=== PATIENT | male | born 1970 | race Caucasian/White ===

== ENCOUNTER 2018-08-26 11:23 | Emergency (ER) | payer BC ==
[~2018-08-26] VITALS: Ht 167.6 cm; Wt 111.1 kg
[~2018-08-26 11:23] MED LIST: ACHD5005 PO; ALBU0.632 IH; ALBU17AE3 IH; DOXY100C2 PO; PRD50T PO
--- OUTSIDE RECORDS SUMMARY | 2018-08-26 12:19 | XMS REPORT | Clinical Summary ---
Author Author [facility] Organization [facility] Address Unknown Phone Unavailable Care Team Providers Care Sports Physical Therapist Name Role Phone Self, Referral PCP Unavailable Nola Mota APRN Unavailable Keely Molina RN Unavailable Unavailable Denisse Strong RN Unavailable Unavailable Source Comments Some departments are not documenting in the electronic medical record. If you do not see the information that you expected, contact Release of Information in the Health Information Management department at [phone] for further assistance in locating additional records.[facility] Allergies No Known Allergies Current Medications Prescription Sig. Disp. Refills Start End Date Status Date MUCINEX PO Take by mouth. Active ALEVE PO Take by mouth. Active ipratropium/albuterol Inhale 2 Puffs by mouth 1 inhaler 0 08/23/20 Active (COMBIVENT) 103/18 Four Times Daily. 08 mcg/Actuation inhalerIndications: COPD albuterol (PROVENTIL; Inhale 2 Puffs by mouth 17 g 0 08/23/20 Active VENTOLIN) 90 Every 6 Hours as needed 08 mcg/Actuation for Wheezing. inhalerIndications: COPD ipratropium/albuterol Inhale 2 Puffs by mouth 1 inhaler 0 08/23/20 Active (COMBIVENT) 103/18 Four Times Daily. 08 mcg/Actuation inhalerIndications: COPD albuterol (PROVENTIL; Inhale 2 Puffs by mouth 17 g 0 08/23/20 Active VENTOLIN) 90 Every 6 Hours as needed 08 mcg/Actuation for Wheezing. inhalerIndications: COPD oxycodone/acetaminophen Take 1 Tab by mouth Every 15 0 10/17/19 Active (PERCOCET) 5/325 mg 4 Hours as needed for 09 tablet Pain. erythromycin (ERYTHROCIN) Take 1 Tab by mouth Twice 14 0 11/17/19 Active 500 mg tablet Daily. 09 albuterol (VENTOLIN HFA, Inhale 2 Puffs by mouth 8.5 g 0 11/17/19 Active PROAIR HFA) 90 Every 6 Hours as needed 09 mcg/Actuation inhaler for Wheezing. Active Problems Not on file Social History Tobacco Use Types Packs/Day Years Used Date Former Smoker Quit: 11/19/2007 Alcohol Use Drinks/Week oz/Week Comments No Sex Assigned at Date Recorded Not on file Last Filed Vital Signs Vital Sign Reading Time Taken Blood Pressure 130/76 11/17/2008 11:34 AM COMMERCIAL SALES REPRESENTATIVE Pulse 89 11/17/2008 1:02 PM COMMERCIAL SALES REPRESENTATIVE Temperature 37 C (98.6 F) 11/17/2008 11:34 AM COMMERCIAL SALES REPRESENTATIVE Respiratory Rate - - Oxygen Saturation 96% 11/17/2008 1:02 PM COMMERCIAL SALES REPRESENTATIVE Inhaled Oxygen - - Concentration Weight - - Height - - Body Mass Index - - Plan of Treatment Health Maintenance Due Date Last Done Comments PHYSICAL (COMPREHENSIVE) 1975 EXAM PERTUSSIS VACCINE 1979 HIV SCREENING 1983 TETANUS VACCINE 1985 INFLUENZA VACCINE 05/14/2018 COLORECTAL CANCER 2018 SCREENING SHINGLES RECOMBINANT 2018 VACCINE (1 of 2) Results Not on filefrom Last 3 Months
--- OUTSIDE RECORDS SUMMARY | 2018-08-26 12:19 | XMS REPORT ---
Author Author SHLOMO GLASS [facility] Address Unknown Phone Unavailable Care Team Providers Care Tool And Die Engineer Name Role Phone KODYRUPERTOSHLOMO Unavailable Unavailable PROBLEMS Type Condition ICD9-CM Code OHE33-DL Code Onset Dates Condition Status SNOMED Code Problem Chronic obstructive pulmonary disease, unspecified J44.9 Active 55763221 Problem Non-cardiac chest pain R07.89 Active 682827828 Problem Chronic obstructive pulmonary disease with (acute) exacerbation J44.1 Active 329426158 Problem Obesity, morbid E66.01 Active 325917327 Problem Poor diet E63.9 Active 168540681 Problem Enlarged prostate N40.0 Active 063008530 Problem Bloody stools K92.1 Active 514047108412765 Problem Pain in left lower leg M79.662 Active 27620957 Problem Acute deep vein thrombosis (DVT) of tibial vein of left lower extremity I82.442 Active 830630983024018 Problem Cervicalgia M54.2 Active 27001942 Problem Metabolic syndrome E88.81 Active 914590528 Problem Pneumonia of left lung due to infectious organism, unspecified part of lung J18.9 Active 189122492 Problem Irritability R45.4 Active 98709755 Problem High risk medication use Z79.899 Active 991851470 Problem Anhedonia R45.84 Active 28949230 Problem Pure hypercholesterolemia E78.0 Active 290756083 Problem Cervical radicular pain M54.12 Active 36525680 Problem Polyneuropathic pain M79.2 Active 574899769 Problem Cervical stenosis of spinal canal M48.02 Active 54249712 ALLERGIES No Information ENCOUNTERS Encounter Location Date Diagnosis Decision [address] [id number] [id number] Dec[facility] [id number] [id number] Dec, High risk medication use Z79.899 ; Anhedonia R45.84 and Obesity, morbid E66.01 [facility] [address] [id number][place] [address] Sep, High risk medication use Z79.899 ; Irritability R45.4 ; Pain in left lower leg M79.662 and Poor diet E63.9 [facility] [address] [id number][place] [address] Aug, [facility] [address] [id number][place] [address] Jul, [facility] [address] [id number][place] [address] Jul, Polyneuropathic pain M79.2 [facility] [address] [id number][place] [address] Jul, [facility] [address] [place] [address] AVE [id number][place] [address] Jul, Enlarged prostate N40.0 ; Pure hypercholesterolemia E78.0 and Encounter for immunization Z23 [facility] [address] [id number], [place] [address] May, Acute deep vein thrombosis (DVT) of tibial vein of left lower extremity I82.442 and Pure hypercholesterolemia E78.0 [facility] [id number][place] [address] Apr, [facility] [place] [address] [facility] [id number] [address] Mar, Enlarged prostate N40.0 and Bloody stools K92.1 [facility] [address] [id number][place] [address] February, Bloody stools K92.1 and Enlarged prostate N40.0 [facility] [address] [id number][place] [address] Nov, Polyneuropathic pain M79.2 and Non-cardiac chest pain R07.89 [facility] [address] [id number], [place] [address] Jul, Metabolic syndrome E88.81 [facility] [address] [id number], [place] [id number] May, [facility] [address] [id number][place] [address] May, [facility] [address] [id number][place] [address] May, [facility] [address] [id number], [place] [address] May, Chronic obstructive pulmonary disease, unspecified J44.9 and Chronic obstructive pulmonary disease with (acute) exacerbation J44.1 [place] [id number], [place] [address] Apr, [facility] [address] [id number], [place] [address] Mar, [facility] [address] [id number][place] [address] Mar, Cervical stenosis of spinal canal M48.02 [facility] [address] [id number], [place] [address] February, [facility] [address] [id number], [place] [address] February, [facility] [address] [id number][place] [address] February, High risk medication use Z79.899 ; Anhedonia R45.84 and Cervical radicular pain M54.12 [facility] [address] [id number], [place] [address] Jan, [facility] [address] [facility] [id number], [place] [address] Jan, [facility] [address] [id number], [place] [address] Jan, Metabolic syndrome E88.81 ; Pure hypercholesterolemia E78.0 ; Polyneuropathic pain M79.2 and Irritability R45.4 [facility] [address] [id number][place] [address] Dec, Polyneuropathic pain M79.2 [facility] [address]00565100[place], [place] [address] Dec, [address] [id number], [place] [address] Dec, Pneumonia of left lung due to infectious organism, unspecified part of lung J18.9 ; Cervicalgia M54.2 and Irritability R45.4 [facility] [address]00565100[place], [place] [address] Nov, [facility] [address]00565100[place], [place] [address] Nov, [facility] [address]00565100[place], [place] [address] Oct, [facility] [address] [id number], [place] [address] Aug, [facility] [address] [id number], [place] [address] Jul, Diverticulosis of large intestine without hemorrhage K57.30 and Abdominal pain, left lower quadrant R10.[address] [id number], [place] [address] Jul, [facility] [address] [id number], [place] [address] Jul, Blood in stool K92.1 ; Left lower quadrant pain R10.32 and Hematuria R31.[address] [id number], [place] [address] Jul, Left upper quadrant pain R10.12 and Hematuria R31.[address] [id number], [place] [address] Jun, Dysmetabolic Syndrome X 277.7 ; Unspecified essential hypertension 401.9 and Other and unspecified hyperlipidemia 272.[address] [id number][place] [address] Jun, Dysmetabolic Syndrome X 277.7 ; Obesity, unspecified 278.00 ; Other and unspecified hyperlipidemia 272.4 and Anhedonia 780.99 [facility] [address]00565100[place], [place] [address] May, [facility] [address]00565100[place], [place] [address] May, [facility] [address]00565100[place], [place] [address] Apr, Dysthymic disorder 300.4 [facility] [address]00565100[place], [place] [address] Apr, [facility] [address]00565100[place], [place] [address] Apr, Dysthymic disorder 300.4 [facility] [address] [id number], [place] [address] Apr, [address] [id number][place] [address] Mar, COPD with exacerbation 491.21 [facility] [address] [id number], [place] [address] Mar, Dysthymic disorder 300.4 [facility] [address] [id number], [place] [address] February, Dysthymic disorder 300.4 ; No condition on Friant II V71.09 ; COPD (chronic obstructive pulmonary disease) 496 ; Glaucoma 365.9 ; Arthritis 716.90 and Diabetes 250.00 [facility] [address] [id number][place] [address] February, [facility] [address] [id number], [place] [address] February, [facility] [address] [id number], [place] [address] Jan, [facility] [place] [facility] [address] [id number] [place] [address] Jan, [facility] [place] [facility] [address] [id number] [place] [address] Jan, [facility] [place] [facility] [address] [facility] [id number] [place] [address] Dec, [facility] [place] [facility] [address] [id number], [place] [address] Dec, [facility] [place] [facility] [address] [id number] [place] [address] Nov, [facility] [place] [facility] [address] [id number] [place] [address] Nov, [facility] [place] [facility] [address] [id number] [place] [address] Nov, [facility] [place] [facility] [address] [id number] [place] [address] Nov, [facility] [place] [facility] [address] [id number], [place] [address] Nov, [facility] [place] [facility] [address] [id number], [place] [address] Nov, [facility] [address] [id number] [address] Oct, [facility] [place] [facility] [address] [id number], [place] [address] Oct, [facility] [place] [facility] [address] [id number], [place] [address] Oct, [facility] [place] [facility] [address] [facility] [id number], [place] [address]- [address]60 Oct, [facility] [place] [facility] [address] [facility] [id number], [place] [address]- [address] Aug, [facility] [place] [facility] [address] [id number] [place] [address]- [address]28 Aug, [facility] [place] [facility] [address] [id number] [place] [address]- [address]93 Aug, [facility] [place] [facility] [address] [id number] [place] [address]- [address]53 Aug, [facility] [place] [facility] [address] [id number] [place] [address]- [address] Jul, [facility] [place] [facility] [address] [id number] [place] [address]- [address]646 Jul, [facility] [place] [facility] [address] [id number] [place] [address]- [address] Jul, [facility] [place] [facility] [address] [id number] [place] [address] Jul, [facility] [place] [facility] [address] [id number] [place] [address]- [address] Jul, [facility] [place] [facility] [address] [id number] [place] [address]- 6[address] Jul, [facility] [place] [facility] [address] [id number] [place] [address]- [address] Jul, [facility] [place] [facility] [address] [id number] [place] [address]- [address] Jul, [facility] [place] [facility] [address] [id number] [place] [address]- 45[address] Jun, [facility] [place] [facility] [address] [id number] [place] [address]- 7267 Jun, [facility] [place] [facility] [address] [id number] [place] [address]- [address] May, [facility] [place] [facility] [address] [id number] [place] [address]- [address] May, [facility] [place] [facility] [address] [id number] [place] [address] Apr, [facility] [place] [facility] [address] [id number] [place] [address]- 4866 Apr, [facility] [place] [facility] [address] [id number] [place] [address]- 4299 Apr, [facility] [place] [facility] [address] [id number] [place] [address]- 6113 Apr, [facility] [place] [facility] [address] [id number] [place] [address]- 8113 Apr, [facility] [place] [facility] [address] [id number] [place] [address]- [address]21 Apr, [facility] [place] [facility] [address] [id number] [place] [address]- 37[address] Apr, [facility] [place] [facility] [address] [id number] [place] [address]- 75[address] Apr, [facility] [place] [facility] [address] [id number] [place] [address]- 75[address] Mar, [facility] [place] [facility] [address] [id number] [place] [address]- 7860 Mar, [facility] [place] [facility] [address] [id number] [place] [address]- 8280 Mar, [facility] [place] [facility] [address] [id number] [place] [address]- 1691 Mar, [facility] [place] [facility] [address] [id number] [place] [address]- 58[address] February, [facility] [place] [facility] [address] [id number] [place] [address]- [address]39 February, [facility] [place] [facility] [address] [id number] [place] [address]- 2181 February, [facility] [place] [facility] [address] [id number] [place] [address]- 2175 February, [facility] [place] [facility] [address] [id number] [place] [address]- 6723 February, [facility] [address] [id number] [place] [address]- 6567 February, [facility] [address] [id number] [place] [address] February, [facility] [address] [id number] [place] [address]- 6070 February, [facility] [address] [id number] [place] [address]- 2527 Dec, [facility] [address] [id number] [place] [address]- 6[address] Dec, [facility] [address] [id number] [place] [address]- 5770 Dec, [facility] [address] [id number] [place] [address]- 5922 Dec, [facility] [address] [id number] [place] [address]- 7836 Dec, [facility] [address] [id number] [place] [address]- 6649 Dec, [facility] [address] [id number] [place] [address]- 8063 Dec, [facility] [address] [id number], [place] [address]- [address]14 Dec, [facility] [address] [id number] [place] [address]- 5586 Dec, [facility] [address] [id number], [place] [address] Nov, [facility] [address] [id number] [address] Nov, [facility] [address] [facility] [id number] [place] [address]- 2563 Nov, [facility] [place] [facility] [address] [id number] [place] [address]- 2546 Jun, [facility] [place] [facility] [address] [id number] [place] [address]- 2546 May, [facility] [place] [address] [id number] [place] [address] Apr, [facility] [address] [facility] [id number], [place] [address] February, [facility] [address] [id number] [place] [address]- [address]46 February, [facility] [place] [address] [id number] [place] [id number] Dec, [facility] [place] [address] [id number] [place] [address] Apr, [facility] [place] [address] [id number] [place] [address] Apr, [facility] [place] [address] [id number] [place] [address] Apr, [facility] [place] [address] [id number] [place] [address] Apr, [facility] [place] [address] [id number] [place] [address] Apr, [facility] [address] [facility] [id number], [place] [address] 3916 Nov, [facility] [address] [facility] [id number], [place] [address]- [address]387 Sep, [facility] [place] [facility] [address] [facility] [id number], [place] [address]- 2453 Sep, [facility] [place] [facility] [address] [facility] [id number] [place] [address]- 6252 Sep, [facility] [place] [facility] [address] [facility] [id number], [place] [address]- 2546 Sep, [facility] [address] [facility] [id number], [place] [address]- 4660 Sep, [facility] [address] [facility] [id number], [place] [address]- [address] Dec, [facility] [address] [id number], [place] [address] Sep, [facility] [address] [facility] [id number], [place] [address]- 6946 Sep, [facility] [address] [id number], [place] [address] May, [facility] [address] [facility] [id number], [place] [address] February, IMMUNIZATIONS No Known Immunizations SOCIAL HISTORY Never Assessed REASON FOR VISIT [facility] Contact PLAN OF CARE Activity Details Follow Up Likely to use services in near future Reason:affective lability VITAL SIGNS MEDICATIONS Unknown Medications RESULTS No Results PROCEDURES No Known procedures INSTRUCTIONS MEDICATIONS ADMINISTERED No Known Medications MEDICAL (GENERAL) HISTORY Type Description Date Medical History Unspecified vitamin D deficiency Medical History Dysmetabolic Syndrome X Medical History Unspecified hereditary and idiopathic peripheral neuropathy Medical History Unspecified essential hypertension Medical History Obesity, unspecified Medical History Other chronic pain Medical History Edema Medical History Other and unspecified hyperlipidemia Medical History Diabetes Medical History COPD, CHAZ, Asthma Medical History Diverticulitis Medical History 03/2016 EMG reveals mild CTS Medical History Right and Left CTS, 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
--- OUTSIDE RECORDS SUMMARY | 2018-08-26 12:19 | XMS REPORT ---
Author Author MAURICE CUMMINS [facility] Address [address] [place] [address] Care Team Providers Care Air Quality Technician Name Role Phone MAURICE CUMMINS Unavailable PROBLEMS Type Condition ICD9-CM Code KJS61-ON Code Onset Dates Condition Status SNOMED Code Problem Chronic obstructive pulmonary disease, unspecified J44.9 Active 71203771 Problem Non-cardiac chest pain R07.89 Active 364881622 Problem Chronic obstructive pulmonary disease with (acute) exacerbation J44.1 Active 254439714 Problem Obesity, morbid E66.01 Active 265079051 Problem Poor diet E63.9 Active 895591829 Problem Enlarged prostate N40.0 Active 573372082 Problem Bloody stools K92.1 Active 211055159123569 Problem Pain in left lower leg M79.662 Active 65630280 Problem Acute deep vein thrombosis (DVT) of tibial vein of left lower extremity I82.442 Active 794811072350130 Problem Cervicalgia M54.2 Active 09071211 Problem Metabolic syndrome E88.81 Active 243390632 Problem Pneumonia of left lung due to infectious organism, unspecified part of lung J18.9 Active 488260290 Problem Irritability R45.4 Active 69408662 Problem High risk medication use Z79.899 Active 918663816 Problem Anhedonia R45.84 Active 16399399 Problem Pure hypercholesterolemia E78.0 Active 013691426 Problem Cervical radicular pain M54.12 Active 24304454 Problem Polyneuropathic pain M79.2 Active 099547510 Problem Cervical stenosis of spinal canal M48.02 Active 18802817 ALLERGIES No Information ENCOUNTERS Encounter Location Date Diagnosis [facility] [address] [id number] [place] [id number] Apr, [facility] [employer] [facility] [facility] [address] [id number] [id number] Dec, [facility] [address] [id number] [address] Dec, High risk medication use Z79.899 ; Anhedonia R45.84 and Obesity, morbid E66.[address] [facility] [address] [id number] [address] Sep, High risk medication use Z79.899 ; Irritability R45.4 ; Pain in left lower leg M79.662 and Poor diet E63.[address] [facility] [address] [id number][place] [address] Aug, [facility] [address] [id number], [place] [id number] Jul, [facility] [address] [id number][place] [address] Jul, Polyneuropathic pain M79.[address] [facility] [address] [id number], [place] [address] Jul, [facility] [address] [id number], [place] [address] Jul, Enlarged prostate N40.0 ; Pure hypercholesterolemia E78.0 and Encounter for immunization Z23 [facility] [address] [id number], [place] [id number] May, Acute deep vein thrombosis (DVT) of tibial vein of left lower extremity I82.442 and Pure hypercholesterolemia E78.[address] [facility] [address] [id number][place] [address] Apr, [facility] [address] [id number] [address] Mar, Enlarged prostate N40.0 and Bloody stools K92.[address] [facility] [address] [id number][place] [address] February, Bloody stools K92.1 and Enlarged prostate N40.[address] [facility] [address] [id number], [place] [address] Nov, Polyneuropathic pain M79.2 and Non-cardiac chest pain R07.[address] [facility] [address] [id number][place] [address] Jul, Metabolic syndrome E88.[address] [facility] [address] [address] [id number][place] [id number] May, [facility] [id number][place] [address] May, [facility] [id number], [place] [address] May, [facility] [address] [id number][place] [address] May, Chronic obstructive pulmonary disease, unspecified J44.9 and Chronic obstructive pulmonary disease with (acute) exacerbation J44.1 [place] [address]00565100[place] [address] Apr, [facility] [address] [id number], [place] [id number] Mar, [facility] [address] [id number][place] [address] Mar, Cervical stenosis of spinal canal M48.02 [facility] [address] [id number] [address] February, [facility] [address] [id number], [place] [address] February, [facility] [address] [id number], [place] [address] February, High risk medication use Z79.899 ; Anhedonia R45.84 and Cervical radicular pain M54.[address] [facility] [address] [id number], [place] [address] Jan, [facility] [address]00565100[place] [address] Jan, [facility] [address] [id number], [place] [address] Jan, Metabolic syndrome E88.81 ; Pure hypercholesterolemia E78.0 ; Polyneuropathic pain M79.2 and Irritability R45.4 [facility] [address] [id number], [place] [address] Dec, Polyneuropathic pain M79.2 [facility] [address]00565100[place] [address] Dec, [address] [id number][place] [address] Dec, Pneumonia of left lung due to infectious organism, unspecified part of lung J18.9 ; Cervicalgia M54.[address] [facility] [address]00565100[place] [address] Nov, [facility] [id number] [place] [address] Nov, [facility] [id number] [place] [address] Oct, [facility] [address] [id number], [place] [address] Aug, [facility] [address] [id number][place] [id number] Jul, Diverticulosis of large intestine without hemorrhage K57.30 and Abdominal pain, left lower quadrant R10.[address] [facility] K[facility] [address] [place] [address] AVE [id number], [place] [address] Jul, [facility] [address] [place] [address] AVE [id number], [place] [address] Jul, Blood in stool K92.1 ; Left lower quadrant pain R10.32 and Hematuria R31.9 [facility] [address] [place] [address] AVE [id number], [place] [address] Jul, Left upper quadrant pain R10.12 and Hematuria R31.9 [facility] [address] [id number], [place] [address] Jun, Dysmetabolic Syndrome X 277.7 ; Unspecified essential hypertension 401.9 and Other and unspecified hyperlipidemia 272.4 [facility] [address] [id number][place] [address] Jun, Dysmetabolic Syndrome X 277.7 ; Obesity, unspecified 278.00 ; Other and unspecified hyperlipidemia 272.[address] [facility] [address]00565100[place] [address] May, [facility] [id number] [place] [address] May, [facility] [address] [id number] [address] Apr, Dysthymic disorder 300.4 [place] [address]00565100[place], [place] [address] Apr, [facility] [address]00565100[place] [address] Apr, Dysthymic disorder 300.4 [place] [address]00565100[place], [place] [address] Apr, [address] [id number][place] [address] Mar, COPD with exacerbation 491.21 [facility] [address] [id number] [address]- [address] Mar, Dysthymic disorder 300.4 [place] [address] [id number] [address]- [address] February, Dysthymic disorder 300.4 ; No condition on Muse II V71.09 ; COPD (chronic obstructive pulmonary disease) 496 ; Glaucoma 365.9 ; Arthritis 716.90 and Diabetes 250.[address] [id number], [place] [address] February, [facility] [address] [id number], [place] [address] February, [facility] [address] [id number], [place] [address] Jan, [facility] [place] [facility] [address] [facility] [id number] [address] Jan, [facility] [place] [facility] [address] [facility] [id number][place] [address] Jan, [facility] [place] [facility] [address] [facility] [id number] [address] Dec, [facility] [place] [facility] [address] [facility] [id number] [address]- [address] Dec, [facility] [place] [facility] [address] [id number] [address] Nov, [facility] [place] [facility] [address] [id number] [address] Nov, [facility] [place] [facility] [address] [id number] [address]- [address] Nov, [facility] [place] [facility] [address] [id number] [address]- 1704 Nov, [facility] [place] [facility] [address] [id number] [address]- 7[address] Nov, [facility] [place] [facility] [address] [facility] [id number] [address] Nov, [facility] [address] [facility] [id number], [place] 15880[address] Oct, [facility] [place] [facility] [address] [facility] [id number][place] [address]- [address]226 Oct, [facility] [place] [facility] [address] [facility] [id number] [address]- 1713 Oct, [facility] [place] [facility] [address] [id number] [address]- [address] Oct, [facility] [place] [facility] [address] [id number] [place] [address]- [address]693 Aug, [facility] [place] [facility] [address] [id number] [place] [address]- 6834 Aug, [facility] [place] [facility] [address] [id number] [place] [address]- 9971 Aug, [facility] [place] [facility] [address] [id number] [place] [address]- 6028 Aug, [facility] [place] [facility] [address] [id number] [place] [address]- 3854 Jul, [facility] [place] [facility] [address] [id number] [place] [address] 1969 Jul, [facility] [place] [facility] [address] [id number] [place] [address]- 2706 Jul, [facility] [place] [facility] [address] [id number] [place] [address]- 9593 Jul, [facility] [place] [facility] [address] [id number] [place] [address]- 1896 Jul, [facility] [place] [facility] [address] [id number] [place] [address]- 1070 Jul, [facility] [place] [facility] [address] [id number] [place] [address]- 1710 Jul, [facility] [place] [facility] [address] [id number], [place] [address]- 8088 Jul, [facility] [place] [facility] [address] [id number] [place] [address]- 3096 Jun, [facility] [place] [facility] [address] [id number] [place] [address]- 6896 Jun, [facility] [place] [facility] [address] [id number] [place] [address]- 5584 May, [facility] [place] [facility] [address] [id number] [place] [address]- 1405 May, [facility] [place] [facility] [address] [id number] [place] [address]- 4056 Apr, [facility] [place] [facility] [address] [id number] [place] [address]- 2018 Apr, [facility] [place] [facility] [address] [id number] [place] [address]- 4657 Apr, [facility] [place] [facility] [address] [id number] [place] [address]- 2996 Apr, [facility] [place] [facility] [address] [id number] [place] [address]- 9095 Apr, [facility] [place] [facility] [address] [id number] [place] [address]- 7494 Apr, [facility] [place] [facility] [address] [id number] [place] [address]- 4553 Apr, [facility] [place] [facility] [address] [id number] [place] [address]- 6362 Apr, [facility] [place] [facility] [address] [id number] [place] [address]- 9104 Mar, [facility] [place] [facility] [address] [id number] [place] [address]- 9212 Mar, [facility] [place] [facility] [address] [id number] [place] [address]- 7445 Mar, [facility] [place] [facility] [address] [id number] [place] [address]- 4561 Mar, [facility] [place] [facility] [address] [id number] [place] [address]- 9773 February, [facility] [place] [facility] [address] [id number] [place] [address]- 6031 February, [facility] [place] [facility] [address] [id number] [place] [address]- 5042 February, [facility] [address] [id number] [place] [address]- 4315 February, [facility] [address] [id number] [place] [address]- 5536 February, [facility] [address] [facility] [id number] [place] [address]- 9659 February, [facility] [address] [id number] [place] [address]- 3001 February, [facility] [address] [id number] [place] [address]- 8515 February, [facility] [address] [id number] [place] [address]- 6618 Dec, [facility] [address] [id number] [place] [address]- 2038 Dec, [facility] [address] [id number] [place] [address]- 4658 Dec, [facility] [address] [id number] [place] [address]- 1024 Dec, [facility] [address] [id number] [place] [address]- 9211 Dec, [facility] [address] [id number] [address]- 9940 Dec, [facility] [place] [facility] [address] [id number] [place] [address]- 2293 Dec, [facility] [address] [id number] [place] [address]- 4294 Dec, [facility] [place] [facility] [address] [facility] [id number] [place] [address]- 0105 Dec, [facility] [address] [facility] [id number] [place] [address]- 9626 Nov, [facility] [address] [id number] [place] [id number] Nov, [facility] [place] [facility] [address] [facility] [id number] [place] [address]- 2224 Nov, [facility] [place] [facility] [address] [facility] [id number] [address]- 3577 Jun, [facility] [address] [facility] [id number], [place] [address]- 4949 May, [facility] [address] [id number] [place] [id number] Apr, [facility] [address] [facility] [id number] [place] [address]- 9386 February, [facility] [address] [id number] [address]- 7343 February, [facility] [address] [id number] [place] [id number] Dec, [facility] [address] [id number] [place] [address] Apr, [facility] [address] [id number] [place] Apr, [facility] [address] [id number] [place] [address] Apr, [facility] [address] [id number] [place] [address]33[address]67[address] Apr, [facility] [address] [facility] [id number] [place] 110[address] Apr, [facility] [address] [facility] [id number], [place] [address]- 4986 Nov, [facility] [place] [facility] [address] [facility] [id number], [place] [address]- 9497 Sep, [facility] [place] [facility] [address] [id number] [address]- 3532 Sep, [facility] [address] [id number] [address]- 8315 Sep, [facility] [place] [facility] [address] [id number] [address]- [address] Sep, [facility] [address] [id number] [address] Sep, [facility] [address]00565100[place] [address] Dec, [facility] [address] [id number] [address]- [address]4 Sep, [facility] [address] [id number] [address]- 1108 Sep, [facility] [address] [id number] [address]- 9269 May, [facility] [address]00565100[place] [address]- [address]125 February, IMMUNIZATIONS No Known Immunizations SOCIAL HISTORY Never Assessed REASON FOR VISIT triage PLAN OF CARE VITAL SIGNS MEDICATIONS Unknown Medications RESULTS No [...] TSH less than 1 Medical History DVT [id number] pos tibial Surgical History cataract-lens implants Surgical History eye surgery for glaucoma Surgical History heart cath Surgical History left CTS 05/2016 Surgical History carpal tunnel release, bilat april and may Hospitalization History pneumonia 11/2015 Hospitalization History chest pain-ruled out cardiac cause 10/2016
--- OUTSIDE RECORDS SUMMARY | 2018-08-26 12:20 | XMS REPORT ---
Author Author MAURICE CUMMINS [facility] Address [address] [place] [address] Care Team Providers Care Hand Expansion Envelope Maker Name Role Phone MAURICE CUMMINS Unavailable PROBLEMS Type Condition ICD9-CM Code CIC36-HL Code Onset Dates Condition Status SNOMED Code Problem Chronic obstructive pulmonary disease, unspecified J44.9 Active 42327530 Problem Non-cardiac chest pain R07.89 Active 661817294 Problem Chronic obstructive pulmonary disease with (acute) exacerbation J44.1 Active 140918732 Problem Obesity, morbid E66.01 Active 300508486 Problem Poor diet E63.9 Active 881450472 Problem Enlarged prostate N40.0 Active 258401089 Problem Bloody stools K92.1 Active 504635412839360 Problem Pain in left lower leg M79.662 Active 30610072 Problem Acute deep vein thrombosis (DVT) of tibial vein of left lower extremity I82.442 Active 531012278477742 Problem Cervicalgia M54.2 Active 77728720 Problem Metabolic syndrome E88.81 Active 295748643 Problem Pneumonia of left lung due to infectious organism, unspecified part of lung J18.9 Active 408322534 Problem Irritability R45.4 Active 97016082 Problem High risk medication use Z79.899 Active 420977949 Problem Anhedonia R45.84 Active 09869292 Problem Pure hypercholesterolemia E78.0 Active 619873012 Problem Cervical radicular pain M54.12 Active 13142923 Problem Polyneuropathic pain M79.2 Active 780616693 Problem Cervical stenosis of spinal canal M48.02 Active 20187976 ALLERGIES No Known Allergies ENCOUNTERS Encounter Location Date Diagnosis [facility] [address] [id number] [place] [id number] Dec, [address] [id number] [address] Dec, High risk medication use Z79.899 ; Anhedonia R45.84 and Obesity, morbid E66.[address] [facility] [address] [id number] [place] [address] Sep, High risk medication use Z79.899 ; Irritability R45.4 ; Pain in left lower leg M79.662 and Poor diet E63.[address] [facility] [address] [id number] [place] [id number] Aug, [facility] [address] [id number] [place] [address] Jul, [facility] [address] [id number] [place] [address] Jul, Polyneuropathic pain M79.[address] [facility] [address] [id number] [place] [address] Jul, [facility] [id number] [place] [id number] Jul, Enlarged prostate N40.0 ; Pure hypercholesterolemia E78.0 and Encounter for immunization Z23 [facility] [address] [id number] [place] [id number] May, Acute deep vein thrombosis (DVT) of tibial vein of left lower extremity I82.442 and Pure hypercholesterolemia E78.0 [facility] [address] [id number] [place] [address] Apr, [facility] [address] [id number][place] [address] Mar, Enlarged prostate N40.0 and Bloody stools K92.[address] [facility] [address] [id number] [place] [address] February, Bloody stools K92.1 and Enlarged prostate N40.[address] [facility] [address] [id number] [place] [address] Nov, Polyneuropathic pain M79.2 and Non-cardiac chest pain R07.[address] [facility] [address] [id number] [place] [address] Jul, Metabolic syndrome E88.81 [facility] [address] [id number] [place] [id number] May, [facility] [place] [address] [id number][place] [id number] May, [facility] [place] [address] [id number][place] [id number] May, [facility] [address] [id number] [place] [address] May, Chronic obstructive pulmonary disease, unspecified J44.9 and Chronic obstructive pulmonary disease with (acute) exacerbation J44.1 [facility] [address] [id number] [address] Apr, [facility] [address] [id number] [place] [id number] Mar, [facility] [address] [id number] [place] [id number] Mar, Cervical stenosis of spinal canal M48.02 [place] [address] [id number], [place] [address] February, [facility] [address] [id number] [place], [place] [address] February, [facility] [address] [id number] [place] [id number] February, High risk medication use Z79.899 ; Anhedonia R45.84 and Cervical radicular pain M54.12 [facility] [address] [id number] [place] [id number] Jan, [facility] [address] [facility] [id number], [place] [address] Jan, [facility] [address] [id number] [place], [place] [address]16[address] Jan, Metabolic syndrome E88.81 ; Pure hypercholesterolemia E78.0 ; Polyneuropathic pain M79.2 and Irritability R45.[address] [id number] [place] [address] Dec, Polyneuropathic pain M79.2 [facility] [address]00565100[place], [place] [address] Dec, [address] [id number] [place] [id number] Dec, Pneumonia of left lung due to infectious organism, unspecified part of lung J18.9 ; Cervicalgia M54.2 and Irritability R45.4 [facility] [id number] [place] [address] Nov, [facility] [id number] [place] [address] 8270 Nov, [facility] [id number] [place] [address] Oct, [address] [id number] [place] [address] Aug, [facility] [address] [id number] [place] [id number] Jul, Diverticulosis of large intestine without hemorrhage K57.30 and Abdominal pain, left lower quadrant R10.32 [facility] [address] [id number] [place] [id number] Jul, [facility] [address] [id number] [place] [id number] Jul, Blood in stool K92.1 ; Left lower quadrant pain R10.32 and Hematuria R31.9 [facility] [address] [place] [address] AVE [id number] [place] [address] Jul, Left upper quadrant pain R10.12 and Hematuria R31.[address] [id number] [place] [address] Jun, Dysmetabolic Syndrome X 277.7 ; Unspecified essential hypertension 401.9 and Other and unspecified hyperlipidemia 272.[address] [facility] [address] [id number] [place] [id number] Jun, Dysmetabolic Syndrome X 277.7 ; Obesity, unspecified 278.00 ; Other and unspecified hyperlipidemia 272.4 and Anhedonia 780.99 [facility] [address]00565100[place], [place] [address] May, [facility] [id number] [place] [id number]- [address] May, [facility] [id number] [place] [address]- 6226 Apr, Dysthymic disorder 300.4 [facility] [id number] [place] [address]- 7684 Apr, [facility] [id number] [place] [address]- 1440 Apr, Dysthymic disorder 300.4 [facility] [id number] [place] [address]18- 9270 Apr, [address] [id number] [place] [id number] Mar, COPD with exacerbation 491.[address] [place] [id number] [place] [address] 9157 Mar, Dysthymic disorder 300.4 [facility] [address] [place] [address] [id number]- 2250 February, Dysthymic disorder 300.4 ; No condition on [place] II V71.09 ; COPD (chronic obstructive pulmonary disease) 496 ; Glaucoma 365.9 ; Arthritis 716.90 and Diabetes [address] [id number] [place] [id number] February, [facility] [address] [place] [address] AVE [id number] [place] [address] February, [facility] [id number] [place] [id number] Jan, [facility] [place] [facility] [address] [facility] [id number], [place] [address] Jan, [facility] [place] [facility] [address] [facility] [id number], [place] [address]- [address] Jan, [facility] [place] [facility] [address] [facility] [id number], [place] [address] 79[address] Dec, [facility] [place] [facility] [address] [facility] [id number], [place] [address] Dec, [facility] [place] [facility] [address] [facility] [id number], [place] [address]- 8[address] Nov, [facility] [place] [facility] [address] [id number], [place] [address] Nov, [facility] [place] [facility] [address] [facility] [id number], [place] [address]- 1450 Nov, [facility] [place] [facility] [address] [facility] [id number], [place] [address]- 5595 Nov, [facility] [place] [facility] [address] [id number], [place] [address] Nov, [facility] [place] [facility] [address] [facility] [id number], [place] [address]- [address] Nov, [facility] [address] [id number], [place] 144[address] Oct, [facility] [place] [facility] [address] [facility] [id number], [place] [address]- 9534 Oct, [facility] [place] [facility] [address] [facility] [id number], [place] [address]- [address]88 Oct, [facility] [place] [facility] [address] [facility] [id number], [place] [address]- 3489 Oct, [facility] [place] [facility] [address] [facility] [id number] [place] [address]- 6247 Aug, [facility] [place] [facility] [address] [id number] [place] [address]- 8107 Aug, [facility] [place] [facility] [address] [id number] [place] [address]- [address] Aug, [facility] [place] [facility] [address] [id number] [place] [address]- 0333 Aug, [facility] [place] [facility] [address] [id number] [place] [address]- 9262 Jul, [facility] [place] [facility] [address] [id number] [place] [address]- 8129 Jul, [facility] [place] [facility] [address] [id number] [place] [address]- 0369 Jul, [facility] [place] [facility] [address] [id number] [place] [address]- 7124 Jul, [facility] [place] [facility] [address] [id number] [place] [address]- 2488 Jul, [facility] [place] [facility] [address] [id number] [place] [address]- 6524 Jul, [facility] [place] [facility] [address] [id number] [place] [address]- 4899 Jul, [facility] [place] [facility] [address] [id number] [place] [address]- 2685 Jul, [facility] [place] [facility] [address] [id number] [place] [address]- 6864 Jun, [facility] [place] [facility] [address] [id number] [place] [address]- 7532 Jun, [facility] [place] [facility] [address] [id number] [place] [address]- 5844 May, [facility] [place] [facility] [address] [id number] [place] [address]- 6231 May, [facility] [place] [facility] [address] [id number] [place] [address]- 4642 Apr, [facility] [place] [facility] [address] [id number] [place] [address]- 8100 Apr, [facility] [place] [facility] [address] [id number] [place] [address]- 9702 Apr, [facility] [place] [facility] [address] [id number] [place] [address]- 8852 Apr, [facility] [place] [facility] [address] [id number] [place] [address]- 4056 Apr, [facility] [place] [facility] [address] [id number] [place] [address]- 4900 Apr, [facility] [place] [facility] [address] [id number] [place] [address]- 0558 Apr, [facility] [place] [facility] [address] [id number] [place] [address]- 9110 Apr, [facility] [place] [facility] [address] [id number] [place] [address]- 5377 Mar, [facility] [place] [facility] [address] [id number] [place] [address]- 4749 Mar, [facility] [place] [facility] [address] [id number] [place] [address]- 9599 Mar, [facility] [place] [facility] [address] [id number] [place] [address]- 8403 Mar, [facility] [place] [facility] [address] [id number] [place] [address]- 7835 February, [facility] [place] [facility] [address] [id number] [place] [address]- 3945 February, [facility] [place] [facility] [address] [id number] [place] [address]- 2026 February, [facility] [place] [facility] [address] [id number], [place] [address]- 7084 February, [facility] [address] [id number] [place] [address]- 8012 February, [facility] [place] [facility] [address] [id number] [place] [address] February, [facility] [address] [id number] [place]- [address]181 February, [facility] [place] [facility] [address] [id number] [place] [address]- 6743 February, [facility] [place] [facility] [address] [id number] [place] [address]- 1244 Dec, [facility] [place] [facility] [address] [id number] [place] [address]- 6632 Dec, [facility] [place] [facility] [address] [id number] [place] [address]- 0601 Dec, [facility] [place] [facility] [address] [id number], [place] [address]- 2375 Dec, [facility] [address] [id number], [place] [address]- 4831 Dec, [facility] [place] [facility] [address] [id number], [place] [address]- 2585 Dec, [facility] [address] [id number], [place] [address]- 3896 Dec, [facility] [place] [facility] [address] [id number], [place] [address]- 0730 Dec, [facility] [place] [facility] [address] [id number] [place] [address]- 4961 Dec, [facility] [place] [facility] [address] [facility] [id number], [place] [address]- [address]291 Nov, [facility] [address] [id number][place] [id number] Nov, [facility] [address] [facility] [id number], [place] [address]- 6546 Nov, [facility] [address] [facility] [id number], [place] [address]- 1715 Jun, [facility] [address] [facility] [id number], [place] [address]- 2546 May, [facility] [address] [id number] [place] [id number] Apr, [facility] [address] [id number], [place] [address]- 0446 February, [facility] [address] [facility] [id number], [place] [address]- 6436 February, [facility] [address] [id number] [place] [address] Dec, [facility] [address] [id number] [place] [address] Apr, [facility] [address] [id number] [place] [address] Apr, [facility] [address] [id number] [place] [id number] Apr, [facility] [address] [id number] [place] [id number] Apr, [facility] [address] [id number] [place] [id number] Apr, [facility] [address]65[address], [place] [address]- 1406 Nov, [facility] [address] [facility] [id number], [place] [address]- 9899 Sep, [facility] [address]00565100[place], [place] [address]- 3120 Sep, [facility] [place] [facility] [address] [id number], [place] [address]- [address] Sep, [facility] [address] [id number], [place] [address]- 6156 Sep, [facility] [address] [facility] [id number], [place] [address]- 0641 Sep, [facility] [address] [id number] [address]- 5939 Dec, [facility] [address]65100[place], [place] [address]- 8367 Sep, [facility] [address]65100[place], [place] [address]- 6666 Sep, [facility] [address] [facility] [id number], [place] [address]- 8418 May, [place] [address], [place] [address]- [address]35 February, IMMUNIZATIONS No Known Immunizations SOCIAL HISTORY Never Assessed REASON FOR VISIT Depression and weight gain bferrisma PLAN OF CARE Activity Details Follow Up 6 Months Reason:metabolic syndrome VITAL SIGNS Height 66 in 2017-12-26 Weight 234.0 lbs 2017-12-26 Temperature 98.0 degrees Fahrenheit 2017-12-26 Heart Rate 62 bpm 2017-12-26 Respiratory Rate 18 2017-12-26 BMI 37.76 kg/m2 2017-12-26 Blood pressure systolic 136 mmHg 2017-12-26 Blood pressure diastolic 74 mmHg 2017-12-26 MEDICATIONS Medication Instructions Dosage Frequency Start Date End Date Duration Status Albuterol Sulfate 0.083% USE ONE VIAL IN NEBULIZER EVERY 6 HOURS NEEDED FOR COUGH AND OR WHEEZING FOUR TIMES A DAY 25 Active Cymbalta 60 mg Orally Once a day 1 capsule 24h 90 days Active ProAir HFA 108 (90 Base) mcg/act Inhalation every 6 hrs for shortness of breath/cough 2 puffs as needed Aug, Active Ibuprofen 800 MG Orally Three times a day 1 tablet with food or milk as needed 8h Active Hydrochlorothiazide 12.5MG Orally Once a day 1 capsule 24h Active Spiriva Respimat 1.25 MCG/ACT Inhalation Once a day 2 puffs 24h Active Flonase 50 MCG/ACT Nasally Once a day 1 spray in each nostril 24h February, Not-Taking Voltaren 1 % Transdermal 4 times a day as directed for pain 6h Sep, Not-Taking Metformin HCl 500MG Orally 2 times a day 1 tablet with meals 12h Active Aspir-81 81 MG Orally Once a day 1 tablet 24h Active Albuterol Sulfate HFA 108 (90 Base) MCG/ACT Inhalation every 4 hrs 2 puffs as needed 4h Active Zanaflex 4 MG Orally Three times a day 1 capsule as needed FOR PAIN/MUSCLE PAIN 8h 14 Nov, 2016 Not-Taking Xarelto 20 mg Orally Once a day 1 tablet with food-start this after starter pack 24h May, Active Simvastatin 20MG Orally Once a day 1 tablet in the evening 24h Active Nebulizer nebulizer as directed May, Active Gabapentin 600 MG Orally 3 times a day 1 capsule 8h Dec, 0 days Active Symbicort 80-4.5 Inhalation Twice a day 2 puffs 12h 30 Active RESULTS No Results PROCEDURES No Known procedures [...] TSH less than 1 Medical History DVT [id number] pos tibial Medical History 2010 tetanus shot Surgical History cataract-lens implants Surgical History eye surgery for glaucoma Surgical History heart cath Surgical History left CTS 05/2016 Surgical History carpal tunnel release, bilat april and may Hospitalization History pneumonia 11/2015 Hospitalization History chest pain-ruled out cardiac cause 10/2016
--- OUTSIDE RECORDS SUMMARY | 2018-08-26 12:20 | XMS REPORT ---
Author Author MAURICE CUMMINS [facility] eClinicalWorks Address Unknown Phone Unavailable Care Team Providers Care Hospital Monitor Name Role Phone MAURICE CUMMINS CP Unavailable Allergies No Known Allergies Problems Problem Type Condition Code Onset Dates Condition Status Problem Pneumonia of left lung due to infectious organism, unspecified part of lung J18.9 Active Problem Metabolic syndrome E88.81 Active Problem Pure hypercholesterolemia E78.0 Active Problem Irritability R45.4 Active Problem Cervicalgia M54.2 Active Problem Chronic obstructive pulmonary disease with (acute) exacerbation J44.1 Active Problem Cervical stenosis of spinal canal M48.02 Active Problem Chronic obstructive pulmonary disease, unspecified J44.9 Active Problem Cervical radicular pain M54.12 Active Problem Polyneuropathic pain M79.2 Active Problem High risk medication use Z79.899 Active Problem Anhedonia R45.84 Active Medications Medication Code System Code Instructions Start Date End Date Status Dosage Spiriva Respimat [facility] [address]-72 1.25 MCG/ACT Inhalation Once a day 2 puffs Symbicort [facility] [address]-16 80-4.5 MCG/ACT Inhalation Twice a day 2 puffs Results No Known Results Summary Purpose eClinicalWorks Submission
--- OUTSIDE RECORDS SUMMARY | 2018-08-26 12:20 | XMS REPORT ---
Author Author MAURICE CUMMINS Organization eClinical[employer] Address Unknown Phone Unavailable Care Team Providers Care Crossbar Frame Wirer Name Role Phone MAURICE CUMMINS CP Unavailable Allergies, Adverse Reactions, Alerts Substance Reaction Event Type N.K.D.A. Info Not Available Non Drug Allergy Problems Problem Type Condition Code Onset Dates Condition Status Assessment Abdominal pain, left lower quadrant R10.32 Active Assessment Diverticulosis of large intestine without hemorrhage K57.30 Active Medications Medication Code System Code Instructions Start Date End Date Status Dosage Simvastatin NDC [address]-64 20 MG Orally Once a day Jul 22, 2014 1 tablet in the evening Albuterol Sulfate NDC 00861607197 0.083% USE ONE VIAL IN NEBULIZER EVERY 6 HOURS NEEDED FOR COUGH AND OR WHEEZING metformin NDC 0 500 mg Nov 24, 2014 take 1 tablet by Oral route 2 times per day with food Procedures Procedure Coding System Code Date Office Visit, Est Pt., Level 3 CPT-4 18790 Aug 11, 2015 Vital Signs Date/Time: Aug 11, 2015 Temperature 98.0 F Weight 226.0 lbs Height 66 in BMI 36.47 Index Blood Pressure Diastolic 82 mmHg Blood Pressure Systolic 122 mmHg Cardiac Monitoring Heart Rate 74 bpm Results No Known Results Summary Purpose eClinicalWorks Submission
--- OUTSIDE RECORDS SUMMARY | 2018-08-26 12:20 | XMS REPORT ---
Author Author MAURICE CUMMINS Organization e[employer] Address Unknown Phone Unavailable Care Team Providers Care Director Of Marketing Name Role Phone MAURICE CUMMINS Unavailable Allergies No Known Allergies Problems No Known Problems Medications No Known Medications Results No Known Results Summary Purpose eClinicalWorks Submission
--- OUTSIDE RECORDS SUMMARY | 2018-08-26 12:20 | XMS REPORT ---
Author Author MAURICE CUMMINS Organization e[employer] Address Unknown Phone Unavailable Care Team Providers Care [employer] Operations Specialist Name Role Phone MAURICE CUMMINS CP Unavailable Allergies No Known Allergies Problems Problem Type Condition Code Onset Dates Condition Status Problem Irritability R45.4 Active Problem Pneumonia of left lung due to infectious organism, unspecified part of lung J18.9 Active Problem Cervicalgia M54.2 Active Problem High risk medication use Z79.899 Active Problem Anhedonia R45.84 Active Problem Cervical stenosis of spinal canal M48.02 Active Problem Metabolic syndrome E88.81 Active Problem Pure hypercholesterolemia E78.0 Active Problem Cervical radicular pain M54.12 Active Problem Polyneuropathic pain M79.2 Active Medications No Known Medications Results No Known Results Summary Purpose eClinicalWorks Submission
--- OUTSIDE RECORDS SUMMARY | 2018-08-26 12:20 | XMS REPORT ---
Author SARAH Mccarthy [employer] Address Unknown Phone Unavailable Care Team Providers Care Impregnator Operator Name Role Phone SARAH POWERS CP Unavailable Allergies, Adverse Reactions, Alerts Substance Reaction Event Type N.K.D.A. Info Not Available Non Drug Allergy Problems Problem Type Condition Code Onset Dates Condition Status Problem Dental caries extending into pulp 521.03 Active Problem Obesity, unspecified 278.00 Active Problem Unspecified disorder of the teeth and supporting structures 525.9 Active Problem Pure hyperglyceridemia 272.1 Active Problem Unspecified vitamin D deficiency 268.9 Active Problem Diabetes 250.00 Active Problem Unspecified essential hypertension 401.9 Active Problem Sprain and strain of ribs 848.3 Active Problem Dysmetabolic Syndrome X 277.7 Active Problem Unspecified hereditary and idiopathic peripheral neuropathy 356.9 Active Assessment Left upper quadrant pain R10.12 Active Problem Other and unspecified hyperlipidemia 272.4 Active Assessment Hematuria R31.9 Active Problem Edema 782.3 Active Problem Other chronic pain 338.29 Active Problem Other dyspnea and respiratory abnormalities 786.09 Active Problem Other general symptoms 780.99 Active Problem Other follow-up examination V67.59 Active Problem Syncope and collapse 780.2 Active Medications Medication Code System Code Instructions Start Date End Date Status Dosage Simvastatin [facility] [address]-33 20 MG Orally Once a day Jul 22, 2014 1 tablet in the evening metformin [facility] 0 500 mg Nov 24, 2014 take 1 tablet by Oral route 2 times per day with food Spiriva Respimat [facility] [address]-11 2.5 MCG/ACT Inhalation Once a day Jun 21, 2015 Jul 21, 2015 2 puffs Albuterol Sulfate [facility] 38015652132 0.083% USE ONE VIAL IN NEBULIZER EVERY 6 HOURS NEEDED FOR COUGH AND OR WHEEZING Symbicort [facility] [address]-13 160-4.5 mcg/actuation Inhalation Twice a day Aug 04, 2014 Jul 21, 2015 2 puffs Procedures Procedure Coding System Code Date TORADOL (IM) 15 MG/ML (UP TO 15 MG) CPT-4 J1885 Jul 21, 2015 THER/PROPH/DIAG INJ, SC/IM CPT-4 60278 Jul 21, 2015 URINALYSIS, AUTO, W/O SCOPE CPT-4 79807 Jul 21, 2015 Office Visit, Est Pt., Level 3 CPT-4 51861 Jul 21, 2015 Vital Signs Date/Time: Jul 21, 2015 Temperature 98.6 F Weight 228.4 lbs Height 66 in BMI 36.86 Index Blood Pressure Diastolic 78 mmHg Blood Pressure Systolic 130 mmHg Cardiac Monitoring Heart Rate 86 bpm Results No Known Results Summary Purpose eClinicalWorks Submission
--- OUTSIDE RECORDS SUMMARY | 2018-08-26 12:20 | XMS REPORT ---
Author Author MAURICE CUMMINS Organization [employer] Address Unknown Phone Unavailable Care Team Providers Care Delivery Rn Name Role Phone MAURICE CUMMINS Unavailable Allergies No Known Allergies Problems No Known Problems Medications No Known Medications Results No Known Results Summary Purpose eClinicalWorks Submission
--- OUTSIDE RECORDS SUMMARY | 2018-08-26 12:21 | XMS REPORT ---
Author Author MAURICE CUMMINS [facility] Address [address] [place] [address] Care Team Providers Care Immunologist Name Role Phone MAURICE CUMMINS Unavailable PROBLEMS Type Condition ICD9-CM Code AKW77-DF Code Onset Dates Condition Status SNOMED Code Problem Chronic obstructive pulmonary disease, unspecified J44.9 Active 18396797 Problem Non-cardiac chest pain R07.89 Active 607282066 Problem Chronic obstructive pulmonary disease with (acute) exacerbation J44.1 Active 074502176 Problem Obesity, morbid E66.01 Active 388115430 Problem Poor diet E63.9 Active 878312300 Problem Enlarged prostate N40.0 Active 211681934 Problem Bloody stools K92.1 Active 148726483991661 Problem Pain in left lower leg M79.662 Active 65504800 Problem Acute deep vein thrombosis (DVT) of tibial vein of left lower extremity I82.442 Active 001817978775784 Problem Cervicalgia M54.2 Active 24686983 Problem Metabolic syndrome E88.81 Active 733823458 Problem Pneumonia of left lung due to infectious organism, unspecified part of lung J18.9 Active 019416897 Problem Irritability R45.4 Active 52833993 Problem High risk medication use Z79.899 Active 638290260 Problem Anhedonia R45.84 Active 49167131 Problem Pure hypercholesterolemia E78.0 Active 678282475 Problem Cervical radicular pain M54.12 Active 53844366 Problem Polyneuropathic pain M79.2 Active 251515476 Problem Cervical stenosis of spinal canal M48.02 Active 57133151 ALLERGIES No Known Allergies ENCOUNTERS Encounter Location Date Diagnosis [facility] [address] [id number] [place] [id number] Dec, [address] [id number] [place]END[place] [address] Dec, High risk medication use Z79.899 ; Anhedonia R45.84 and Obesity, morbid E66.[address] [facility] [address] [id number] [place]END[place] [address] Sep, High risk medication use Z79.899 ; Irritability R45.4 ; Pain in left lower leg M79.662 and Poor diet E63.[address] [facility] [address] [id number] BEND[place] [id number] Aug, [facility] [address] [id number] [place] [id number] Jul, [facility] [address] [id number] [place] [address] Jul, Polyneuropathic pain M79.[address] [facility] [address] [id number] [place]END[place] [address] Jul, [facility] [id number] [place] [id number] Jul, Enlarged prostate N40.0 ; Pure hypercholesterolemia E78.0 and Encounter for immunization Z23 [facility] [address] [id number] [place] [id number] May, Acute deep vein thrombosis (DVT) of tibial vein of left lower extremity I82.442 and Pure hypercholesterolemia E78.0 [facility] [address] [id number] BEND[place] [id number] Apr, [facility] [address] [id number] [place] [id number] Mar, Enlarged prostate N40.0 and Bloody stools K92.[address] [facility] [address] [id number] BEND[place] [id number] February, Bloody stools K92.1 and Enlarged prostate N40.[address] [facility] [address] [id number] [place]END[place] [id number] Nov, Polyneuropathic pain M79.2 and Non-cardiac chest pain R07.[address] [facility] [address] [id number] BEND[place] [address] Jul, Metabolic syndrome E88.81 [facility] [address] [id number] [place] [address] May, [facility] [place] [address] [id number] [place] [id number] May, [facility] [place] [address] [id number] CITY[place] [address] May, [facility] [address] [id number] [place] [address] May, Chronic obstructive pulmonary disease, unspecified J44.9 and Chronic obstructive pulmonary disease with (acute) exacerbation J44.1 [facility] [address] [id number] [address] Apr, [facility] [address] [id number] [place] [id number] Mar, [facility] [address] [id number] [place] [address] Mar, Cervical stenosis of spinal canal M48.02 [address] [id number] [address] February, [facility] [address] [id number] [place] [id number] February, [facility] [address] [id number] BEND[place] [address] February, High risk medication use Z79.899 ; Anhedonia R45.84 and Cervical radicular pain M54.12 [facility] [address] [id number] [place] [address] Jan, [facility] [address] [facility] [id number] [place] [address] Jan, [facility] [address] [id number] [place] [address] Jan, Metabolic syndrome E88.81 ; Pure hypercholesterolemia E78.0 ; Polyneuropathic pain M79.2 and Irritability R45.[address] [id number] [place] [address] Dec, Polyneuropathic pain M79.2 [facility] [address]00565100[place] [address] Dec, [address] [id number] [place] [id number] Dec, Pneumonia of left lung due to infectious organism, unspecified part of lung J18.9 ; Cervicalgia M54.2 and Irritability R45.4 [facility] [id number] [place] [address] Nov, [facility] [id number] [place] [address] Nov, [facility] [id number] [place] [address]2 Oct, [address] [id number] [place]END[place] [address] Aug, [facility] [id number] [place] [id number] Jul, Diverticulosis of large intestine without hemorrhage K57.30 and Abdominal pain, left lower quadrant R10.32 [facility] [address] [id number] [place] [address] Jul, [facility] [id number] [place] [id number] Jul, Blood in stool K92.1 ; Left lower quadrant pain R10.32 and Hematuria R31.9 [facility] [address] [place] [address] AVE [id number] B[place] [address] Jul, Left upper quadrant pain R10.12 and Hematuria R31.[address] [id number] BEND[place] [address] Jun, Dysmetabolic Syndrome X 277.7 ; Unspecified essential hypertension 401.9 and Other and unspecified hyperlipidemia 272.4 [facility] [address] [id number] [place] [address] Jun, Dysmetabolic Syndrome X 277.7 ; Obesity, unspecified 278.00 ; Other and unspecified hyperlipidemia 272.4 and Anhedonia 780.99 [facility] [address]00565100[place] [address] May, [facility] [id number] [place] [id number]- [address] May, [facility] [id number] [place] [address] Apr, Dysthymic disorder 300.4 [facility] [id number] [place] [address]- [address] Apr, [facility] [id number] [place] [address]- [address]159 Apr, Dysthymic disorder 300.4 [facility] [id number] [place] [address] Apr, [address] [id number] [place]END[place] [id number] Mar, COPD with exacerbation 491.[id number] [place] [address] Mar, Dysthymic disorder 300.4 [facility] [address] [place] [id number]- 1406 February, Dysthymic disorder 300.4 ; No condition on [place] II V71.09 ; COPD (chronic obstructive pulmonary disease) 496 ; Glaucoma 365.9 ; Arthritis 716.90 and Diabetes [address] [id number] [place] [id number] February, [facility] [address] [place] [address] AVE [id number] [place] [address] February, [facility] [id number] [place]END[place] [id number] Jan, [facility] [place] [facility] [address] [facility] [id number] [place] [address] Jan, [facility] [place] [facility] [address] [facility] [id number] [place] [address] Jan, [facility] [place] [facility] [address] [facility] [id number] [place] [address]- [address]337 Dec, [facility] [place] [facility] [address] [facility] [id number] [address]- 1488 Dec, [facility] [place] [facility] [address] [facility] [id number] [place] [address]- [address] Nov, [facility] [place] [facility] [address] [id number] [address]- [address] Nov, [facility] [place] [facility] [address] [facility] [id number] [address]- [address]32 Nov, [facility] [place] [facility] [address] [facility] [id number] [address]- 1212 Nov, [facility] [place] [facility] [address] [id number] [address]- 2619 Nov, [facility] [place] [facility] [address] [facility] [id number] [address]- [address] Nov, [facility] [address] [id number] [place] [id number] Oct, [facility] [place] [facility] [address] [facility] [id number] [place] [address]- [address] Oct, [facility] [place] [facility] [address] [facility] [id number] [address]- 1467 Oct, [facility] [place] [facility] [address] [facility] [id number] [place] [address]- [address] Oct, [facility] [place] [facility] [address] [facility] [id number] [place] [address]- [address] Aug, [facility] [place] [facility] [address] [id number] [place] [address]- 3165 Aug, [facility] [place] [facility] [address] [id number] [place] [address]- 5291 Aug, [facility] [place] [facility] [address] [id number] [place] [address]- 3042 Aug, [facility] [place] [facility] [address] [id number] [place] [address]- 74[address] Jul, [facility] [place] [facility] [address] [id number] [place] [address]- 5566 Jul, [facility] [place] [facility] [address] [id number] [place] [address]- 7489 Jul, [facility] [place] [facility] [address] [id number] [place] [address]- 1826 Jul, [facility] [place] [facility] [address] [id number] [place] [address]- 3962 Jul, [facility] [place] [facility] [address] [id number] [place] [address]- 5380 Jul, [facility] [place] [facility] [address] [id number] [place] [address]- 1526 Jul, [facility] [place] [facility] [address] [id number] [place] [address]- 5188 Jul, [facility] [place] [facility] [address] [id number] [place] [address]- 2665 Jun, [facility] [place] [facility] [address] [id number] [place] [address]- 2633 Jun, [facility] [place] [facility] [address] [id number] [place] [address]- 6265 May, [facility] [place] [facility] [address] [id number] [place] [address]- 8734 May, [facility] [place] [facility] [address] [id number] [place] [address]- [address]19 Apr, [facility] [place] [facility] [address] [id number] [place] [address]- 7252 Apr, [facility] [place] [facility] [address] [id number] [place] [address]- 2532 Apr, [facility] [place] [facility] [address] [id number] [place] [address]- 2421 Apr, [facility] [place] [facility] [address] [id number] [place] [address]- 3602 Apr, [facility] [place] [facility] [address] [id number] [place] [address]- 3418 Apr, [facility] [place] [facility] [address] [id number] [place] [address]- 5344 Apr, [facility] [place] [facility] [address] [id number] [place] [address]- 7646 Apr, [facility] [place] [facility] [address] [id number] [place] [address]- 0525 Mar, [facility] [place] [facility] [address] [id number] [place] [address]- 5574 Mar, [facility] [place] [facility] [address] [id number] [place] [address]- 4421 Mar, [facility] [place] [facility] [address] [id number] [place] [address]- 3247 Mar, [facility] [place] [facility] [address] [id number] [place] [address]- 7537 February, [facility] [place] [facility] [address] [id number] [place] [address]- 8637 February, [facility] [place] [facility] [address] [id number] [place] [address]- 4199 February, [facility] [place] [facility] [address] [id number] [address]- 9014 February, [facility] [address] [id number] [place] [address]- 5698 February, [facility] [place] [facility] [address] [id number] [place]- [address] February, [facility] [address] [id number] [place]- [address]77 February, [facility] [place] [facility] [address] [id number] [place] [address]- 6808 February, [facility] [place] [facility] [address] [id number] [place] [address]- 3689 Dec, [facility] [place] [facility] [address] [id number] [place] [address]- 2026 Dec, [facility] [place] [facility] [address] [id number] [place] [address]- 1525 Dec, [facility] [place] [facility] [address] [id number] [address]- 2207 Dec, [facility] [address] [id number] [place] [address]- 6834 Dec, [facility] [place] [facility] [address] [id number] [place] [address]- 9837 Dec, [facility] [address] [id number] [place] [address]- 5582 Dec, [facility] [place] [facility] [address] [id number] [address]- 1644 Dec, [facility] [place] [facility] [address] [id number] [place] [address]- 7124 Dec, [facility] [place] [facility] [address] [facility] [id number] [place] [address]- 8931 Nov, [facility] [address] [id number] [place] [id number] Nov, [facility] [address] [facility] [id number] [address]- 5426 Nov, [facility] [address] [facility] [id number] [address]- 3061 Jun, [facility] [address] [facility] [id number] [address]- 2546 May, [facility] [address] [id number] [place] [id number] Apr, [facility] [address] [id number] [address]- 7176 February, [facility] [address] [facility] [id number] [place] [address]- 2806 February, [facility] [address] [id number] [place] [id number] Dec, [facility] [address] [id number] [place] [id number] Apr, [facility] [address] [id number] [place] [id number] Apr, [facility] [address] [id number] [place] [id number] Apr, [facility] [address] [id number] [place] [id number] Apr, [facility] [address] [id number] [place] [id number] Apr, [facility] [address]00565100[place] [address]- 3426 Nov, [facility] [address] [facility] [id number] [place] [address]- 0440 Sep, [facility] [address]65100[place] [address]- 2059 Sep, [facility] [place] [facility] [address] [id number] [address]- 0133 Sep, [facility] [address] [id number] [address]- 0866 Sep, [facility] [address] [facility] [id number] [address]- 6746 Sep, [facility] [address] [facility] [id number] [address]- 4574 Dec, [facility] [address] [facility] [id number] [place] [address]- 5628 Sep, [facility] [address]65100[place] [address]- 8431 Sep, [facility] [address] [facility] [id number] [place] [address]- 3099 May, [address] [address] [facility] [id number] [address]- 0673 February, IMMUNIZATIONS No Known Immunizations SOCIAL HISTORY Never Assessed REASON FOR VISIT ER daniel Johnson- blood clot to Left lower leg. Pt has script for Xarelto but voices he cannot afford to fill it. kim walton PLAN OF CARE Activity Details Follow Up 6 Weeks Reason:DVT follow up VITAL SIGNS Height 66 in 2017-06-13 Weight 224.0 lbs 2017-06-13 Temperature 97.7 degrees Fahrenheit 2017-06-13 Heart Rate 98 bpm 2017-06-13 Respiratory Rate 20 2017-06-13 BMI 36.15 kg/m2 2017-06-13 Blood pressure systolic 128 mmHg 2017-06-13 Blood pressure diastolic 66 mmHg 2017-06-13 MEDICATIONS Medication Instructions Dosage Frequency Start Date End Date Duration Status Hydrochlorothiazide 12.5MG Orally Once a day 1 capsule 24h 90 Active Albuterol Sulfate HFA 108 (90 Base) MCG/ACT Inhalation every 4 hrs 2 puffs as needed 4h Active Albuterol Sulfate 0.083% USE ONE VIAL IN NEBULIZER EVERY 6 HOURS NEEDED FOR COUGH AND OR WHEEZING FOUR TIMES A DAY 25 Active Gabapentin 600 MG Orally 3 times a day 1 capsule 8h Dec, 0 days Active Hydrochlorothiazide 12.5 MG Orally Once a day 1 capsule 24h Active Aspir-81 81 MG Orally Once a day 1 tablet 24h Active Spiriva Respimat 1.25 MCG/ACT Inhalation Once a day 2 puffs 24h Active Cymbalta 60MG Orally Once a day 1 capsule 24h 30 Active Metformin HCl 500MG Orally 2 times a day 1 tablet with meals 12h 30 Active Nebulizer nebulizer as directed May, Active Symbicort 80-4.5 Inhalation Twice a day 2 puffs 12h 30 Active Xarelto 20 mg Orally Once a day 1 tablet with food-start this after starter pack 24h 31 May, 2017 Active Simvastatin 20 mg Orally Once a day 1 tablet in the evening 24h Jul, Active RESULTS No Results PROCEDURES No Known [...] History 07/24/16 flu vaccine Medical History PPV 2014 Medical History 10/2016 tsh and lipids normal, a1c 5.9, TSH less than 1 Medical History DVT [id number] pos tibial Medical History 2010 tetanus shot Surgical History cataract-lens implants Surgical History eye surgery for glaucoma Surgical History heart cath Surgical History left CTS 05/2016 Surgical History carpal tunnel release, bilat april and may Hospitalization History pneumonia 11/2015 Hospitalization History chest pain-ruled out cardiac cause 10/2016
--- OUTSIDE RECORDS SUMMARY | 2018-08-26 12:21 | XMS REPORT ---
Author Author MARIA G MAURICE [facility] [place] Address [address] [place] [address] Care Team Providers Care Pipe Crew Foreman Name Role Phone MAURICE CUMMINS Unavailable PROBLEMS Type Condition ICD9-CM Code QIP15-XO Code Onset Dates Condition Status SNOMED Code Problem High risk medication use Z79.899 Active 118063115 Problem Cervical stenosis of spinal canal M48.02 Active 03383499 Problem Anhedonia R45.84 Active 97312779 Problem Acute deep vein thrombosis (DVT) of tibial vein of left lower extremity I82.442 Active 887569668277213 Problem Bloody stools K92.1 Active 534308979033799 Problem Chronic obstructive pulmonary disease with (acute) exacerbation J44.1 Active 431459617 Problem Chronic obstructive pulmonary disease, unspecified J44.9 Active 81579893 Problem Enlarged prostate N40.0 Active 894049706 Problem Non-cardiac chest pain R07.89 Active 113328127 Problem Pneumonia of left lung due to infectious organism, unspecified part of lung J18.9 Active 176209215 Problem Metabolic syndrome E88.81 Active 992131196 Problem Pure hypercholesterolemia E78.0 Active 089856507 Problem Irritability R45.4 Active 59012458 Problem Polyneuropathic pain M79.2 Active 464072661 Problem Cervicalgia M54.2 Active 98590036 Problem Cervical radicular pain M54.12 Active 15733434 ALLERGIES No Known Allergies SOCIAL HISTORY Never Assessed PLAN OF CARE Activity Details Follow Up TBD Reason: VITAL SIGNS Height 66 in 2017-03-13 Weight 232.0 lbs 2017-03-13 Temperature 97.7 degrees Fahrenheit 2017-03-13 Heart Rate 80 bpm 2017-03-13 Respiratory Rate 18 2017-03-13 BMI 37.44 kg/m2 2017-03-13 Blood pressure systolic 128 mmHg 2017-03-13 Blood pressure diastolic 80 mmHg 2017-03-13 MEDICATIONS Medication Instructions Dosage Frequency Start Date End Date Duration Status Donatoalvimal 60 mg Orally Once a day 1 capsule 24h Jan, 30 Active Spiriva Respimat 1.25 MCG/ACT Inhalation Once a day 2 puffs 24h Active Albuterol Sulfate 0.083% USE ONE VIAL IN NEBULIZER EVERY 6 HOURS NEEDED FOR COUGH AND OR WHEEZING FOUR TIMES A DAY 25 Active Simvastatin 20 mg Orally Once a day 1 tablet in the evening 24h Jul, Active Gabapentin 600 MG Orally 3 times a day 1 capsule 8h Dec, 0 days Active Aspir-81 81 MG Orally Once a day 1 tablet 24h Active Symbicort 80-4.5 Inhalation Twice a day 2 puffs 12h 30 Active Nebulizer nebulizer as directed May, Active Hydrochlorothiazide 12.5MG Orally Once a day 1 capsule 24h 90 Active Hydrochlorothiazide 12.5 MG Orally Once a day 1 capsule 24h Active Metformin HCl 500MG Orally 2 times a day 1 tablet with meals 12h 30 Active Albuterol Sulfate HFA 108 (90 Base) MCG/ACT Inhalation every 4 hrs 2 puffs as needed 4h Active RESULTS Name Result Date Reference Range HEMOGLOBIN (IN HOUSE) 2017-03-13 HEMOGLOBIN 12.4 11.5 - 16 gm/dL Lot # [id number] Exp date 09/30/17 HEMOCCULT (IN HOUSE) 2017-03-13 RESULTS NEGATIVE Control POSITIVE Lot # [id number] Exp date 07/01 PROCEDURES Procedure Date Ordered Result Body Site TEST FOR BLOOD, FECES March 13, 2017 HEMOGLOBIN March 13, 2017 IMMUNIZATIONS No Known Immunizations MEDICAL (GENERAL) HISTORY Type Description Date Medical [...] TSH less than 1 Medical History DVT [id number] pos tibial Surgical History cataract-lens implants Surgical History eye surgery for glaucoma Surgical History heart cath Surgical History left CTS 05/2016 Surgical History carpal tunnel release, bilat april and may Hospitalization History pneumonia 11/2015 Hospitalization History chest pain-ruled out cardiac cause 10/2016
--- OUTSIDE RECORDS SUMMARY | 2018-08-26 12:21 | XMS REPORT ---
Author Author DELIA GARCIA [facility] [place] [employer] Address Unknown Phone Unavailable Care Team Providers Care Patent Attorney Name Role Phone DELIA GARCIA CP Unavailable Allergies No Known Allergies Problems [...] Z79.899 Active Problem Anhedonia R45.84 Active Medications No Known Medications Results No Known Results Summary Purpose eClinicalWorks Submission
--- OUTSIDE RECORDS SUMMARY | 2018-08-26 12:21 | XMS REPORT ---
Author Author MARIA G MAURICE Organization [facility] Address [address] [place] [address] Care Team Providers Care Wind Farm Engineer Name Role Phone MAURICE CUMMINS Unavailable PROBLEMS Type Condition ICD9-CM Code WAK76-YB Code Onset Dates Condition Status SNOMED Code Problem High risk medication use Z79.899 Active 143070648 Problem Cervical stenosis of spinal canal M48.02 Active 70919848 Problem Anhedonia R45.84 Active 76662660 Problem Acute deep vein thrombosis (DVT) of tibial vein of left lower extremity I82.442 Active 344395610613285 Problem Bloody stools K92.1 Active 210033821422337 Problem Chronic obstructive pulmonary disease with (acute) exacerbation J44.1 Active 626410562 Problem Chronic obstructive pulmonary disease, unspecified J44.9 Active 73584490 Problem Enlarged prostate N40.0 Active 893203518 Problem Non-cardiac chest pain R07.89 Active 254855485 Problem Pneumonia of left lung due to infectious organism, unspecified part of lung J18.9 Active 206776759 Problem Metabolic syndrome E88.81 Active 474445261 Problem Pure hypercholesterolemia E78.0 Active 944325424 Problem Irritability R45.4 Active 81844484 Problem Polyneuropathic pain M79.2 Active 415012393 Problem Cervicalgia M54.2 Active 16348797 Problem Cervical radicular pain M54.12 Active 83709854 ALLERGIES No Information SOCIAL HISTORY Never Assessed PLAN OF CARE VITAL SIGNS MEDICATIONS Unknown Medications RESULTS No Results PROCEDURES No Known procedures IMMUNIZATIONS No Known Immunizations MEDICAL (GENERAL) HISTORY [...] TSH less than 1 Medical History DVT [id number] pos tibial Surgical History cataract-lens implants Surgical History eye surgery for glaucoma Surgical History heart cath Surgical History left CTS 05/2016 Surgical History carpal tunnel release, bilat april and may Hospitalization History pneumonia 11/2015 Hospitalization History chest pain-ruled out cardiac cause 10/2016
--- OUTSIDE RECORDS SUMMARY | 2018-08-26 12:21 | XMS REPORT ---
Author Author MAURICE CUMMINS [facility] Address [address] [place] [address] Care Team Providers Care Tower Air Traffic Control Specialist Name Role Phone MAURICE CUMMINS Unavailable PROBLEMS Type Condition ICD9-CM Code FRC47-AO Code Onset Dates Condition Status SNOMED Code Problem Chronic obstructive pulmonary disease, unspecified J44.9 Active 79902309 Problem Non-cardiac chest pain R07.89 Active 698446379 Problem Chronic obstructive pulmonary disease with (acute) exacerbation J44.1 Active 979056382 Problem Obesity, morbid E66.01 Active 095940240 Problem Poor diet E63.9 Active 657457993 Problem Enlarged prostate N40.0 Active 296194849 Problem Bloody stools K92.1 Active 005886709057294 Problem Pain in left lower leg M79.662 Active 85817914 Problem Acute deep vein thrombosis (DVT) of tibial vein of left lower extremity I82.442 Active 251094804889661 Problem Cervicalgia M54.2 Active 59998996 Problem Metabolic syndrome E88.81 Active 871525242 Problem Pneumonia of left lung due to infectious organism, unspecified part of lung J18.9 Active 848909553 Problem Irritability R45.4 Active 27715740 Problem High risk medication use Z79.899 Active 425504724 Problem Anhedonia R45.84 Active 43834025 Problem Pure hypercholesterolemia E78.0 Active 145659174 Problem Cervical radicular pain M54.12 Active 04921709 Problem Polyneuropathic pain M79.2 Active 715282795 Problem Cervical stenosis of spinal canal M48.02 Active 13355929 ALLERGIES No Information ENCOUNTERS Encounter Location Date Diagnosis [facility] [address] [id number] [place] [id number] Dec, [address] [id number][place] [id number] 15 Mar, 2018 High risk medication use Z79.899 ; Anhedonia R45.84 and Obesity, morbid E66.[address] [facility] [address] [id number][place] [address] Sep, High risk medication use Z79.899 ; Irritability R45.4 ; Pain in left lower leg M79.662 and Poor diet E63.[address] [facility] [address] [id number][place] [address] Aug, [facility] [address] [id number][place] [id number] Jul, [facility] [id number] [place] [id number] Jul, Polyneuropathic pain M79.[address] [facility] [address] [id number][place] [address] Jul, [facility] [address] [id number] [place] [id number] Jul, Enlarged prostate N40.0 ; Pure hypercholesterolemia E78.0 and Encounter for immunization Z23 [facility] [address] [id number][place] [address] May, Acute deep vein thrombosis (DVT) of tibial vein of left lower extremity I82.442 and Pure hypercholesterolemia E78.0 [facility] [address] [id number][place] [address] Apr, [facility] [address] [id number][place] [address] Mar, Enlarged prostate N40.0 and Bloody stools K92.1 [facility] [address] [id number][place] [address] February, Bloody stools K92.1 and Enlarged prostate N40.[address] [facility] [address] [id number][place] [address] Nov, Polyneuropathic pain M79.2 and Non-cardiac chest pain R07.[address] [facility] [address] [id number], [place] [address] Jul, Metabolic syndrome E88.81 [facility] [address] [address] [id number][place] [id number] May, [facility] [address] [facility] [id number][place] [address] May, [facility] [address] [id number][place] [address] May, [facility] [address] [id number], [place] [address] May, Chronic obstructive pulmonary disease, unspecified J44.9 and Chronic obstructive pulmonary disease with (acute) exacerbation J44.1 [facility] [address] [id number], [place] [address] Apr, [facility] [address] [id number][place] [id number] Mar, [facility] [address] [id number], [place] [address] Mar, Cervical stenosis of spinal canal M48.02 [facility] [address] [id number], [place] [address] February, [facility] [address] [id number], [place] [id number] February, [facility] [address] [id number], [place] [address] February, High risk medication use Z79.899 ; Anhedonia R45.84 and Cervical radicular pain M54.[address] [facility] [address] [id number], [place] [address] Jan, [facility] [address] [facility] [place] [id number], [place] [address] Jan, [facility] [address] [id number], [place] [id number] Jan, Metabolic syndrome E88.81 ; Pure hypercholesterolemia E78.0 ; Polyneuropathic pain M79.2 and Irritability R45.[address] [id number], [place] [address] Dec, Polyneuropathic pain M79.2 [facility] [address]00565100[place], [place] [address] Dec, [id number] [place] [id number] Dec, Pneumonia of left lung due to infectious organism, unspecified part of lung J18.9 ; Cervicalgia M54.2 and Irritability R45.4 [facility] [id number] [place] [address] Nov, [facility] [id number] [place] [address]16 Nov, [facility] [id number] [place] [address]19 Oct, [facility] [address] [id number], [place] [id number] Aug, [facility] [id number] [place] [id number] Jul, Diverticulosis of large intestine without hemorrhage K57.30 and Abdominal pain, left lower quadrant R10.32 [facility] [address] [id number], [place] [address] Jul, [facility] [id number] [place] [id number] Jul, Blood in stool K92.1 ; Left lower quadrant pain R10.32 and Hematuria R31.[address] [facility] [address] [id number], [place] [address] Jul, Left upper quadrant pain R10.12 and Hematuria R31.[address] [facility] [address] [id number], [place] [address] Jun, Dysmetabolic Syndrome X 277.7 ; Unspecified essential hypertension 401.9 and Other and unspecified hyperlipidemia 272.[address] [facility] [address] [id number], [place] [address] Jun, Dysmetabolic Syndrome X 277.7 ; Obesity, unspecified 278.00 ; Other and unspecified hyperlipidemia 272.4 and Anhedonia 780.99 [facility] [address]00565100[place], [place] [address] May, [facility] [id number] [place] [address]- [address]606 May, [facility] [id number] [place] [address]99 Apr, Dysthymic disorder 300.4 [facility] [id number] [place] [address] Apr, [facility] [id number] [place] [address]- [address] Apr, Dysthymic disorder 300.4 [facility] [id number] [place] [address] 3813 Apr, [address] [id number], [place] [address] Mar, COPD with exacerbation 491.[address] [id number], [place] [address] Mar, Dysthymic disorder 300.4 [facility] [address] [id number] [address] February, Dysthymic disorder 300.4 ; No condition on [place] II V71.09 ; COPD (chronic obstructive pulmonary disease) 496 ; Glaucoma 365.9 ; Arthritis 716.90 and Diabetes [address] [id number], [place] [address] February, [facility] [address] [id number], [place] [id number] February, [facility] [address] [id number][place] [address] Jan, [facility] [place] [facility] [address] [id number], [place] [address] Jan, [facility] [place] [facility] [address] [facility] [place] [id number], [place] [address]- [address] Jan, [facility] [place] [facility] [address] [id number], [place] [address]- [address] Dec, [facility] [place] [facility] [address] [id number], [place] [address] Dec, [facility] [place] [facility] [address] [id number], [place] [address]- [address] Nov, [facility] [place] [facility] [address] [facility] [id number], [place] [address]- [address] Nov, [facility] [place] [facility] [address] [facility] [id number], [place] [address]- 58[address] Nov, [facility] [place] [facility] [address] [facility] [id number], [place] [address]- [address] Nov, [facility] [place] [facility] [address] [facility] [id number], [place] [address]- [address]37 Nov, [facility] [place] [facility] [address] [facility] [id number], [place] [address]- [address]8 Nov, [facility] [address] [id number], [place] [address]88[address] Oct, [facility] [place] [facility] [address] [facility] [id number], [place] [address]- [address]805 Oct, [facility] [place] [facility] [address] [facility] [place] [id number], [place] [address]- 4261 Oct, [facility] [place] [facility] [address] [facility] [id number], [place] [address]- 4959 Oct, [facility] [place] [facility] [address] [facility] [id number] [place] [address]- [address] Aug, [facility] [place] [facility] [address] [id number] [place] [address]- 0291 Aug, [facility] [place] [facility] [address] [id number] [place] [address]- 3405 Aug, [facility] [place] [facility] [address] [id number] [place] [address]- 3074 Aug, [facility] [place] [facility] [address] [id number] [place] [address]- 8911 Jul, [facility] [place] [facility] [address] [id number] [place] [address]- 7434 Jul, [facility] [place] [facility] [address] [id number] [place] [address]- 1077 Jul, [facility] [place] [facility] [address] [id number] [place] [address]- 0637 Jul, [facility] [place] [facility] [address] [id number] [place] [address]- 9265 Jul, [facility] [place] [facility] [address] [id number] [place] [address]- 3663 Jul, [facility] [place] [facility] [address] [id number] [place] [address]- 1859 Jul, [facility] [place] [facility] [address] [id number] [place] [address]- 7164 Jul, [facility] [place] [facility] [address] [id number] [place] [address]- 2332 Jun, [facility] [place] [facility] [address] [id number] [place] [address]- 3051 Jun, [facility] [place] [facility] [address] [id number] [place] [address]- 6556 May, [facility] [place] [facility] [address] [id number] [place] [address]- 3355 May, [facility] [place] [facility] [address] [id number] [place] [address]- 1586 Apr, [facility] [place] [facility] [address] [id number] [place] [address]- 5572 Apr, [facility] [place] [facility] [address] [id number] [place] [address]- 5212 Apr, [facility] [place] [facility] [address] [id number] [place] [address]- 0248 Apr, [facility] [place] [facility] [address] [id number] [place] [address]- 0034 Apr, [facility] [place] [facility] [address] [id number] [place] [address]- 8219 Apr, [facility] [place] [facility] [address] [id number] [place] [address]- 4093 Apr, [facility] [place] [facility] [address] [id number] [place] [address]- 1111 Apr, [facility] [place] [facility] [address] [id number] [place] [address]- 1227 Mar, [facility] [place] [facility] [address] [id number] [place] [address]- 1783 Mar, [facility] [place] [facility] [address] [id number] [place] [address]- 3279 Mar, [facility] [place] [facility] [address] [id number] [place] [address]- 5956 Mar, [facility] [place] [facility] [address] [id number] [place] [address]- 0812 February, [facility] [place] [facility] [address] [id number] [place] [address]- 6334 February, [facility] [place] [facility] [address] [id number] [place] [address]- 8221 February, [facility] [place] [facility] [address] [id number] [place] [address]- 0666 February, [facility] [address] [id number] [place] [address]- 0837 February, [facility] [place] [facility] [address] [id number] [place] [address]- 8798 February, [facility] [address] [id number] [place] [address]- 5960 February, [facility] [place] [facility] [address] [id number] [place] [address]- 8089 February, [facility] [address] [id number] [place] [address]- 3618 Dec, [facility] [place] [facility] [address] [id number] [place] [address]- 4793 Dec, [facility] [address] [id number] [place] [address]- 5014 Dec, [facility] [place] [facility] [address] [id number] [place] [address]- 3251 Dec, [facility] [address] [id number] [place] [address]- 0228 Dec, [facility] [place] [facility] [address] [id number] [place] [address]- 1231 Dec, [facility] [address] [id number], [place] [address]- 7868 Dec, [facility] [place] [facility] [address] [id number], [place] [address]- 7537 Dec, [facility] [place] [facility] [address] [id number] [place] [address]- 1184 Dec, [facility] [place] [facility] [address] [facility] [id number], [place] [address]- 0644 Nov, [facility] [address] [id number], [place] [address] Nov, [facility] [place] [facility] [address] [facility] [id number], [place] [address]- 4756 Nov, [facility] [place] [facility] [address] [facility] [id number], [place] [address]- 3966 Jun, [facility] [address] [facility] [id number], [place] [address]- 2546 May, [facility] [address] [id number] [place] [address] Apr, [facility] [address]00565100[place], [place] [address]- 8586 February, [facility] [address] [facility] [id number], [place] [address]- 2546 February, [facility] [address] [id number] [place] [address] Dec, [facility] [address] [id number] [place] [id number] Apr, [facility] [address] [id number] [place] [address] Apr, [facility] [address] [id number] [place] [address] Apr, [facility] [address] [id number] [place] [address] Apr, [facility] [address] [id number] [place] [address] Apr, [facility] [place] [facility] [address]65100[place], [place] [address]- 2546 Nov, [facility] [address] [id number], [place] [address]- 1210 Sep, [facility] [address]65100[place], [place] [address]- 5102 Sep, [facility] [address] [id number], [place] [address]- 1587 Sep, [facility] [address] [id number], [place] [address]- 9186 Sep, [facility] [address] [facility] [id number], [place] [address]- 7776 Sep, [facility] [address] [id number], [place] [address]- 8831 Dec, [facility] [address] [id number], [place] [address]- 2005 Sep, [facility] [address] [id number], [place] [address]- 5061 Sep, [facility] [address] [id number], [place] [address] May, [facility] [id number], [place] [address] February, IMMUNIZATIONS Vaccine Route Administration Date Status FLUARIX QUAD (3 AND UP) 2017 IM Intramuscular Jul 24, 2017 Administered SOCIAL HISTORY Never Assessed REASON FOR VISIT labs- [facility], [place] PLAN OF CARE VITAL SIGNS MEDICATIONS Unknown Medications RESULTS No Results PROCEDURES Procedure Date Ordered Result Body Site ROUTINE VENIPUNCTURE 2017-07-24 N/A ASSAY THYROID STIM HORMONE Jul 24, 2017 SINGLE IMMUNIZATION ADMIN Jul 24, 2017 FLUARIX QUAD (3 & UP)--2014Jul 24, 2017 LIPID PANEL Jul 24, 2017 ASSAY OF FREE THYROXINE Jul 24, 2017 COMPLETE CBC W/AUTO DIFF WBC Jul 24, 2017 COMPREHEN METABOLIC PANEL Jul 24, 2017 INSTRUCTIONS MEDICATIONS ADMINISTERED No Known Medications MEDICAL [...] TSH less than 1 Medical History DVT [id number] pos tibial Medical History 2010 tetanus shot Surgical History cataract-lens implants Surgical History eye surgery for glaucoma Surgical History heart cath Surgical History left CTS 05/2016 Surgical History carpal tunnel release, bilat april and may Hospitalization History pneumonia 11/2015 Hospitalization History chest pain-ruled out cardiac cause 10/2016
--- OUTSIDE RECORDS SUMMARY | 2018-08-26 12:22 | XMS REPORT ---
Author Author MAURICE CUMMINS [facility] Address [address] [place] [address] Care Team Providers Care Furniture Decals Inspector Name Role Phone MAURICE CUMMINS Unavailable PROBLEMS Type Condition ICD9-CM Code AEY31-AF Code Onset Dates Condition Status SNOMED Code Problem Chronic obstructive pulmonary disease, unspecified J44.9 Active 46510047 Problem Non-cardiac chest pain R07.89 Active 939535611 Problem Chronic obstructive pulmonary disease with (acute) exacerbation J44.1 Active 270972417 Problem Obesity, morbid E66.01 Active 657512040 Problem Poor diet E63.9 Active 831064859 Problem Enlarged prostate N40.0 Active 207690848 Problem Bloody stools K92.1 Active 989155479460150 Problem Pain in left lower leg M79.662 Active 89165339 Problem Acute deep vein thrombosis (DVT) of tibial vein of left lower extremity I82.442 Active 870925415632024 Problem Cervicalgia M54.2 Active 55003067 Problem Metabolic syndrome E88.81 Active 195507328 Problem Pneumonia of left lung due to infectious organism, unspecified part of lung J18.9 Active 383286304 Problem Irritability R45.4 Active 14550791 Problem High risk medication use Z79.899 Active 778366919 Problem Anhedonia R45.84 Active 57964837 Problem Pure hypercholesterolemia E78.0 Active 980538085 Problem Cervical radicular pain M54.12 Active 40648530 Problem Polyneuropathic pain M79.2 Active 298978545 Problem Cervical stenosis of spinal canal M48.02 Active 08884106 ALLERGIES No Information ENCOUNTERS Encounter Location Date Diagnosis [facility] [address] [id number] [place] [id number] Dec, [address] [id number] [place] [id number] 15 Mar, 2018 High risk medication use Z79.899 ; Anhedonia R45.84 and Obesity, morbid E66.[address] [facility] [address] [id number] CREEK[place] [id number] Sep, High risk medication use Z79.899 ; Irritability R45.4 ; Pain in left lower leg M79.662 and Poor diet E63.[address] [facility] [address] [id number] CREEK[place] [id number] Aug, [facility] [address] [id number] [place] [id number] Jul, [facility] [id number] [place] [id number] Jul, Polyneuropathic pain M79.[address] [facility] [address] [id number] CREEK[place] [id number] Jul, [facility] [id number] [place] [id number] Jul, Enlarged prostate N40.0 ; Pure hypercholesterolemia E78.0 and Encounter for immunization Z23 [facility] [address] [id number] CREEK[place] [id number] May, Acute deep vein thrombosis (DVT) of tibial vein of left lower extremity I82.442 and Pure hypercholesterolemia E78.0 [facility] [address] [id number] CREEK[place] [id number] Apr, [facility] [address] [id number][place] [id number] Mar, Enlarged prostate N40.0 and Bloody stools K92.1 [facility] [address] [id number] CREEK[place] [id number] February, Bloody stools K92.1 and Enlarged prostate N40.[address] [facility] [address] [id number] C[place] [address] Nov, Polyneuropathic pain M79.2 and Non-cardiac chest pain R07.[address] [facility] [address] [id number] CREEK[place] [id number] Jul, Metabolic syndrome E88.[address] [facility] [address] [address] [id number] CREEK[place] [id number] May, [facility] [address] [facility] [id number][place] [id number] May, [facility] [address] [id number][place] [id number] May, [facility] [address] [id number] CREEK[place] [id number] May, Chronic obstructive pulmonary disease, unspecified J44.9 and Chronic obstructive pulmonary disease with (acute) exacerbation J44.1 [facility] [address] [id number] [address] Apr, [facility] [address] [id number] CREEK, [place] [id number] Mar, [facility] [address] [id number] CREEK[place] [id number] Mar, Cervical stenosis of spinal canal M48.02 [facility] [address] [id number], [place] [address] February, [facility] [address] [id number] CREEK[place] [id number] February, [facility] [address] [id number] CREEK[place] [address] February, High risk medication use Z79.899 ; Anhedonia R45.84 and Cervical radicular pain M54.12 [facility] [address] [id number] [place] [id number] Jan, [facility] [address] [facility] [id number][place] [address] Jan, [facility] [address] [id number] CREEK[place] [id number] Jan, Metabolic syndrome E88.81 ; Pure hypercholesterolemia E78.0 ; Polyneuropathic pain M79.2 and Irritability R45.[address] [id number] CREEK[place] [id number] Dec, Polyneuropathic pain M79.2 [facility] [address]00565100[place], [place] [address] Dec, [address] [place] [id number] Dec, Pneumonia of left lung due to infectious organism, unspecified part of lung J18.9 ; Cervicalgia M54.2 and Irritability R45.4 [facility] [id number] [place] [address] Nov, [facility] [id number] [place] [address] Nov, [facility] [id number] [place] [address] Oct, [facility] [address] [id number] CREEK[place] [id number] Aug, [facility] [address] [id number] [place] [id number] Jul, Diverticulosis of large intestine without hemorrhage K57.30 and Abdominal pain, left lower quadrant R10.32 [facility] [address] [id number] [place] [id number] Jul, [id number] [place] [id number] Jul, Blood in stool K92.1 ; Left lower quadrant pain R10.32 and Hematuria R31.9 [facility] [address] [id number] CREEK[place] [address] Jul, Left upper quadrant pain R10.12 and Hematuria R31.9 [facility] [address] [id number] CREEK[place] [id number] Jun, Dysmetabolic Syndrome X 277.7 ; Unspecified essential hypertension 401.9 and Other and unspecified hyperlipidemia 272.4 [facility] [address] [id number] [place] [id number] Jun, Dysmetabolic Syndrome X 277.7 ; Obesity, unspecified 278.00 ; Other and unspecified hyperlipidemia 272.4 and Anhedonia 780.99 [facility] [address]00565100[place] [address] May, [facility] [id number] [place] [id number]- 2257 May, [facility] [id number] [place] [address]- [address] Apr, Dysthymic disorder 300.4 [facility] [id number] [place] [address]- 1242 Apr, [facility] [id number] [place] [address]- 4341 Apr, Dysthymic disorder 300.4 [facility] [id number] [place] [address] 1811 Apr, [address] [id number] CREEK[place] [id number] Mar, COPD with exacerbation [address] [id number] [address] Mar, Dysthymic disorder 300.4 [facility] [address] [id number] [address] February, Dysthymic disorder 300.4 ; No condition on [place] II V71.09 ; COPD (chronic obstructive pulmonary disease) 496 ; Glaucoma 365.9 ; Arthritis 716.90 and Diabetes [address] [id number] [place] [id number] February, [facility] [address] [id number] CREEK[place] [address] February, [facility] [address] [id number] CREEK[place] [address] Jan, [facility] [place] [facility] [address] [id number], [place] [address] Jan, [facility] [place] [facility] [address] [facility] [id number][place] [address]- [address] Jan, [facility] [place] [facility] [address] [id number][place] [address]- [address] Dec, [facility] [place] [facility] [address] [id number][place] [address]- 6[address] Dec, [facility] [place] [facility] [address] [id number][place] [address]- 98[address] Nov, [facility] [place] [facility] [address] [facility] [id number], [place] [address]- [address] Nov, [facility] [place] [facility] [address] [facility] [id number], [place] [address]- [address] Nov, [facility] [place] [facility] [address] [facility] [id number], [place] [address]- 3987 Nov, [facility] [place] [facility] [address] [facility] [id number][place] [address]- 2882 Nov, [facility] [place] [facility] [address] [facility] [id number][place] [address]- [address] Nov, [facility] [address] [id number], [place] [id number] Oct, [facility] [place] [facility] [address] [facility] [id number], [place] [address]- [address] Oct, [facility] [place] [facility] [address] [facility] [id number][place] [address]- 268[address] Oct, [facility] [place] [facility] [address] [facility] [id number], [place] [address]- 3767 Oct, [facility] [place] [facility] [address] [facility] [id number] [place] [address]- [address] Aug, [facility] [place] [facility] [address] [id number] [place] [address]- [address] Aug, [facility] [place] [facility] [address] [id number] [place] [address]- 4602 Aug, [facility] [place] [facility] [address] [id number] [place] [address]- 8753 Aug, [facility] [place] [facility] [address] [id number] [place] [address]- 0741 Jul, [facility] [place] [facility] [address] [id number] [place] [address]- 5942 Jul, [facility] [place] [facility] [address] [id number] [place] [address]- 6698 Jul, [facility] [place] [facility] [address] [id number] [place] [address]- 4054 Jul, [facility] [place] [facility] [address] [id number] [place] [address]- 6971 Jul, [facility] [place] [facility] [address] [id number] [place] [address]- 8131 Jul, [facility] [place] [facility] [address] [id number] [place] [address]- 4852 Jul, [facility] [place] [facility] [address] [id number] [place] [address]- 9765 Jul, [facility] [place] [facility] [address] [id number] [place] [address]- 9936 Jun, [facility] [place] [facility] [address] [id number] [place] [address]- 6795 Jun, [facility] [place] [facility] [address] [id number] [place] [address]- 4070 May, [facility] [place] [facility] [address] [id number] [place] [address]- 2980 May, [facility] [place] [facility] [address] [id number] [place] [address]- 7596 Apr, [facility] [place] [facility] [address] [id number] [place] [address]- 2626 Apr, [facility] [place] [facility] [address] [id number] [place] [address]- 5851 Apr, [facility] [place] [facility] [address] [id number] [place] [address]- 9857 Apr, [facility] [place] [facility] [address] [id number] [place] [address]- 7300 Apr, [facility] [place] [facility] [address] [id number] [place] [address]- 1747 Apr, [facility] [place] [facility] [address] [id number] [place] [address]- 5494 Apr, [facility] [place] [facility] [address] [id number] [place] [address]- 0667 Apr, [facility] [place] [facility] [address] [id number] [place] [address]- 7950 Mar, [facility] [place] [facility] [address] [id number] [place] [address]- 3076 Mar, [facility] [place] [facility] [address] [id number] [place] [address]- 9080 Mar, [facility] [place] [facility] [address] [id number] [place] [address]- 3654 Mar, [facility] [place] [facility] [address] [id number] [place] [address]- 3668 February, [facility] [place] [facility] [address] [id number] [place] [address]- 9588 February, [facility] [place] [facility] [address] [id number] [place] [address]- 3385 February, [facility] [place] [facility] [address] [id number] [place] [address]- 2961 February, [facility] [address] [id number] [place] [address]- 5624 February, [facility] [place] [facility] [address] [id number] [place] [address]- 1390 February, [facility] [address] [id number] [place] [address]- 7203 February, [facility] [place] [facility] [address] [id number] [place] [address]- 0912 February, [facility] [address] [id number] [place] [address]- 2371 Dec, [facility] [place] [facility] [address] [id number] [place] [address]- 4688 Dec, [facility] [address] [id number] [place] [address]- 9345 Dec, [facility] [place] [facility] [address] [id number] [place] [address]- 2839 Dec, [facility] [address] [id number] [place] [address]- 9361 Dec, [facility] [place] [facility] [address] [id number] [place] [address]- 8652 Dec, [facility] [address] [id number], [place] [address]- 6260 Dec, [facility] [place] [facility] [address] [id number], [place] [address]- 0042 Dec, [facility] [place] [facility] [address] [id number] [place] [address]- 7314 Dec, [facility] [place] [facility] [address] [facility] [id number], [place] [address]- 0810 Nov, [facility] [address] [id number][place] [address] Nov, [facility] [place] [facility] [address] [facility] [id number][place] [address]- 1506 Nov, [facility] [address] [facility] [id number], [place] [address]- 1536 Jun, [facility] [address] [facility] [id number], [place] [address]- 2546 May, [facility] [address] [id number] [place] [address] Apr, [facility] [address]00565100[place], [place] [address]- 7036 February, [facility] [address] [facility] [id number], [place] [address]- 2546 February, [facility] [address] [id number] [place] [address] Dec, [facility] [address] [id number] [place] [address] Apr, [facility] [address] [id number] [place] [id number] Apr, [facility] [address] [id number] [place] [address] Apr, [facility] [address] [id number] [place] [address] Apr, [facility] [address] [id number] [place] [id number] Apr, [facility] [address]65100[place], [place] [address]- 2546 Nov, [facility] [address] [id number], [place] [address]- 2162 Sep, [facility] [address]00565100[place], [place] [address]- 3134 Sep, [facility] [address] [id number], [place] [address]- 1885 Sep, [facility] [address] [id number], [place] [address]- 9756 Sep, [facility] [address] [id number], [place] [address]- 3976 Sep, [facility] [address] [id number], [place] [address]- 5386 Dec, [facility] [address]65100[place], [place] [address]- 5168 Sep, [facility] [address]65100[place], [place] [address]- 0939 Sep, [facility] [address] [id number], [place] [address]- 3600 May, [facility] [address]65100[place], [place] [address]- 9062 February, IMMUNIZATIONS No Known Immunizations SOCIAL HISTORY Never Assessed REASON FOR VISIT refill PLAN OF CARE VITAL SIGNS MEDICATIONS Medication Instructions Dosage Frequency Start Date End Date Duration Status Zanaflex 4 MG Orally Three times a day 1 capsule as needed FOR PAIN/MUSCLE PAIN 8h 14 Nov, 2016 Active RESULTS No Results PROCEDURES No Known [...] TSH less than 1 Medical History DVT [id number]-dtjb pos tibial Medical History 2010 tetanus shot Surgical History cataract-lens implants Surgical History eye surgery for glaucoma Surgical History heart cath Surgical History left CTS 05/2016 Surgical History carpal tunnel release, bilat april and may Hospitalization History pneumonia 11/2015 Hospitalization History chest pain-ruled out cardiac cause 10/2016
--- OUTSIDE RECORDS SUMMARY | 2018-08-26 12:22 | XMS REPORT ---
Author Author MAURICE CUMMINS [facility] Address [address] [place] [address] Care Team Providers Care Head Bookkeeper Name Role Phone MAURICE CUMMINS Unavailable PROBLEMS Type Condition ICD9-CM Code WOW64-ZS Code Onset Dates Condition Status SNOMED Code Problem Chronic obstructive pulmonary disease, unspecified J44.9 Active 69770729 Problem Non-cardiac chest pain R07.89 Active 727719763 Problem Chronic obstructive pulmonary disease with (acute) exacerbation J44.1 Active 043092065 Problem Obesity, morbid E66.01 Active 694912131 Problem Poor diet E63.9 Active 078818842 Problem Enlarged prostate N40.0 Active 711749687 Problem Bloody stools K92.1 Active 703471547408193 Problem Pain in left lower leg M79.662 Active 14069206 Problem Acute deep vein thrombosis (DVT) of tibial vein of left lower extremity I82.442 Active 491152083605318 Problem Cervicalgia M54.2 Active 34102343 Problem Metabolic syndrome E88.81 Active 883928918 Problem Pneumonia of left lung due to infectious organism, unspecified part of lung J18.9 Active 946814163 Problem Irritability R45.4 Active 64753777 Problem High risk medication use Z79.899 Active 151003809 Problem Anhedonia R45.84 Active 57693566 Problem Pure hypercholesterolemia E78.0 Active 268050580 Problem Cervical radicular pain M54.12 Active 26360598 Problem Polyneuropathic pain M79.2 Active 218380789 Problem Cervical stenosis of spinal canal M48.02 Active 71695426 ALLERGIES No Information ENCOUNTERS Encounter Location Date Diagnosis [facility] [address] [id number] [place] [id number] Dec, [address] [id number][place] [id number] 15 Mar, 2018 High risk medication use Z79.899 ; Anhedonia R45.84 and Obesity, morbid E66.[address] [facility] [address] [id number], [place] [address] Sep, High risk medication use Z79.899 ; Irritability R45.4 ; Pain in left lower leg M79.662 and Poor diet E63.[address] [facility] [address] [id number][place] [address] Aug, [facility] [address] [id number][place] [id number] Jul, [facility] [id number] [place] [id number] Jul, Polyneuropathic pain M79.[address] [facility] [address] [id number][place] [address] Jul, [facility] [id number] [place] [id number] Jul, Enlarged prostate N40.0 ; Pure hypercholesterolemia E78.0 and Encounter for immunization Z23 [facility] [address] [id number][place] [id number] May, Acute deep vein thrombosis (DVT) of tibial vein of left lower extremity I82.442 and Pure hypercholesterolemia E78.0 [facility] [address] [id number], [place] [address] Apr, [facility] [address] [id number][place] [id number] Mar, Enlarged prostate N40.0 and Bloody stools K92.1 [facility] [address] [id number], [place] [address] February, Bloody stools K92.1 and Enlarged prostate N40.[address] [facility] [address] [id number], [place] [address] Nov, Polyneuropathic pain M79.2 and Non-cardiac chest pain R07.[address] [facility] [address] [id number], [place] [address] Jul, Metabolic syndrome E88.81 [facility] [address] [id number], [place] [id number] May, [facility] [place] [address] [facility] [id number][place] [id number] May, [facility] [place] [address] [id number], [place] [address] May, [facility] [address] [id number], [place] [address] May, Chronic obstructive pulmonary disease, unspecified J44.9 and Chronic obstructive pulmonary disease with (acute) exacerbation J44.1 [facility] [address] [id number] [address] Apr, [facility] [address] [id number], [place] [address] Mar, [facility] [address] [id number], [place] [address] Mar, Cervical stenosis of spinal canal M48.02 [facility] [address] [id number] [address] February, [facility] [address] [id number], [place] [address] February, [facility] [address] [id number], [place] [address] February, High risk medication use Z79.899 ; Anhedonia R45.84 and Cervical radicular pain M54.12 [facility] [address] [id number], [place] [id number] Jan, [facility] [address] [facility] [id number] [address] Jan, [facility] [address] [id number], [place] [address] Jan, Metabolic syndrome E88.81 ; Pure hypercholesterolemia E78.0 ; Polyneuropathic pain M79.2 and Irritability R45.[address] [id number], [place] [address] Dec, Polyneuropathic pain M79.2 [facility] [address]00565100[place] [address] Dec, [address] [place] [id number] Dec, Pneumonia of left lung due to infectious organism, unspecified part of lung J18.9 ; Cervicalgia M54.2 and Irritability R45.4 [facility] [id number] [place] [address] Nov, [facility] [id number] [place] [address]- 1676 Nov, [facility] [id number] [place] [address] Oct, [facility] [address] [id number][place] [id number] Aug, [facility] [address] [id number] [place] [id number] Jul, Diverticulosis of large intestine without hemorrhage K57.30 and Abdominal pain, left lower quadrant R10.32 [facility] [address] [id number], [place] [address] Jul, [facility] [address] [id number] [place] [id number] Jul, Blood in stool K92.1 ; Left lower quadrant pain R10.32 and Hematuria R31.9 [facility] [address] [id number], [place] [address]151 Jul, Left upper quadrant pain R10.12 and Hematuria R31.9 [facility] [address] [id number], [place] [address] Jun, Dysmetabolic Syndrome X 277.7 ; Unspecified essential hypertension 401.9 and Other and unspecified hyperlipidemia 272.4 [facility] [address] [id number], [place] [id number] Jun, Dysmetabolic Syndrome X 277.7 ; Obesity, unspecified 278.00 ; Other and unspecified hyperlipidemia 272.4 and Anhedonia 780.99 [facility] [address]00565100[place] [address] May, [facility] [id number] [place] [address]- 8436 May, [facility] [id number] [place] [address]- 9340 Apr, Dysthymic disorder 300.4 [facility] [id number] [place] [address]- 1672 Apr, [facility] [id number] [place] [address]- 4353 Apr, Dysthymic disorder 300.4 [facility] [id number] [place] [address] Apr, [address] [id number], [place] [address] Mar, COPD with exacerbation [address] [id number] [address] Mar, Dysthymic disorder 300.4 [facility] [address] [id number] [address]- [address] February, Dysthymic disorder 300.4 ; No condition on Redkey II V71.09 ; COPD (chronic obstructive pulmonary disease) 496 ; Glaucoma 365.9 ; Arthritis 716.90 and Diabetes [address] [id number], [place] [address] February, [facility] [address] [id number], [place] [id number] February, [facility] [address] [id number], [place] [id number] Jan, [facility] [place] [facility] [address] [id number], [place] [address] Jan, [facility] [place] [facility] [address] [facility] [id number] [address]- [address] Jan, [facility] [place] [facility] [address] [id number] [address]- 70[address] Dec, [facility] [place] [facility] [address] [id number] [address] Dec, [facility] [place] [facility] [address] [id number] [address]- [address] Nov, [facility] [place] [facility] [address] [facility] [id number] [address]- [address]28 Nov, [facility] [place] [facility] [address] [facility] [id number] [address]- 2371 Nov, [facility] [place] [facility] [address] [facility] [id number] [address]- 37[address] Nov, [facility] [place] [facility] [address] [facility] [id number] [address]- 3696 Nov, [facility] [place] [facility] [address] [facility] [id number] [address]- [address] Nov, [facility] [address] [id number], [place] [id number] Oct, [facility] [place] [facility] [address] [facility] [id number] [address]- [address] Oct, [facility] [place] [facility] [address] [facility] [id number] [address]- 1165 Oct, [facility] [place] [facility] [address] [facility] [id number] [address]- 4[address] Oct, [facility] [place] [facility] [address] [facility] [id number] [place] [address]- [address] Aug, [facility] [place] [facility] [address] [id number] [place] [address]- [address]99 Aug, [facility] [place] [facility] [address] [id number] [place] [address]- 0547 Aug, [facility] [place] [facility] [address] [id number] [place] [address]- 5633 Aug, [facility] [place] [facility] [address] [id number] [place] [address]- 5740 Jul, [facility] [place] [facility] [address] [id number] [place] [address]- 9586 Jul, [facility] [place] [facility] [address] [id number] [place] [address]- 4352 Jul, [facility] [place] [facility] [address] [id number] [place] [address]- 5900 Jul, [facility] [place] [facility] [address] [id number] [place] [address]- 7518 Jul, [facility] [place] [facility] [address] [id number] [place] [address]- 1269 Jul, [facility] [place] [facility] [address] [id number] [place] [address]- 1071 Jul, [facility] [place] [facility] [address] [id number] [place] [address]- 3322 Jul, [facility] [place] [facility] [address] [id number] [place] [address]- 3446 Jun, [facility] [place] [facility] [address] [id number] [place] [address]- 9679 Jun, [facility] [place] [facility] [address] [id number] [place] [address]- 3359 May, [facility] [place] [facility] [address] [id number] [place] [address]- 5825 May, [facility] [place] [facility] [address] [id number] [place] [address]- 9190 Apr, [facility] [place] [facility] [address] [id number] [place] [address]- 7756 Apr, [facility] [place] [facility] [address] [id number] [place] [address]- 6056 Apr, [facility] [place] [facility] [address] [id number] [place] [address]- 2096 Apr, [facility] [place] [facility] [address] [id number] [place] [address]- 8655 Apr, [facility] [place] [facility] [address] [id number] [place] [address]- 1866 Apr, [facility] [place] [facility] [address] [id number] [place] [address]- 5682 Apr, [facility] [place] [facility] [address] [id number] [place] [address]- 1298 Apr, [facility] [place] [facility] [address] [id number] [place] [address]- 7552 Mar, [facility] [place] [facility] [address] [id number] [place] [address]- 1253 Mar, [facility] [place] [facility] [address] [id number] [place] [address]- 1476 Mar, [facility] [place] [facility] [address] [id number] [place] [address]- 3249 Mar, [facility] [place] [facility] [address] [id number] [place] [address]- 1028 February, [facility] [place] [facility] [address] [id number] [place] [address]- 5189 February, [facility] [place] [facility] [address] [id number] [place] [address]- 1802 February, [facility] [place] [facility] [address] [id number] [place] [address]- 0613 February, [facility] [address] [id number] [place] [address]- 5783 February, [facility] [place] [facility] [address] [id number] [place] [address]- 5277 February, [facility] [address] [id number] [place] [address]- 6074 February, [facility] [place] [facility] [address] [id number] [place] [address]- 2860 February, [facility] [address] [id number] [place] [address]- 5325 Dec, [facility] [place] [facility] [address] [id number] [place] [address]- 9899 Dec, [facility] [address] [id number] [place] [address]- 3091 Dec, [facility] [place] [facility] [address] [id number] [place] [address]- 0499 Dec, [facility] [address] [id number] [place] [address]- 0629 Dec, [facility] [place] [facility] [address] [id number] [place] [address]- 6734 Dec, [facility] [address] [id number] [address]- 3226 Dec, [facility] [place] [facility] [address] [id number] [address]- 6192 Dec, [facility] [place] [facility] [address] [id number] [place] [address]- 1980 Dec, [facility] [place] [facility] [address] [facility] [id number] [address]- 9533 Nov, [facility] [address] [id number][place] [address] Nov, [facility] [place] [facility] [address] [facility] [id number] [address]- 3606 Nov, [facility] [place] [address] [facility] [id number] [address]- 5206 Jun, [facility] [address] [facility] [id number] [address]- 2546 May, [facility] [address] [id number] [place] [id number] Apr, [facility] [address]00565100[place] [address]- 9636 February, [facility] [address] [facility] [id number] [address]- 2546 February, [facility] [address] [id number] [place] [id number] Dec, [facility] [address] [id number] [place] 0005844[address] Apr, [facility] [address] [id number] [place] [id number] Apr, [facility] [address] [id number] [place] [address] Apr, [facility] [address] [id number] [place] [address]238893[address] Apr, [facility] [address] [id number] [place] 13338[address]76 Apr, [facility] [address]65100[place] [address]- 2546 Nov, [facility] [address] [id number] [address]- 8400 Sep, [facility] [address]65100[place] [address]- 6371 Sep, [facility] [address] [id number] [address]- 6398 Sep, [facility] [address] [id number] [address]- 9966 Sep, [facility] [address] [id number] [address]- 3436 Sep, [facility] [address] [id number] [address]- 8132 Dec, [facility] [address]65100[place] [address]- 2357 Sep, [facility] [address] [id number] [address]- 6990 Sep, [facility] [address] [id number] [address]- 1132 May, [facility] [address]100[place]- 7247 February, IMMUNIZATIONS No Known Immunizations SOCIAL HISTORY Never Assessed REASON FOR VISIT Refill request PLAN OF CARE VITAL SIGNS MEDICATIONS Unknown [...] TSH less than 1 Medical History DVT [id number]-piux pos tibial Medical History 2010 tetanus shot Surgical History cataract-lens implants Surgical History eye surgery for glaucoma Surgical History heart cath Surgical History left CTS 05/2016 Surgical History carpal tunnel release, bilat april and may Hospitalization History pneumonia 11/2015 Hospitalization History chest pain-ruled out cardiac cause 10/2016
--- OUTSIDE RECORDS SUMMARY | 2018-08-26 12:23 | XMS REPORT ---
Author Author MAURICE CUMMINS [facility] eClinical[employer] Address Unknown Phone Unavailable Care Team Providers Care Director Of Orthopedics Name Role Phone MAURICE CUMMINS CP Unavailable Allergies, Adverse Reactions, Alerts Substance Reaction Event Type N.K.D.A. Info Not Available Non Drug Allergy Problems Problem Type Condition Code Onset Dates Condition Status Problem Pneumonia of left lung due to infectious organism, unspecified part of lung J18.9 Active Problem Metabolic syndrome E88.81 Active Problem Pure hypercholesterolemia E78.0 Active Problem Chronic obstructive pulmonary disease with (acute) exacerbation J44.1 Active Problem Cervical stenosis of spinal canal M48.02 Active Problem Chronic obstructive pulmonary disease, unspecified J44.9 Active Problem Cervical radicular pain M54.12 Active Problem Polyneuropathic pain M79.2 Active Problem High risk medication use Z79.899 Active Problem Anhedonia R45.84 Active Assessment Metabolic syndrome E88.81 Active Problem Irritability R45.4 Active Problem Cervicalgia M54.2 Active Medications Medication Code System Code Instructions Start Date End Date Status Dosage Hydrochlorothiazide [facility] [address]-53 12.5 MG Orally Once a day 1 capsule Albuterol Sulfate [facility] 05010709122 0.083% USE ONE VIAL IN NEBULIZER EVERY 6 HOURS NEEDED FOR COUGH AND OR WHEEZING FOUR TIMES A DAY Spiriva Respimat [facility] [address]-86 1.25 MCG/ACT Inhalation Once a day 2 puffs Gabapentin [facility] [address]-73 300 MG Orally 3 times a day December 15, 2015 1 capsule Cymbalta [facility] [address]-26 60 mg Orally Once a day January 24, 2016 1 capsule Metformin HCl [facility] 55505859252 500MG Orally 2 times a day 1 tablet with meals Nebulizer ND 0 nebulizer May 30, 2016 as directed Symbicort [facility] [address]-83 80-4.5 MCG/ACT Inhalation Twice a day 2 puffs Simvastatin [facility] [address]-60 20 mg Orally Once a day Jul 22, 2014 1 tablet in the evening Aspir-81 [facility] [address]-71 81 MG Orally Once a day 1 tablet Procedures Procedure Coding System Code Date Office Visit, Est Pt., Level 3 CPT-4 05616 Jul 24, 2016 GLYCATED HEMOGLOBIN TEST CPT-4 89189 Jul 24, 2016 Vital Signs Date/Time: Jul 24, 2016 Cardiac Monitoring Heart Rate 87 bpm Weight 227.1 lbs Height 66 in BMI 36.65 Index Blood Pressure Diastolic 78 mmHg Blood Pressure Systolic 122 mmHg Results Name Result Date Reference Range Unit Abnormality Flag A1C (IN HOUSE) ----A1C IN HOUSE 5.9 [id number] 4.3 - 5.6 % ----Previous A1c 5.9 [id number] ----Lot [id number] ----Exp date [id number] Summary Purpose eClinicalWorks Submission
--- OUTSIDE RECORDS SUMMARY | 2018-08-26 12:23 | XMS REPORT ---
Author SARAH Mccarthy [facility] eClinicalWorks Address Unknown Phone Unavailable Care Team Providers Care Carton Forming Machine Adjuster Name Role Phone SARAH POWERS CP Unavailable [...] and idiopathic peripheral neuropathy 356.9 Active Assessment Blood in stool K92.1 Active Problem Other and unspecified hyperlipidemia 272.4 Active Assessment Hematuria R31.9 Active Assessment Left lower quadrant pain R10.32 Active Problem Edema 782.3 Active Problem Other chronic pain 338.29 Active Problem Other dyspnea and respiratory abnormalities 786.09 Active Problem Other general symptoms 780.99 Active Problem Other follow-up examination V67.59 Active Problem Syncope and collapse 780.2 Active Medications Medication Code System Code Instructions Start Date End Date Status Dosage Albuterol Sulfate [facility] 02588069435 0.083% USE ONE VIAL IN NEBULIZER EVERY 6 HOURS NEEDED FOR COUGH [place] [address]-05 20 MG Orally Once a day Jul 22, 2014 1 tablet in the evening metformin NDC 0 500 mg Nov 24, 2014 take 1 tablet by Oral route 2 times per day with food Procedures Procedure Coding System Code Date COMPLETE CBC W/AUTO DIFF WBC CPT-4 19657 Jul 25, 2015 COMPREHEN METABOLIC PANEL CPT-4 96237 Jul 25, 2015 TEST FOR BLOOD, FECES CPT-4 14179 Jul 25, 2015 URINALYSIS, AUTO, W/O SCOPE CPT-4 63739 Jul 25, 2015 VENIPUNCT, ROUTINE* CPT-4 99368 Jul 25, 2015 Office Visit, Est Pt., Level 3 CPT-4 82770 Jul 25, 2015 Vital Signs Date/Time: Jul 25, 2015 Temperature 97.7 F Weight 225.8 lbs Height 66 in BMI 36.44 Index Blood Pressure Diastolic 82 mmHg Blood Pressure Systolic 138 mmHg Cardiac Monitoring Heart Rate 77 bpm Results Name Result Date Reference Range Unit Abnormality Flag CBC CT Scan : Abdomen & Pelvis w/ Contrast Summary Purpose eClinicalWorks Submission
--- OUTSIDE RECORDS SUMMARY | 2018-08-26 12:23 | XMS REPORT ---
Author Author MAURICE CUMMINS [facility] Address [address] [place] [address] Care Team Providers Care Complaint Specialist Name Role Phone MAURICE CUMMINS Unavailable PROBLEMS Type Condition ICD9-CM Code LXI12-BA Code Onset Dates Condition Status SNOMED Code Problem Chronic obstructive pulmonary disease, unspecified J44.9 Active 83134450 Problem Non-cardiac chest pain R07.89 Active 884730925 Problem Chronic obstructive pulmonary disease with (acute) exacerbation J44.1 Active 387095972 Problem Obesity, morbid E66.01 Active 202970879 Problem Poor diet E63.9 Active 428519049 Problem Enlarged prostate N40.0 Active 182140158 Problem Bloody stools K92.1 Active 742631172127969 Problem Pain in left lower leg M79.662 Active 11196214 Problem Acute deep vein thrombosis (DVT) of tibial vein of left lower extremity I82.442 Active 532277622614788 Problem Cervicalgia M54.2 Active 16930115 Problem Metabolic syndrome E88.81 Active 461589949 Problem Pneumonia of left lung due to infectious organism, unspecified part of lung J18.9 Active 449620167 Problem Irritability R45.4 Active 58001709 Problem High risk medication use Z79.899 Active 653218489 Problem Anhedonia R45.84 Active 05683554 Problem Pure hypercholesterolemia E78.0 Active 266665296 Problem Cervical radicular pain M54.12 Active 84139558 Problem Polyneuropathic pain M79.2 Active 359460057 Problem Cervical stenosis of spinal canal M48.02 Active 68157123 ALLERGIES No Known Allergies ENCOUNTERS Encounter Location Date Diagnosis [facility] [address] [id number] [place] [id number] Dec, [address] [id number][place] [address] Dec, High risk medication use Z79.899 ; Anhedonia R45.84 and Obesity, morbid E66.[address] [facility] [address] [id number][place] [address] Sep, High risk medication use Z79.899 ; Irritability R45.4 ; Pain in left lower leg M79.662 and Poor diet E63.[address] [facility] [address] [id number][place] [id number] Aug, [facility] [address] [id number][place] [id number] Jul, [facility] [address] [id number][place] [id number] Jul, Polyneuropathic pain M79.[address] [facility] [address] [id number][place] [address] Jul, [facility] [id number] [place] [id number] Jul, Enlarged prostate N40.0 ; Pure hypercholesterolemia E78.0 and Encounter for immunization Z23 [facility] [address] [id number][place] [id number] May, Acute deep vein thrombosis (DVT) of tibial vein of left lower extremity I82.442 and Pure hypercholesterolemia E78.0 [facility] [address] [id number][place] [id number] Apr, [facility] [address] [id number][place] [address] Mar, Enlarged prostate N40.0 and Bloody stools K92.[address] [facility] [address] [id number], [place] [id number] February, Bloody stools K92.1 and Enlarged prostate N40.[address] [facility] [address] [id number][place] [address] Nov, Polyneuropathic pain M79.2 and Non-cardiac chest pain R07.[address] [facility] [address] [id number], [place] [address] Jul, Metabolic syndrome E88.81 [facility] [address] [id number][place] [id number] May, [facility] [address] [id number][place] [id number] May, [facility] [address] [id number], [place] [id number] May, [facility] [address] [id number], [place] [address] May, Chronic obstructive pulmonary disease, unspecified J44.9 and Chronic obstructive pulmonary disease with (acute) exacerbation J44.1 [facility] [address] [id number] [address] Apr, [facility] [address] [id number], [place] [id number] Mar, [facility] [address] [id number], [place] [address] Mar, Cervical stenosis of spinal canal M48.02 [address] [id number] [address] February, [facility] [address] [id number], [place] [address] February, [facility] [address] [id number], [place] [address] February, High risk medication use Z79.899 ; Anhedonia R45.84 and Cervical radicular pain M54.12 [facility] [address] [id number], [place] [id number] Jan, [facility] [address] [facility] [id number][place] [address] Jan, [facility] [address] [id number], [place] [address] Jan, Metabolic syndrome E88.81 ; Pure hypercholesterolemia E78.0 ; Polyneuropathic pain M79.2 and Irritability R45.[address] [id number], [place] [address] Dec, Polyneuropathic pain M79.2 [facility] [address]00565100[place], [place] [address] Dec, [address] [id number] [place] [id number] Dec, Pneumonia of left lung due to infectious organism, unspecified part of lung J18.9 ; Cervicalgia M54.[address] [facility] [id number] [place] [address] Nov, [facility] [id number] [place] [address] 8285 Nov, [facility] [id number] [place] [address] 7799 Oct, [address] [id number], [place] [id number] Aug, [facility] [address] [id number] [place] [id number] Jul, Diverticulosis of large intestine without hemorrhage K57.30 and Abdominal pain, left lower quadrant R10.32 [facility] [address] [id number], [place] [id number] Jul, [facility] [address] [id number] [place] [id number] Jul, Blood in stool K92.1 ; Left lower quadrant pain R10.32 and Hematuria R31.9 [facility] [address] [place] [address] AVE [id number], [place] [id number] Jul, Left upper quadrant pain R10.12 and Hematuria R31.[address] [id number], [place] [id number] Jun, Dysmetabolic Syndrome X 277.7 ; Unspecified essential hypertension 401.9 and Other and unspecified hyperlipidemia 272.4 [facility] [address] [id number], [place] [id number] Jun, Dysmetabolic Syndrome X 277.7 ; Obesity, unspecified 278.00 ; Other and unspecified hyperlipidemia 272.[address] [facility] [address]00565100[place] [address] May, [facility] [id number] [place] [address]99 May, [facility] [id number] [place] [address] Apr, Dysthymic disorder 300.4 [facility] [id number] [place] [address]5 Apr, [facility] [id number] [place] [address]17 Apr, Dysthymic disorder 300.4 [facility] [id number] [place] [address] 8177 Apr, [address] [id number], [place] [address] Mar, COPD with exacerbation [id number] [place] [address] Mar, Dysthymic disorder 300.4 [facility] [address] [place] [id number] February, Dysthymic disorder 300.4 ; No condition on [place] II V71.09 ; COPD (chronic obstructive pulmonary disease) 496 ; Glaucoma 365.9 ; Arthritis 716.90 and Diabetes [address] [id number], [place] [address] February, [facility] [address] [place] [address] AVE [id number], [place] [id number] February, [facility] [id number], [place] [address] Jan, [facility] [place] [facility] [address] [facility] [id number][place] [address] Jan, [facility] [place] [facility] [address] [facility] [id number], [place] [address] Jan, [facility] [place] [facility] [address] [facility] [id number], [place] [address] Dec, [facility] [place] [facility] [address] [facility] [id number][place] [address] Dec, [facility] [place] [facility] [address] [facility] [id number][place] [address] Nov, [facility] [place] [facility] [address] [id number], [place] [address] Nov, [facility] [place] [facility] [address] [facility] [id number][place] [address] Nov, [facility] [place] [facility] [address] [facility] [id number][place] [address]- 45[address] Nov, [facility] [place] [facility] [address] [id number], [place] [address] 2668 Nov, [facility] [place] [facility] [address] [facility] [id number][place] [address] Nov, [facility] [address] [id number], [place] [id number] Oct, [facility] [place] [facility] [address] [facility] [id number], [place] [address]99 Oct, [facility] [place] [facility] [address] [facility] [id number][place] [address] 9198 Oct, [facility] [place] [facility] [address] [facility] [id number][place] [address]- 4040 Oct, [facility] [place] [facility] [address] [facility] [id number] [place] [address]- [address] Aug, [facility] [place] [facility] [address] [id number] [place] [address]- [address]60 Aug, [facility] [place] [facility] [address] [id number] [place] [address]- 8546 Aug, [facility] [place] [facility] [address] [id number] [place] [address]- 9871 Aug, [facility] [place] [facility] [address] [id number] [place] [address]- 8711 Jul, [facility] [place] [facility] [address] [id number] [place] [address]- 7974 Jul, [facility] [place] [facility] [address] [id number] [place] [address]- 6491 Jul, [facility] [place] [facility] [address] [id number] [place] [address]- 4536 Jul, [facility] [place] [facility] [address] [id number] [place] [address]- 2551 Jul, [facility] [place] [facility] [address] [id number] [place] [address]- 7892 Jul, [facility] [place] [facility] [address] [id number] [place] [address]- 2581 Jul, [facility] [place] [facility] [address] [id number] [place] [address]- 8053 Jul, [facility] [place] [facility] [address] [id number] [place] [address]- 3789 Jun, [facility] [place] [facility] [address] [id number] [place] [address]- 4765 Jun, [facility] [place] [facility] [address] [id number] [place] [address]- 0749 May, [facility] [place] [facility] [address] [id number] [place] [address]- 5999 May, [facility] [place] [facility] [address] [id number] [place] [address]- 5405 Apr, [facility] [place] [facility] [address] [id number] [place] [address]- 0290 Apr, [facility] [place] [facility] [address] [id number] [place] [address]- 1233 Apr, [facility] [place] [facility] [address] [id number] [place] [address]- 6531 Apr, [facility] [place] [facility] [address] [id number] [place] [address]- 5388 Apr, [facility] [place] [facility] [address] [id number] [place] [address]- 5781 Apr, [facility] [place] [facility] [address] [id number] [place] [address]- 1168 Apr, [facility] [place] [facility] [address] [id number] [place] [address]- 9026 Apr, [facility] [place] [facility] [address] [id number] [place] [address]- 2877 Mar, [facility] [place] [facility] [address] [id number] [place] [address]- 5519 Mar, [facility] [place] [facility] [address] [id number] [place] [address]- 0077 Mar, [facility] [place] [facility] [address] [id number] [place] [address]- 0517 Mar, [facility] [place] [facility] [address] [id number] [place] [address]- 1038 February, [facility] [place] [facility] [address] [id number] [place] [address]- 2363 February, [facility] [place] [facility] [address] [id number] [place] [address]- 3467 February, [facility] [place] [facility] [address] [id number] [address]- 7968 February, [facility] [address] [id number] [place] [address]- 5056 February, [facility] [place] [facility] [address] [id number] [place] [address] February, [facility] [address] [id number] [place] [address] February, [facility] [place] [facility] [address] [id number] [place] [address]- 1829 February, [facility] [place] [facility] [address] [id number] [place] [address]- 8308 Dec, [facility] [place] [facility] [address] [id number] [place] [address]- 2097 Dec, [facility] [place] [facility] [address] [id number] [place] [address]- 6368 Dec, [facility] [place] [facility] [address] [id number], [place] [address]- 1251 Dec, [facility] [address] [id number], [place] [address]- 0182 Dec, [facility] [place] [facility] [address] [id number][place] [address]- 4411 Dec, [facility] [address] [id number] [address]- 5047 Dec, [facility] [place] [facility] [address] [id number], [place] [address]- 5854 Dec, [facility] [place] [facility] [address] [id number] [place] [address]- 6088 Dec, [facility] [place] [facility] [address] [facility] [id number][place] [address]- 6936 Nov, [facility] [address] [id number], [place] [address] Nov, [facility] [address] [facility] [id number][place] [address]- [address] Nov, [facility] [address] [facility] [id number][place] [address]- 9699 Jun, [facility] [address] [facility] [id number][place] [address]- 2546 May, [facility] [address] [id number] [place] [id number] Apr, [facility] [address] [id number], [place] [address]- [address] February, [facility] [address] [facility] [id number][place] [address]- 2076 February, [facility] [address] [id number] [place] [id number] Dec, [facility] [address] [id number] [place] [address] Apr, [facility] [address] [id number] [place] [id number] Apr, [facility] [address] [id number] [place] [address] Apr, [facility] [address] [id number] [place] [id number] Apr, [facility] [address] [id number] [place] [id number] Apr, [facility] [address]00565100[place], [place] [address]- [address] Nov, [facility] [address] [facility] [id number][place] [address]- 8043 Sep, [facility] [address]65100[place], [place] [address]- 3411 Sep, [facility] [place] [facility] [address] [id number], [place] [address]- 2433 Sep, [facility] [address] [id number], [place] [address]- [address] Sep, [facility] [address] [facility] [id number] [address] Sep, [facility] [address] [id number], [place] [address]- [address]204 Dec, [facility] [address]00565100[place] [address] Sep, [facility] [address]00565100[place] [address] Sep, [facility] [address] [id number], [place] [address]- [address] May, [facility] [address]65[address], [place] [address]- [address]39 February, IMMUNIZATIONS No Known Immunizations SOCIAL HISTORY Never Assessed REASON FOR VISIT chronic pain bferrisma PLAN OF CARE Activity Details Follow Up 3 Months Reason:depression VITAL SIGNS Height 66 in 2017-09-25 Weight 231.3 lbs 2017-09-25 Temperature 97.8 degrees Fahrenheit 2017-09-25 Heart Rate 78 bpm 2017-09-25 Respiratory Rate 22 2017-09-25 BMI 37.33 kg/m2 2017-09-25 Blood pressure systolic 120 mmHg 2017-09-25 Blood pressure diastolic 82 mmHg 2017-09-25 MEDICATIONS Medication Instructions Dosage Frequency Start Date End Date Duration Status Voltaren 1 % Transdermal 4 times a day as directed for pain 6h 14 Sep, 2017 Active Ibuprofen 800 MG Orally Three times a day 1 tablet with food or milk as needed 8h Active Albuterol Sulfate 0.083% USE ONE VIAL IN NEBULIZER EVERY 6 HOURS NEEDED FOR COUGH AND OR WHEEZING FOUR TIMES A DAY 25 Active Metformin HCl 500MG Orally 2 times a day 1 tablet with meals 12h 30 Active Aspir-81 81 MG Orally Once a day 1 tablet 24h Not-Taking Spiriva Respimat 1.25 MCG/ACT Inhalation Once a day 2 puffs 24h Active Symbicort 80-4.5 Inhalation Twice a day 2 puffs 12h 30 Active ProAir HFA 108 (90 Base) mcg/act Inhalation every 6 hrs for shortness of breath/cough 2 puffs as needed Aug, Active Flonase 50 MCG/ACT Nasally Once a day 1 spray in each nostril 24h February, Not-Taking Zanaflex 4 MG Orally Three times a day 1 capsule as needed FOR PAIN/MUSCLE PAIN 8h 14 Nov, 2016 Not-Taking Cymbalta 60 mg Orally Once a day 1 capsule 24h 90 days Active Gabapentin 600 MG Orally 3 times a day 1 capsule 8h Dec, 0 days Active Hydrochlorothiazide 12.5MG Orally Once a day 1 capsule 24h Active Simvastatin 20MG Orally Once a day 1 tablet in the evening 24h Active Nebulizer nebulizer as directed May, Active Xarelto 20 mg Orally Once a day 1 tablet with food-start this after starter pack 24h May, Active Albuterol Sulfate HFA 108 (90 Base) MCG/ACT Inhalation every 4 hrs 2 puffs as needed 4h Active RESULTS No Results PROCEDURES No Known [...] TSH less than 1 Medical History DVT [id number] pos tibial Medical History 2010 tetanus shot Surgical History cataract-lens implants Surgical History eye surgery for glaucoma Surgical History heart cath Surgical History left CTS 05/2016 Surgical History carpal tunnel release, bilat april and may Hospitalization History pneumonia 11/2015 Hospitalization History chest pain-ruled out cardiac cause 10/2016
--- OUTSIDE RECORDS SUMMARY | 2018-08-26 12:24 | XMS REPORT ---
Author Author MAURICE CUMMINS Organization [employer] Address Unknown Phone Unavailable Care Team Providers Care Tissue Technician Name Role Phone MAURICE CUMMINS CP Unavailable Allergies No Known Allergies Problems Problem Type Condition ICD-9 Code Onset Dates Condition Status Problem Dental [...] and idiopathic peripheral neuropathy 356.9 Active Assessment Dysmetabolic Syndrome X 277.7 Active Problem Other and unspecified hyperlipidemia 272.4 Active Assessment Other and unspecified hyperlipidemia 272.4 Active Assessment Unspecified essential hypertension 401.9 Active Problem Edema 782.3 Active Problem Other chronic pain 338.29 Active Problem Other dyspnea and respiratory abnormalities 786.09 Active Problem Other general symptoms 780.99 Active Problem Other follow-up examination V67.59 Active Problem Syncope and collapse 780.2 Active Medications No Known Medications Procedures Procedure Coding System Code Date ASSAY THYROID STIM HORMONE CPT-4 36796 Jun 22, 2015 LIPID PANEL CPT-4 56920 Jun 22, 2015 GLYCATED HEMOGLOBIN TEST CPT-4 90958 Jun 22, 2015 VENIPUNCT, ROUTINE* CPT-4 60769 Jun 22, 2015 COMPREHEN METABOLIC PANEL CPT-4 79936 Jun 22, 2015 Results No Known Results Summary Purpose [employer] Submission
--- OUTSIDE RECORDS SUMMARY | 2018-08-26 12:24 | XMS REPORT ---
Author Author YOCASTA CHILDERS [facility] [employer] Address Unknown Phone Unavailable Care Team Providers Care Dynamic Etching Processor Name Role Phone YOCASTA CHILDERS CP Unavailable Allergies, Adverse Reactions, Alerts Substance Reaction Event Type N.K.D.A. Info Not Available Non Drug Allergy Problems Problem Type Condition ICD-9 Code Onset Dates Condition Status Problem Dental caries extending into pulp 521.03 Active Problem Obesity, unspecified 278.00 Active Problem Unspecified disorder of the teeth and supporting structures 525.9 Active Problem Pure hyperglyceridemia 272.1 Active Assessment Anhedonia 780.99 Active Problem Unspecified vitamin D deficiency 268.9 Active Problem Diabetes 250.00 Active Problem Unspecified essential hypertension 401.9 Active Problem Sprain and strain of ribs 848.3 Active Problem Dysmetabolic Syndrome X 277.7 Active Problem Unspecified hereditary and idiopathic peripheral neuropathy 356.9 Active Assessment Dysmetabolic Syndrome X 277.7 Active Problem Other and unspecified hyperlipidemia 272.4 Active Assessment Other and unspecified hyperlipidemia 272.4 Active Assessment Obesity, unspecified 278.00 Active Problem Edema 782.3 Active Problem Other chronic pain 338.29 Active Problem Other dyspnea and respiratory abnormalities 786.09 Active Problem Other general symptoms 780.99 Active Problem Other follow-up examination V67.59 Active Problem Syncope and collapse 780.2 Active Medications Medication Code System Code Instructions Start Date End Date Status Dosage Symbicort [facility] [address]-23 160-4.5 mcg/actuation Inhalation Twice a day Aug 04, 2014 Jul 21, 2015 2 puffs Simvastatin [facility] [address]-40 20 MG Orally Once a day Jul 22, 2014 1 tablet in the evening Albuterol Sulfate [facility] 47342554262 0.083% USE ONE VIAL IN NEBULIZER EVERY 6 HOURS NEEDED FOR COUGH AND OR WHEEZING metformin NDC 0 500 mg Nov 24, 2014 take 1 tablet by Oral route 2 times per day with food Spiriva Respimat [facility] [address]-45 2.5 MCG/ACT Inhalation Once a day Jun 21, 2015 Jul 21, 2015 2 puffs Fluoxetine NDC 0 20 mg orally Once a day December 30, 2014 1 capsule Procedures Procedure Coding System Code Date Office Visit, Daisha Pt., Level 4 CPT-4 99660 Jun 21, 2015 Vital Signs Date/Time: Jun 21, 2015 Temperature 97.8 F Weight 229.0 lbs Height 66 in BMI 36.96 Index Blood Pressure Diastolic 88 mmHg Blood Pressure Systolic 138 mmHg Cardiac Monitoring Heart Rate 73 bpm Results No Known Results Summary Purpose [employer] Submission
--- OUTSIDE RECORDS SUMMARY | 2018-08-26 12:24 | XMS REPORT ---
Author Author MAURICE CUMMINS [facility] [employer] Address Unknown Phone Unavailable Care Team Providers Care Director Of Teaching And Learning Name Role Phone MAURICE CUMMINS CP Unavailable [...] Z79.899 Active Problem Anhedonia R45.84 Active Assessment Chronic obstructive pulmonary disease with (acute) exacerbation J44.1 Active Assessment Chronic obstructive pulmonary disease, unspecified J44.9 Active Problem Irritability R45.4 Active Problem Cervicalgia M54.2 Active Medications Medication Code System Code Instructions Start Date End Date Status Dosage Nebulizer NDC 0 nebulizer May 30, 2016 as directed Results No Known Results Summary Purpose eClinicalWorks Submission
--- OUTSIDE RECORDS SUMMARY | 2018-08-26 12:24 | XMS REPORT ---
Author Author SARAH POWERS [facility] eClinicalWorks Address Unknown Phone Unavailable Care Team Providers Care Incising Machine Operator Name Role Phone SARAH POWERS CP Unavailable Allergies No Known Allergies Problems [...] hereditary and idiopathic peripheral neuropathy 356.9 Active Problem Other and unspecified hyperlipidemia 272.4 Active Problem Edema 782.3 Active Problem Other chronic pain 338.29 Active Problem Other dyspnea and respiratory abnormalities 786.09 Active Problem Other general symptoms 780.99 Active Problem Other follow-up examination V67.59 Active Problem Syncope and collapse 780.2 Active Medications Medication Code System Code Instructions Start Date End Date Status Dosage Flagyl [facility] [address]-97 500 MG Orally 2 times a day Jul 26, 2015 Aug 05, 2015 1 tablet Results No Known Results Summary Purpose eClinicalWorks Submission
--- OUTSIDE RECORDS SUMMARY | 2018-08-26 12:24 | XMS REPORT ---
Author Author MAURICE CUMMINS [facility] Address [address] [place] [address] Care Team Providers Care Biophysics Professor Name Role Phone MARIA G MAURICE Unavailable PROBLEMS Type Condition ICD9-CM Code [id number] Code Onset Dates Condition Status SNOMED Code Problem High risk medication use Z79.899 Active 203349966 Problem Cervical stenosis of spinal canal M48.02 Active 36157484 Problem Anhedonia R45.84 Active 61251874 Problem Acute deep vein thrombosis (DVT) of tibial vein of left lower extremity I82.442 Active 211516343504870 Problem Bloody stools K92.1 Active 575914093725617 Problem Chronic obstructive pulmonary disease with (acute) exacerbation J44.1 Active 280693458 Problem Chronic obstructive pulmonary disease, unspecified J44.9 Active 73153655 Problem Enlarged prostate N40.0 Active 365865171 Problem Non-cardiac chest pain R07.89 Active 918348594 Problem Pneumonia of left lung due to infectious organism, unspecified part of lung J18.9 Active 139217078 Problem Metabolic syndrome E88.81 Active 714528287 Problem Pure hypercholesterolemia E78.0 Active 071335755 Problem Irritability R45.4 Active 31069489 Problem Polyneuropathic pain M79.2 Active 049104604 Problem Cervicalgia M54.2 Active 60627389 Problem Cervical radicular pain M54.12 Active 05907252 ALLERGIES No Known Allergies SOCIAL HISTORY Never Assessed PLAN OF CARE Activity Details Follow Up 3 Months Reason:b/p VITAL SIGNS Height 66 in 2016-11-27 Weight 227 lbs 2016-11-27 Temperature 97.8 degrees Fahrenheit 2016-11-27 Heart Rate 92 bpm 2016-11-27 Respiratory Rate 18 2016-11-27 BMI 36.63 kg/m2 2016-11-27 Blood pressure systolic 126 mmHg 2016-11-27 Blood pressure diastolic 82 mmHg 2016-11-27 MEDICATIONS Medication Instructions Dosage Frequency Start Date End Date Duration Status Hydrochlorothiazide 12.5 MG Orally Once a day 1 capsule 24h Active Nebulizer nebulizer as directed May, Active Spiriva Respimat 1.25 MCG/ACT Inhalation Once a day 2 puffs 24h Active Aspir-81 81 MG Orally Once a day 1 tablet 24h Active Metformin HCl 500MG Orally 2 times a day 1 tablet with meals 12h 30 Active Simvastatin 20 mg Orally Once a day 1 tablet in the evening 24h Jul, Active Gabapentin 600 MG Orally 3 times a day 1 capsule 8h Dec, 0 days Active Cymbalta 60 mg Orally Once a day 1 capsule 24h Jan, 30 Active Symbicort 80-4.5 Inhalation Twice a day 2 puffs 12h 30 Active Zanaflex 4 MG Orally Three times a day 1 capsule as needed FOR PAIN/MUSCLE PAIN 8h Nov, Nov, 0 days Active Albuterol Sulfate HFA 108 (90 Base) MCG/ACT Inhalation every 4 hrs 2 puffs as needed 4h Active Albuterol Sulfate 0.083% USE ONE VIAL IN NEBULIZER EVERY 6 HOURS NEEDED FOR COUGH AND OR WHEEZING FOUR TIMES A DAY 25 Active RESULTS No Results PROCEDURES No Known [...] 5.9, TSH less than 1 Medical History 06/12/17 Blood Clot to Left Lower Leg Surgical History cataract-lens implants Surgical History eye surgery for glaucoma Surgical History heart cath Surgical History left CTS 05/2016 Surgical History carpal tunnel release, bilat april and may Hospitalization History pneumonia 11/2015 Hospitalization History chest pain-ruled out cardiac cause 10/2016
--- OUTSIDE RECORDS SUMMARY | 2018-08-26 12:26 | XMS REPORT | Continuity of Care Document ---
Author Author [facility] Address Unknown Phone Unavailable Allergies Active Description Code Type Severity Reaction Onset Reported/Identified Relationship to Patient Clinical Status Yes No Known Drug Allergies [id number] Drug Allergy Unknown N/A 09/15/2011 Medications There is no data. Problems Date Dx Coded Attending Type Code Diagnosis Diagnosed By 02/04/2009 496 CHRONIC OBSTRUCTIVE PULMONARY DISEASE 02/04/2009 786.05 shortness of breath 02/04/2009 786.50 chest pain or discomfort 02/04/2009 496 CHRONIC OBSTRUCTIVE PULMONARY DISEASE 02/04/2009 786.05 shortness of breath 02/04/2009 786.50 chest pain or discomfort 02/04/2009 496 CHRONIC OBSTRUCTIVE PULMONARY DISEASE 02/04/2009 786.05 shortness of breath 02/04/2009 786.50 chest pain or discomfort 02/04/2009 496 CHRONIC OBSTRUCTIVE PULMONARY DISEASE 02/04/2009 786.05 shortness of breath 02/04/2009 786.50 chest pain or discomfort 02/04/2009 GARCIA DO, DELIA K 496 CHRONIC OBSTRUCTIVE PULMONARY DISEASE 02/04/2009 GARCIA DO, DELIA K 786.05 shortness of breath 02/04/2009 GARCIA DO, DELIA K 786.50 chest pain or discomfort 02/04/2009 [employer] SUPERVISOR, MAURICE L 496 CHRONIC OBSTRUCTIVE PULMONARY DISEASE 02/04/2009 [employer] FIELD SUPERVISOR, MAURICE L 786.05 shortness of breath 02/04/2009 [employer] FIELD SUPERVISOR, MAURICE L 786.50 chest pain or discomfort 02/04/2009 [employer] FIELD SUPERVISOR, MAURICE L 496 CHRONIC OBSTRUCTIVE PULMONARY DISEASE 02/04/2009 [employer] FIELD SUPERVISOR, MAURICE L 786.05 shortness of breath 02/04/2009 [employer] FIELD SUPERVISOR, MAURICE L 786.50 chest pain or discomfort 02/04/2009 GARCIA DO, DELIA K 496 CHRONIC OBSTRUCTIVE PULMONARY DISEASE 02/04/2009 GARCIA DO DELIA K 786.05 shortness of breath 02/04/2009 GARCIA DO, DELIA K 786.50 chest pain or discomfort 02/04/2009 GARCIA DO, DELIA K 496 CHRONIC OBSTRUCTIVE PULMONARY DISEASE 02/04/2009 GARCIA DO, DELIA K 786.05 shortness of breath 02/04/2009 GARCIA DO, DELIA K 786.50 chest pain or discomfort 02/04/2009 GARCIA DO, DELIA K 496 CHRONIC OBSTRUCTIVE PULMONARY DISEASE 02/04/2009 GARCIA DO, DELIA K 786.05 shortness of breath 02/04/2009 GARCIA DO, DELIA K 786.50 chest pain or discomfort 02/04/2009 GARCIA DO, DELIA K 496 CHRONIC OBSTRUCTIVE PULMONARY DISEASE 02/04/2009 GARCIA DO, DELIA K 786.05 shortness of breath 02/04/2009 GARCIA DO, DELIA K 786.50 chest pain or discomfort 02/04/2009 [employer] FI[employer] SUPERVISOR, MAURICE L 496 CHRONIC OBSTRUCTIVE PULMONARY DISEASE 02/04/2009 [employer] FIELD SUPERVISOR, MAURICE L 786.05 shortness of breath 02/04/2009 [employer] FIELD SUPERVISOR, MAURICE L 786.50 chest pain or discomfort 02/04/2009 [employer] FIELD SUPERVISOR, MAURICE L 496 CHRONIC OBSTRUCTIVE PULMONARY DISEASE 02/04/2009 [employer] FIELD SUPERVISOR, MAURICE L 786.05 shortness of breath 02/04/2009 [employer] FI[employer] SUPERVISOR, MAURICE L 786.50 chest pain or discomfort 02/04/2009 [employer] FIELD SUPERVISOR, MAURICE L 496 CHRONIC OBSTRUCTIVE PULMONARY DISEASE 02/04/2009 [employer] FIELD SUPERVISOR, MAURICE L 786.05 shortness of breath 02/04/2009 [employer] FI[employer] SUPERVISOR, MAURICE L 786.50 chest pain or discomfort 02/04/2009 GARCIA DO, DELIA K 496 CHRONIC OBSTRUCTIVE PULMONARY DISEASE 02/04/2009 GARCIA DO, DELIA K 786.05 shortness of breath 02/04/2009 GARCIA DO, DELIA K 786.50 chest pain or discomfort 03/01/2009 357.9 NEUROPATHY UNSP 03/01/2009 786.2 COUGH 03/01/2009 357.9 NEUROPATHY UNSP 03/01/2009 786.2 COUGH 03/01/2009 357.9 NEUROPATHY UNSP 03/01/2009 786.2 COUGH 03/01/2009 357.9 NEUROPATHY UNSP 03/01/2009 786.2 COUGH 03/01/2009 GARCIA DO, DELIA K 357.9 NEUROPATHY UNSP 03/01/2009 GARCIA DO, DELIA K 786.2 COUGH 03/01/2009 [employer] SUPERVISOR, MAURICE L 357.9 NEUROPATHY UNSP 03/01/2009 [employer] FIELD SUPERVISOR, MAURICE L 786.2 COUGH 03/01/2009 [employer] FIELD SUPERVISOR, MAURICE L 357.9 NEUROPATHY UNSP 03/01/2009 [employer] FIELD SUPERVISOR, MAURICE L 786.2 COUGH 03/01/2009 GARCIA DO, DELIA K 357.9 NEUROPATHY UNSP 03/01/2009 GARCIA DO, DELIA K 786.2 COUGH 03/01/2009 GARCIA DO, DELIA K 357.9 NEUROPATHY UNSP 03/01/2009 GARCIA DO, DELIA K 786.2 COUGH 03/01/2009 GARCIA DO, DELIA K 357.9 NEUROPATHY UNSP 03/01/2009 GARCIA DO, DELIA K 786.2 COUGH 03/01/2009 GARCIA DO, DELIA K 357.9 NEUROPATHY UNSP 03/01/2009 GARCIA DO, DELIA K 786.2 COUGH 03/01/2009 [employer] FIELD SUPERVISOR, MAURICE L 357.9 NEUROPATHY UNSP 03/01/2009 [employer] FIELD SUPERVISOR, MAURICE L 786.2 COUGH 03/01/2009 [employer] FIELD SUPERVISOR, MAURICE L 357.9 NEUROPATHY UNSP 03/01/2009 [employer] FIELD SUPERVISOR, MAURICE L 786.2 COUGH 03/01/2009 [employer] FIELD SUPERVISOR, MAURICE L 357.9 NEUROPATHY UNSP 03/01/2009 [employer] FIELD SUPERVISOR, MAURICE L 786.2 COUGH 03/01/2009 GARCIA DO, DELIA K 357.9 NEUROPATHY UNSP 03/01/2009 GARCIA DO, DELIA K 786.2 COUGH 07/12/2009 V72.85 OTHER SPECIFIED EXAMINATION 07/12/2009 V72.85 OTHER SPECIFIED EXAMINATION 07/12/2009 V72.85 OTHER SPECIFIED EXAMINATION 07/12/2009 V72.85 OTHER SPECIFIED EXAMINATION 07/12/2009 GARCIA DO, DELIA K V72.85 OTHER SPECIFIED EXAMINATION 07/12/2009 [employer] FI[employer] SUPERVISOR, MAURICE L V72.85 OTHER SPECIFIED EXAMINATION 07/12/2009 [employer] FI[employer] SUPERVISOR, MAURICE L V72.85 OTHER SPECIFIED EXAMINATION 07/12/2009 GARCIA DO, DELIA K V72.85 OTHER SPECIFIED EXAMINATION 07/12/2009 GARCIA DO, DELIA K V72.85 OTHER SPECIFIED EXAMINATION 07/12/2009 GARCIA DO, DELIA K V72.85 OTHER SPECIFIED EXAMINATION 07/12/2009 GARCIA DO, DELIA K V72.85 OTHER SPECIFIED EXAMINATION 07/12/2009 [employer] FI[employer] SUPERVISOR, MAURICE L V72.85 OTHER SPECIFIED EXAMINATION 07/12/2009 [employer] FIELD SUPERVISOR, MAURICE L V72.85 OTHER SPECIFIED EXAMINATION 07/12/2009 [employer] FI[employer] SUPERVISOR, MAURICE L V72.85 OTHER SPECIFIED EXAMINATION 07/12/2009 GARCIA DO, DELIA K V72.85 OTHER SPECIFIED EXAMINATION 02/09/2010 493.90 ASTHMA UNSPECIFIED 02/09/2010 716.91 ARTHROPATHY, UNSPECIFIED, SHOULDER REGION 02/09/2010 493.90 ASTHMA UNSPECIFIED 02/09/2010 716.91 ARTHROPATHY, UNSPECIFIED, SHOULDER REGION 02/09/2010 493.90 ASTHMA UNSPECIFIED 02/09/2010 716.91 ARTHROPATHY, UNSPECIFIED, SHOULDER REGION 02/09/2010 493.90 ASTHMA UNSPECIFIED 02/09/2010 716.91 ARTHROPATHY, UNSPECIFIED, SHOULDER REGION 02/09/2010 GARCIA DO, DELIA K 493.90 ASTHMA UNSPECIFIED 02/09/2010 GARCIA DO, DELIA K 716.91 ARTHROPATHY, UNSPECIFIED, SHOULDER REGION 02/09/2010 [employer] FI[employer] SUPERVISOR, MAURICE L 493.90 ASTHMA UNSPECIFIED 02/09/2010 [employer] FIELD SUPERVISOR, MAURICE L 716.91 ARTHROPATHY, UNSPECIFIED, SHOULDER REGION 02/09/2010 [employer] FIELD SUPERVISOR, MAURICE L 493.90 ASTHMA UNSPECIFIED 02/09/2010 [employer] FIELD SUPERVISOR, MAURICE L 716.91 ARTHROPATHY, UNSPECIFIED, SHOULDER REGION 02/09/2010 GARCIA DO, DELIA K 493.90 ASTHMA UNSPECIFIED 02/09/2010 GARCIA DO, DELIA K 716.91 ARTHROPATHY, UNSPECIFIED, SHOULDER REGION 02/09/2010 GARCIA DO, DELIA K 493.90 ASTHMA UNSPECIFIED 02/09/2010 GARCIA DO, DELIA K 716.91 ARTHROPATHY, UNSPECIFIED, SHOULDER REGION 02/09/2010 GARCIA DO, DELIA K 493.90 ASTHMA UNSPECIFIED 02/09/2010 GARCIA DO, DELIA K 716.91 ARTHROPATHY, UNSPECIFIED, SHOULDER REGION 02/09/2010 GARCIA DO, DELIA K 493.90 ASTHMA UNSPECIFIED 02/09/2010 GARCIA DO, DELIA K 716.91 ARTHROPATHY, UNSPECIFIED, SHOULDER REGION 02/09/2010 [employer] FIELD SUPERVISOR, MAURICE L 493.90 ASTHMA UNSPECIFIED 02/09/2010 [employer] FIELD SUPERVISOR, MAURICE L 716.91 ARTHROPATHY, UNSPECIFIED, SHOULDER REGION 02/09/2010 [employer] FIELD SUPERVISOR, MAURICE L 493.90 ASTHMA UNSPECIFIED 02/09/2010 [employer] FIELD SUPERVISOR, MAURICE L 716.91 ARTHROPATHY, UNSPECIFIED, SHOULDER REGION 02/09/2010 [employer] FIELD SUPERVISOR, MAURICE L 493.90 ASTHMA UNSPECIFIED 02/09/2010 [employer] FIELD SUPERVISOR, MAURICE L 716.91 ARTHROPATHY, UNSPECIFIED, SHOULDER REGION 02/09/2010 GARCIA DO, DELIA K 493.90 ASTHMA UNSPECIFIED 02/09/2010 GARCIA DO DELIA K 716.91 ARTHROPATHY, UNSPECIFIED, SHOULDER REGION 02/23/2010 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, OTHER SPECIFIED DISORDERS 02/23/2010 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, OTHER SPECIFIED DISORDERS 02/23/2010 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, OTHER SPECIFIED DISORDERS 02/23/2010 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, OTHER SPECIFIED DISORDERS 02/23/2010 LAZARUS GARCIA DOA K 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, OTHER SPECIFIED DISORDERS 02/23/2010 [employer] FIELD SUPERVISORVALENTINEMAURICE L 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, OTHER SPECIFIED DISORDERS 02/23/2010 [employer] FIELD SUPERVISOR, MAURICE L 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, OTHER SPECIFIED DISORDERS 02/23/2010 LAZARUS GARCIA DOA K 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, OTHER SPECIFIED DISORDERS 02/23/2010 RADHA CORTEZ DELIA K 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, OTHER SPECIFIED DISORDERS 02/23/2010 GARCIA DO DELIA K 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, OTHER SPECIFIED DISORDERS 02/23/2010 GARCIA DO DELIA K 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, OTHER SPECIFIED DISORDERS 02/23/2010 [employer] FIELD SUPERVISOR, MAURICE L 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, OTHER SPECIFIED DISORDERS 02/23/2010 [employer] FI[employer] SUPERVISOR, MAURICE L 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, OTHER SPECIFIED DISORDERS 02/23/2010 MAURICE CUMMINS APRN 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, OTHER SPECIFIED DISORDERS 02/23/2010 DELIA GARCIA DO 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, OTHER SPECIFIED DISORDERS 03/30/2010 715.91 OSTEOARTHROSIS, UNSPECIFIED WHETHER GENERALIZED OR LOCALIZED, SHOULDER REGION 03/30/2010 715.91 OSTEOARTHROSIS, UNSPECIFIED WHETHER GENERALIZED OR LOCALIZED, SHOULDER REGION 03/30/2010 715.91 OSTEOARTHROSIS, UNSPECIFIED WHETHER GENERALIZED OR LOCALIZED, SHOULDER REGION 03/30/2010 715.91 OSTEOARTHROSIS, UNSPECIFIED WHETHER GENERALIZED OR LOCALIZED, SHOULDER REGION 03/30/2010 DELIA GARCIA DO 715.91 OSTEOARTHROSIS, UNSPECIFIED WHETHER GENERALIZED OR LOCALIZED, SHOULDER REGION 03/30/2010 MAURICE CUMMINS APRN 715.91 OSTEOARTHROSIS, UNSPECIFIED WHETHER GENERALIZED OR LOCALIZED, SHOULDER REGION 03/30/2010 MAURICE CUMMINS APRN 715.91 OSTEOARTHROSIS, UNSPECIFIED WHETHER GENERALIZED OR LOCALIZED, SHOULDER REGION 03/30/2010 DELIA GARCIA DO K 715.91 OSTEOARTHROSIS, UNSPECIFIED WHETHER GENERALIZED OR LOCALIZED, SHOULDER REGION 03/30/2010 LAZARUS GARCIA DOA K 715.91 OSTEOARTHROSIS, UNSPECIFIED WHETHER GENERALIZED OR LOCALIZED, SHOULDER REGION 03/30/2010 LAZARUS GARCIA DOA K 715.91 OSTEOARTHROSIS, UNSPECIFIED WHETHER GENERALIZED OR LOCALIZED, SHOULDER REGION 03/30/2010 LAZARUS GARCIA DOA K 715.91 OSTEOARTHROSIS, UNSPECIFIED WHETHER GENERALIZED OR LOCALIZED, SHOULDER REGION 03/30/2010 MAURICE CUMMINS APRN 715.91 OSTEOARTHROSIS, UNSPECIFIED WHETHER GENERALIZED OR LOCALIZED, SHOULDER REGION 03/30/2010 MAURICE CUMMINS APRN 715.91 OSTEOARTHROSIS, UNSPECIFIED WHETHER GENERALIZED OR LOCALIZED, SHOULDER REGION 03/30/2010 MAURICE CUMMINS APRN 715.91 OSTEOARTHROSIS, UNSPECIFIED WHETHER GENERALIZED OR LOCALIZED, SHOULDER REGION 03/30/2010 LAZARUS GARCIA DOA K 715.91 OSTEOARTHROSIS, UNSPECIFIED WHETHER GENERALIZED OR LOCALIZED, SHOULDER REGION 07/04/2010 784.0 HEADACHE 07/04/2010 784.0 HEADACHE 07/04/2010 784.0 HEADACHE 07/04/2010 784.0 HEADACHE 07/04/2010 GARCIA DO, DELIA K 784.0 HEADACHE 07/04/2010 [employer] FIELD SUPERVISOR, MAURICE L 784.0 HEADACHE 07/04/2010 [employer] FIELD SUPERVISOR, MAURICE L 784.0 HEADACHE 07/04/2010 GARCIA DO, DELIA K 784.0 HEADACHE 07/04/2010 GARCIA DO, DELIA K 784.0 HEADACHE 07/04/2010 GARCIA DO, DELIA K 784.0 HEADACHE 07/04/2010 GARCIA DO, DELIA K 784.0 HEADACHE 07/04/2010 [employer] FIELD SUPERVISOR, MAURICE L 784.0 HEADACHE 07/04/2010 [employer] FIELD SUPERVISOR, MAURICE L 784.0 HEADACHE 07/04/2010 [employer] FIELD SUPERVISOR, MAURICE L 784.0 HEADACHE 07/04/2010 GARCIA DO, DELIA K 784.0 HEADACHE 09/25/2010 368.2 DIPLOPIA 09/25/2010 460 ACUTE NASOPHARYNGITIS (COMMON COLD) 09/25/2010 368.2 DIPLOPIA 09/25/2010 460 ACUTE NASOPHARYNGITIS (COMMON COLD) 09/25/2010 368.2 DIPLOPIA 09/25/2010 460 ACUTE NASOPHARYNGITIS (COMMON COLD) 09/25/2010 368.2 DIPLOPIA 09/25/2010 460 ACUTE NASOPHARYNGITIS (COMMON COLD) 09/25/2010 GARCIA DO, DELIA K 368.2 DIPLOPIA 09/25/2010 GARCIA DO, DELIA K 460 ACUTE NASOPHARYNGITIS (COMMON COLD) 09/25/2010 [employer] FIELD SUPERVISOR, MAURICE L 368.2 DIPLOPIA 09/25/2010 [employer] FIELD SUPERVISOR, MAURICE L 460 ACUTE NASOPHARYNGITIS (COMMON COLD) 09/25/2010 [employer] FIELD SUPERVISOR, MAURICE L 368.2 DIPLOPIA 09/25/2010 [employer] FIELD SUPERVISOR, MAURICE L 460 ACUTE NASOPHARYNGITIS (COMMON COLD) 09/25/2010 GARCIA DO, DELIA K 368.2 DIPLOPIA 09/25/2010 GARCIA DO, DELIA K 460 ACUTE NASOPHARYNGITIS (COMMON COLD) 09/25/2010 GARCIA DO, DELIA K 368.2 DIPLOPIA 09/25/2010 GARCIA DO, DELIA K 460 ACUTE NASOPHARYNGITIS (COMMON COLD) 09/25/2010 GARCIA DO, DELIA K 368.2 DIPLOPIA 09/25/2010 GARCIA DO, DELIA K 460 ACUTE NASOPHARYNGITIS (COMMON COLD) 09/25/2010 GARCIA DO, DELIA K 368.2 DIPLOPIA 09/25/2010 GARCIA DO, DELIA K 460 ACUTE NASOPHARYNGITIS (COMMON COLD) 09/25/2010 [employer] FI[employer] SUPERVISOR, MAURICE L 368.2 DIPLOPIA 09/25/2010 [employer] FIELD SUPERVISOR, MAURICE L 460 ACUTE NASOPHARYNGITIS (COMMON COLD) 09/25/2010 [employer] FIELD SUPERVISOR, MAURICE L 368.2 DIPLOPIA 09/25/2010 [employer] FIELD SUPERVISOR, MAURICE L 460 ACUTE NASOPHARYNGITIS (COMMON COLD) 09/25/2010 [employer] FIELD SUPERVISOR, MAURICE L 368.2 DIPLOPIA 09/25/2010 [employer] FIELD SUPERVISOR, MAURICE L 460 ACUTE NASOPHARYNGITIS (COMMON COLD) 09/25/2010 GARCIA DO, DELIA K 368.2 DIPLOPIA 09/25/2010 GARCIA DO, DELIA K 460 ACUTE NASOPHARYNGITIS (COMMON COLD) 12/29/2010 354.2 LESION OF ULNAR NERVE 12/29/2010 716.90 ARTHROPATHY 12/29/2010 354.2 LESION OF ULNAR NERVE 12/29/2010 716.90 ARTHROPATHY 12/29/2010 354.2 LESION OF ULNAR NERVE 12/29/2010 716.90 ARTHROPATHY 12/29/2010 354.2 LESION OF ULNAR NERVE 12/29/2010 716.90 ARTHROPATHY 12/29/2010 GARCIA DO, DELIA K 354.2 LESION OF ULNAR NERVE 12/29/2010 GARCIA DO, DELIA K 716.90 ARTHROPATHY 12/29/2010 [employer] FI[employer] SUPERVISOR, MAURICE L 354.2 LESION OF ULNAR NERVE 12/29/2010 [employer] FIELD SUPERVISOR, MAURICE L 716.90 ARTHROPATHY 12/29/2010 [employer] FIELD SUPERVISOR, MAURICE L 354.2 LESION OF ULNAR NERVE 12/29/2010 [employer] FIELD SUPERVISOR, MAURICE L 716.90 ARTHROPATHY 12/29/2010 GARCIA DO, DELIA K 354.2 LESION OF ULNAR NERVE 12/29/2010 GARCIA DO, DELIA K 716.90 ARTHROPATHY 12/29/2010 GARCIA DO, DELIA K 354.2 LESION OF ULNAR NERVE 12/29/2010 GARCIA DO, DELIA K 716.90 ARTHROPATHY 12/29/2010 GARCIA DO, DELIA K 354.2 LESION OF ULNAR NERVE 12/29/2010 GARCIA DO, DELIA K 716.90 ARTHROPATHY 12/29/2010 GARCIA DO, DELIA K 354.2 LESION OF ULNAR NERVE 12/29/2010 GARCIA DO, DELIA K 716.90 ARTHROPATHY 12/29/2010 [employer] FI[employer] SUPERVISOR, MAURICE L 354.2 LESION OF ULNAR NERVE 12/29/2010 [employer] FIELD SUPERVISOR, MAURICE L 716.90 ARTHROPATHY 12/29/2010 [employer] FIELD SUPERVISOR, MAURICE L 354.2 LESION OF ULNAR NERVE 12/29/2010 [employer] FIELD SUPERVISOR, MAURICE L 716.90 ARTHROPATHY 12/29/2010 [employer] FIELD SUPERVISOR, MAURICE L 354.2 LESION OF ULNAR NERVE 12/29/2010 [employer] FIELD SUPERVISOR, MAURICE L 716.90 ARTHROPATHY 12/29/2010 GARCIA DO, DELIA K 354.2 LESION OF ULNAR NERVE 12/29/2010 GARCIA DO, DELIA K 716.90 ARTHROPATHY 06/04/2011 276.8 HYPOPOTASSEMIA 06/04/2011 276.8 HYPOPOTASSEMIA 06/04/2011 276.8 HYPOPOTASSEMIA 06/04/2011 276.8 HYPOPOTASSEMIA 06/04/2011 GARCIA DO, DELIA K 276.8 HYPOPOTASSEMIA 06/04/2011 [employer] FIELD SUPERVISOR, MARUICE L 276.8 HYPOPOTASSEMIA 06/04/2011 [employer] FIELD SUPERVISOR, MAURICE L 276.8 HYPOPOTASSEMIA 06/04/2011 GARCIA DO, DELIA K 276.8 HYPOPOTASSEMIA 06/04/2011 GARCIA DO, DELIA K 276.8 HYPOPOTASSEMIA 06/04/2011 GARCIA DO, DELIA K 276.8 HYPOPOTASSEMIA 06/04/2011 GARCIA DO, DELIA K 276.8 HYPOPOTASSEMIA 06/04/2011 [employer] FIELD SUPERVISOR, MAURICE L 276.8 HYPOPOTASSEMIA 06/04/2011 [employer] FIELD SUPERVISOR, MAURICE L 276.8 HYPOPOTASSEMIA 06/04/2011 [employer] FIELD SUPERVISOR, MAURICE L 276.8 HYPOPOTASSEMIA 06/04/2011 GARCIA DO, DELIA K 276.8 HYPOPOTASSEMIA 06/14/2011 466.0 BRONCHITIS, ACUTE 06/14/2011 466.0 BRONCHITIS, ACUTE 06/14/2011 466.0 BRONCHITIS, ACUTE 06/14/2011 466.0 BRONCHITIS, ACUTE 06/14/2011 GARCIA DO, DELIA K 466.0 BRONCHITIS, ACUTE 06/14/2011 [employer] FIELD SUPERVISOR, MAURICE L 466.0 BRONCHITIS, ACUTE 06/14/2011 [employer] FIELD SUPERVISOR, MAURICE L 466.0 BRONCHITIS, ACUTE 06/14/2011 GARCIA DO, DELIA K 466.0 BRONCHITIS, ACUTE 06/14/2011 GARCIA DO, DELIA K 466.0 BRONCHITIS, ACUTE 06/14/2011 GARCIA DO, DELIA K 466.0 BRONCHITIS, ACUTE 06/14/2011 GARCIA DO, DELIA K 466.0 BRONCHITIS, ACUTE 06/14/2011 [employer] FIELD SUPERVISOR, MAURICE L 466.0 BRONCHITIS, ACUTE 06/14/2011 [employer] FIELD SUPERVISOR, MAURICE L 466.0 BRONCHITIS, ACUTE 06/14/2011 [employer] FIELD SUPERVISOR, MAURICE L 466.0 BRONCHITIS, ACUTE 06/14/2011 GARCIA DO, DELIA K 466.0 BRONCHITIS, ACUTE 06/25/2011 Ot 365.9 GLAUCOMA NOS 06/25/2011 Ot 401.9 HYPERTENSION NOS 06/25/2011 Ot 496 CHR AIRWAY OBSTRUCT NEC 06/25/2011 Ot 786.50 CHEST PAIN NOS 06/25/2011 Ot V17.49 FAMILY HISTORY OF OTHER CARDIOVASCULAR D 06/25/2011 Ot V58.66 LONG-TERM ( CURRENT) USE OF ASPIRIN 06/25/2011 Ot V58.69 OTH MED,LT, CURRENT USE 09/21/2011 719.45 PAIN IN JOINT INVOLVING PELVIC REGION AND THIGH 09/21/2011 719.45 PAIN IN JOINT INVOLVING PELVIC REGION AND THIGH 09/21/2011 719.45 PAIN IN JOINT INVOLVING PELVIC REGION AND THIGH 09/21/2011 719.45 PAIN IN JOINT INVOLVING PELVIC REGION AND THIGH 09/21/2011 LAZARUS GARCIA DOA K 719.45 PAIN IN JOINT INVOLVING PELVIC REGION AND THIGH 09/21/2011 EATVALENTINE HOLBROOK APRNSON L 719.45 PAIN IN JOINT INVOLVING PELVIC REGION AND THIGH 09/21/2011 [employer] FIELD SUPERVISOR, MAURICE L 719.45 PAIN IN JOINT INVOLVING PELVIC REGION AND THIGH 09/21/2011 LAZARUS GARCIA DOA K 719.45 PAIN IN JOINT INVOLVING PELVIC REGION AND THIGH 09/21/2011 LAZARUS GARCIA DOA K 719.45 PAIN IN JOINT INVOLVING PELVIC REGION AND THIGH 09/21/2011 GARCIA DO, DELIA K 719.45 PAIN IN JOINT INVOLVING PELVIC REGION AND THIGH 09/21/2011 GARCIA DO, DELIA K 719.45 PAIN IN JOINT INVOLVING PELVIC REGION AND THIGH 09/21/2011 [employer] FIELD SUPERVISORVALENTINE LalSON L 719.45 PAIN IN JOINT INVOLVING PELVIC REGION AND THIGH 09/21/2011 [employer] FIELD SUPERVISOR MAURICE L 719.45 PAIN IN JOINT INVOLVING PELVIC REGION AND THIGH 09/21/2011 [employer] FIELD SUPERVISOR MAURICE L 719.45 PAIN IN JOINT INVOLVING PELVIC REGION AND THIGH 09/21/2011 GARCIA DO, DELIA K 719.45 PAIN IN JOINT INVOLVING PELVIC REGION AND THIGH 09/24/2011 786.52 CHEST WALL PAIN 09/24/2011 786.52 CHEST WALL PAIN 09/24/2011 786.52 CHEST WALL PAIN 09/24/2011 786.52 CHEST WALL PAIN 09/24/2011 GARCIA DO, DELIA K 786.52 CHEST WALL PAIN 09/24/2011 [employer] FIELD SUPERVISOR, MAURICE L 786.52 CHEST WALL PAIN 09/24/2011 [employer] SUPERVISOR, MAURICE L 786.52 CHEST WALL PAIN 09/24/2011 GARCIA DO, DELIA K 786.52 CHEST WALL PAIN 09/24/2011 GARCIA DO, DELIA K 786.52 CHEST WALL PAIN 09/24/2011 GARCIA DO, DELIA K 786.52 CHEST WALL PAIN 09/24/2011 GARCIA DO, DELIA K 786.52 CHEST WALL PAIN 09/24/2011 [employer] SUPERVISOR, MAURICE L 786.52 CHEST WALL PAIN 09/24/2011 [employer] SUPERVISOR, MAURICE L 786.52 CHEST WALL PAIN 09/24/2011 [employer] SUPERVISOR, MAURICE L 786.52 CHEST WALL PAIN 09/24/2011 GARCIA DO, DELIA K 786.52 CHEST WALL PAIN 11/30/2011 521.03 CARIES PULP 11/30/2011 525.9 tooth pain 11/30/2011 521.03 CARIES PULP 11/30/2011 525.9 tooth pain 11/30/2011 521.03 [employer]IES PULP 11/30/2011 525.9 tooth pain 11/30/2011 521.03 CARIES PULP 11/30/2011 525.9 tooth pain 11/30/2011 GARCIA DO, DELIA K 521.03 CARIES PULP 11/30/2011 GARCIA DO, DELIA K 525.9 tooth pain 11/30/2011 [employer] SUPERVISORMAURICE L 521.03 CARIES PULP 11/30/2011 [employer] SUPERVISOR, MAURICE L 525.9 tooth pain 11/30/2011 [employer] SUPERVISOR, MAURICE L 521.03 CARIES PULP 11/30/2011 [employer] SUPERVISORMAURICE L 525.9 tooth pain 11/30/2011 GARCIA DO, DELIA K 521.03 CARIES PULP 11/30/2011 GARCIA DO, DELIA K 525.9 tooth pain 11/30/2011 GARCIA DO, DELIA K 521.03 CARIES PULP 11/30/2011 GARCIA DO, DELIA K 525.9 tooth pain 11/30/2011 GARCIA DO, DELIA K 521.03 CARIES PULP 11/30/2011 GARCIA DO, DELIA K 525.9 tooth pain 11/30/2011 GARCIA DO, DELIA K 521.03 CARIES PULP 11/30/2011 GARCIA DO, DELIA K 525.9 tooth pain 11/30/2011 EATYUSEF ERAZOMAURICE Lal L 521.03 CARIES PULP 11/30/2011 [employer] SUPERVISORMAURICE L 525.9 tooth pain 11/30/2011 [employer] SUPERVISOR, MAURICE L 521.03 CARIES PULP 11/30/2011 [employer] FI[employer] SUPERVISORMAURICE L 525.9 tooth pain 11/30/2011 [employer] FI[employer] SUPERVISORMAURICE L 521.03 CARIES PULP 11/30/2011 [employer] FI[employer] SUPERVISORMAURICE Lal L 525.9 tooth pain 11/30/2011 GARCIA DO, DELIA K 521.03 CARIES PULP 11/30/2011 GARCIA DO, DELIA K 525.9 tooth pain 04/17/2012 268.9 VITAMIN D DEFICIENCY 04/17/2012 272.1 ESSENTIAL HYPERTRIGLYCERIDEMIA 04/17/2012 268.9 VITAMIN D DEFICIENCY 04/17/2012 272.1 ESSENTIAL HYPERTRIGLYCERIDEMIA 04/17/2012 268.9 VITAMIN D DEFICIENCY 04/17/2012 272.1 ESSENTIAL HYPERTRIGLYCERIDEMIA 04/17/2012 268.9 VITAMIN D DEFICIENCY 04/17/2012 272.1 ESSENTIAL HYPERTRIGLYCERIDEMIA 04/17/2012 GARCIA DO, DELIA K 268.9 VITAMIN D DEFICIENCY 04/17/2012 GARCIA DO, DELIA K 272.1 ESSENTIAL HYPERTRIGLYCERIDEMIA 04/17/2012 [employer] FI[employer] SUPERVISORVALENTINEMAURICE L 268.9 VITAMIN D DEFICIENCY 04/17/2012 [employer]PER[employer], MAURICE L 272.1 ESSENTIAL HYPERTRIGLYCERIDEMIA 04/17/2012 [employer] SUPERVISOR, MAURICE L 268.9 VITAMIN D DEFICIENCY 04/17/2012 [employer] SUPERVISOR, MAURICE L 272.1 ESSENTIAL HYPERTRIGLYCERIDEMIA 04/17/2012 GARCIA DO, DELIA K 268.9 VITAMIN D DEFICIENCY 04/17/2012 GARCIA DO, DELIA K 272.1 ESSENTIAL HYPERTRIGLYCERIDEMIA 04/17/2012 GARCIA DO, DELIA K 268.9 VITAMIN D DEFICIENCY 04/17/2012 GARCIA DO, DELIA K 272.1 ESSENTIAL HYPERTRIGLYCERIDEMIA 04/17/2012 GARCIA DO, DELIA K 268.9 VITAMIN D DEFICIENCY 04/17/2012 GARCIA DO, DELIA K 272.1 ESSENTIAL HYPERTRIGLYCERIDEMIA 04/17/2012 GARCIA DO, DELIA K 268.9 VITAMIN D DEFICIENCY 04/17/2012 GARCIA DO, DELIA K 272.1 ESSENTIAL HYPERTRIGLYCERIDEMIA 04/17/2012 [employer] SUPER[employer], MAURICE L 268.9 VITAMIN D DEFICIENCY 04/17/2012 [employer] SUPERVISOR, MAURICE L 272.1 ESSENTIAL HYPERTRIGLYCERIDEMIA 04/17/2012 [employer]PER[employer], MAURICE L 268.9 VITAMIN D DEFICIENCY 04/17/2012 [employer] FIELD SUPERVISOR, MAURICE L 272.1 ESSENTIAL HYPERTRIGLYCERIDEMIA 04/17/2012 [employer] SUPERVISOR, MAURICE L 268.9 VITAMIN D DEFICIENCY 04/17/2012 [employer] FI[employer] SUPERVISOR, MAURIEC L 272.1 ESSENTIAL HYPERTRIGLYCERIDEMIA 04/17/2012 GARCIA DO, DELIA K 268.9 VITAMIN D DEFICIENCY 04/17/2012 GARCIA DO, DELIA K 272.1 ESSENTIAL HYPERTRIGLYCERIDEMIA 02/27/2013 780.2 SYNCOPE AND COLLAPSE 02/27/2013 780.2 SYNCOPE AND COLLAPSE 02/27/2013 780.2 SYNCOPE AND COLLAPSE 02/27/2013 GARCIA DO, DELIA K 780.2 SYNCOPE AND COLLAPSE 02/27/2013 [employer] FIELD SUPERVISOR, MAURICE L 780.2 SYNCOPE AND COLLAPSE 02/27/2013 [employer] FIELD SUPERVISOR, MAURICE L 780.2 SYNCOPE AND COLLAPSE 02/27/2013 GARCIA DO, DELIA K 780.2 SYNCOPE AND COLLAPSE 02/27/2013 GARCIA DO, DELIA K 780.2 SYNCOPE AND COLLAPSE 02/27/2013 GARCIA DO, DELIA K 780.2 SYNCOPE AND COLLAPSE 02/27/2013 GARCIA DO, DELIA K 780.2 SYNCOPE AND COLLAPSE 02/27/2013 [employer] FI[employer] SUPERVISOR, MAURICE L 780.2 SYNCOPE AND COLLAPSE 02/27/2013 [employer] FIELD SUPERVISOR, MAURICE L 780.2 SYNCOPE AND COLLAPSE 02/27/2013 [employer] FIELD SUPERVISOR, MAURICE L 780.2 SYNCOPE AND COLLAPSE 02/27/2013 GARCIA DO, DELIA K 780.2 SYNCOPE AND COLLAPSE 12/04/2013 GARCIA DO, DELIA K 782.3 EDEMA 12/04/2013 GARCIA DO, DELIA K V67.59 OTHER FOLLOW-UP EXAMINATION 12/04/2013 [employer] FI[employer] SUPERVISOR, MAURICE L 782.3 EDEMA 12/04/2013 [employer] FI[employer] SUPERVISOR, MAURICE L V67.59 OTHER FOLLOW-UP EXAMINATION 12/04/2013 [employer] FIELD SUPERVISOR, MAURICE L 782.3 EDEMA 12/04/2013 [employer] FIELD SUPERVISOR, MAURICE L V67.59 OTHER FOLLOW-UP EXAMINATION 12/04/2013 GARCIA DO, DELIA K 782.3 EDEMA 12/04/2013 GARCIA DO, DELIA K V67.59 OTHER FOLLOW-UP EXAMINATION 12/04/2013 GARCIA DO, DELIA K 782.3 EDEMA 12/04/2013 GARCIA DO, DELIA K V67.59 OTHER FOLLOW-UP EXAMINATION 12/04/2013 GARCIA DO, DELIA K 782.3 EDEMA 12/04/2013 GARCIA DO, DELIA K V67.59 OTHER FOLLOW-UP EXAMINATION 12/04/2013 GARCIA DO, DELIA K 782.3 EDEMA 12/04/2013 GARCIA DO, DELIA K V67.59 OTHER FOLLOW-UP EXAMINATION 12/04/2013 [employer] FI[employer] SUPERVISOR, MAURICE L 782.3 EDEMA 12/04/2013 [employer] FIELD SUPERVISOR, MAURICE L V67.59 OTHER FOLLOW-UP EXAMINATION 12/04/2013 [employer] FIELD SUPERVISOR, MAURICE L 782.3 EDEMA 12/04/2013 [employer] FIELD SUPERVISOR, MAURICE L V67.59 OTHER FOLLOW-UP EXAMINATION 12/04/2013 [employer] FIELD SUPERVISOR, MAURICE L 782.3 EDEMA 12/04/2013 [employer] FIELD SUPERVISOR, MAURICE L V67.59 OTHER FOLLOW-UP EXAMINATION 12/04/2013 GARCIA DO, DELIA K 782.3 EDEMA 12/04/2013 GARCIA DO, DELIA K V67.59 OTHER FOLLOW-UP EXAMINATION 12/23/2013 [employer] FI[employer] SUPERVISOR, MAURICE L 278.00 OBESITY 12/23/2013 [employer] FI[employer] SUPERVISOR, MAURICE L 278.00 OBESITY 12/23/2013 GARCIA DO, DELIA K 278.00 OBESITY 12/23/2013 GARCIA DO, DELIA K 278.00 OBESITY 12/23/2013 GARCIA DO, DELIA K 278.00 OBESITY 12/23/2013 GARCIA DO, DELIA K 278.00 OBESITY 12/23/2013 [employer] FI[employer] SUPERVISOR, MAURICE L 278.00 OBESITY 12/23/2013 [employer] FIELD SUPERVISOR, MAURICE L 278.00 OBESITY 12/23/2013 [employer] FI[employer] SUPERVISOR, MAURICE L 278.00 OBESITY 12/23/2013 GARCIA DO, DELIA K 278.00 OBESITY 01/07/2014 GARCIA DO, DELIA K 272.4 HYPERLIPIDEMIA 01/07/2014 GARCIA DO, DELIA K 272.4 HYPERLIPIDEMIA 01/07/2014 GARCIA DO, DELIA K 272.4 HYPERLIPIDEMIA 01/07/2014 GARCIA DO, DELIA K 272.4 HYPERLIPIDEMIA 01/07/2014 [employer] FI[employer] SUPERVISOR, MAURICE L 272.4 HYPERLIPIDEMIA 01/07/2014 [employer] FIELD SUPERVISOR, MAURICE L 272.4 HYPERLIPIDEMIA 01/07/2014 [employer] FI[employer] SUPERVISOR, MAURICE L 272.4 HYPERLIPIDEMIA 01/07/2014 GARCIA DO, DELIA K 272.4 HYPERLIPIDEMIA 03/20/2014 CRISTOBAL JUARES DO Ot 327.23 OBSTRUCTIVE SLEEP APNEA (ADULT) (PEDIATR 03/20/2014 CRISTOBAL JUARES DO Ot 401.9 HYPERTENSION NOS 03/25/2014 GARCIA DO, DELIA K 848.3 SPRAIN RIBS 03/25/2014 GARCIA DO, DELIA K 848.3 SPRAIN RIBS 03/25/2014 [employer] FI[employer] SUPERVISOR, MAURICE L 848.3 SPRAIN RIBS 03/25/2014 [employer] FI[employer] SUPERVISOR, MAURICE L 848.3 SPRAIN RIBS 03/25/2014 [employer] FI[employer] SUPERVISOR, MAURICE L 848.3 SPRAIN RIBS 03/25/2014 GARCIA DO, DELIA K 848.3 SPRAIN RIBS 04/07/2014 GARCIA DO, DELIA K 786.09 DYSPNEA 04/07/2014 [employer] FI[employer] SUPERVISOR, MAURICE L 786.09 DYSPNEA 04/07/2014 [employer] FI[employer] SUPERVISOR, MAURICE L 786.09 DYSPNEA 04/07/2014 [employer] FI[employer] SUPERVISOR, MAURICE L 786.09 DYSPNEA 04/07/2014 DELIA GARCIA DO K 786.09 DYSPNEA 11/24/2014 DELIA GARCIA DO K 277.7 METABOLIC SYNDROME 11/24/2014 DELIA GARCIA DO K 356.9 UNSPECIFIED IDIOPATHIC PERIPHERAL NEUROPATHY 11/24/2014 DELIA GARCIA DO K 401.9 HYPERTENSION, UNSPECIFIED ESSENTIAL 11/30/2014 BLANQUITA CORTEZ CRISTOBAL M Ot 493.20 11/30/2014 CRISTOBAL JUARES DO M Ot 571.8 11/30/2014 CRISTOBAL JUARES DO M Ot 611.1 11/30/2014 BLANQUITA CORTEZ CRISTOBAL M Ot 793.11 11/30/2014 CHARLES ESCOBAR [employer] Ot 496 11/30/2014 CHARLES ESCOBAR L [employer] WE[employer]ER Ot 786.09 11/30/2014 CHARLES ESCOBAR L [employer] WEAVER Ot 786.50 04/19/2015 MARIA G MAURICE L [employer] Ot 278.00 04/19/2015 MARIA G MAURICE L [employer]CH WEAVER Ot 782.3 04/19/2015 BLANQUITA CORTEZ CRISTOBAL M Ot 277.9 04/19/2015 BLANQUITA CORTEZ CRISTOBAL M Ot 278.00 04/19/2015 BLANQUITA CORTEZ CRISTOBAL M Ot 296.90 04/19/2015 BLANQUITA CORTEZ CRISTOBAL M Ot 493.20 04/19/2015 BLANQUITA CORTEZ CRISTOBAL M Ot 780.54 04/19/2015 BLANQUITA CORTEZ CRISTOBAL M Ot 786.09 04/19/2015 BLANQUITA CORTEZ CRISTOBAL M Ot 493.20 04/19/2015 BLANQUITA CORTEZ CRISTOBAL M Ot 571.8 04/19/2015 BLANQUITA CORTEZ CRISTOBAL M Ot 611.1 04/19/2015 BLANQUITA CORTEZ CRISTOBAL M Ot 793.11 04/19/2015 CHARLES ESCOBAR L [employer] WE[employer]ER Ot 496 04/19/2015 CHARLES ESCOBAR L [employer]CH WEAVER Ot 786.09 04/19/2015 CHARLES ESCOBAR L [employer] WEAVER Ot 786.50 04/29/2015 BLANQUITA CORTEZ CRISTOBAL M Ot 327.23 04/29/2015 BLANQUITA CORTEZ CRISTOBAL M Ot 493.20 04/29/2015 CRISTOBAL JUARES DO M Ot 793.11 05/12/2015 CRISTOBAL JUARES DO M Ot 327.23 05/12/2015 BLANQUITA DOCRISTOBAL M Ot 493.20 05/12/2015 BLANQUITA DOCRISTOBAL M Ot 793.11 07/25/2015 MAURICE CUMMINS L [employer] Ot 278.00 07/25/2015 MAURICE CUMMINS L [employer] WE[employer]ER Ot 782.3 07/25/2015 BLANQUITA DO, CRISTOBAL M Ot 277.9 07/25/2015 BLANQUITA DO, CRISTOBAL M Ot 278.00 07/25/2015 BLANQUITA DO, CRISTOBAL M Ot 296.90 07/25/2015 BLANQUITA DO, CRISTOBAL M Ot 493.20 07/25/2015 BLANQUITA DO, CRISTOBAL M Ot 780.54 07/25/2015 BLANQUITA DO, CRISTOBAL M Ot 786.09 07/25/2015 BLANQUITA DO, CRISTOBAL M Ot 493.20 07/25/2015 BLANQUITA CRISTOBAL M Ot 571.8 07/25/2015 BLANQUITA CRISTOBAL M Ot 611.1 07/25/2015 BLANQUITA CRISTOBAL M Ot 793.11 07/25/2015 JIMPAWAN CHARLES L [employer] WE[employer]ER Ot 496 07/25/2015 JIMPAWAN CHARLES L [employer] WE[employer]ER Ot 786.09 07/25/2015 JIMPAWAN CHARLES L [employer] WEAVER Ot 786.50 07/25/2015 BLANQUITA CORTEZ CRISTOBAL M Ot 327.23 07/25/2015 BLANQUITA CORTEZ, CRISTOBAL M Ot 493.20 07/25/2015 BLANQUITA CORTEZ CRISTOBAL M Ot 793.11 08/10/2015 SARAH POWERS APRN Ot K92.1 08/10/2015 SARAH POWERS [employer] FIELD SUPERVISOR Ot R31.9 12/15/2015 MAURICE CUMMINS L [employer] WE[employer]ER Ot 278.00 12/15/2015 MAURICE CUMMINS L [employer]ENCH WEAVER Ot 782.3 12/15/2015 BLANQUITA DO, CRISTOBAL M Ot 277.9 12/15/2015 BLANQUITA DO, CRISTOBAL M Ot 278.00 12/15/2015 BLANQUITA DO, CRISTOBAL M Ot 296.90 12/15/2015 BLANQUITA DO, CRISTOBAL M Ot 493.20 12/15/2015 BLANQUITA DO CRISTOBAL M Ot 780.54 12/15/2015 BLANQUITA DO CRISTOBAL M Ot 786.09 12/15/2015 CRISTOBAL JUARES DO Ot 493.20 12/15/2015 CRISTOBAL JUARES DO Ot 571.8 12/15/2015 CRISTOBAL JUARES DO Ot 611.1 12/15/2015 CRISTOBAL JUARES DO Ot 793.11 12/15/2015 JIMCHARLES VILLALTA Nick [employer]ER Ot 496 12/15/2015 LUZ CHARLES Nick [employer]CH WEAVER Ot 786.09 12/15/2015 LUZ CHARLES L [employer] WEAVER Ot 786.50 12/15/2015 CRISTOBAL JUARES DO Ot 327.23 12/15/2015 CRISTOBAL JUARES DO Ot 493.20 12/15/2015 CRISTOBAL JUARES DO Ot 793.11 12/15/2015 SARAH POWERS [employer] FIELD SUPERVISOR Ot K92.1 12/15/2015 SARAH POWERS [employer] FIELD SUPERVISOR Ot R31.9 01/08/2016 WALT RAZO DOIN R Ot J18.9 01/08/2016 DANNI CORTEZ LORENZO R Ot R91.1 01/17/2016 DANNI CORTEZ LORENZO R Ot J18.9 01/17/2016 DANNI CORTEZ LORENZO R Ot R91.1 02/02/2016 WALT RAZO DOIN R Ot J18.9 PNEUMONIA, UNSPECIFIED ORGANISM 02/02/2016 WALT RAZO DOIN R Ot R91.1 SOLITARY PULMONARY NODULE 04/02/2016 Ot 424.0 MITRAL VALVE DISORDER 04/02/2016 Ot 428.20 UNSPEC SYSTOLIC HRT FAILURE 04/02/2016 Ot 786.50 CHEST PAIN NOS 04/02/2016 MAURICE CUMMINS [employer] WE[employer] Ot 278.00 OBESITY, NOS 04/02/2016 MAURICE CUMMINS [employer]EN[employer] WEAVER Ot 782.3 EDEMA 04/02/2016 CRISTOBAL JUARES DO Ot 277.9 METABOLISM DISORDER NOS 04/02/2016 CRISTOBAL JUARES DO Ot 278.00 OBESITY, NOS 04/02/2016 CRISTOBAL JUARES DO Ot 296.90 UNSPECIFIED EPISODIC MOOD DISORDER 04/02/2016 CRISTOBAL JUARES DO Ot 493.20 CHRONIC OBSTRUCTIVE ASTHMA, NOS 04/02/2016 CRISTOBAL JUARES DO Ot 780.54 HYPERSOMNIA, UNSPECIFIED 04/02/2016 CRISTOBAL JUARES DO Ot 786.09 RESPIRATORY ABNORM NEC 04/02/2016 CRISTOBAL JUARES DO Ot 277.9 METABOLISM DISORDER NOS 04/02/2016 CRISTOBAL JUARES DO Ot 278.00 OBESITY, NOS 04/02/2016 CRISTOBAL JUARES DO Ot 296.90 UNSPECIFIED EPISODIC MOOD DISORDER 04/02/2016 CRISTOBAL JUARES DO Ot 493.20 CHRONIC OBSTRUCTIVE ASTHMA, NOS 04/02/2016 CRISTOBAL JUARES DO Ot 780.54 HYPERSOMNIA, UNSPECIFIED 04/02/2016 CRISTOBAL JUARES DO Ot 786.09 RESPIRATORY ABNORM NEC 04/02/2016 CRISTOBAL JUARES DO Ot 496 CHR AIRWAY OBSTRUCT NEC 04/02/2016 CRISTOBAL JUARES DO Ot 786.09 RESPIRATORY ABNORM NEC 04/02/2016 CRISTOBAL JUARES DO Ot 793.11 SOLITARY PULMONARY NODULE 04/02/2016 CRISTOBAL JUARES DO Ot 493.20 CHRONIC OBSTRUCTIVE ASTHMA, NOS 04/02/2016 CRISTOBAL JUARES DO Ot 571.8 CHRONIC LIVER DIS NEC 04/02/2016 CRISTOBAL JUARES DO Ot 611.1 HYPERTROPHY OF BREAST 04/02/2016 CRISTOBAL JUARES DO Ot 793.11 SOLITARY PULMONARY NODULE 04/02/2016 CHARLES ESCOBAR [employer] WEAVER Ot 496 CHR AIRWAY OBSTRUCT NEC 04/02/2016 CHARLES ESCOBAR FRENCH WEAVER Ot 786.09 RESPIRATORY ABNORM NEC 04/02/2016 CHARLES ESCOBAR [employer]ENCH WEAVER Ot 786.50 CHEST PAIN NOS 04/02/2016 MAURICE CUMMINS [employer]ENCH WEAVER Ot M54.2 CERVICALGIA 04/02/2016 LORENZO RAZO DO Ot J18.9 PNEUMONIA, UNSPECIFIED ORGANISM 04/02/2016 LORENZO RAZO DO Ot R91.1 SOLITARY PULMONARY NODULE 04/02/2016 Ot 424.0 MITRAL VALVE DISORDER 04/02/2016 Ot 428.20 UNSPEC SYSTOLIC HRT FAILURE 04/02/2016 Ot 786.50 CHEST PAIN NOS 04/02/2016 MAURICE CUMMINS [employer] WEAVER Ot 278.00 OBESITY, NOS 04/02/2016 MAURICE CUMMINS FRENCH WEAVER Ot 782.3 EDEMA 04/02/2016 CRISTOBAL JUARES DO Ot 277.9 METABOLISM DISORDER NOS 04/02/2016 CRISTOBAL JUARES DO Ot 278.00 OBESITY, NOS 04/02/2016 BLANQUITA DO CRISTOBAL M Ot 296.90 UNSPECIFIED EPISODIC MOOD DISORDER 04/02/2016 CRISTOBAL JUARES DO Ot 493.20 CHRONIC OBSTRUCTIVE ASTHMA, NOS 04/02/2016 BLANQUITA CRISTOBAL CORTEZ Ot 780.54 HYPERSOMNIA, UNSPECIFIED 04/02/2016 BLANQUITAROMAN CORTEZ CRISTOBAL M Ot 786.09 RESPIRATORY ABNORM NEC 04/02/2016 BLANQUITA CRISTOBAL CORTEZ Ot 277.9 METABOLISM DISORDER NOS 04/02/2016 CRISTOBAL JUARES DO Ot 278.00 OBESITY, NOS 04/02/2016 BLANQUITA CORTEZ CRISTOBAL Ruba Ot 296.90 UNSPECIFIED EPISODIC MOOD DISORDER 04/02/2016 BLANQUITA CORTEZ CRISTOBAL M Ot 493.20 CHRONIC OBSTRUCTIVE ASTHMA, NOS 04/02/2016 BLANQUITA CORTEZ CRISTOBAL M Ot 780.54 HYPERSOMNIA, UNSPECIFIED 04/02/2016 BLANQUITA CORTEZ CRISTOBAL M Ot 786.09 RESPIRATORY ABNORM NEC 04/02/2016 CRISTOBAL JUARES DO Ot 496 CHR AIRWAY OBSTRUCT NEC 04/02/2016 CRISTOBAL JUARES DO Ot 786.09 RESPIRATORY ABNORM NEC 04/02/2016 BLANQUITA CORTEZ CRISTOBAL M Ot 793.11 SOLITARY PULMONARY NODULE 04/02/2016 CRISTOBAL JUARES DO Ot 493.20 CHRONIC OBSTRUCTIVE ASTHMA, NOS 04/02/2016 CRISTOBAL JUARES DO Ot 571.8 CHRONIC LIVER DIS NEC 04/02/2016 CRISTOBAL JUARES DO Ot 611.1 HYPERTROPHY OF BREAST 04/02/2016 CRISTOBAL JUARES DO Ot 793.11 SOLITARY PULMONARY NODULE 04/02/2016 CHARLES ESCOBAR FR[employer] WEAVER Ot 496 CHR AIRWAY OBSTRUCT NEC 04/02/2016 CHARLES ESCOBAR FRENCH WEAVER Ot 786.09 RESPIRATORY ABNORM NEC 04/02/2016 CHARLES ESCOBAR L FRENCH WEAVER Ot 786.50 CHEST PAIN NOS 04/02/2016 LORENZO RAZO DO R Ot J18.9 PNEUMONIA, UNSPECIFIED ORGANISM 04/02/2016 LORENZO RAZO DO Ot R91.1 SOLITARY PULMONARY NODULE 04/03/2016 MIR NO APRN Ot J44.9 CHRONIC OBSTRUCTIVE PULMONARY DISEASE, U 04/03/2016 MIR NO [employer] FIELD SUPERVISOR Ot R91.1 SOLITARY PULMONARY NODULE 04/03/2016 MIR NO [employer] SERVICES FIELD SUPERVISOR Ot J44.9 CHRONIC OBSTRUCTIVE PULMONARY DISEASE, U 04/03/2016 MIR NO [employer] SERVICES FIELD SUPERVISOR Ot R91.1 SOLITARY PULMONARY NODULE 04/19/2016 MIR NO [employer] SERVICES FIELD SUPERVISOR Ot J44.9 CHRONIC OBSTRUCTIVE PULMONARY DISEASE, U 04/19/2016 MIR NO [employer] SERVICES FIELD SUPERVISOR Ot R91.1 SOLITARY PULMONARY NODULE 04/20/2016 MAURICE CUMMINS FRENCH WEAVER Ot 278.00 OBESITY, NOS 04/20/2016 MAURICE CUMMINS FRENCH WEAVER Ot 782.3 EDEMA 04/20/2016 CRISTOBAL JUARES DO Ot 277.9 METABOLISM DISORDER NOS 04/20/2016 CRISTOBAL JUARES DO Ot 278.00 OBESITY, NOS 04/20/2016 CRISTOBAL JUARES DO Ot 296.90 UNSPECIFIED EPISODIC MOOD DISORDER 04/20/2016 CRISTOBAL JUARES DO Ot 493.20 CHRONIC OBSTRUCTIVE ASTHMA, NOS 04/20/2016 CRISTOBAL JUARES DO Ot 780.54 HYPERSOMNIA, UNSPECIFIED 04/20/2016 CRISTOBAL JUARES DO Ot 786.09 RESPIRATORY ABNORM NEC 04/20/2016 CRISTOBAL JUARES DO Ot 493.20 CHRONIC OBSTRUCTIVE ASTHMA, NOS 04/20/2016 CRISTOBAL JUARES DO Ot 571.8 CHRONIC LIVER DIS NEC 04/20/2016 CRISTOBAL JUARES DO Ot 611.1 HYPERTROPHY OF BREAST 04/20/2016 CRISTOBAL JUARES DO Ot 793.11 SOLITARY PULMONARY NODULE 04/20/2016 CHARLES ESCOBAR FRENCH WEAVER Ot 496 CHR AIRWAY OBSTRUCT NEC 04/20/2016 CHARLES ESCOBAR FRENCH WEAVER Ot 786.09 RESPIRATORY ABNORM NEC 04/20/2016 CHARLES ESCOBAR FRENCH WEAVER Ot 786.50 CHEST PAIN NOS 04/20/2016 CRISTOBAL JUARES DO Ot 327.23 OBSTRUCTIVE SLEEP APNEA (ADULT) (PEDIATR 04/20/2016 CRISTOBAL JUARES DO Ot 493.20 CHRONIC OBSTRUCTIVE ASTHMA, NOS 04/20/2016 CRISTOBAL JUARES DO Ot 793.11 SOLITARY PULMONARY NODULE 04/20/2016 SARAH POWERS [employer] SERVICES FIELD SUPERVISOR Ot K92.1 MELENA 04/20/2016 SARAH POWERS [employer] WE[employer] SERVICES FIELD SUPERVISOR Ot R31.9 HEMATURIA, UNSPECIFIED 04/20/2016 MAURICE CUMMINS FRENCH WEAVER Ot M54.2 CERVICALGIA 04/20/2016 LORENZO RAZO DO Ot J18.9 PNEUMONIA, UNSPECIFIED ORGANISM 04/20/2016 LORENZO RAZO DO Ot R91.1 SOLITARY PULMONARY NODULE 04/20/2016 MIR NO [employer] SERVICES FIELD SUPERVISOR Ot J44.9 CHRONIC OBSTRUCTIVE PULMONARY DISEASE, U 04/20/2016 MIR NO [employer] SERVICES FIELD SUPERVISOR Ot R91.1 SOLITARY PULMONARY NODULE 04/25/2016 MARIA G MAURICE Nick FRENCH WEAVER Ot 278.00 OBESITY, NOS 04/25/2016 MARIA G MAURICE Nick FRENCH WEAVER Ot 782.3 EDEMA 04/25/2016 CRISTOBAL JUARES DO Ot 277.9 METABOLISM DISORDER NOS 04/25/2016 CRISTOBAL JUARES DO Ot 278.00 OBESITY, NOS 04/25/2016 CRISTOBAL JUARES DO Ot 296.90 UNSPECIFIED EPISODIC MOOD DISORDER 04/25/2016 CRISTOBAL JUARES DO Ot 493.20 CHRONIC OBSTRUCTIVE ASTHMA, NOS 04/25/2016 CRISTOBAL JUARES DO Ot 780.54 HYPERSOMNIA, UNSPECIFIED 04/25/2016 CRISTOBAL JUARES DO Ot 786.09 RESPIRATORY ABNORM NEC 04/25/2016 CRISTOBAL JUARES DO Ot 493.20 CHRONIC OBSTRUCTIVE ASTHMA, NOS 04/25/2016 CRISTOBAL JUARES DO Ot 571.8 CHRONIC LIVER DIS NEC 04/25/2016 CRISTOBAL JUARES DO Ot 611.1 HYPERTROPHY OF BREAST 04/25/2016 CRISTOBAL JUARES DO Ot 793.11 SOLITARY PULMONARY NODULE 04/25/2016 CHARLES ESCOBAR FRENCH WEAVER Ot 496 CHR AIRWAY OBSTRUCT NEC 04/25/2016 CHARLES ESCOBAR FRENCH WEAVER Ot 786.09 RESPIRATORY ABNORM NEC 04/25/2016 CHARLES ESCOBAR FRENCH WEAVER Ot 786.50 CHEST PAIN NOS 04/25/2016 CRISTOBAL JUARES DO Ot 327.23 OBSTRUCTIVE SLEEP APNEA (ADULT) (PEDIATR 04/25/2016 CRISTOBAL JUARES DO Ot 493.20 CHRONIC OBSTRUCTIVE ASTHMA, NOS 04/25/2016 CRISTOBAL JUARES DO Ot 793.11 SOLITARY PULMONARY NODULE 04/25/2016 SARAH POWERS [employer] WE[employer] SERVICES FIELD SUPERVISOR Ot K92.1 MELENA 04/25/2016 SARAH POWERS O[employer] WELL SERVICES FIELD SUPERVISOR Ot R31.9 HEMATURIA, UNSPECIFIED 04/25/2016 MAURICE CUMMINS FRENCH WEAVER Ot M54.2 CERVICALGIA 04/25/2016 DANNI DO, LORENZO R Ot J18.9 PNEUMONIA, UNSPECIFIED ORGANISM 04/25/2016 DANNI DO, LORENZO R Ot R91.1 SOLITARY PULMONARY NODULE 04/25/2016 MIR NO APRN Ot J44.9 CHRONIC OBSTRUCTIVE PULMONARY DISEASE, U 04/25/2016 MIR NO APRN Ot R91.1 SOLITARY PULMONARY NODULE 05/14/2016 CRISTOBAL JUARES DO Ot 327.23 OBSTRUCTIVE SLEEP APNEA (ADULT) (PEDIATR 05/14/2016 CRISTOBAL JUARES DO Ot 493.20 CHRONIC OBSTRUCTIVE ASTHMA, NOS 05/14/2016 CRISTOBAL JUARES DO Ot 793.11 SOLITARY PULMONARY NODULE 05/14/2016 SARAH POWERS [employer] SERVICES FIELD SUPERVISOR Ot K92.1 MELENA 05/14/2016 SARAH POWERS OIL WELL SERVICES FIELD SUPERVISOR Ot R31.9 HEMATURIA, UNSPECIFIED 05/14/2016 MAURICE CUMMINS FRENCH WEAVER Ot M54.2 CERVICALGIA 05/14/2016 DANNI CORTEZ, LORENZO R Ot J18.9 PNEUMONIA, UNSPECIFIED ORGANISM 05/14/2016 DANNI CORTEZ, LORENZO R Ot R91.1 SOLITARY PULMONARY NODULE 05/14/2016 MIR NO APRN Ot J44.9 CHRONIC OBSTRUCTIVE PULMONARY DISEASE, U 05/14/2016 MIR NO APRN Ot R91.1 SOLITARY PULMONARY NODULE 07/09/2016 CRISTOBAL JUARES DO Ot F39 UNSPECIFIED MOOD [AFFECTIVE] DISORDER 07/09/2016 CRISTOBAL JUARES DO Ot G47.10 HYPERSOMNIA, UNSPECIFIED 07/09/2016 CRISTOBAL JUARES DO Ot G47.33 OBSTRUCTIVE SLEEP APNEA (ADULT) (PEDIATR 07/09/2016 CRISTOBAL JUARES DO Ot J44.9 CHRONIC OBSTRUCTIVE PULMONARY DISEASE, U 07/09/2016 CRISTOBAL JUARES DO Ot R06.83 SNORING 07/09/2016 CRISTOBAL JUARES DO Ot R53.83 OTHER FATIGUE 07/09/2016 CRISTOBAL JUARES DO Ot R91.1 SOLITARY PULMONARY NODULE 07/17/2016 CRISTOBAL JUARES DO Ot F39 UNSPECIFIED MOOD [AFFECTIVE] DISORDER 07/17/2016 CRISTOBAL JUARES DO Ot G47.10 HYPERSOMNIA, UNSPECIFIED 07/17/2016 CRISTOBAL JUARES DO Ot G47.33 OBSTRUCTIVE SLEEP APNEA (ADULT) (PEDIATR 07/17/2016 CRISTOBAL JUARES DO Ot J44.9 CHRONIC OBSTRUCTIVE PULMONARY DISEASE, U 07/17/2016 CRISTOBAL JUARES DO Ot R06.83 SNORING 07/17/2016 CRISTOBAL JUARES DO Ot R53.83 OTHER FATIGUE 07/17/2016 CRISTOBAL JUARES DO Ot R91.1 SOLITARY PULMONARY NODULE 01/16/2018 MAURICE CUMMINS FRENCH WEAVER Ot 278.00 OBESITY, NOS 01/16/2018 MAURICE CUMMINS FRENCH WEAVER Ot 782.3 EDEMA 01/16/2018 CRISTOBAL JUARES DO Ot 277.9 METABOLISM DISORDER NOS 01/16/2018 CRISTOBAL JUARES DO Ot 278.00 OBESITY, NOS 01/16/2018 CRISTOBAL JUARES DO Ot 296.90 UNSPECIFIED EPISODIC MOOD DISORDER 01/16/2018 CRISTOBAL JUARES DO Ot 493.20 CHRONIC OBSTRUCTIVE ASTHMA, NOS 01/16/2018 CRISTOBAL JUARES DO Ot 780.54 HYPERSOMNIA, UNSPECIFIED 01/16/2018 CRISTOBAL JUARES DO Ot 786.09 RESPIRATORY ABNORM NEC 01/16/2018 CRISTOBAL JUARES DO Ot 493.20 CHRONIC OBSTRUCTIVE ASTHMA, NOS 01/16/2018 CRISTOBAL JUARES DO Ot 571.8 CHRONIC LIVER DIS NEC 01/16/2018 CRISTOBAL JUARES DO Ot 611.1 HYPERTROPHY OF BREAST 01/16/2018 CRISTOBAL JUARES DO Ot 793.11 SOLITARY PULMONARY NODULE 01/16/2018 CHARLES ESCOBAR FRENCH WEAVER Ot 496 CHR AIRWAY OBSTRUCT NEC 01/16/2018 CHARLES ESCOBAR [employer] WEAVER Ot 786.09 RESPIRATORY ABNORM NEC 01/16/2018 CHARLES ESCOBAR [employer] WEAVER Ot 786.50 CHEST PAIN NOS 01/16/2018 CRISTOBAL JUARES DO Ot 327.23 OBSTRUCTIVE SLEEP APNEA (ADULT) (PEDIATR 01/16/2018 CRISTOBAL JUARES DO Ot 493.20 CHRONIC OBSTRUCTIVE ASTHMA, NOS 01/16/2018 CRISTOBAL JUARES DO Ot 793.11 SOLITARY PULMONARY NODULE 01/16/2018 SARAH POWERS [employer] FIELD SUPERVISOR Ot K92.1 MELENA 01/16/2018 SARAH POWERS [employer] FIELD SUPERVISOR Ot R31.9 HEMATURIA, UNSPECIFIED 01/16/2018 MAURICE CUMMINS [employer] WEAVER Ot M54.2 CERVICALGIA 01/16/2018 LORENZO RAZO DO Ot J18.9 PNEUMONIA, UNSPECIFIED ORGANISM 01/16/2018 LORENZO RAZO DO R Ot R91.1 SOLITARY PULMONARY NODULE 01/16/2018 MIR NO APRN Ot J44.9 CHRONIC OBSTRUCTIVE PULMONARY DISEASE, U 01/16/2018 MIR NO APRN Ot R91.1 SOLITARY PULMONARY NODULE 01/16/2018 CRISTOBAL JUARES DO Ot F39 UNSPECIFIED MOOD [AFFECTIVE] DISORDER 01/16/2018 CRISTOBAL JUARES DO Ot G47.10 HYPERSOMNIA, UNSPECIFIED 01/16/2018 CRISTOBAL JUARES DO Ot G47.33 OBSTRUCTIVE SLEEP APNEA (ADULT) (PEDIATR 01/16/2018 CRISTOBAL JUARES DO Ot J44.9 CHRONIC OBSTRUCTIVE PULMONARY DISEASE, U 01/16/2018 CRISTOBAL JUARES DO Ot R06.83 SNORING 01/16/2018 CRISTOBAL JUARES DO Ot R53.83 OTHER FATIGUE 01/16/2018 CRISTOBAL JUARES DO Ot R91.1 SOLITARY PULMONARY NODULE 01/16/2018 MAURICE CUMMINS [employer] WEAVER Ot 278.00 OBESITY, NOS 01/16/2018 MAURICE CUMMINS [employer] WEAVER Ot 782.3 EDEMA 01/16/2018 CRISTOBAL JUARES DO Ot 277.9 METABOLISM DISORDER NOS 01/16/2018 CRISTOBAL JUARES DO Ot 278.00 OBESITY, NOS 01/16/2018 CRISTOBAL JUARES DO Ot 296.90 UNSPECIFIED EPISODIC MOOD DISORDER 01/16/2018 CRISTOBAL JUARES DO Ot 493.20 CHRONIC OBSTRUCTIVE ASTHMA, NOS 01/16/2018 CRISTOBAL JUARES DO Ot 780.54 HYPERSOMNIA, UNSPECIFIED 01/16/2018 CRISTOBAL JUARES DO Ot 786.09 RESPIRATORY ABNORM NEC 01/16/2018 CRISTOBAL JUARES DO Ot 493.20 CHRONIC OBSTRUCTIVE ASTHMA, NOS 01/16/2018 CRISTOBAL JUARES DO Ot 571.8 CHRONIC LIVER DIS NEC 01/16/2018 CRISTOBAL JUARES DO Ot 611.1 HYPERTROPHY OF BREAST 01/16/2018 CRISTOBAL JUARES DO Ot 793.11 SOLITARY PULMONARY NODULE 01/16/2018 CHARLES ESCOBAR [employer] WEAVER Ot 496 CHR AIRWAY OBSTRUCT NEC 01/16/2018 CHARLES ESCOBAR [employer] WEAVER Ot 786.09 RESPIRATORY ABNORM NEC 01/16/2018 CHARLES ESCOBAR [employer] WEAVER Ot 786.50 CHEST PAIN NOS 01/16/2018 CRISTOBAL JUARES DO Ot 327.23 OBSTRUCTIVE SLEEP APNEA (ADULT) (PEDIATR 01/16/2018 CRISTOBAL JUARES DO Ot 493.20 CHRONIC OBSTRUCTIVE ASTHMA, NOS 01/16/2018 CRISTOBAL JUARES DO Ot 793.11 SOLITARY PULMONARY NODULE 01/16/2018 SARAH POWERS [employer] FIELD SUPERVISOR Ot K92.1 MELENA 01/16/2018 SARAH POWERS [employer] FIELD SUPERVISOR Ot R31.9 HEMATURIA, UNSPECIFIED 01/16/2018 MAURICE CUMMINSP Ot M54.2 CERVICALGIA 01/16/2018 LORENZO RAZO DO Ot J18.9 PNEUMONIA, UNSPECIFIED ORGANISM 01/16/2018 LORENZO RAZO DO Ot R91.1 SOLITARY PULMONARY NODULE 01/16/2018 MIR NO APRN Ot J44.9 CHRONIC OBSTRUCTIVE PULMONARY DISEASE, U 01/16/2018 MIR NO APRN Ot R91.1 SOLITARY PULMONARY NODULE 01/16/2018 CRISTOBAL JUARES DO Ot F39 UNSPECIFIED MOOD [AFFECTIVE] DISORDER 01/16/2018 CRISTOBAL JUARES DO Ot G47.10 HYPERSOMNIA, UNSPECIFIED 01/16/2018 CRISTOBAL JUARES DO Ot G47.33 OBSTRUCTIVE SLEEP APNEA (ADULT) (PEDIATR 01/16/2018 CRISTOBAL JUARES DO Ot J44.9 CHRONIC OBSTRUCTIVE PULMONARY DISEASE, U 01/16/2018 CRISTOBAL JUARES DO Ot R06.83 SNORING 01/16/2018 CRISTOBAL JUARES DO Ot R53.83 OTHER FATIGUE 01/16/2018 CRISTOBAL JUARES DO Ot R91.1 SOLITARY PULMONARY NODULE 02/05/2018 MAURICE CUMMINS [employer] WEAVER Ot 278.00 OBESITY, NOS 02/05/2018 MAURICE CUMMINS [employer] WEAVER Ot 782.3 EDEMA 02/05/2018 CRISTOBAL JUARES DO Ot 277.9 METABOLISM DISORDER NOS 02/05/2018 CRISTOBAL JUARES DO Ot 278.00 OBESITY, NOS 02/05/2018 CRISTOBAL JUARES DO Ot 296.90 UNSPECIFIED EPISODIC MOOD DISORDER 02/05/2018 CRISTOBAL JUARES DO Ot 493.20 CHRONIC OBSTRUCTIVE ASTHMA, NOS 02/05/2018 CRISTOBAL JUARES DO Ot 780.54 HYPERSOMNIA, UNSPECIFIED 02/05/2018 CRISTOBAL JUARES DO Ot 786.09 RESPIRATORY ABNORM NEC 02/05/2018 CRISTOBAL JUARES DO Ot 493.20 CHRONIC OBSTRUCTIVE ASTHMA, NOS 02/05/2018 CRISTOBAL JUARES DO Ot 571.8 CHRONIC LIVER DIS NEC 02/05/2018 CRISTOBAL JUARES DO Ot 611.1 HYPERTROPHY OF BREAST 02/05/2018 CRISTOBAL JUARES DO Ot 793.11 SOLITARY PULMONARY NODULE 02/05/2018 CHARLES ESCOBAR [employer] WEAVER Ot 496 CHR AIRWAY OBSTRUCT NEC 02/05/2018 CHARLES ESCOBAR [employer] WEAVER Ot 786.09 RESPIRATORY ABNORM NEC 02/05/2018 CHARLES ESCOBAR [employer] WEAVER Ot 786.50 CHEST PAIN NOS 02/05/2018 CRISTOBAL JUARES DO Ot 327.23 OBSTRUCTIVE SLEEP APNEA (ADULT) (PEDIATR 02/05/2018 CRISTOBAL JUARES DO Ot 493.20 CHRONIC OBSTRUCTIVE ASTHMA, NOS 02/05/2018 CRISTOBAL JUARES DO Ot 793.11 SOLITARY PULMONARY NODULE 02/05/2018 SARAH POWERS [employer] FIELD SUPERVISOR Ot K92.1 MELENA 02/05/2018 SARAH POWERS [employer] FIELD SUPERVISOR Ot R31.9 HEMATURIA, UNSPECIFIED 02/05/2018 EATMAURICE HOLBROOK [employer] WEAVER Ot M54.2 CERVICALGIA 02/05/2018 LORENZO RAZO DO Ot J18.9 PNEUMONIA, UNSPECIFIED ORGANISM 02/05/2018 LORENZO RAZO DO Ot R91.1 SOLITARY PULMONARY NODULE 02/05/2018 MIR NO [employer] FIELD SUPERVISOR Ot J44.9 CHRONIC OBSTRUCTIVE PULMONARY DISEASE, U 02/05/2018 MIR NO [employer] FIELD SUPERVISOR Ot R91.1 SOLITARY PULMONARY NODULE 02/05/2018 CRISTOBAL JUARES DO Ot F39 UNSPECIFIED MOOD [AFFECTIVE] DISORDER 02/05/2018 CRISTOBAL JUARES DO, Ot G47.10 HYPERSOMNIA, UNSPECIFIED 02/05/2018 CRISTOBAL JUARES DO Ot G47.33 OBSTRUCTIVE SLEEP APNEA (ADULT) (PEDIATR 02/05/2018 CRISTOBAL JUARES DO Ot J44.9 CHRONIC OBSTRUCTIVE PULMONARY DISEASE, U 02/05/2018 CRISTOBAL JUARES DO Ot R06.83 SNORING 02/05/2018 CRISTOBAL JUARES DO Ot R53.83 OTHER FATIGUE 02/05/2018 CRISTOBAL JUARES DO Ot R91.1 SOLITARY PULMONARY NODULE 02/19/2018 MARIA G MAURICE L FRENCH WEAVER Ot 278.00 OBESITY, NOS 02/19/2018 MAURICE CUMMINS FRENCH WEAVER Ot 782.3 EDEMA 02/19/2018 CRISTOBAL JUARES DO Ot 277.9 METABOLISM DISORDER NOS 02/19/2018 CRISTOBAL JUARES DO Ot 278.00 OBESITY, NOS 02/19/2018 CRISTOBAL JUARES DO Ot 296.90 UNSPECIFIED EPISODIC MOOD DISORDER 02/19/2018 CRISTOBAL JUARES DO Ot 493.20 CHRONIC OBSTRUCTIVE ASTHMA, NOS 02/19/2018 CRISTOBAL JUARES DO Ot 780.54 HYPERSOMNIA, UNSPECIFIED 02/19/2018 CRISTOBAL JUARES DO Ot 786.09 RESPIRATORY ABNORM NEC 02/19/2018 CRISTOBAL JUARES DO Ot 493.20 CHRONIC OBSTRUCTIVE ASTHMA, NOS 02/19/2018 CRISTOBAL JUARES DO Ot 571.8 CHRONIC LIVER DIS NEC 02/19/2018 CRISTOBAL JUARES DO Ot 611.1 HYPERTROPHY OF BREAST 02/19/2018 CRISTOBAL JUARES DO Ot 793.11 SOLITARY PULMONARY NODULE 02/19/2018 CHARLES ESCOBAR FRENCH WEAVER Ot 496 CHR AIRWAY OBSTRUCT NEC 02/19/2018 CHARLES ESCOBAR FRENCH WEAVER Ot 786.09 RESPIRATORY ABNORM NEC 02/19/2018 CHARLES ESCOBAR FRENCH WEAVER Ot 786.50 CHEST PAIN NOS 02/19/2018 CRISTOBAL JUARES DO Ot 327.23 OBSTRUCTIVE SLEEP APNEA (ADULT) (PEDIATR 02/19/2018 CRISTOBAL JUARES DO Ot 493.20 CHRONIC OBSTRUCTIVE ASTHMA, NOS 02/19/2018 CRISTOBAL JURAES DO Ot 793.11 SOLITARY PULMONARY NODULE 02/19/2018 SARAH POWERS APRN Ot K92.1 MELENA 02/19/2018 SARAH POWERS [employer] FIELD SUPERVISOR Ot R31.9 HEMATURIA, UNSPECIFIED 02/19/2018 MAURICE CUMMINS FRENCH WEAVER Ot M54.2 CERVICALGIA 02/19/2018 LORENZO RAZO DO Ot J18.9 PNEUMONIA, UNSPECIFIED ORGANISM 02/19/2018 WALT RAZO DOIN R Ot R91.1 SOLITARY PULMONARY NODULE 02/19/2018 MIR NO APRN Ot J44.9 CHRONIC OBSTRUCTIVE PULMONARY DISEASE, U 02/19/2018 MIR NO APRN Ot R91.1 SOLITARY PULMONARY NODULE 02/19/2018 CRISTOBAL JUARES DO Ot F39 UNSPECIFIED MOOD [AFFECTIVE] DISORDER 02/19/2018 CRISTOBAL JUARES DO Ot G47.10 HYPERSOMNIA, UNSPECIFIED 02/19/2018 CRISTOBAL JUARES DO Ot G47.33 OBSTRUCTIVE SLEEP APNEA (ADULT) (PEDIATR 02/19/2018 CRISTOBAL JUARES DO Ot J44.9 CHRONIC OBSTRUCTIVE PULMONARY DISEASE, U 02/19/2018 CRISTOBAL JUARES DO Ot R06.83 SNORING 02/19/2018 CRISTOBAL JUARES DO Ot R53.83 OTHER FATIGUE 02/19/2018 CRISTOBAL JUARES DO Ot R91.1 SOLITARY PULMONARY NODULE 02/26/2018 MAURICE CUMMINS FRENCH WEAVER Ot 278.00 OBESITY, NOS 02/26/2018 MAURICE CUMMINS FRENCH WEAVER Ot 782.3 EDEMA 02/26/2018 CRISTOBAL JUARES DO Ot 277.9 METABOLISM DISORDER NOS 02/26/2018 CRISTOBAL JUARES DO Ot 278.00 OBESITY, NOS 02/26/2018 CRISTOBAL JUARES DO Ot 296.90 UNSPECIFIED EPISODIC MOOD DISORDER 02/26/2018 CRISTOBAL JUARES DO Ot 493.20 CHRONIC OBSTRUCTIVE ASTHMA, NOS 02/26/2018 CRISTOBAL JUARES DO Ot 780.54 HYPERSOMNIA, UNSPECIFIED 02/26/2018 CRISTOBAL JUARES DO Ot 786.09 RESPIRATORY ABNORM NEC 02/26/2018 CRISTOBAL JUARES DO Ot 493.20 CHRONIC OBSTRUCTIVE ASTHMA, NOS 02/26/2018 CRISTOBAL JUARES DO Ot 571.8 CHRONIC LIVER DIS NEC 02/26/2018 CRISTOBAL JUARES DO Ot 611.1 HYPERTROPHY OF BREAST 02/26/2018 CRISTOBAL JUARES DO Ot 793.11 SOLITARY PULMONARY NODULE 02/26/2018 CHARLES ESCOBARP Ot 496 CHR AIRWAY OBSTRUCT NEC 02/26/2018 CHARLES ESCOBAR FRENCH WEAVER Ot 786.09 RESPIRATORY ABNORM NEC 02/26/2018 CHARLES ESCOBAR FRENCH WEAVER Ot 786.50 CHEST PAIN NOS 02/26/2018 CRISTOBAL JUARES DO Ot 327.23 OBSTRUCTIVE SLEEP APNEA (ADULT) (PEDIATR 02/26/2018 CRISTOBAL JUARES DO Ot 493.20 CHRONIC OBSTRUCTIVE ASTHMA, NOS 02/26/2018 CRISOTBAL JUARES DO Ot 793.11 SOLITARY PULMONARY NODULE 02/26/2018 SARAH POWERS [employer] SERVICES FIELD SUPERVISOR Ot K92.1 MELENA 02/26/2018 SARAH POWERS [employer] SERVICES FIELD SUPERVISOR Ot R31.9 HEMATURIA, UNSPECIFIED 02/26/2018 MAURICE CUMMINSP Ot M54.2 CERVICALGIA 02/26/2018 LORENZO RAZO DO Ot J18.9 PNEUMONIA, UNSPECIFIED ORGANISM 02/26/2018 LORENZO RAZO DO Ot R91.1 SOLITARY PULMONARY NODULE 02/26/2018 MIR NO APRN Ot J44.9 CHRONIC OBSTRUCTIVE PULMONARY DISEASE, U 02/26/2018 MIR NO APRN Ot R91.1 SOLITARY PULMONARY NODULE 02/26/2018 CRISTOBAL JUARES DO Ot F39 UNSPECIFIED MOOD [AFFECTIVE] DISORDER 02/26/2018 CRISTOBAL JUARES DO Ot G47.10 HYPERSOMNIA, UNSPECIFIED 02/26/2018 CRISTOBAL JUARES DO Ot G47.33 OBSTRUCTIVE SLEEP APNEA (ADULT) (PEDIATR 02/26/2018 CRISTOBAL JUARES DO Ot J44.9 CHRONIC OBSTRUCTIVE PULMONARY DISEASE, U 02/26/2018 CRISTOBAL JUARES DO Ot R06.83 SNORING 02/26/2018 CRISTOBAL JUARES DO Ot R53.83 OTHER FATIGUE 02/26/2018 CRISTOBAL JUARES DO Ot R91.1 SOLITARY PULMONARY NODULE 08/26/2018 MAURICE CUMMINS FRENCH WEAVER Ot 278.00 OBESITY, NOS 08/26/2018 MAURICE CUMMINS FRENCH WEAVER Ot 782.3 EDEMA 08/26/2018 CRISTOBAL JUAERS DO Ot 277.9 METABOLISM DISORDER NOS 08/26/2018 CRISTOBAL JUARES DO Ot 278.00 OBESITY, NOS 08/26/2018 CRISTOBAL JUARES DO Ot 296.90 UNSPECIFIED EPISODIC MOOD DISORDER 08/26/2018 CRISTOBAL JUARES DO Ot 493.20 CHRONIC OBSTRUCTIVE ASTHMA, NOS 08/26/2018 CRISTOBAL JUARES DO Ot 780.54 HYPERSOMNIA, UNSPECIFIED 08/26/2018 CRISTOBAL JUARES DO Ot 786.09 RESPIRATORY ABNORM NEC 08/26/2018 CRISTOBAL JUARES DO Ot 493.20 CHRONIC OBSTRUCTIVE ASTHMA, NOS 08/26/2018 CRISTOBAL JUARES DO Ot 571.8 CHRONIC LIVER DIS NEC 08/26/2018 CRISTOBAL JUARES DO Ot 611.1 HYPERTROPHY OF BREAST 08/26/2018 CRISTOBAL JUARES DO Ot 793.11 SOLITARY PULMONARY NODULE 08/26/2018 CHARLES ESCOBAR FRENCH WEAVER Ot 496 CHR AIRWAY OBSTRUCT NEC 08/26/2018 CHARLES ESCOBAR FRENCH WEAVER Ot 786.09 RESPIRATORY ABNORM NEC 08/26/2018 CHARLSE ESCOBAR FRENCH WEAVER Ot 786.50 CHEST PAIN NOS 08/26/2018 CRISTOBAL JUARES DO Ot 327.23 OBSTRUCTIVE SLEEP APNEA (ADULT) (PEDIATR 08/26/2018 CRISTOBAL JUARES DO Ot 493.20 CHRONIC OBSTRUCTIVE ASTHMA, NOS 08/26/2018 CRISTOBAL JUARES DO Ot 793.11 SOLITARY PULMONARY NODULE 08/26/2018 SARAH POWERS [employer] SERVICES FIELD SUPERVISOR Ot K92.1 MELENA 08/26/2018 SARAH POWERS [employer] WE[employer] SERVICES FIELD SUPERVISOR Ot R31.9 HEMATURIA, UNSPECIFIED 08/26/2018 EATONMAURICE FRENCH WEAVER Ot M54.2 CERVICALGIA 08/26/2018 LORENZO RAZO DO Ot J18.9 PNEUMONIA, UNSPECIFIED ORGANISM 08/26/2018 LORENZO RAZO DO Ot R91.1 SOLITARY PULMONARY NODULE 08/26/2018 MIR NO [employer] FIELD SUPERVISOR Ot J44.9 CHRONIC OBSTRUCTIVE PULMONARY DISEASE, U 08/26/2018 MIR NO [employer] SERVICES FIELD SUPERVISOR Ot R91.1 SOLITARY PULMONARY NODULE 08/26/2018 CRISTOBAL JUARES DO Ot F39 UNSPECIFIED MOOD [AFFECTIVE] DISORDER 08/26/2018 CRISTOBAL JUARES DO Ot G47.10 HYPERSOMNIA, UNSPECIFIED 08/26/2018 CRISTOBAL JUARES DO Ot G47.33 OBSTRUCTIVE SLEEP APNEA (ADULT) (PEDIATR 08/26/2018 CRISTOBAL JUARES DO Ot J44.9 CHRONIC OBSTRUCTIVE PULMONARY DISEASE, U 08/26/2018 CRISTOBAL JUARES DO Ot R06.83 SNORING 08/26/2018 CRISTOBAL JUARES DO Ot R53.83 OTHER FATIGUE 08/26/2018 CRISTOBAL JUARES DO Ot R91.1 SOLITARY PULMONARY NODULE Procedures Code Description [place] [address] A1C (IN-HOUSE) 02/27/2013 99265 PULMONARY FUNCTION TEST (IN- HOUSE) 05/29/2013 92607 BRONCHODILATION PRE/POST 05/29/2013 78366 RESPIRATORY FLOW VOLUME LOOP 05/29/2013 52003 PULMONARY EDUCATION 05/29/2013 G0437 TOBACCO-USE SCULLION CHIEF>10MIN 05/29/2013 43837 ROUTINE VENIPUNCTURE 12/04/2013 33235 T4 FREE 12/04/2013 70468 TSH 12/04/2013 08467 ECHO 2D 12/23/2013 Pulmonary Cristobal Juares 12/23/2013 74130 ROUTINE VENIPUNCTURE 12/24/2013 78309 MICRO ALBUMIN-IN HOUSE 12/24/2013 15383 LIPID PANEL 12/24/2013 20526 MAGNESIUM 12/24/2013 39585 CBC 12/24/2013 2559887 GFR CALC (RESULT ONLY) 12/24/2013 99580 CMP 12/24/2013 46610 BNP 12/25/2013 Cardiolog Valentine Chase 02/13/2014 Cardiolog Valentine Chase 02/18/2014 37104 NUCLEAR STRESS TESTING 04/21/2014 10561 OXIMETRY 04/21/2014 16669 XRAY PELVIS 1 OR 2 VIEWS 04/29/2014 90793 XRAY HIP RIGHT UNILATERAL MIN 2 VIEWS 04/29/2014 42081 GLUCOSE FINGER STICK 04/29/2014 02359 ROUTINE VENIPUNCTURE 08/04/2014 11893 CMP 08/04/2014 82926 LIPID PANEL 08/04/2014 16432 A1C (RML) 08/04/2014 02014 A1C (IN-HOUSE) 11/24/2014 76720 MICRO ALBUMIN-IN HOUSE 11/24/2014 Results Test Result Range CBC - 07/24/17 09:09 WHITE BLOOD CELL COUNT 7.1 Thousand/uL 3.8-10.8 RED BLOOD CELL COUNT 4.59 Million/uL 4.20-5.80 HEMOGLOBIN 14.1 g/dL 13.2-17.1 HEMATOCRIT 41.8 % 38.5-50.0 MCV 91.1 fL 80.0-100.0 MCH 30.7 pg 27.0-33.0 MCHC 33.7 g/dL 32.0-36.0 RDW 14.0 % 11.0-15.0 PLATELET COUNT 265 Thousand/uL 140-400 MPV 9.9 fL 7.5-12.5 ABSOLUTE NEUTROPHILS 4729 cells/uL 8449-3552 ABSOLUTE LYMPHOCYTES 1669 cells/uL 850-3900 ABSOLUTE MONOCYTES 433 cells/uL 200-950 ABSOLUTE EOSINOPHILS 241 cells/uL 15-500 ABSOLUTE BASOPHILS 28 cells/uL 0-200 NEUTROPHILS 66.6 % NRG LYMPHOCYTES 23.5 % NRG MONOCYTES 6.1 % NRG EOSINOPHILS 3.4 % NRG BASOPHILS 0.4 % NRG PSA (FREE AND TOTAL) - 07/24/17 09:09 PSA, TOTAL 0.2 ng/mL < OR=4.0 PSA, FREE 0.1 ng/mL NRG PSA, % FREE 50 % (calc) >25 Encounters ACCT No. Visit Date/Time Discharge Status Pt. Type Provider Facility Loc./Unit Complaint [id number] 11/24/2014 08:17:00 11/24/2014 23:59:59 [facility] Outpatient DELIA GARCIA DO [id number] 08/04/2014 08:39:00 08/04/2014 23:59:59 [facility] Outpatient MAURICE CUMMINS APRN [id number] 04/29/2014 08:00:00 04/29/2014 23:59:59 [facility] Outpatient MAURICE CUMMINS APRN [id number] 04/21/2014 00:00:00 04/21/2014 23:59:59 [facility] Outpatient MAURICE CUMMINS APRN [id number] 04/07/2014 09:12:00 04/07/2014 23:59:59 [facility] Outpatient DELIA GARCIA DO [id number] 03/25/2014 11:38:00 03/25/2014 23:59:59 [facility] Outpatient DELIA GARCIA DO [id number] 02/13/2014 14:09:00 02/13/2014 23:59:59 [facility] Outpatient DELIA GARCIA DO Mohini [id number] 01/07/2014 09:51:00 01/07/2014 23:59:59 [facility] Outpatient DELIA GARCIA DO Mohini [id number] 12/24/2013 08:08:00 12/24/2013 23:59:59 [facility] Outpatient KMYMAURICE HOLBROOK APRN [id number] 12/23/2013 08:32:00 12/23/2013 23:59:59 [facility] Outpatient MAURICE CUMMINS APRN [id number] 12/04/2013 13:12:00 12/04/2013 23:59:59 [facility] Outpatient DELIA GARCIA DO Mohini [id number] 04/18/2012 08:39:00 04/18/2012 23:59:59 [facility] Outpatient [id number] 06/23/2013 08:56:00 Document Registration [id number] 05/29/2013 13:39:00 Document Registration [id number] 02/27/2013 09:59:00 Document Registration [id number] 12/26/2017 13:40:00 12/26/2017 23:59:59 [facility] Outpatient MAURICE CUMMINS APRN [facility] [id number] 07/24/2017 09:00:00 Document Registration [id number] 07/04/2016 08:12:00 07/04/2016 23:59:59 CLS Outpatient CRISTOBAL JUARES DO [facility] RT COPD,CHAZ,SNORING [id number] 04/02/2016 10:21:00 04/02/2016 23:59:59 [facility] Outpatient MIR NO APRN [facility] RAD LUNG NODULE,COPD [id number] 01/02/2016 13:20:00 01/02/2016 23:59:59 CLS Outpatient LORENZO RAZO DO [facility] RAD LLL PNEUMONIA,RT LUNG NODULE [id number] 12/15/2015 14:35:00 12/15/2015 23:59:59 CLS Outpatient MAURICE CUMMINS [facility] RAD CERVICALGIA [id number] 07/25/2015 16:05:00 07/25/2015 23:59:59 CLS Outpatient SARAH POWERS APRN [facility] RAD BLOOD IN STOOL AND LLQ PAIN [id number] 04/19/2015 07:40:00 04/19/2015 23:59:59 CLS Outpatient CRISTOBAL JUARES DO [facility] RAD COPD,ASTHMA,CHAZ [id number] 06/25/2014 09:27:00 06/25/2014 23:59:59 CLS Outpatient CRISTOBAL JUARES DO [facility] RAD LUNG NODULE [id number] 06/07/2014 10:39:00 06/07/2014 23:59:59 CLS Outpatient CHARLES ESCOBAR [facility] CARD CP,DYSPNEA,COPD [id number] 03/19/2014 21:02:00 03/20/2014 07:40:00 DIS Outpatient CRISTOBAL JUARES DO [facility] SLEEP [id number] 03/04/2014 08:40:00 03/04/2014 23:59:59 CLS Outpatient CRISTOBAL JUARES DO [facility] RAD [id number] 02/17/2014 09:16:00 02/17/2014 23:59:59 CLS Outpatient CRISTOBAL JUARES DO [facility] RT [id number] 01/22/2014 11:12:00 01/22/2014 23:59:59 CLS Outpatient CRISTOBAL JUARES DO [facility] RAD COPD,ASTHMA,MET DISORDER, MOOD DISORDER,SNORING [id number] 12/25/2013 12:08:00 12/25/2013 23:59:59 CLS Outpatient MAURICE CUMMINS [facility] CARD EDEMA,OBESITY [id number] 08/26/2018 11:27:00 ACT Emergency JOSY HUITRON MD [facility] ER SOA [id number] 06/25/2011 05:40:00 Document Registration [id number] 06/22/2011 12:12:00 Document Registration
[2018-08-26] MEDS ORDERED: methylPREDNISolone 125 MG (Solu-MEDROL) VIAL IVP ONE (12:45)
[2018-08-26] MEDS ORDERED: RT-ALBUTEROL/IPRATROPIUM 3 ML (DUONEB) VIAL INH ONE (12:45)
[2018-08-26 12:47] LABS: BASOPHILS % (AUTO) 0 % (0-10); EOSINOPHILS % (AUTO) 0 % (0-10); HEMATOCRIT 42 % (40-54); HEMOGLOBIN 13.7 G/DL (13.3-17.7); LYMPHOCYTES # (AUTO) 1.6 X 10^3 (1.0-4.0); LYMPHOCYTES % (AUTO) 12 % (12-44); MEAN CORPUSCULAR HEMOGLOBIN 31 PG (25-34); MEAN CORPUSCULAR HGB CONC 33 G/DL (32-36); MEAN CORPUSCULAR VOLUME 93 FL (80-99); MEAN PLATELET VOLUME 9.3 FL (7.4-10.4); MONOCYTES # (AUTO) 0.5 X 10^3 (0.0-1.0); MONOCYTES % (AUTO) 4 % (0-12); NEUTROPHILS # (AUTO) 10.9 X 10^3 (1.8-7.8); NEUTROPHILS % (AUTO) 84 % (42-75); PLATELET COUNT 268 10^3/uL (130-400); RED BLOOD COUNT 4.49 10^6/uL (4.35-5.85); RED CELL DISTRIBUTION WIDTH 15.4 % (10.0-14.5)
--- NOTE | 2018-08-26 12:51 | ED Respiratory ---
General Chief Complaint: Respiratory Problems Stated Complaint: SOA Nursing Triage Note: PT PRESENTS TO ER WITH COMPLAINT OF SOB AND LEFT RIB PAIN FOR 6 DAYS. STATES HE WAS SEEN AT [facility] AND STARTED ON ANTIBIOTICS FOR PNEUMONIA. WENT TO CLINIC IN [address] TODAY AND WAS SENT HERE FOR FURTHER EVALUATION. Source: patient Exam Limitations: no limitations History of Present Illness Date Seen by Provider: Aug 26, 2018 Time Seen by Provider: 12:47 Initial Comments To ER per private vehicle with reports of COPD/cough or shortness of breath. This began about 6 days ago and at the onset he was seen by [facility] which gave him an antibiotic and steroids. 3 days later he did not feel any improvement so he went to the emergency room at [facility] in [place]. They changed his antibiotic. Today, 3 days later, he follows up with Dr. Lilly at [facility] who referred him to the emergency room. He does not wear oxygen at home, his oxygen saturation on arrival here is 90-93% on room air. He does have a nebulizer at home and takes breathing treatments as needed. Timing/Duration: constant Severity: moderate Prior Episodes/Possible Cause: occasional episodes Associated Symptoms: cough; No fever/chills; shortness of breath, wheezing Allergies and Home Medications Allergies Coded Allergies: No Known Drug Allergies (Unverified , 09/15/11) Home Medications Albuterol 17 Gm Inh, 2 SPRAY IH NEEDED, (Reported) Albuterol Sulfate 0.63 Mg/3 Ml Vial.neb, 0.63 MG IH TID, (Reported) Albuterol Sulfate 2.5 Mg/3 Ml Vial.neb, 2.5 MG IH Q4H Prescribed by: JASON GALLEGOS on 08/26/18 1337 Doxycycline Hyclate 100 Mg Capsule, 1 EACH PO BID Prescribed by: JOSY HUITRON on 09/15/11248 Hydrocodone Bit/Acetaminophen 1 Each Tablet, 1-2 EACH PO Q6H PRN Prescribed by: JOSY HUITRON on 09/15/11248 Prednisone 50 Mg Tab, 50 MG PO DAILY Prescribed by: JOSY HUITRON on 09/15/11248 Patient Home Medication List Home Medication List Reviewed: Yes Review of Systems Review of Systems Constitutional: see HPI; No chills, No fever EENTM: see HPI Respiratory: see HPI, cough, short of breath, wheezing Cardiovascular: no symptoms reported Genitourinary: no symptoms reported Musculoskeletal: no symptoms reported Skin: no symptoms reported Psychiatric/Neurological: No Symptoms Reported Hematologic/Lymphatic: No Symptoms Reported Past Vsyubhc-Hkwlsy-[id number] Hx Patient Social History Alcohol Use: Past History Recreational Drug Use: No Smoking Status: Former Smoker Recent Foreign Travel: No Contact w/Someone Who Travel: No Recent Infectious Disease Expo: No Recent Hopitalizations: No Immunizations Up To Date Tetanus Booster (TDap): Unknown PED Vaccines UTD: Yes Seasonal Allergies Seasonal Allergies: No Past Medical History Surgeries: Yes Respiratory: Yes COPD Cardiac: Yes High Cholesterol, Hypertension Neurological: No Genitourinary: No Gastrointestinal: Yes Diverticulosis Musculoskeletal: No Endocrine: Yes Diabetes, Non-Insulin dep HEENT: Yes Glaucoma Cancer: No Psychosocial: No Physical Exam Vital Signs - First Documented 08/26/18 08/26/18 11:30 12:25 Temp 98.1 Pulse 84 Resp 18 B/P (MAP) 146/73 (97) Pulse Ox 94 O2 Delivery Room Air Capillary Refill : Less Than 3 Seconds Height: 5'6.00" Weight: 245lbs. oz. 111.534925cd; BMI Method:Stated General Appearance: WD/WN, no apparent distress Eyes: Bilateral Eye Normal Inspection, Bilateral Eye PERRL, Bilateral Eye EOMI HEENT: PERRL/EOMI, normal ENT inspection Neck: non-tender, full range of motion Respiratory: no respiratory distress, no accessory muscle use, wheezing Cardiovascular: regular rate, rhythm, no murmur Gastrointestinal: normal bowel sounds, non tender, soft Extremities: normal range of motion, non-tender Neurologic/Psychiatric: alert, normal mood/affect, oriented x 3 Skin: normal color, warm/dry Focused Exam Lactate Level 08/26/18 12:35: Lactic Acid Level 1.98 Lactic Acid Level Laboratory Tests Test 08/26/18 12:35 Lactic Acid Level 1.98 MMOL/L (0.50-2.00) Progress/Results/Core Measures Suspected Sepsis Recent Fever Within 48 Hours: No Infection Criteria Present: None New/Unexplained Altered Menta: No Sepsis Screen: No Definite Risk SIRS Temperature:98.1 Pulse: 73 Respiratory Rate: 19 Laboratory Tests 08/26/18 12:35: White Blood Count 13.0H Blood Pressure 146 /73 Mean: 97 08/26/18 12:35: Lactic Acid Level 1.98 Laboratory Tests 08/26/18 12:35: Creatinine 1.00, Platelet Count 268, Total Bilirubin 0.2 Results/Orders Lab Results Laboratory Tests Test 08/26/18 12:35 Range/Units White Blood Count 13.0 H 4.3-11.0 10^3/uL Red Blood Count 4.49 4.35-5.85 10^6/uL Hemoglobin 13.7 13.3-17.7 G/DL Hematocrit 42 40-54 % Mean Corpuscular Volume 93 80-99 FL Mean Corpuscular Hemoglobin 31 25-34 PG Mean Corpuscular Hemoglobin Concent 33 32-36 G/DL Red Cell Distribution Width 15.4 H 10.0-14.5 % Platelet Count 268 130-400 10^3/uL Mean Platelet Volume 9.3 7.4-10.4 FL Neutrophils (%) (Auto) 84 H 42-75 % Lymphocytes (%) (Auto) 12 12-44 % Monocytes (%) (Auto) 4 0-12 % Eosinophils (%) (Auto) 0 0-10 % Basophils (%) (Auto) 0 0-10 % Neutrophils # (Auto) 10.9 H 1.8-7.8 X 10^3 Lymphocytes # (Auto) 1.6 1.0-4.0 X 10^3 Monocytes # (Auto) 0.5 0.0-1.0 X 10^3 Eosinophils # (Auto) 0.0 0.0-0.3 10^3/uL Basophils # (Auto) 0.0 0.0-0.1 10^3/uL Sodium Level 139 135-145 MMOL/L Potassium Level 4.3 3.6-5.0 MMOL/L Chloride Level 104 98-107 MMOL/L Carbon Dioxide Level 28 21-32 MMOL/L Anion Gap 7 5-14 MMOL/L Blood Urea Nitrogen 22 H 7-18 MG/DL Creatinine 1.00 0.60-1.30 MG/DL Estimat Glomerular Filtration Rate > 60 BUN/Creatinine Ratio 22 Glucose Level 108 H 70-105 MG/DL Lactic Acid Level 1.98 0.50-2.00 MMOL/L Calcium Level 9.5 8.5-10.1 MG/DL Corrected Calcium 9.4 8.5-10.1 MG/DL Total Bilirubin 0.2 0.1-1.0 MG/DL Aspartate Amino Transf (AST/SGOT) 18 5-34 U/L Alanine Aminotransferase (ALT/SGPT) 27 0-55 U/L Alkaline Phosphatase 54 40-136 U/L B-Type Natriuretic Peptide 15.2 <100.0 PG/ML Total Protein 7.1 6.4-8.2 GM/DL Albumin 4.1 3.2-4.5 GM/DL My Orders Orders - JASON GALLEGOS APRN Blood Culture (08/26/18 12:40) Lactic Acid Analyzer (08/26/18 12:40) Cbc With Automated Diff (08/26/18 12:40) Comprehensive Metabolic Panel (08/26/18 12:40) BNP (08/26/18 12:40) Chest Pa/Lat (2 View) (08/26/18 12:40) Iv [place]-Insert (Order) (08/26/18 12:40) Methylprednisolone Sod Succ (Solu-Medrol (08/26/18 12:45) Albuterol/Ipra Inhalation Soln (Duoneb I (08/26/18 12:45) Svn Small Volume Nebulizer (08/26/18 12:40) Medications Given in ED Current Medications Medications Dose Ordered Sig/Daniella Route Start Time Stop Time Status Last Admin Dose Admin Albuterol/ Ipratropium 3 ml ONCE ONCE INH 08/26/18 12:45 08/26/18 12:46 DC 08/26/18 13:41 3 ML Methylprednisolone Sodium Succinate 125 mg ONCE ONCE IVP 08/26/18 12:45 08/26/18 12:46 DC 08/26/18 12:54 125 MG Vital Signs/I&O 08/26/18 08/26/18 08/26/18 11:30 12:25 13:42 Temp 98.1 Pulse 84 73 Resp 18 19 B/P (MAP) 146/73 (97) Pulse Ox 94 92 94 O2 Delivery Room Air Room Air Capillary Refill : Less Than 3 Seconds Blood Pressure Mean: 97 Departure Communication (Admissions) 1407-oxygen saturation is 93-95% on room air. His prescription for albuterol at home is 0.63 mg per 3 mL. I will prescribe the 2.5 mg per 3 mL albuterol and have him use this consistently. He still on steroids and antibiotics. Chest x- ray is clear. No indication for hospitalization. He does report some left-sided chest wall pain with deep breathing. I'll give him some pain medication for that as well and have him follow-up with primary care. Impression Primary Impression: COPD exacerbation Disposition: 01 HOME, SELF-CARE Condition: Stable Departure-Patient Inst. Decision time for Depature: 13:35 Referrals: DELIA GARCIA DO (PCP) Primary Care Physician MAURICE LILLY (Family) Primary Care Physician Patient Instructions: Exacerbation of COPD (DC) Add. Discharge Instructions: Use your breathing machine every 4 hours whether or not you feel like you need it. Do this every 4 hours at least for the next 3-4 days. Continue the steroids. Continue the antibiotics. Scripts Hydrocodone/Acetaminophen ([place] 5-325 Tablet) 1 Each Tablet 1 EACH PO Q6H PRN for PAIN-MODERATE MDD 10, #10 TAB Prov: JASON GALLEGOS APRN 08/26/18 Albuterol Sulfate (Albuterol Sulfate) 2.5 Mg/3 Ml Vial.neb 2.5 MG IH Q4H, #25 EA Prov: JASON GALLEGOS APRN 08/26/18 Work/School Note: Work Release Form Date Seen in the Emergency Department: Aug 26, 2018 Return to Work: Aug 29, 2018 JASON GALLEGOS APRN Aug 26, 2018 12:51
[2018-08-26 13:11] LABS: ALANINE AMINOTRANSFERASE 27 U/L (0-55); ALBUMIN 4.1 GM/DL (3.2-4.5); ALKALINE PHOSPHATASE 54 U/L (40-136); BILIRUBIN,TOTAL 0.2 MG/DL (0.1-1.0); BUN/CREATININE RATIO 22; CALCIUM 9.5 MG/DL (8.5-10.1); CARBON DIOXIDE 28 MMOL/L (21-32); CHLORIDE 104 MMOL/L (98-107); GFR ESTIMATED > 60; GLUCOSE 108 MG/DL (70-105); POTASSIUM 4.3 MMOL/L (3.6-5.0); SODIUM 139 MMOL/L (135-145); TOTAL PROTEIN 7.1 GM/DL (6.4-8.2)
[2018-08-26] MEDS ORDERED: ALBU2.5V4 IH (13:37)
--- NOTE | 2018-08-26 13:43 | Diagnostic Imaging Report ---
INDICATION: Left-sided chest pain PA and lateral chest obtained at 127 hours p.m. Heart is borderline in size. Mediastinal silhouette is unremarkable. There is some scarring or atelectasis in the left lateral base which appeared similar on 01/02/2016. There is no new infiltrate or pneumothorax or pleural fluid. IMPRESSION: There is some scarring or atelectasis in the left lateral base which appears unchanged from 01/02/2016. Heart is borderline in size. No other abnormal findings. Dictated by: Dictated on workstation # [id number]
[2018-08-26] MEDS ORDERED: HYDR-4226 PO (14:08)
[2018-08-26 14:35] VITALS: BP 138/70
== END 2018-08-26 14:35 | disposition home or self-care (01) ==
LOC: EDUNIT# 11:23 → ER 11:27
DX: J44.1 Chronic obstructive pulmonary disease with (acute) exacerbation (principal); E78.00 Pure hypercholesterolemia, unspecified; I10 Essential (primary) hypertension; E11.9 Type 2 diabetes mellitus without complications; Z87.19 Personal history of other diseases of the digestive system; Z79.51 Long term (current) use of inhaled steroids; Z79.52 Long term (current) use of systemic steroids; Z87.891 Personal history of nicotine dependence
CPT/HCPCS: 36415; 71046; 80053; 83605; 83880; 85025; 87040; 94640; 96374

== ENCOUNTER → 2018-09-22 | Outpatient (CLI) | payer BC ==
[~2018-09-22] MED LIST changes: +ALBU2.5V4 IH; +HYDR-4226 PO; +RT-ALBUTEROL SULF 2.5 MG/3 ML PRE-MIX VIAL INH ONE
[2018-09-22 14:16] LABS: ABG BASE EXCESS 1.5 MMOL/L (-2.5-2.5); ABG OXYGEN SATURATION 97 % (94-100); ABG PCO2 43 MMHG (35-45); ABG PO2 80 MMHG (79-93); ABG TCO2 27.3 MMOL/L (21.0-31.0)
[2018-09-22 14:19] LABS: ALLENS TEST POSITIVE; INSPIRED O2 2 L; PATIENT TEMP 97.6; VENTILATOR NO
== END ==
LOC: RT 13:27
PROVIDERS: ATTEND Nurse Practitioner Family
DX: J44.9 Chronic obstructive pulmonary disease, unspecified (principal); R09.02 Hypoxemia; G47.33 Obstructive sleep apnea (adult) (pediatric); R53.83 Other fatigue
CPT/HCPCS: 36600; 82805; 94060; 94726; 94729

== ENCOUNTER → 2018-09-29 | Outpatient (CLI) | payer BC ==
[~2018-09-29] MED LIST changes: +IOHEXOL 350 MG/ML 100 ML (OMNIPAQUE 350) VIAL IV ONE; +NS 100 ML (IVPB) BAG IV ONE; +RECEIVED CONTRAST (Hold Metformin) IV SCH; -RT-ALBUTEROL SULF 2.5 MG/3 ML PRE-MIX VIAL INH ONE
[2018-09-29 09:12] LABS: BUN/CREATININE RATIO 16; CREATININE SERUM 0.89 MG/DL (0.60-1.30); GFR ESTIMATED > 60
--- NOTE | 2018-09-29 11:11 | Diagnostic Imaging Report ---
PROCEDURE: CT chest with contrast only. TECHNIQUE: Multiple contiguous axial images were obtained through the chest after administration of intravenous contrast. INDICATION: COPD and fatigue. COMPARISON: Comparison is made with prior CT chest from 04/02/2016. FINDINGS: No axillary lymphadenopathy is identified. There are some mildly prominent lymph nodes in the mediastinum. AP window node measures 1.4 x 1.2 cm compared with 1.3 x 1.0 cm on prior. Additional small nodes in the AP window also are slightly larger on today's study and indeterminate. No hilar mass or lymphadenopathy is seen. No pericardial or pleural fluid is identified. There are some varices along the left chest wall. This could be owing to left subclavian stenosis as the left subclavian does appear to be narrowed. Bullous emphysematous changes in the right apex are noted. Areas of scarring appear to be stable in the right apex. Area of probable scarring in the posterior medial right lower lobe is again noted. There is some slight nodularity at this location measuring 13 mm and indeterminate. Close followup is recommended. Upper abdomen does show hepatic steatosis. IMPRESSION: 1. There has been slight increase in size of multiple mediastinal lymph nodes since the CT from 04/02/2016. Very little box coverer hand two and a half years is reassuring however but continued close followup is recommended to confirm stability. There is a slightly nodular density in the posterior medial right lower lobe and, again, close followup is recommended. Repeat CT chest in 4-6 months could be obtained. 2. Left chest wall collateral vessels, perhaps owing to left subclavian vein stenosis. Dictated by: Dictated on workstation # [id number]
== END ==
LOC: RAD 08:38
PROVIDERS: ATTEND Nurse Practitioner Family
DX: J44.9 Chronic obstructive pulmonary disease, unspecified (principal); G47.33 Obstructive sleep apnea (adult) (pediatric); R59.0 Localized enlarged lymph nodes
CPT/HCPCS: 36415; 71260; 82565; 84520

== ENCOUNTER 2018-10-30 05:36 | Outpatient (CLI) | payer BC ==
[~2018-10-30] VITALS: Ht 167.6 cm; Wt 111.1 kg
[~2018-10-30 05:36] MED LIST changes: -IOHEXOL 350 MG/ML 100 ML (OMNIPAQUE 350) VIAL IV ONE; -NS 100 ML (IVPB) BAG IV ONE; -RECEIVED CONTRAST (Hold Metformin) IV SCH
[2018-10-30] MEDS ORDERED: METF-397 PO (14:25)
[2018-10-30] MEDS ORDERED: ROFL250T PO (14:25)
[2018-10-30] MEDS ORDERED: RT-ALBUINH IH (14:25)
== END 2018-10-30 14:27 | disposition home or self-care (01) ==
LOC: PREOP 05:36
PROVIDERS: ATTEND Internal Medicine Critical Care Medicine
DX: Z01.818 Encounter for other preprocedural examination (principal)

== ENCOUNTER 2018-11-05 07:10 | Day surgery (SDC) | payer BC ==
[~2018-11-05] VITALS: Ht 167.6 cm; Wt 111.1 kg
[~2018-11-05 07:10] MED LIST changes: +METF-397 PO; +ROFL250T PO; +RT-ALBUINH IH
[2018-11-05] MEDS ORDERED: LIDOCAINE PF 1% 2 ML VIAL (OR ONLY) IJ ONE (07:11)
[2018-11-05] MEDS ORDERED: LIDOCAINE PF 2% 5 ML (XYLOCAINE) VIAL INJ ONE (07:11)
[2018-11-05] MEDS ORDERED: LACTATED RINGERS 1,000 ML IV ONE (07:13)
[2018-11-05] MEDS ORDERED: proPOfol 200 MG/20 ML (DIPRIVAN) VIAL IV ONE (07:15)
[2018-11-05] MEDS ORDERED: MIDAZOLAM 2 MG/2 ML (VERSED) VIAL ONE (07:16)
[2018-11-05] MEDS ORDERED: LIDOCAINE PF 2% 5 ML (XYLOCAINE) VIAL ONE (07:16)
[2018-11-05] MEDS ORDERED: fentaNYL INJECTION 100 MCG/2 ML AMP ONE (07:16)
[2018-11-05] MEDS ORDERED: LACTATED RINGERS 1,000 ML IV STA (07:16)
[2018-11-05] MEDS ORDERED: SUCCINYLCHOLINE INJ 100 MG/5 ML SYR ONE (07:19)
[2018-11-05 07:27] VITALS: BP 128/68
[2018-11-05] MEDS ORDERED: ONDANSETRON 4 MG/2 ML (SDV) Z0FRAN ONE (07:32)
[2018-11-05] MEDS ORDERED: ALBU1.25 INH (07:34)
[2018-11-05] MEDS ORDERED: KETAMINE HCL 100 MG/ML 5 ML VIAL ONE (07:42)
--- NOTE | 2018-11-05 08:52 | Pulmonary Procedures ---
Pulmonary Procedures Date of Procedure Date of Service: Nov 05, 2018 Bronch Bronchoscopy with fluoroscopy RML washing, BAL, Erie X2 raquel, transbronchial RML brush X 2. EBUS with bx of station 7 and 4L lymph nodes under US guidance. Preop DX: lung mass with mediastinal lymphadenopathy PostOP DX: same No endobronchial mass Complications: None Pt was sedated per anesthesia. Bronchoscopy was advanced through the ET tube and an anatomical undertaken down to the segmental bronchi bilaterally. No endobronchial lesions noted. with fluoroscopy RML washing, BAL, Erie X2 raquel , transbronchial RML brush X 2. EBUS with bx of station 7 and 4L lymph nodes under US guidance. Pt tolerated procedure well. No complications noted. JOSE RAUL JUARES DO Nov 05, 2018 08:52
--- OUTSIDE RECORDS SUMMARY | 2018-11-05 09:23 | XMS REPORT | Clinical Summary ---
Author Author [facility] Organization [facility] Address Unknown Phone Unavailable Care Team Providers Care Industrial Maintenance Repairer Name Role Phone Self, Referral PCP Unavailable Nola Mota APRN Unavailable Keely Molina RN Unavailable Unavailable Denisse Strong RN Unavailable Unavailable Source Comments Some departments are not documenting in the electronic medical record. If you do not see the information that you expected, contact Release of Information in the Health Information Management department at [phone] for further assistance in locating additional records.[facility] Allergies No Known Allergies Medications End Date Status Medication Sig Dispensed Refills Start Date Active MUCINEX PO Take by 0 mouth. Active ALEVE PO Take by 0 mouth. Active ipratropium/albuterol Inhale 2 1 inhaler 0 (COMBIVENT) 103/18 Puffs by 8 mcg/Actuation mouth Four inhalerIndications: COPD Times Daily. Active albuterol (PROVENTIL; Inhale 2 17 g 0 VENTOLIN) 90 Puffs by 8 mcg/Actuation mouth Every 6 inhalerIndications: COPD Hours as needed for Wheezing. Active ipratropium/albuterol Inhale 2 1 inhaler 0 (COMBIVENT) 103/18 Puffs by 8 mcg/Actuation mouth Four inhalerIndications: COPD Times Daily. Active albuterol (PROVENTIL; Inhale 2 17 g 0 VENTOLIN) 90 Puffs by 8 mcg/Actuation mouth Every 6 inhalerIndications: COPD Hours as needed for Wheezing. Active oxycodone/acetaminophen Take 1 Tab by 15 0 (PERCOCET) 5/325 mg mouth Every 4 9 tablet Hours as needed for Pain. Active erythromycin (ERYTHROCIN) Take 1 Tab by 14 0 500 mg tablet mouth Twice 9 Daily. Active albuterol (VENTOLIN HFA, Inhale 2 8.5 g 0 PROAIR HFA) 90 Puffs by 9 mcg/Actuation inhaler mouth Every 6 Hours as needed for Wheezing. Active Problems Not on file Social History Date Tobacco Use Types Packs/Day Years Used Quit: 11/19/2007 Former Smoker Alcohol Use Drinks/Week oz/Week Comments No Sex Assigned at Date Recorded Not on file Industry Job Start Date Occupation Not on file Not on file Not on file Travel End Travel History Travel Start No recent travel history available. Last Filed Vital Signs Time Taken Vital Sign Reading 11/17/2008 11:34 AM [employer] Blood Pressure 130/76 11/17/2008 1:02 PM [employer] Pulse 89 11/17/2008 11:34 AM [employer]AIL [employer] Temperature 37 C (98.6 F) - Respiratory Rate - 11/17/2008 1:02 PM [employer]AIL [employer] Oxygen Saturation 96% - Inhaled Oxygen - Concentration - Weight - - Height - - Body Mass Index - Plan of Treatment Health Maintenance Due Date Last Done Comments PHYSICAL (COMPREHENSIVE) 1975 EXAM HIV SCREENING 1983 DTAP/TDAP VACCINES (1 - 1986 Tdap) INFLUENZA VACCINE 05/14/2018 COLORECTAL CANCER 2018 SCREENING SHINGLES RECOMBINANT 2018 VACCINE (1 of 2) Results Not on filefrom Last 3 Months
--- OUTSIDE RECORDS SUMMARY | 2018-11-05 09:24 | XMS REPORT ---
Author Author KYMYUSEF MAURICE Organization [facility] Address [address] [place] [address] Care Team Providers Care Cook Fruit Name Role Phone MAURICE CUMMINS Unavailable PROBLEMS Type Condition ICD9-CM Code SSP81-YZ Code Onset Dates Condition Status SNOMED Code Problem Enlarged prostate N40.0 Active 920626014 Problem Poor diet E63.9 Active 775836594 Problem Acute deep vein thrombosis (DVT) of tibial vein of left lower extremity I82.442 Active 729419737788582 Problem Obstructive sleep apnea syndrome G47.33 Active 18831479 Problem Metabolic syndrome E88.81 Active 423967380 Problem COPD (chronic obstructive pulmonary disease) J44.9 Active 05656689 Problem Cervicalgia M54.2 Active 76698652 Problem Irritability R45.4 Active 07907273 Problem Obesity, morbid E66.01 Active 540179270 Problem Pain in left lower leg M79.662 Active 91366222 Problem Rib pain on right side R07.81 Active 086673532 Problem Shortness of breath at rest R06.02 Active 438491705 Problem High risk medication use Z79.899 Active 051483525 Problem Anhedonia R45.84 Active 79422116 Problem Pure hypercholesterolemia E78.0 Active 885199356 Problem Polyneuropathic pain M79.2 Active 088911837 Problem Chronic obstructive pulmonary disease, unspecified J44.9 Active 54754230 Problem Chronic obstructive pulmonary disease with (acute) exacerbation J44.1 Active 873348927 Problem Cervical radicular pain M54.12 Active 00833982 Problem Non-cardiac chest pain R07.89 Active 107151882 Problem Pneumonia of left lung due to infectious organism, unspecified part of lung J18.9 Active 708169880 Problem Cervical stenosis of spinal canal M48.02 Active 21303873 Problem Bloody stools K92.1 Active [id number] ALLERGIES No Information ENCOUNTERS Encounter Location Date Diagnosis [address] [id number][place] [id number] 20 Aug, 2018 Chronic obstructive pulmonary disease, unspecified J44.9 and Obstructive sleep apnea syndrome G47.[facility] [facility] [id number][place] [id number] 17 Aug, 2018 Abnormal TSH R79.89 [facility] [address] [id number][place] [id number] 15 Aug, 2018 Rib pain on right side R07.81 and Obesity, morbid E66.01 [facility] [address] [id number][place] [id number] 14 Aug, 2018 COPD (chronic obstructive pulmonary disease) J44.9 [facility] [address] [place] [address] AVE [id number], [place] [id number] 14 Aug, 2018 [facility] [address] [place] [address] AVE [id number], [place] [id number] 13 Aug, 2018 Shortness of breath at rest R06.02 and Chronic obstructive pulmonary disease, unspecified J44.9 [facility] [address] [place] [address] AV [id number], [place] [id number] 10 Jul, 2018 Encounter for immunization Z23 [facility] [address] [id number][place] [id number] Apr, [facility] [id number], [place] [id number] Dec, [facility] [address] [place] [address] AVE [id number], [place] [id number] Dec, High risk medication use Z79.899 ; Anhedonia R45.84 and Obesity, morbid E66.01 [facility] [address] [address] [id number], [place] [id number] Sep, High risk medication use Z79.899 ; Irritability R45.4 ; Pain in left lower leg M79.662 and Poor diet E63.9 [facility] [address] [address] [id number], [place] [id number] Aug, [facility] [address] [id number], [place] [address] Jul, [facility] [address] [id number], [place] [address] Jul, Polyneuropathic pain M79.[address] [facility] [address] [id number], [place] [id number] Jul, [facility] [address] [id number], [place] [address] Jul, Enlarged prostate N40.0 ; Pure hypercholesterolemia E78.0 and Encounter for immunization Z23 [facility] [address] [id number], [place] [address] May, Acute deep vein thrombosis (DVT) of tibial vein of left lower extremity I82.442 and Pure hypercholesterolemia E78.[address] [facility] [address] [id number], [place] [address] Apr, [facility] [address] [facility] [id number], [place] [id number] Mar, Enlarged prostate N40.0 and Bloody stools K92.1 [facility] [address] [address] [id number], [place] [id number] February, Bloody stools K92.1 and Enlarged prostate N40.[address] [facility] [address] [id number], [place] [address] Nov, Polyneuropathic pain M79.2 and Non-cardiac chest pain R07.[address] [facility] [address] [id number], [place] [id number] Jul, Metabolic syndrome E88.[address] [facility] [address] [id number], [place] [id number] May, [facility] [address] [id number], [place] [id number] May, [facility] [id number] [place] [id number] May, [facility] [address] [id number], [place] [id number] May, Chronic obstructive pulmonary disease, unspecified J44.9 and Chronic obstructive pulmonary disease with (acute) exacerbation J44.1 [facility] [address] [id number] [address] Apr, [facility] [address] [id number], [place] [id number] Mar, [address] [id number], [place] [id number] Mar, Cervical stenosis of spinal canal M48.02 [facility] [address] [address] February, [address] [id number], [place] [id number] February, [address] [id number], [place] [id number] February, High risk medication use Z79.899 ; Anhedonia R45.84 and Cervical radicular pain M54.[address] [id number], [place] [id number] Jan, [facility] [address] [id number] [address] Jan, [facility] [address] [id number], [place] [address] Jan, Metabolic syndrome E88.81 ; Pure hypercholesterolemia E78.0 ; Polyneuropathic pain M79.2 and Irritability R45.[address] [facility] [address] [id number], [place] [address]38 Dec, Polyneuropathic pain M79.2 [facility] [address] [id number] [address] Dec, [address] [id number], [place] [id number] Dec, Pneumonia of left lung due to infectious organism, unspecified part of lung J18.9 ; Cervicalgia M54.2 and Irritability R45.4 [address] [address] Nov, [address] [address] Nov, [address] [place] [address] Oct, [address] [id number], [place] [id number] Aug, [facility] [address] [id number], [place] [id number] Jul, Diverticulosis of large intestine without hemorrhage K57.30 and Abdominal pain, left lower quadrant R10.[address] [id number], [place] [address] Jul, [id number] [place] [id number] Jul, Blood in stool K92.1 ; Left lower quadrant pain R10.32 and Hematuria R31.[address] [id number], [place] [id number] Jul, Left upper quadrant pain R10.12 and Hematuria R31.[address] [id number], [place] 459[address] Jun, Dysmetabolic Syndrome X 277.7 ; Unspecified essential hypertension 401.9 and Other and unspecified hyperlipidemia 272.[id number] [place] [id number] Jun, Dysmetabolic Syndrome X 277.7 ; Obesity, unspecified 278.00 ; Other and unspecified hyperlipidemia 272.4 and Anhedonia [address] [address] May, [facility] [address] [id number] [address] May, [facility] [address] [address] Apr, Dysthymic disorder 300.4 [facility] [address] [address] Apr, [facility] [address] Apr, Dysthymic disorder 300.4 [facility] [address] [address] Apr, [facility] [address] [id number], [place] [address] Mar, COPD with exacerbation 491.21 [facility] [address] [address] Mar, Dysthymic disorder 300.4 [facility] [address] [id number] [address] February, Dysthymic disorder 300.4 ; No condition on [place] II V71.09 ; COPD (chronic obstructive pulmonary disease) 496 ; Glaucoma 365.9 ; Arthritis 716.90 and Diabetes 250.[address] [facility] [address] [id number], [place] [id number] February, [facility] [address] [id number], [place] [id number] February, [facility] [address] [id number], [place] [id number] Jan, [facility] [address] [id number] [address] Jan, [facility] [address] [id number] [address]- [address] Jan, [facility] [address] [place] [address] Dec, [facility] [address] [id number] [place] [address] Dec, [facility] [place] [facility] [address] [id number] [place] [address]- [address] Nov, [facility] [address] [id number] [place] [address]- [address] Nov, 2014 [facility] [place] [facility] [address] [id number] [place] [address]- [address] Nov, [facility] [address] [id number] [place] [address]- [address] Nov, [facility] [address] [id number] [place] [address]- [address]242 Nov, [facility] [address] [id number] [place] [address]- [address]247 Nov, [facility] [address] [id number], [place] [id number] Oct, [facility] [address] [id number] [place] [address]- [address] Oct, [facility] [address] [id number] [place] [address]- [address] Oct, [facility] [place] [facility] [address] [id number] [place] [address]- [address] Oct, [facility] [place] [facility] [address] [id number] [address]- [address] Aug, [facility] [place] [facility] [address] [id number] [place] [address]- [address]32 Aug, [facility] [place] [facility] [address] [id number] [place] [address]- 9286 Aug, [facility] [place] [facility] [address] [id number] [place] [address]- 1524 Aug, [facility] [place] [facility] [address] [id number] [place] [address]- 9312 Jul, [facility] [place] [facility] [address] [id number] [place] [address]- 6289 Jul, [facility] [place] [facility] [address] [id number] [place] [address]- 6[address] Jul, [facility] [place] [facility] [address] [id number] [place] [address]- 6[address] Jul, [facility] [place] [facility] [address] [id number] [place] [address]- [address] Jul, [facility] [place] [facility] [address] [id number] [place] [address]- 8[address] Jul, [facility] [place] [facility] [address] [id number] [place] [address]- [address]30 Jul, [facility] [place] [facility] [address] [id number] [place] [address]- 6971 Jul, [facility] [place] [facility] [address] [id number] [place] [address]- 8181 Jun, [facility] [place] [facility] [address] [id number] [place] [address]- 2029 Jun, [facility] [place] [facility] [address] [id number] [place] [address]- [address]165 May, [facility] [place] [facility] [address] [id number] [address]- [address] May, [facility] [place] [facility] [address] [id number] [place] [address]- 2049 Apr, [facility] [place] [facility] [address] [id number] [place] [address]- [address]997 Apr, [facility] [place] [facility] [address] [id number] [place] [address] Apr, [facility] [place] [facility] [address] [id number] [address]- [address]99 Apr, [facility] [place] [facility] [address] [id number] [place] [address]- 5836 Apr, [facility] [place] [facility] [address] [id number] [place] [address]- 4764 Apr, [facility] [place] [facility] [address] [id number] [place] [address]- 5527 Apr, [facility] [place] [facility] [address] [id number] [place] [address]- 1916 Apr, [facility] [place] [facility] [address] [id number] [place] [address]- 75[address] Mar, [facility] [place] [facility] [address] [id number] [place] [address]- 8438 Mar, [facility] [place] [facility] [address] [id number] [place] [address]- 7385 Mar, [facility] [place] [facility] [address] [id number] [place] [address]- 8547 Mar, [facility] [place] [facility] [address] [id number] [place] [address]- 6907 February, [facility] [place] [facility] [address] [id number] [place] [address]- 1065 February, [facility] [place] [facility] [address] [id number] [place] [address]- 5744 February, [facility] [place] [facility] [address] [id number] [place] [address]- 4194 February, [facility] [place] [facility] [address] [id number] [place] [address]- 6039 February, [facility] [place] [facility] [address] [id number] [place] [address]- 5490 February, [facility] [place] [facility] [address] [id number] [place] [address]- 3013 February, [facility] [place] [facility] [address] [id number] [place] [address]- 4716 February, [facility] [place] [facility] [address] [id number] [place] [address]- 5739 Dec, [facility] [place] [facility] [address] [id number] [place] [address]- 6656 Dec, [facility] [place] [facility] [address] [id number] [place] [address]- 9736 Dec, [facility] [place] [facility] [address] [id number] [place] [address]- 9558 17 Dec, 2013 [facility] [place] [facility] [address] [id number] [place] [address]- 1831 14 Dec, 2013 [facility] [place] [facility] [address] [id number] [place] [address]- 8539 Dec, [facility] [place] [facility] [address] [id number] [place] [address]- 8923 Dec, [facility] [place] [facility] [address] [id number] [place] [address]- 8450 Dec, [facility] [place] [facility] [address] [id number] [place] [address]- 5468 Dec, [facility] [place] [facility] [address] [id number] [place] [address]- 8486 Nov, [facility] [address] [facility] [id number], [place] [id number] Nov, [facility] [place] [facility] [address] [id number] [place] [address]- 2546 Nov, [facility] [place] [facility] [address] [id number] [place] [address]- 2546 Jun, [facility] [place] [facility] [address] [id number] [place] [address]- 2546 May, [facility] [address] [facility] [id number], [place] [address] Apr, [facility] [place] [facility] [address] [facility] [id number] [address]- [address] February, [facility] [place] [facility] [address] [facility] [id number] [address]- [address] February, [facility] [address] [id number] [place] [id number] Dec, [facility] [address] [id number] [place] [id number] Apr, [facility] [address] [id number] [place] [address] Apr, [facility] [address] [id number] [place] [address] Apr, [facility] [address] [id number] [place] [address] Apr, [facility] [address] [id number] [place] [address] Apr, [facility] [address] [facility] [id number] [address]- [address]56 Nov, [facility] [place] [facility] [address] [facility] [id number] [place] [address]- 1686 Sep, [facility] [place] [facility] [address] [id number] [address]- 2986 Sep, [facility] [place] [facility] [address] [address]- 8006 Sep, [facility] [place] [facility] [address] [facility] [id number] [address]- 3756 Sep, [facility] [place] [facility] [address] [facility] [id number] [place] [address]- 2546 Sep, [facility] [place] [facility] [address] [facility] [id number] [place] [address]- 8366 Dec, [facility] [place] [facility] [address] [facility] [id number] [address]- 1796 Sep, [facility] [place] [facility] [address] [facility] [id number] [place] [address]- 7098 Sep, [facility] [address] [facility] [id number] [place] [address]- 1149 May, [facility] [address] [facility] [id number] [place] [address]- 8823 February, IMMUNIZATIONS No Known Immunizations SOCIAL HISTORY Never Assessed REASON FOR VISIT chart review PLAN OF CARE VITAL SIGNS MEDICATIONS No Known Medications RESULTS No Results PROCEDURES No Known [...] TSH less than 1 Medical History DVT [id number] pos tibial Medical History normal lipids Surgical History cataract-lens implants Surgical History eye surgery for glaucoma Surgical History heart cath Surgical History left CTS 05/2016 Surgical History carpal tunnel release, bilat april and may Hospitalization History pneumonia 11/2015 Hospitalization History chest pain-ruled out cardiac cause 10/2016 Hospitalization History [facility] pneumonia 08/2018 Hospitalization History Ambulance to [facility] for side pain 08/2018
--- OUTSIDE RECORDS SUMMARY | 2018-11-05 09:24 | XMS REPORT ---
Author Author MARIA G MAURICE Organization [facility] Address [address] [place] [address] Care Team Providers Care Stereoplotter Operator Name Role Phone MAURICE CUMMINS Unavailable PROBLEMS Type Condition ICD9-CM Code GCC54-SP Code Onset Dates Condition Status SNOMED Code Problem Enlarged prostate N40.0 Active 676168367 Problem Poor diet E63.9 Active 926423238 Problem Acute deep vein thrombosis (DVT) of tibial vein of left lower extremity I82.442 Active 916339838721782 Problem Obstructive sleep apnea syndrome G47.33 Active 71679892 Problem Metabolic syndrome E88.81 Active 551511130 Problem COPD (chronic obstructive pulmonary disease) J44.9 Active 40490038 Problem Cervicalgia M54.2 Active 09028030 Problem Irritability R45.4 Active 14100191 Problem Obesity, morbid E66.01 Active 268549803 Problem Pain in left lower leg M79.662 Active 48900493 Problem Rib pain on right side R07.81 Active 107989193 Problem Shortness of breath at rest R06.02 Active 884369854 Problem High risk medication use Z79.899 Active 994768578 Problem Anhedonia R45.84 Active 84767873 Problem Pure hypercholesterolemia E78.0 Active 612876307 Problem Polyneuropathic pain M79.2 Active 340744850 Problem Chronic obstructive pulmonary disease, unspecified J44.9 Active 69122683 Problem Chronic obstructive pulmonary disease with (acute) exacerbation J44.1 Active 058181126 Problem Cervical radicular pain M54.12 Active 05200172 Problem Non-cardiac chest pain R07.89 Active 869128321 Problem Pneumonia of left lung due to infectious organism, unspecified part of lung J18.9 Active 149524969 Problem Cervical stenosis of spinal canal M48.02 Active 85444517 Problem Bloody stools K92.1 Active [id number] ALLERGIES No Known Allergies ENCOUNTERS Encounter Location Date Diagnosis [address] [id number] [id number] 20 Aug, 2018 Chronic obstructive pulmonary disease, unspecified J44.9 and Obstructive sleep apnea syndrome G47.33 [facility] [address] [id number][place] [id number] 17 Aug, 2018 Abnormal TSH R79.89 [facility] [address] [id number] [id number] 15 Aug, 2018 Rib pain on right side R07.81 and Obesity, morbid E66.01 [facility] [address] [facility] [address] [id number][place] [id number] 14 Aug, 2018 COPD (chronic obstructive pulmonary disease) J44.9 [facility] [address] [place] [address] AVE [id number], [place] [id number] 14 Aug, 2018 [facility] [address] [place] [address] AVE [id number][place] [id number] 13 Aug, 2018 Shortness of breath at rest R06.02 and Chronic obstructive pulmonary disease, unspecified J44.9 [facility] [address] [place] [address] [place] [id number][place] [id number] 10 Jul, 2018 Encounter for immunization Z23 [facility] [address] [id number][place] [id number] Apr, [facility] [address] [place] [address] AV [id number], [place] [id number] Dec, [facility] [address] [place] [address] AVE [id number], [place] [id number] Dec, High risk medication use Z79.899 ; Anhedonia R45.84 and Obesity, morbid E66.01 [facility] [address] [id number][place] [id number] Sep, High risk medication use Z79.899 ; Irritability R45.4 ; Pain in left lower leg M79.662 and Poor diet E63.9 [facility] [address] [id number], [place] [id number] Aug, [facility] [address] [id number][place] [id number] Jul, [facility] [address] [id number][place] [id number] Jul, Polyneuropathic pain M79.[address] [facility] [address] [id number], [place] [id number] Jul, [facility] [address] [id number], [place] [id number] Jul, Enlarged prostate N40.0 ; Pure hypercholesterolemia E78.0 and Encounter for immunization Z23 [facility] [address] [id number], [place] [id number] May, Acute deep vein thrombosis (DVT) of tibial vein of left lower extremity I82.442 and Pure hypercholesterolemia E78.0 [facility] [address] [id number], [place] [id number] Apr, [facility] [address] [id number] [place] [id number] Mar, Enlarged prostate N40.0 and Bloody stools K92.1 [facility] [address] [id number], [place] [id number] February, Bloody stools K92.1 and Enlarged prostate N40.[address] [facility] [address] [id number], [place] [address] Nov, Polyneuropathic pain M79.2 and Non-cardiac chest pain R07.89 [facility] [address] [id number], [place] [id number] Jul, Metabolic syndrome E88.[address] [facility] [address] [id number], [place] [id number] May, [facility] [address] [id number] [place] [id number] May, [facility] [place] [id number] [place] [id number] May, [facility] [address] [id number], [place] [id number] May, Chronic obstructive pulmonary disease, unspecified J44.9 and Chronic obstructive pulmonary disease with (acute) exacerbation J44.1 [facility] [address] [id number], [place] [address] Apr, [facility] [address] [id number], [place] [id number] Mar, [facility] [address] [id number], [place] [address] Mar, Cervical stenosis of spinal canal M48.02 [facility] [address]00565100[place], [place] [address] February, [address] [id number], [place] [address] February, [address] [id number], [place] [address] February, High risk medication use Z79.899 ; Anhedonia R45.84 and Cervical radicular pain M54.12 [facility] [address] [id number], [place] [address] Jan, [facility] [address] [id number], [place] [address] Jan, [facility] [address] [id number][place] [id number] Jan, Metabolic syndrome E88.81 ; Pure hypercholesterolemia E78.0 ; Polyneuropathic pain M79.2 and Irritability R45.4 [facility] [address] [id number], [place] [address]23[address] Dec, Polyneuropathic pain M79.2 [facility] [address] [id number], [place] [address] Dec, [facility] [address] [id number], [place] [address] Dec, Pneumonia of left lung due to infectious organism, unspecified part of lung J18.9 ; Cervicalgia M54.2 and Irritability R45.4 [address] [id number], [place] [address] Nov, [id number] [place] [address] Nov, [id number] [place] [address] Oct, [address] [id number], [place] [id number] Aug, [address] [id number] [place] [id number] Jul, Diverticulosis of large intestine without hemorrhage K57.30 and Abdominal pain, left lower quadrant R10.32 [address]00565100[place] [address] Jul, [address] [place] [id number] Jul, Blood in stool K92.1 ; Left lower quadrant pain R10.32 and Hematuria R31.[address] [id number], [place] [id number] Jul, Left upper quadrant pain R10.12 and Hematuria R31.[address] [id number], [place] [address] Jun, Dysmetabolic Syndrome X 277.7 ; Unspecified essential hypertension 401.9 and Other and unspecified hyperlipidemia 272.[id number] [place] [id number] Jun, Dysmetabolic Syndrome X 277.7 ; Obesity, unspecified 278.00 ; Other and unspecified hyperlipidemia 272.4 and Anhedonia 780.99 [address]00565100[place], [place] [address] May, [facility] [address] [id number], [place] [address] May, [facility] [address]65100[place] [address] Apr, Dysthymic disorder 300.4 [facility] [address]65100[place], [place] [address] Apr, [facility] [address]65100[place], [place] [address]60 Apr, Dysthymic disorder 300.4 [facility] [address]65100[place], [place] [address]10[place] Apr, [facility] [address] [id number], [place] [address] Mar, COPD with exacerbation 491.21 [facility] [address] [id number], [place] [address] Mar, Dysthymic disorder 300.4 [facility] [address]65100[place], [place] [address] February, Dysthymic disorder 300.4 ; No condition on Bolckow II V71.09 ; COPD (chronic obstructive pulmonary disease) 496 ; Glaucoma 365.9 ; Arthritis 716.90 and Diabetes 250.00 [facility] [address] [id number], [place] [id number] February, [facility] [address] [id number], [place] [id number] February, [facility] [address] [id number], [place] [id number] Jan, [facility] [address] [id number], [place] [address] Jan, [facility] [address] [id number], [place] [address] Jan, [facility] [address] [place] [address] Dec, [facility] [address] [id number] [place] [address] Dec, [facility] [place] [facility] [address] [id number] [place] [address]- 67[address] Nov, [facility] [place] [facility] [address] [id number] [place] [address]- [address]266 Nov, [facility] [place] [facility] [address] [id number] [place] [address]- 0883 Nov, [facility] [place] [facility] [address] [id number] [place] [address]- 6666 Nov, [facility] [place] [facility] [address] [id number] [place] [address]- [address] Nov, [facility] [address] [id number] [place] [address]- [address] Nov, [facility] [address] [id number] [place] [address] Oct, [facility] [place] [facility] [address] [id number] [place] [address]- [address] Oct, [facility] [address] [id number] [place] [address]- [address] Oct, [facility] [place] [facility] [address] [id number] [place] [address]- 5347 Oct, [facility] [place] [facility] [address] [id number], [place] [address]- [address]65 Aug, [facility] [place] [facility] [address] [id number] [place] [address]- 3264 Aug, [facility] [place] [facility] [address] [id number] [place] [address]- 2826 Aug, [facility] [place] [facility] [address] [id number] [place] [address]- 2331 Aug, [facility] [place] [facility] [address] [id number] [place] [address]- 8743 Jul, [facility] [place] [facility] [address] [id number] [place] [address]- [address] Jul, [facility] [place] [facility] [address] [id number] [place] [address]- 57[address] Jul, [facility] [place] [facility] [address] [id number] [place] [address]- [address] Jul, [facility] [place] [facility] [address] [id number] [place] [address]- 2054 Jul, [facility] [place] [facility] [address] [id number] [place] [address]- 0558 Jul, [facility] [place] [facility] [address] [id number] [place] [address]- 9188 Jul, [facility] [place] [facility] [address] [id number] [place] [address]- 1031 Jul, [facility] [place] [facility] [address] [id number] [place] [address]- 9839 Jun, [facility] [place] [facility] [address] [id number] [place] [address]- 9774 Jun, [facility] [place] [facility] [address] [id number] [place] [address]- 0397 May, [facility] [place] [facility] [address] [id number] [place] [address]- 5652 May, [facility] [place] [facility] [address] [id number] [place] [address]- [address]88 Apr, [facility] [place] [facility] [address] [id number] [place] [address]- 3052 Apr, [facility] [place] [facility] [address] [id number] [place] [address] Apr, [facility] [place] [facility] [address] [id number] [place] [address]- 7121 Apr, [facility] [place] [facility] [address] [id number] [place] [address]- 9436 Apr, [facility] [place] [facility] [address] [id number] [place] [address]- 8765 Apr, [facility] [place] [facility] [address] [id number] [place] [address]- 3585 Apr, [facility] [place] [facility] [address] [id number] [place] [address]- 7073 Apr, [facility] [place] [facility] [address] [id number] [place] [address]- 9691 Mar, [facility] [place] [facility] [address] [id number] [place] [address]- 8354 Mar, [facility] [place] [facility] [address] [id number] [place] [address]- 3733 Mar, [facility] [place] [facility] [address] [id number] [place] [address]- 3972 Mar, [facility] [place] [facility] [address] [id number] [place] [address]- 9216 February, [facility] [place] [facility] [address] [id number] [place] [address]- 8508 February, [facility] [place] [facility] [address] [id number] [place] [address]- 5422 February, [facility] [place] [facility] [address] [id number] [place] [address]- 1569 February, [facility] [place] [facility] [address] [id number] [place] [address]- 7204 February, [facility] [place] [facility] [address] [id number] [place] [address]- 5061 February, [facility] [place] [facility] [address] [id number] [place]- [address] February, [facility] [place] [facility] [address] [id number] [place] [address]- 0246 February, [facility] [place] [facility] [address] [id number] [place] [address]- 0291 Dec, [facility] [place] [facility] [address] [id number] [place] [address]- 9406 Dec, [facility] [place] [facility] [address] [id number] [place] [address]- 6525 17 Dec, 2013 [facility] [place] [facility] [address] [id number] [place] [address]- 2705 17 Dec, 2013 [facility] [place] [facility] [address] [id number] [place] [address]- 8348 14 Dec, 2013 [facility] [place] [facility] [address] [id number] [place] [address]- 1419 Dec, [facility] [place] [facility] [address] [id number] [place] [address]- 0557 Dec, [facility] [place] [facility] [address] [id number] [place] [address]- 8912 Dec, [facility] [place] [facility] [address] [facility] [id number] [place] [address]- 6319 Dec, [facility] [place] [facility] [address] [id number] [place] [address]- 0856 Nov, [facility] [address] [facility] [id number] [place] [address] Nov, [facility] [place] [facility] [address] [id number] [place] [address]- 2546 Nov, [facility] [place] [facility] [address] [facility] [id number] [place] [address]- 2546 Jun, [facility] [place] [facility] [address] [id number] [place] [address]- 2546 May, [facility] [address] [facility] [id number] [place] [id number] Apr, [facility] [place] [facility] [address] [id number], [place] [address]- 2546 February, [facility] [place] [facility] [address] [facility] [id number], [place] [address]- 2546 February, [facility] [address] [id number] [place] [address] Dec, [facility] [address] [id number] [place] [id number] Apr, [facility] [address] [id number] [place] [id number] Apr, [facility] [address] [id number] [place] 12[address] Apr, [facility] [address] [id number] [place] [id number] Apr, [facility] [address] [id number] [place] [address] Apr, [facility] [place] [facility] [address] [facility] [id number], [place] [address]- 6146 Nov, [facility] [place] [facility] [address] [facility] [id number], [place] [address]- 7613 Sep, [facility] [place] [facility] [address] [id number], [place] [address]- 5676 Sep, [facility] [place] [facility] [address] [facility] [id number], [place] [address]- 4786 Sep, [facility] [place] [facility] [address] [facility] [id number], [place] [address]- 2546 Sep, [facility] [place] [facility] [address] [facility] [id number], [place] [address]- 2542 Sep, [facility] [place] [facility] [address] [facility] [id number], [place] [address]- 2546 Dec, [facility] [place] [facility] [address] [facility] [id number], [place] [address]- 2546 Sep, [facility] [place] [facility] [address] [facility] [id number] [place] [address]- 3325 Sep, [facility] [address] [facility] [id number] [place] [address]- 1617 May, [facility] [address] [facility] [id number], [place] [address]- [address]63 February, IMMUNIZATIONS No Known Immunizations SOCIAL HISTORY Never Assessed REASON FOR VISIT Hospital f/u-not any better insurance will not cover lidocaine patches if over 200.00 Alpesh walton PLAN OF CARE Activity Details Follow Up 3 Months Reason:metabolic syndrome VITAL SIGNS Height 66 in 2018-09-02 Weight 241.3 lbs 2018-09-02 Temperature 97.6 degrees Fahrenheit 2018-09-02 Heart Rate 80 bpm 2018-09-02 Respiratory Rate 22 2018-09-02 Oximetry 98 % 2018-09-02 BMI 38.94 kg/m2 2018-09-02 Blood pressure systolic 120 mmHg 2018-09-02 Blood pressure diastolic 60 mmHg 2018-09-02 MEDICATIONS Medication Instructions Dosage Frequency Start Date End Date Duration Status Ibuprofen 800 MG Orally Three times a day 1 tablet with food or milk as needed 8h Active Symbicort 80-4.5 INHALE TWO PUFFS BY MOUTH TWICE DAILY Active Aspir-81 81 MG Orally Once a day 1 tablet 24h Active Gabapentin 600 MG Orally 3 times a day 1 capsule 8h Dec, Active Cymbalta 60 mg Orally Once a day 1 capsule 24h 90 days Active Hydrocodone-Acetaminophen 10-325 MG Orally every 6 hrs 1 tablet as needed 6h Active Spiriva Respimat 1.25 MCG/ACT Inhalation Once a day 2 puffs 24h Active Metformin HCl 500MG Orally 2 times a day 1 tablet with meals 12h Active Tramadol HCl 50 MG Orally every 6 hrs 1 tablet as needed 6h Active ProAir HFA 108 (90 Base) mcg/act Inhalation every 6 hrs for shortness of breath/cough 2 puffs as needed Aug, Active Oxygen & Tubing by inhalation route continuous 2 liters Aug, daily Active Hydrochlorothiazide 12.5MG Orally Once a day 1 capsule 24h Active Simvastatin 20MG Orally Once a day 1 tablet in the evening 24h Active Nebulizer nebulizer as directed May, Active C-PAP Supplies & Tubing by inhalation route at bedtime as directed Aug lifetime Active Lidoderm 5 % Externally Once a day 1 patch to skin remove after 12 hours 24h 15 Aug, 2018 30 days Not-Taking RESULTS No Results PROCEDURES No Known procedures [...] TSH less than 1 Medical History DVT [id number] pos tibial Medical History normal lipids Surgical History cataract-lens implants Surgical History eye surgery for glaucoma Surgical History heart cath Surgical History left CTS 05/2016 Surgical History carpal tunnel release, bilat april and may Hospitalization History pneumonia 11/2015 Hospitalization History chest pain-ruled out cardiac cause 10/2016 Hospitalization History [facility] pneumonia 08/2018 Hospitalization History Ambulance to [facility] for side pain 08/2018
--- OUTSIDE RECORDS SUMMARY | 2018-11-05 09:25 | XMS REPORT ---
Author Author MAURICE CUMMINS [facility] Address [address] [place] [address] Care Team Providers Care Highway Patrol Officer Name Role Phone MAURICE CUMMINS Unavailable PROBLEMS Type Condition ICD9-CM Code MXJ20-AO Code Onset Dates Condition Status SNOMED Code Problem Non-cardiac chest pain R07.89 Active 758908917 Problem Enlarged prostate N40.0 Active 092007275 Problem Bloody stools K92.1 Active 821700619893926 Problem COPD (chronic obstructive pulmonary disease) J44.9 Active 96183699 Problem Irritability R45.4 Active 42624697 Problem Shortness of breath at rest R06.02 Active 428178319 Problem Pneumonia of left lung due to infectious organism, unspecified part of lung J18.9 Active 849882477 Problem Pain in left lower leg M79.662 Active 41227907 Problem Acute deep vein thrombosis (DVT) of tibial vein of left lower extremity I82.442 Active 474057706870620 Problem Obesity, morbid E66.01 Active 614128523 Problem Poor diet E63.9 Active 432829812 Problem Pure hypercholesterolemia E78.0 Active 415759096 Problem Polyneuropathic pain M79.2 Active 123301745 Problem Cervicalgia M54.2 Active 97127529 Problem Metabolic syndrome E88.81 Active 437875140 Problem Cervical radicular pain M54.12 Active 86726076 Problem Cervical stenosis of spinal canal M48.02 Active 54172512 Problem High risk medication use Z79.899 Active 704437495 Problem Chronic obstructive pulmonary disease, unspecified J44.9 Active 06105244 Problem Anhedonia R45.84 Active 97663650 Problem Chronic obstructive pulmonary disease with (acute) exacerbation J44.1 Active 604542651 ALLERGIES No Information ENCOUNTERS Encounter Location Date Diagnosis [facility] [address] [place] [address] [id number] [place] [id number] Aug, [facility] [address] [id number][place] [id number] Aug, COPD (chronic obstructive pulmonary disease) J44.9 [facility] [address] [id number][place] [id number] 14 Aug, [address] [facility] [address] [id number][place] [id number] 13 Aug, 2018 Shortness of breath at rest R06.02 and Chronic obstructive pulmonary disease, unspecified J44.9 [facility] [address] [id number], [place] [id number] 10 Jul, 2018 Encounter for immunization Z23 [facility] [address] [id number], [place] [id number] Apr, [facility] [address] [id number], [place] [address] Dec, [facility] [address] [id number], [place] [address]6986083 Dec, High risk medication use Z79.899 ; Anhedonia R45.84 and Obesity, morbid E66.[address] [facility] [address] [id number], [place] [id number] Sep, High risk medication use Z79.899 ; Irritability R45.4 ; Pain in left lower leg M79.662 and Poor diet E63.9 [facility] [address] [id number], [place] [id number] Aug, [facility] [address] [id number], [place] [id number] Jul, [facility] [address] [id number], [place] [address] Jul, Polyneuropathic pain M79.2 [facility] [address] [id number], [place] [id number] Jul, [facility] [address] [id number], [place] [address]225[address] Jul, Enlarged prostate N40.0 ; Pure hypercholesterolemia E78.0 and Encounter for immunization Z23 [facility] [address] [id number], [place] [address]75 May, Acute deep vein thrombosis (DVT) of tibial vein of left lower extremity I82.442 and Pure hypercholesterolemia E78.0 [facility] [address] [id number], [place] [id number] Apr, [facility] [place] [id number][place] [id number] Mar, Enlarged prostate N40.0 and Bloody stools K92.1 [facility] [address] [id number], [place] 109389725 February, Bloody stools K92.1 and Enlarged prostate N40.0 [facility] [address] [id number], [place] [id number] Nov, Polyneuropathic pain M79.2 and Non-cardiac chest pain R07.89 [facility] [address] [id number], [place] [address] Jul, Metabolic syndrome E88.81 [facility] [address] [id number], [place] 645[address]36[address] May, [address]00565100[place], [place] [address] May, [place] [id number] [place] [id number] May, [facility] [address] [id number], [place] 514[address]95 May, Chronic obstructive pulmonary disease, unspecified J44.9 and Chronic obstructive pulmonary disease with (acute) exacerbation J44.1 [facility] [address]00565100[place], [place] [address]- [address] Apr, [facility] [address] [id number], [place] [id number] Mar, [place] [place] [id number][place] [address]64[address] Mar, Cervical stenosis of spinal canal M48.02 [facility] [address] [place] [address]764- 3448 February, [address] [id number], [place] [id number] February, [address] [id number], [place] [address]6097964 February, High risk medication use Z79.899 ; Anhedonia R45.84 and Cervical radicular pain M54.[address] [id number], [place] 727752284 Jan, [facility] [address] [place] [address] 99517- 5386 Jan, [address] [id number], [place] [id number] Jan, Metabolic syndrome E88.81 ; Pure hypercholesterolemia E78.0 ; Polyneuropathic pain M79.2 and Irritability R45.[address] [id number], [place] 767116410 Dec, Polyneuropathic pain M79.2 [facility] [address] [place] [address] 97978- 7730 Dec, [address] [id number], [place] [address]39 Dec, Pneumonia of left lung due to infectious organism, unspecified part of lung J18.9 ; Cervicalgia M54.2 and Irritability R45.4 [facility] [id number] [place] [address] 98702- 4119 Nov, [facility] [id number] [place] [address] 94898- 4353 Nov, [facility] [id number] [place] [address] 03460- 6121 Oct, [facility] [address] [id number], [place] 183029339 Aug, [facility] [address] [id number], [place] [id number] Jul, Diverticulosis of large intestine without hemorrhage K57.30 and Abdominal pain, left lower quadrant R10.32 [facility] [id number], [place] [id number] Jul, [facility] [address] [id number], [place] 605878648 Jul, Blood in stool K92.1 ; Left lower quadrant pain R10.32 and Hematuria R31.9 [facility] [address] [id number], [place] 785976225 Jul, Left upper quadrant pain R10.12 and Hematuria R31.9 [facility] [address] [place] [address] AV [id number], [place] 959268580 Jun, Dysmetabolic Syndrome X 277.7 ; Unspecified essential hypertension 401.9 and Other and unspecified hyperlipidemia 272.4 [facility] [place] [address] [place] [address] [id number], [place] 100155903 Jun, Dysmetabolic Syndrome X 277.7 ; Obesity, unspecified 278.00 ; Other and unspecified hyperlipidemia 272.4 and Anhedonia 780.99 [facility] [address] [place] [address] 56992- 7036 May, [facility] [id number] [place] [address] 01155- 8576 May, [facility] [id number] [place] [address] 37135- 0974 Apr, Dysthymic disorder 300.4 [facility] [address] [place] [address] 78948- 2910 Apr, [facility] [id number] [place] [address] 93301- 6965 Apr, Dysthymic disorder 300.4 [facility] [address] [id number], [place] [address]991 Apr, [facility] [address] [id number], [place] 996856097 Mar, COPD with exacerbation 491.21 [facility] [address]00565100[place], [place] 2820[place]- 6519 Mar, Dysthymic disorder 300.4 [facility] [address]00565100[place], [place] [address]- 2323 February, Dysthymic disorder 300.4 ; No condition on Preston II V71.09 ; COPD (chronic obstructive pulmonary disease) 496 ; Glaucoma 365.9 ; Arthritis 716.90 and Diabetes 250.00 [facility] [address] [id number], [place] [id number] February, [facility] [address] [id number], [place] 469273016 February, [facility] [address] [id number], [place] 697993498 Jan, [facility] [address]00565100[place], [place] [address]- 7559 Jan, [facility] [address]00565100[place], [place] [address]- 9148 Jan, [facility] [address]00565100[place], [place] [address]- 5578 Dec, [facility] [address]00565100[place], [place] 11809060- 3330 Dec, [facility] [address]00565100[place], [place] 353089- 4010 Nov, [facility] [address]00565100[place], [place] 333045- 3219 Nov, [facility] [address] [id number] [place] [address]- 7496 Nov, 2014 [facility] [address] [id number] [place] [address]- 7346 Nov, 2014 [facility] [place] [facility] [address] [id number] [place] [address]- 0978 Nov, [facility] [address] [facility] [id number] [place] [address]- 8566 Nov, [facility] [address] [id number], [place] 679693565 Oct, [facility] [address] [facility] [id number] [place] [address]- 1416 Oct, [facility] [place] [facility] [address] [facility] [id number] [place] [address]- 0722 Oct, [facility] [address] [id number] [place] [address]- 4754 Oct, [facility] [place] [facility] [address] [id number] [place] [address]- 1807 Aug, [facility] [place] [facility] [address] [id number] [place] [address]- 5705 Aug, [facility] [place] [facility] [address] [facility] [id number] [place] [address]- 9623 Aug, [facility] [place] [facility] [address] [id number] [place] [address]- 5881 Aug, [facility] [place] [facility] [address] [id number], [place] [address]- 3666 Jul, [facility] [place] [facility] [address] [id number] [place] [address]- 0918 Jul, [facility] [place] [facility] [address] [facility] [id number] [place] [address]- 2039 Jul, [facility] [place] [facility] [address] [facility] [id number], [place] [address]- 9462 Jul, [facility] [place] [facility] [address] [id number] [place] [address]- 8528 Jul, [facility] [place] [facility] [address] [id number] [place] [address]- 2315 Jul, [facility] [place] [facility] [address] [id number] [place] [address]- 3155 Jul, [facility] [place] [facility] [address] [id number] [place] [address]- 6940 Jul, [facility] [place] [facility] [address] [id number] [place] [address]- 1575 Jun, [facility] [place] [facility] [address] [id number] [place] [address]- 2607 Jun, [facility] [place] [facility] [address] [id number] [place] [address]- 1126 May, [facility] [place] [facility] [address] [id number] [place] [address]- 6346 May, [facility] [place] [facility] [address] [id number] [place] [address]- 4121 Apr, [facility] [place] [facility] [address] [id number] [place] [address]- 3861 Apr, [facility] [place] [facility] [address] [id number] [place] [address]- 0166 Apr, [facility] [place] [facility] [address] [id number] [place] [address]- 4883 Apr, [facility] [place] [facility] [address] [id number] [place] [address]- 0057 Apr, [facility] [place] [facility] [address] [id number] [place] [address]- 9507 Apr, [facility] [place] [facility] [address] [id number] [place] [address]- 5854 Apr, [facility] [place] [facility] [address] [id number] [place] [address]- 3153 Apr, [facility] [place] [facility] [address] [id number] [place] [address]- 3211 Mar, [facility] [place] [facility] [address] [id number] [place] [address]- 7773 Mar, [facility] [place] [facility] [address] [id number] [place] [address]- 9149 Mar, [facility] [place] [facility] [address] [id number] [place] [address]- 4643 Mar, [facility] [place] [facility] [address] [id number] [place] [address]- 8395 February, [facility] [place] [facility] [address] [id number] [place] [address]- 7486 February, [facility] [place] [facility] [address] [id number] [place] [address]- 0323 February, [facility] [place] [facility] [address] [id number] [place] [address]- 1443 February, [facility] [place] [facility] [address] [id number] [place] [address]- 9642 February, [facility] [place] [facility] [address] [id number] [place] [address]- 2072 February, [facility] [place] [facility] [address] [id number] [place] [address]- 7452 February, [facility] [place] [facility] [address] [id number] [place] [address]- 5396 February, [facility] [place] [facility] [address] [id number] [place] [address]- 2262 Dec, [facility] [place] [facility] [address] [id number] [place] [address]- 8430 Dec, [facility] [place] [facility] [address] [id number] [place] [address]- 2979 Dec, [facility] [place] [facility] [address] [facility] [id number], [place] [address]- 7986 17 Dec, 2013 [facility] [address] [facility] [id number], [place] [address]- 9706 14 Dec, 2013 [facility] [place] [facility] [address] [facility] [id number], [place] [address]- 9816 Dec, [facility] [address] [facility] [id number], [place] [address]- 3758 Dec, [facility] [place] [facility] [address] [facility] [id number] [place] [address]- 5913 Dec, [facility] [place] [facility] [address] [facility] [id number] [place] [address]- 1493 Dec, [facility] [place] [facility] [address] [facility] [id number], [place] [address]- 7966 Nov, [facility] [place] [id number], [place] [address]2461 Nov, [facility] [address] [facility] [id number], [place] [address]- 6882 Nov, [facility] [address] [id number], [place] [address]- 0387 Jun, [facility] [address] [facility] [id number], [place] [address]- 7306 May, [facility] [address] [id number], [place] 448[address]8119 Apr, [facility] [address] [facility] [id number], [place] [address]- 2546 February, [facility] [place] [facility] [address] [facility] [id number], [place] [address]- 2546 February, [facility] [address] [facility] [id number], [place] 527033959 Dec, [facility] [address] [facility] [id number], [place] 799442543 Apr, [facility] [address] [facility] [id number], [place] 155362309 Apr, [facility] [address] [facility] [id number], [place] 835307367 Apr, [facility] [address] [id number], [place] 183219290 Apr, [facility] [address] [id number], [place] 316892954 Apr, [facility] [address]00565100[place], [place] [address]- 2546 Nov, [facility] [address]00565100[place], [place] [address]- 5696 Sep, [facility] [id number] [place] [address] 84090- 8706 Sep, [facility] [address]00565100[place], [place] [address]- 3819 Sep, [facility] [address] [id number], [place] [address]- 1706 Sep, [facility] [address]00565100[place], [place] [address]- 4840 Sep, [facility] [address]00565100[place], [place] [address]- 6405 Dec, [facility] [address]00565100[place], [place] [address]- 0282 Sep, [facility] [address]65100[place], [place] [address]- 7862 Sep, [facility] [address] [id number], [place] [address]- 3465 May, [facility] [address]00565100[place], [place] [address]- 5216 February, IMMUNIZATIONS Vaccine Route Administration Date Status SOLUMEDROL (UP TO 125 MG) IM Intramuscular Aug 27, 2018 Administered SOCIAL HISTORY Never Assessed REASON FOR VISIT injection PLAN OF CARE VITAL SIGNS MEDICATIONS Unknown Medications RESULTS No Results PROCEDURES Procedure Date Ordered Result Body Site SOLUMEDROL (UP TO 125 MG) Aug 27, 2018 THER/PROPH/DIAG INJ, SC/IM Aug 27, 2018 INSTRUCTIONS MEDICATIONS ADMINISTERED No Known Medications MEDICAL [...] TSH less than 1 Medical History DVT [id number] pos tibial Surgical History cataract-lens implants Surgical History eye surgery for glaucoma Surgical History heart cath Surgical History left CTS 05/2016 Surgical History carpal tunnel release, bilat april and may Hospitalization History pneumonia 11/2015 Hospitalization History chest pain-ruled out cardiac cause 10/2016 Hospitalization History [facility] for pneumonia 08/2018
--- OUTSIDE RECORDS SUMMARY | 2018-11-05 09:25 | XMS REPORT ---
Author Author MAURICE CUMMINS [facility] Address [address] [place] [address] Care Team Providers Care Senior Advocate Name Role Phone MAURICE CUMMINS Unavailable PROBLEMS Type Condition ICD9-CM Code FKG30-XD Code Onset Dates Condition Status SNOMED Code Problem Non-cardiac chest pain R07.89 Active 167941946 Problem Enlarged prostate N40.0 Active 571959032 Problem Bloody stools K92.1 Active [id number] Problem COPD (chronic obstructive pulmonary disease) J44.9 Active 41627734 Problem Irritability R45.4 Active 57922150 Problem Shortness of breath at rest R06.02 Active 857319541 Problem Pneumonia of left lung due to infectious organism, unspecified part of lung J18.9 Active 607732192 Problem Pain in left lower leg M79.662 Active 95116636 Problem Acute deep vein thrombosis (DVT) of tibial vein of left lower extremity I82.442 Active 989984647617287 Problem Obesity, morbid E66.01 Active 103775635 Problem Poor diet E63.9 Active 894128270 Problem Pure hypercholesterolemia E78.0 Active 176441086 Problem Polyneuropathic pain M79.2 Active 838654346 Problem Cervicalgia M54.2 Active 22293006 Problem Metabolic syndrome E88.81 Active 363719537 Problem Cervical radicular pain M54.12 Active 05855068 Problem Cervical stenosis of spinal canal M48.02 Active 96123507 Problem High risk medication use Z79.899 Active 781434142 Problem Chronic obstructive pulmonary disease, unspecified J44.9 Active 59600969 Problem Anhedonia R45.84 Active 28829621 Problem Chronic obstructive pulmonary disease with (acute) exacerbation J44.1 Active 961106956 ALLERGIES No Information ENCOUNTERS Encounter Location Date Diagnosis [facility] [address] [place] [address] [id number] [place] [id number] Aug, [facility] [address] [id number] [place] [id number] Aug, COPD (chronic obstructive pulmonary disease) J44.9 [facility] [address] [id number] [place] [id number] 14 Aug, [address] [facility] [address] [id number] [place] [id number] 13 Aug, 2018 Shortness of breath at rest R06.02 and Chronic obstructive pulmonary disease, unspecified J44.9 [facility] [address] [id number] [place] [id number] 10 Jul, 2018 Encounter for immunization Z23 [facility] [address] [id number] [place] [id number] Apr, [facility] [address] [id number] [place] [id number] Dec, [facility] [address] [id number] [place] [address] Dec, High risk medication use Z79.899 ; Anhedonia R45.84 and Obesity, morbid E66.[address] [facility] [address] [id number] [place] [id number] Sep, High risk medication use Z79.899 ; Irritability R45.4 ; Pain in left lower leg M79.662 and Poor diet E63.9 [facility] [address] [id number] [place] [id number] Aug, [facility] [address] [id number] [place] [id number] Jul, [facility] [address] [id number] [place] [id number] Jul, Polyneuropathic pain M79.2 [facility] [address] [id number] [place] [address] Jul, [facility] [address] [id number] [place] [address] Jul, Enlarged prostate N40.0 ; Pure hypercholesterolemia E78.0 and Encounter for immunization Z23 [facility] [address] [id number] [place] [id number] May, Acute deep vein thrombosis (DVT) of tibial vein of left lower extremity I82.442 and Pure hypercholesterolemia E78.0 [facility] [address] [id number] [place] [id number] Apr, [facility] [id number] [id number] Mar, Enlarged prostate N40.0 and Bloody stools K92.1 [facility] [address] [id number] [place] [address] February, Bloody stools K92.1 and Enlarged prostate N40.0 [facility] [address] [id number] [place] [id number] Nov, Polyneuropathic pain M79.2 and Non-cardiac chest pain R07.89 [facility] [address] [id number] [place] [id number] Jul, Metabolic syndrome E88.81 [facility] [address] [id number] [place] [id number] May, [address] [id number] May, [place] [id number] [place] [id number] May, [facility] [address] [id number] [place] [address] May, Chronic obstructive pulmonary disease, unspecified J44.9 and Chronic obstructive pulmonary disease with (acute) exacerbation J44.1 [facility] [address]00565100[place] [address] Apr, [facility] [address] [id number] [place] [id number] Mar, [address] [place] [address] [id number] [place] [id number] Mar, Cervical stenosis of spinal canal M48.02 [facility] [address] [place] [address]874- 4411 February, [address] [id number] [place] [id number] February, [address] [id number] [place] [id number] February, High risk medication use Z79.899 ; Anhedonia R45.84 and Cervical radicular pain M54.[address] [id number] [place] [address] Jan, [facility] [address] [place] [address] 28694- 9056 Jan, [address] [id number] [place] [address] Jan, Metabolic syndrome E88.81 ; Pure hypercholesterolemia E78.0 ; Polyneuropathic pain M79.2 and Irritability R45.[address] [id number] [place] [address] Dec, Polyneuropathic pain M79.2 [facility] [address] [place] [address] 58184- 3441 Dec, [address] [id number] [place] [address] Dec, Pneumonia of left lung due to infectious organism, unspecified part of lung J18.9 ; Cervicalgia M54.2 and Irritability R45.4 [facility] [id number] [place] [address] 34701- 2350 Nov, [facility] [id number] [place] [address] 92645- 1819 Nov, [facility] [id number] [place] [address] 67271- 9973 Oct, [facility] [id number] [place] [id number] Aug, [facility] [address] [id number] [place] [address] Jul, Diverticulosis of large intestine without hemorrhage K57.30 and Abdominal pain, left lower quadrant R10.32 [facility] [id number] [place] [id number] Jul, [facility] [id number] [place] [id number] Jul, Blood in stool K92.1 ; Left lower quadrant pain R10.32 and Hematuria R31.9 [facility] [id number] [place] [address]4486948 Jul, Left upper quadrant pain R10.12 and Hematuria R31.9 [facility] [address] [place] [address] AV [id number] [place] [address] Jun, Dysmetabolic Syndrome X 277.7 ; Unspecified essential hypertension 401.9 and Other and unspecified hyperlipidemia 272.4 [facility] [place] [address] [place] [address] [id number] [place] [id number] Jun, Dysmetabolic Syndrome X 277.7 ; Obesity, unspecified 278.00 ; Other and unspecified hyperlipidemia 272.4 and Anhedonia 780.99 [facility] [address] [place] [address] 96585- 7926 May, [facility] [id number] [place] [address] 29550- 0026 May, [facility] [id number] [place] [address] 60833- 4147 Apr, Dysthymic disorder 300.4 [facility] [address] [place] [address] 81941- 9321 Apr, [facility] [id number] [place] [address] 91407- 4743 Apr, Dysthymic disorder 300.4 [facility] [address] [id number] [address]- 7946 Apr, [facility] [address] [id number] [place] [id number] Mar, COPD with exacerbation 491.21 [facility] [address]00565100[place] [address]- [address] Mar, Dysthymic disorder 300.4 [facility] [address]00565100[place] [address]- [address] February, Dysthymic disorder 300.4 ; No condition on [place] II V71.09 ; COPD (chronic obstructive pulmonary disease) 496 ; Glaucoma 365.9 ; Arthritis 716.90 and Diabetes 250.00 [facility] [address] [id number] [place] [address]831984[address] February, [facility] [address] [id number] [place] [id number] February, [facility] [address] [id number] [place] [address]14464295 Jan, [facility] [address]00565100[place] [address]- 7192 Jan, [facility] [address]00565100[place] [address]- 2198 Jan, [facility] [address]00565100[place] [address]- 3993 Dec, [facility] [address]65100[place] 5938[address]16- 3374 Dec, [facility] [address]65100[place] 317[place]- 9135 Nov, [facility] [address]00565100[place]162[place]- 5347 Nov, [facility] [address] [id number] [place] [address]- 1917 Nov, 2014 [facility] [address] [id number] [place] [address]- 3046 Nov, 2014 [facility] [place] [facility] [address] [id number] [place] [address]- 7605 Nov, [facility] [address] [facility] [id number] [place] [address]- 1364 Nov, [facility] [address] [id number][place] 529[address]4879 Oct, [facility] [address] [facility] [id number] [place] [address]- 4702 Oct, [facility] [place] [facility] [address] [facility] [id number] [place] [address]- 2847 Oct, [facility] [address] [id number] [place] [address]- 0133 Oct, [facility] [place] [facility] [address] [id number] [place] [address]- 2069 Aug, [facility] [place] [facility] [address] [id number] [place] [address]- 3505 Aug, [facility] [place] [facility] [address] [facility] [id number] [place] [address]- 9301 Aug, [facility] [place] [facility] [address] [id number] [place] [address]- 1020 Aug, [facility] [place] [facility] [address] [id number] [address]- 4251 Jul, [facility] [place] [facility] [address] [id number] [place] [address]- 9840 Jul, [facility] [place] [facility] [address] [facility] [id number] [place] [address]- 1413 Jul, [facility] [place] [facility] [address] [facility] [id number] [address]- 3794 Jul, [facility] [place] [facility] [address] [id number] [place] [address]- 8146 Jul, [facility] [place] [facility] [address] [id number] [place] [address]- 2426 Jul, [facility] [place] [facility] [address] [id number] [place] [address]- 4709 Jul, [facility] [place] [facility] [address] [id number] [place] [address]- 0003 Jul, [facility] [place] [facility] [address] [id number] [place] [address]- 8863 Jun, [facility] [place] [facility] [address] [id number] [place] [address]- 3480 Jun, [facility] [place] [facility] [address] [id number] [place] [address]- 7611 May, [facility] [place] [facility] [address] [id number] [place] [address]- 2315 May, [facility] [place] [facility] [address] [id number] [place] [address]- 1276 Apr, [facility] [place] [facility] [address] [id number] [place] [address]- 9981 Apr, [facility] [place] [facility] [address] [id number] [place] [address]- 3588 Apr, [facility] [place] [facility] [address] [id number] [place] [address]- 9101 Apr, [facility] [place] [facility] [address] [id number] [place] [address]- 4482 Apr, [facility] [place] [facility] [address] [id number] [place] [address]- 0013 Apr, [facility] [place] [facility] [address] [id number] [place] [address]- 3351 Apr, [facility] [place] [facility] [address] [id number] [place] [address]- 4785 Apr, [facility] [place] [facility] [address] [id number] [place] [address]- 1164 Mar, [facility] [place] [facility] [address] [id number] [place] [address]- 6476 Mar, [facility] [place] [facility] [address] [id number] [place] [address]- 2846 Mar, [facility] [place] [facility] [address] [id number] [place] [address]- 9825 Mar, [facility] [place] [facility] [address] [id number] [place] [address]- 5247 February, [facility] [place] [facility] [address] [id number] [place] [address]- 4272 February, [facility] [place] [facility] [address] [id number] [place] [address]- 0400 February, [facility] [place] [facility] [address] [id number] [place] [address]- 0804 February, [facility] [place] [facility] [address] [id number] [place] [address]- 8706 February, [facility] [place] [facility] [address] [id number] [place] [address]- 7705 February, [facility] [place] [facility] [address] [id number] [place] [address]- 6838 February, [facility] [place] [facility] [address] [id number] [place] [address]- 3252 February, [facility] [place] [facility] [address] [id number] [place] [address]- 7164 Dec, [facility] [place] [facility] [address] [id number] [place] [address]- 3648 Dec, [facility] [place] [facility] [address] [id number] [place] [address]- 7602 Dec, [facility] [place] [facility] [address] [facility] [id number] [address]- 5226 17 Dec, 2013 [facility] [address] [facility] [id number] [place] [address]- 1097 14 Dec, 2013 [facility] [place] [facility] [address] [facility] [id number] [place] [address]- 5482 Dec, [facility] [address] [facility] [id number] [place] [address]- 9289 Dec, [facility] [place] [facility] [address] [facility] [id number] [place] [address]- 0429 Dec, [facility] [place] [facility] [address] [facility] [id number] [place] [address]- 4400 Dec, [facility] [place] [facility] [address] [facility] [id number] [address]- 0616 Nov, [facility] [id number] [id number] Nov, [facility] [address] [facility] [id number] [place] [address]- 3525 Nov, [facility] [address] [id number] [address]- 6930 Jun, [facility] [address] [facility] [id number] [place] [address]- 5646 May, [facility] [address] [id number] [id number] Apr, [facility] [address] [facility] [id number] [place] [address]- 2546 February, [facility] [place] [facility] [address] [facility] [id number] [place] [address]- 2546 February, [facility] [address] [facility] [id number] 3[address]243[address] Dec, [facility] [address] [facility] [id number][place] 734585078 Apr, [facility] [address] [facility] [id number], [place] [id number] Apr, [facility] [address] [facility] [id number][place] [id number] Apr, [facility] [address] [id number], [place] 4447728[address] Apr, [facility] [address] [id number], [place] [id number] Apr, [facility] [address]00565100[place] [address]- 2546 Nov, [facility] [address]00565100[place] [address]- 6236 Sep, [facility] [address] [place] [address] 98072- 1169 Sep, [facility] [address]00565100[place] [address]- 2550 Sep, [facility] [address]00565100[place] [address]- 2179 Sep, [facility] [address]00565100[place] [address]- 1199 Sep, [facility] [address]00565100[place]25[place]- 8115 Dec, [facility] [address]00565100[place]- 3968 Sep, [facility] [address]00565100[place]- 0604 Sep, [facility] [address] [id number] [address]- 2120 May, [facility] [address]00565100[place]- 5280 February, IMMUNIZATIONS No Known Immunizations SOCIAL HISTORY Never Assessed REASON FOR VISIT phone call PLAN OF CARE VITAL SIGNS MEDICATIONS Unknown [...] TSH less than 1 Medical History DVT [id number] pos tibial Surgical History cataract-lens implants Surgical History eye surgery for glaucoma Surgical History heart cath Surgical History left CTS 05/2016 Surgical History carpal tunnel release, bilat april and may Hospitalization History pneumonia 11/2015 Hospitalization History chest pain-ruled out cardiac cause 10/2016 Hospitalization History [facility] for pneumonia 08/2018
--- OUTSIDE RECORDS SUMMARY | 2018-11-05 09:25 | XMS REPORT ---
Author Author KYMYUSEF MAURICE Organization [facility] Address [address] [place] [address] Care Team Providers Care Environmental Conflict Manager Name Role Phone MAURICE CUMMINS Unavailable PROBLEMS Type Condition ICD9-CM Code EKE79-VE Code Onset Dates Condition Status SNOMED Code Problem Bloody stools K92.1 Active [id number] Problem Acute deep vein thrombosis (DVT) of tibial vein of left lower extremity I82.442 Active [id number] Problem Enlarged prostate N40.0 Active 541115525 Problem COPD (chronic obstructive pulmonary disease) J44.9 Active 89461605 Problem Cervicalgia M54.2 Active 23556397 Problem Rib pain on right side R07.81 Active 686639614 Problem Irritability R45.4 Active 31195947 Problem Pneumonia of left lung due to infectious organism, unspecified part of lung J18.9 Active 957982382 Problem Poor diet E63.9 Active 038045838 Problem Pain in left lower leg M79.662 Active 18542263 Problem Shortness of breath at rest R06.02 Active 845625370 Problem Obesity, morbid E66.01 Active 538967577 Problem Polyneuropathic pain M79.2 Active 569608054 Problem High risk medication use Z79.899 Active 726482588 Problem Metabolic syndrome E88.81 Active 245412009 Problem Pure hypercholesterolemia E78.0 Active 527918789 Problem Cervical stenosis of spinal canal M48.02 Active 60709757 Problem Chronic obstructive pulmonary disease, unspecified J44.9 Active 02720613 Problem Anhedonia R45.84 Active 23879867 Problem Chronic obstructive pulmonary disease with (acute) exacerbation J44.1 Active 626773747 Problem Cervical radicular pain M54.12 Active 27685255 Problem Non-cardiac chest pain R07.89 Active 368716793 ALLERGIES No Known Allergies ENCOUNTERS Encounter Location Date Diagnosis [facility] [place] [address] [facility] [id number] [id number] 20 Aug, [address] [facility] [address] [id number][place] [id number] 15 Aug, 2018 Rib pain on right side R07.81 and Obesity, morbid E66.[address] [facility] [address] [id number][place] [id number] 14 Aug, 2018 COPD (chronic obstructive pulmonary disease) J44.9 [facility] [address] [id number][place] [id number] 14 Aug, [address] [facility] [address] [id number][place] [id number] 13 Aug, 2018 Shortness of breath at rest R06.02 and Chronic obstructive pulmonary disease, unspecified J44.9 [facility] [address] [id number][place] [id number] 10 Jul, 2018 Encounter for immunization Z23 [facility] [address] [facility] [address] [id number][place] [id number] Apr, [facility] [address] [id number][place] [id number] Dec, [facility] [address] [id number][place] [address] Dec, High risk medication use Z79.899 ; Anhedonia R45.84 and Obesity, morbid E66.01 [facility] [address] [id number], [place] [address] Sep, High risk medication use Z79.899 ; Irritability R45.4 ; Pain in left lower leg M79.662 and Poor diet E63.9 [facility] [address] [id number], [place] [address] Aug, [facility] [address] [id number], [place] [id number] Jul, [facility] [address] [id number], [place] [address] Jul, Polyneuropathic pain M79.2 [facility] [address] [id number], [place] [address] Jul, [facility] [address] [id number], [place] [address] Jul, Enlarged prostate N40.0 ; Pure hypercholesterolemia E78.0 and Encounter for immunization Z23 [facility] [address] [id number], [place] [id number] May, Acute deep vein thrombosis (DVT) of tibial vein of left lower extremity I82.442 and Pure hypercholesterolemia E78.0 [facility] [address] [id number][place] [id number] Apr, [facility] [place] [address] [id number], [place] [address] Mar, Enlarged prostate N40.0 and Bloody stools K92.1 [facility] [address] [id number], [place] 486[address] February, Bloody stools K92.1 and Enlarged prostate N40.0 [facility] [address] [id number], [place] [address] Nov, Polyneuropathic pain M79.2 and Non-cardiac chest pain R07.89 [facility] [address] [facility] [address] [id number], [place] 279335550 Jul, Metabolic syndrome E88.81 [facility] [address] [id number], [place] [address]97349122 May, [facility] [address] [facility] [id number][place] 191616347 May, [facility] [address] [place] [id number] May, [facility] [address] [id number], [place] [address] May, Chronic obstructive pulmonary disease, unspecified J44.9 and Chronic obstructive pulmonary disease with (acute) exacerbation J44.1 [facility] [address] [id number], [place] [address] Apr, [facility] [address] [id number], [place] [id number] Mar, [facility] [address] [id number], [place] 446312853 Mar, Cervical stenosis of spinal canal M48.02 [facility] [address]00565100[place], [place] [address] February, [facility] [address] [id number], [place] [id number] February, [facility] [address] [id number], [place] 175[address]366 February, High risk medication use Z79.899 ; Anhedonia R45.84 and Cervical radicular pain M54.12 [facility] [address] [id number], [place] [id number] Jan, [address] [id number], [place] [address] Jan, [facility] [address] [id number], [place] [address] Jan, Metabolic syndrome E88.81 ; Pure hypercholesterolemia E78.0 ; Polyneuropathic pain M79.2 and Irritability R45.4 [facility] [address] [id number], [place] [id number] Dec, Polyneuropathic pain M79.2 [facility] [address] [id number], [place] [address] Dec, [address] [id number], [place] [address] Dec, Pneumonia of left lung due to infectious organism, unspecified part of lung J18.9 ; Cervicalgia M54.2 and Irritability R45.4 [facility] [address]00565100[place], [place] [address] Nov, [facility] [address] [facility] [id number], [place] [address] Nov, [facility] [address]00565100[place], [place] [address] Oct, [facility] [address] [facility] [address] [id number], [place] [id number] Aug, [facility] [address] [id number], [place] [id number] Jul, Diverticulosis of large intestine without hemorrhage K57.30 and Abdominal pain, left lower quadrant R10.32 [facility] [address] [place] [address] AVE [id number], [place] 143841794 Jul, [facility] [address] [place] [address] AV [id number], [place] 612561059 Jul, Blood in stool K92.1 ; Left lower quadrant pain R10.32 and Hematuria R31.9 [facility] [place] [place] [address] AVE [id number], [place] [address] Jul, Left upper quadrant pain R10.12 and Hematuria R31.9 [facility] [address] [id number], [place] [address] Jun, Dysmetabolic Syndrome X 277.7 ; Unspecified essential hypertension 401.9 and Other and unspecified hyperlipidemia 272.4 [facility] [address] [id number], [place] [address] Jun, Dysmetabolic Syndrome X 277.7 ; Obesity, unspecified 278.00 ; Other and unspecified hyperlipidemia 272.4 and Anhedonia 780.99 [facility] [address] [facility] [id number], [place] [address] May, [facility] [address]00565100[place], [place] [address] May, [facility] [address] [facility] [id number], [place] [address] Apr, Dysthymic disorder 300.4 [facility] [address] [id number], [place] [address] Apr, [facility] [address]00565100[place], [place] [address]- [address] Apr, Dysthymic disorder 300.4 [facility] [address]00565100[place], [place] [address]- [address] Apr, [facility] [address] [id number], [place] 780782402 Mar, COPD with exacerbation 491.21 [facility] [id number] [place] [address] Mar, Dysthymic disorder 300.4 [facility] [address]00565100[place], [place] [address] February, Dysthymic disorder 300.4 ; No condition on Pamplico II V71.09 ; COPD (chronic obstructive pulmonary disease) 496 ; Glaucoma 365.9 ; Arthritis 716.90 and Diabetes 250.[address] [facility] [address] [id number], [place] [id number] February, [facility] [address] [id number], [place] 28[address]277[address] February, [facility] [address] [id number], [place] 134489158 Jan, [facility] [address]00565100[place], [place] [address] Jan, [facility] [address] [id number], [place] [address] Jan, [facility] [address]00565100[place], [place] [address]- [address] Dec, [facility] [address] [id number], [place] [address]- 9[address] Dec, [facility] [id number] [place] [address] [place] [address] Nov, 2014 [facility] [place] [facility] [address] [id number] [place] [address]- [address] Nov, 2014 [facility] [place] [facility] [address] [id number] [place] [address] Nov, 2014 [facility] [place] [facility] [address] [id number], [place] [address]- [address] Nov, 2014 [facility] [place] [facility] [address] [id number] [place] [address]- [address] Nov, [facility] [address] [id number] [place] [address]- 8106 Nov, [facility] [place] [address] [place] [address] [id number], [place] 402248738 Oct, [facility] [address] [id number], [place] [address]- 2[address] Oct, [facility] [place] [facility] [address] [id number], [place] [address]- 1397 Oct, [facility] [address] [id number], [place] [address]- [address] Oct, [facility] [place] [facility] [address] [facility] [id number][place] [address]- 120[address] Aug, [facility] [place] [facility] [address] [id number] [place] [address]- [address]16 Aug, [facility] [place] [facility] [address] [id number], [place] [address]- 6163 Aug, [facility] [place] [facility] [address] [id number], [place] [address]- 7[address] Aug, [facility] [place] [facility] [address] [id number], [place] [address]- [address] Jul, [facility] [place] [facility] [address] [id number], [place] [address]- 6[address] Jul, [facility] [place] [facility] [address] [id number] [place] [address]- 1477 Jul, [facility] [place] [facility] [address] [id number] [place] [address]- 1069 Jul, [facility] [place] [facility] [address] [id number] [place] [address]- 8072 Jul, [facility] [place] [facility] [address] [id number] [place] [address]- 4394 Jul, [facility] [place] [facility] [address] [id number] [place] [address]- 8157 Jul, [facility] [place] [facility] [address] [id number] [place] [address]- 4076 Jul, [facility] [place] [facility] [address] [id number] [place] [address]- 5068 Jun, [facility] [place] [facility] [address] [id number] [place] [address]- 0851 Jun, [facility] [place] [facility] [address] [id number] [place] [address]- [address] May, [facility] [place] [facility] [address] [id number] [place] [address]- 6[address] May, [facility] [place] [facility] [address] [id number] [place] [address]- 5947 Apr, [facility] [place] [facility] [address] [id number] [place] [address]- 0825 Apr, [facility] [place] [facility] [address] [id number] [place] [address]- 5046 Apr, [facility] [place] [facility] [address] [id number] [place] [address]- 7102 Apr, [facility] [place] [facility] [address] [id number] [place] [address]- 9305 Apr, [facility] [place] [facility] [address] [id number] [place] [address]- 5069 Apr, [facility] [place] [facility] [address] [id number] [place] [address]- 6044 Apr, [facility] [place] [facility] [address] [id number] [place] [address]- 8734 Apr, [facility] [place] [facility] [address] [id number] [place] [address]- 3295 Mar, [facility] [place] [facility] [address] [id number] [place] [address]- 3343 Mar, [facility] [place] [facility] [address] [id number] [place] [address]- 3032 Mar, [facility] [place] [facility] [address] [id number] [place] [address]- 9410 Mar, [facility] [place] [facility] [address] [id number] [place] [address]- 0495 February, [facility] [place] [facility] [address] [id number] [place] [address]- 0188 February, [facility] [place] [facility] [address] [id number] [place] [address]- 2274 February, [facility] [place] [facility] [address] [id number] [place] [address]- 9463 February, [facility] [place] [facility] [address] [id number] [place] [address]- 9375 February, [facility] [place] [facility] [address] [id number] [place] [address]- 8264 February, [facility] [place] [facility] [address] [id number] [place] [address]- 7603 February, [facility] [place] [facility] [address] [id number] [place] 3941 February, [facility] [place] [facility] [address] [id number] [place] [address]- 9890 Dec, [facility] [place] [facility] [address] [id number] [place] [address]- 0336 27 Dec, 2013 [facility] [address] [id number] [place] [address]- 2486 17 Dec, 2013 [facility] [address] [id number] [place] [address] 2546 17 Dec, 2013 [facility] [address] [id number] [place] [address]- 1304 14 Dec, 2013 [facility] [place] [facility] [address] [id number] [place] [address] 2542 Dec, [facility] [address] [id number] [place] [address]- 1049 Dec, [facility] [address] [id number] [place] Dec, [facility] [address] [id number] [place] [address]- 3622 Dec, [facility] [address] [id number] [place] [address]- 9020 Nov, [facility] [place] [address] [facility] [id number], [place] [address]04[address]602 Nov, [facility] [address] [id number] [place] [address] 2546 Nov, [facility] [address] [id number] [place] [address]- 2546 Jun, [facility] [address] [id number] [place] [address]- 2546 May, [facility] [place] [address] [facility] [id number], [place] 45[address]297[address] Apr, [facility] [place] [facility] [address] [id number] [place] [address]- 2546 February, [facility] [address] [id number] [place] [address]- 2546 February, [facility] [place] [address] [id number] [place] [address] Dec, [facility] [place] [address] [id number] [place] [id number] Apr, [facility] [place] [address] [id number] [place] 9547[place] Apr, [facility] [place] [address] [id number] [place] [address] Apr, [facility] [place] [address] [id number] [place] 299654196 Apr, [facility] [place] [address] [id number] [place] 24069[address] Apr, [facility] [place] [facility] [address] [facility] [id number] [place] [address]- 1646 Nov, [facility] [place] [facility] [address] [id number], [place] [address]- 3711 Sep, [facility] [place] [facility] [address] [id number], [place] [address]- 6048 Sep, [facility] [place] [facility] [address] [id number]- 8360 Sep, [facility] [place] [facility] [id number] [place] [address]- 5407 Sep, [facility] [place] [facility] [address] [id number], [place] [address]- 5536 Sep, [facility] [place] [facility] [address]65[address], [place] [address]- 7064 Dec, [facility] [place] [facility] [address] [facility] [id number], [place] [address]- 1776 Sep, [facility] [place] [facility] [address] [facility] [id number], [place] [address]- 9920 Sep, [facility] [place] [facility] [address] [facility] [id number], [place] [address]- 9796 May, [facility] [place] [facility] [address], [place] [address]- [address]31 February, IMMUNIZATIONS No Known Immunizations SOCIAL HISTORY Never Assessed REASON FOR VISIT [facility] 08/[facility], Ambulance ride, released today. [facility] PLAN OF CARE Activity Details Follow Up 4 Weeks Reason:weight eval VITAL SIGNS Height 66 in 2018-08-28 Weight 247.12 lbs 2018-08-28 Temperature 98.4 degrees Fahrenheit 2018-08-28 Heart Rate 80 bpm 2018-08-28 Respiratory Rate 22 2018-08-28 Oximetry 92 % 2018-08-28 BMI 39.88 kg/m2 2018-08-28 Blood pressure systolic 142 mmHg 2018-08-28 Blood pressure diastolic 76 mmHg 2018-08-28 MEDICATIONS Medication Instructions Dosage Frequency Start Date End Date Duration Status Simvastatin 20MG Orally Once a day 1 tablet in the evening 24h Active Amoxicillin-Pot Clavulanate 875-125 MG Orally every 12 hrs 1 tablet 12h 10 day(s) Active Symbicort 80-4.5 INHALE TWO PUFFS BY MOUTH TWICE DAILY Active Doxycycline Hyclate 100 MG Orally 2 times a day 1 capsule 12h 10 day( s) Active Gabapentin 600 MG Orally 3 times a day 1 capsule 8h Dec, Active Hydrocodone-Acetaminophen 10-325 MG Orally every 6 hrs 1 tablet as needed 6h Active Lidoderm 5 % Externally Once a day 1 patch to skin remove after 12 hours 24h Aug, 30 days Active Hydrochlorothiazide 12.5MG Orally Once a day 1 capsule 24h Active Nebulizer nebulizer as directed May, Active Tramadol HCl 50 MG Orally every 6 hrs 1 tablet as needed 6h Active Metformin HCl 500MG Orally 2 times a day 1 tablet with meals 12h Active Spiriva Respimat 1.25 MCG/ACT Inhalation Once a day 2 puffs 24h Not-Taking Aspir-81 81 MG Orally Once a day 1 tablet 24h Active Ibuprofen 800 MG Orally Three times a day 1 tablet with food or milk as needed 8h Active ProAir HFA 108 (90 Base) mcg/act Inhalation every 6 hrs for shortness of breath/cough 2 puffs as needed Aug, Active Cymbalta 60 mg Orally Once a day 1 capsule 24h 90 days Active Oxygen & Tubing by inhalation route continuous 2 liters Aug, daily Active RESULTS No Results PROCEDURES No Known [...] TSH less than 1 Medical History DVT [id number] pos tibial Surgical History cataract-lens implants Surgical History eye surgery for glaucoma Surgical History heart cath Surgical History left CTS 05/2016 Surgical History carpal tunnel release, bilat april and may Hospitalization History pneumonia 11/2015 Hospitalization History chest pain-ruled out cardiac cause 10/2016 Hospitalization History [facility] pneumonia 08/2018 Hospitalization History Ambulance to [facility] for side pain 08/2018
--- OUTSIDE RECORDS SUMMARY | 2018-11-05 09:26 | XMS REPORT ---
Author Author KYMMAURICE HOLBROOK [facility] Address [address] [place] [address] Care Team Providers Care Edge Bander Hand Name Role Phone MAURICE CUMMINS Unavailable PROBLEMS Type Condition ICD9-CM Code YQW56-MA Code Onset Dates Condition Status SNOMED Code Problem Non-cardiac chest pain R07.89 Active 339391421 Problem Enlarged prostate N40.0 Active 614641185 Problem Bloody stools K92.1 Active [id number] Problem COPD (chronic obstructive pulmonary disease) J44.9 Active 25984219 Problem Irritability R45.4 Active 97327718 Problem Shortness of breath at rest R06.02 Active 775786480 Problem Pneumonia of left lung due to infectious organism, unspecified part of lung J18.9 Active 837429208 Problem Pain in left lower leg M79.662 Active 60109258 Problem Acute deep vein thrombosis (DVT) of tibial vein of left lower extremity I82.442 Active 816232488847262 Problem Obesity, morbid E66.01 Active 781520520 Problem Poor diet E63.9 Active 070702946 Problem Pure hypercholesterolemia E78.0 Active 671862722 Problem Polyneuropathic pain M79.2 Active 398860706 Problem Cervicalgia M54.2 Active 49668797 Problem Metabolic syndrome E88.81 Active 047409500 Problem Cervical radicular pain M54.12 Active 54276860 Problem Cervical stenosis of spinal canal M48.02 Active 48665695 Problem High risk medication use Z79.899 Active 358789974 Problem Chronic obstructive pulmonary disease, unspecified J44.9 Active 13656766 Problem Anhedonia R45.84 Active 89863202 Problem Chronic obstructive pulmonary disease with (acute) exacerbation J44.1 Active 731105980 ALLERGIES No Known Allergies ENCOUNTERS Encounter Location Date Diagnosis [facility] [address] [place] [address] [id number] [id number] Aug, [facility] [address] [id number] [id number] Aug, COPD (chronic obstructive pulmonary disease) J44.[address] [facility] [address] [id number][place] [id number] Aug, [facility] [address] [id number][place] [id number] Aug, Shortness of breath at rest R06.02 and Chronic obstructive pulmonary disease, unspecified J44.9 [facility] [address] [id number][place] [id number] 10 Jul, 2018 Encounter for immunization Z23 [facility] [address] [id number][place] [id number] Apr, [facility] [address] [id number], [place] [id number] Dec, [facility] [address] [id number], [place] [address] Dec, High risk medication use Z79.899 ; Anhedonia R45.84 and Obesity, morbid E66.[address] [facility] [address] [id number], [place] [address] Sep, High risk medication use Z79.899 ; Irritability R45.4 ; Pain in left lower leg M79.662 and Poor diet E63.9 [facility] [address] [id number], [place] [id number] Aug, [facility] [address] [id number], [place] [id number] Jul, [facility] [address] [id number], [place] [address] Jul, Polyneuropathic pain M79.2 [facility] [address] [id number], [place] [id number] Jul, [facility] [address] [id number][place] [id number] Jul, Enlarged prostate N40.0 ; Pure hypercholesterolemia E78.0 and Encounter for immunization Z23 [facility] [address] [id number][place] [id number] May, Acute deep vein thrombosis (DVT) of tibial vein of left lower extremity I82.442 and Pure hypercholesterolemia E78.0 [facility] [address] [id number], [place] [id number] Apr, [facility] [place] [id number] [place] [id number] Mar, Enlarged prostate N40.0 and Bloody stools K92.1 [facility] [id number] [place] [id number] February, Bloody stools K92.1 and Enlarged prostate N40.0 [facility] [address] [id number] [id number] Nov, Polyneuropathic pain M79.2 and Non-cardiac chest pain R07.89 [facility] [address] [id number], [place] 144[address] Jul, Metabolic syndrome E88.81 [facility] [address] [id number], [place] [id number] May, [address] [id number] May, [id number] [place] [id number] May, [facility] [address] [id number], [place] [address]56208571 May, Chronic obstructive pulmonary disease, unspecified J44.9 and Chronic obstructive pulmonary disease with (acute) exacerbation J44.1 [facility] [address]65100[place] [address]- [address] Apr, [facility] [address] [id number], [place] [id number] Mar, [address] [id number], [place] [id number] Mar, Cervical stenosis of spinal canal M48.02 [facility] [id number] [place] [address] February, [address] [id number], [place] [id number] February, [address] [id number], [place] [id number] February, High risk medication use Z79.899 ; Anhedonia R45.84 and Cervical radicular pain M54.[address] [id number], [place] [id number] Jan, [address] [place] [address]- 6641 Jan, [address] [id number], [place] 57[address] Jan, Metabolic syndrome E88.81 ; Pure hypercholesterolemia E78.0 ; Polyneuropathic pain M79.2 and Irritability R45.[address] [id number], [place] [id number] Dec, Polyneuropathic pain M79.2 [facility] [address] [place] [address]09- 1613 Dec, [address] [id number], [place] [address]06 Dec, Pneumonia of left lung due to infectious organism, unspecified part of lung J18.9 ; Cervicalgia M54.2 and Irritability R45.4 [facility] [id number] [place] [address] 33381- 5845 Nov, [facility] [id number] [place] [address] 85978- 5013 Nov, [facility] [id number] [place] [address] 75814- 3138 Oct, [facility] [id number], [place] [id number] Aug, [facility] [id number], [place] [address]29896779 Jul, Diverticulosis of large intestine without hemorrhage K57.30 and Abdominal pain, left lower quadrant R10.32 [facility] [id number], [place] 559483865 Jul, [facility] [id number], [place] 27[address]6616 Jul, Blood in stool K92.1 ; Left lower quadrant pain R10.32 and Hematuria R31.9 [facility] [id number], [place] 36[address]35557 Jul, Left upper quadrant pain R10.12 and Hematuria R31.9 [facility] [address] [place] [address] AVE [id number], [place] [id number] Jun, Dysmetabolic Syndrome X 277.7 ; Unspecified essential hypertension 401.9 and Other and unspecified hyperlipidemia 272.4 [facility] [address] [place] [address] [id number], [place] 918382331 Jun, Dysmetabolic Syndrome X 277.7 ; Obesity, unspecified 278.00 ; Other and unspecified hyperlipidemia 272.4 and Anhedonia 780.99 [facility] [address] [place] [address] 77522- 4960 May, [facility] [id number] [place] [address] 05030- 1786 May, [facility] [id number] [place] [address] 08050- 4249 Apr, Dysthymic disorder 300.4 [facility] [id number] [place] [address] [id number]- 8503 Apr, [facility] [id number] [place] [address] 52680- 1002 Apr, Dysthymic disorder 300.4 [facility] [address] [id number] [address] 9013 Apr, [facility] [address] [id number], [place] [id number] Mar, COPD with exacerbation 491.21 [facility] [address] [id number] 34[place]- 2449 Mar, Dysthymic disorder 300.4 [facility] [address]00565100[place] [address]7 February, Dysthymic disorder 300.4 ; No condition on [place] II V71.09 ; COPD (chronic obstructive pulmonary disease) 496 ; Glaucoma 365.9 ; Arthritis 716.90 and Diabetes 250.00 [facility] [address] [id number], [place] [id number] February, [facility] [address] [id number], [place] 916463325 February, [facility] [address] [id number], [place] 142309193 Jan, [facility] [address]00565100[place], [place] [address]- 9554 Jan, [facility] [address]65100[place], [place] [address]- 6463 Jan, [facility] [address]65100[place], [place] [address]- 0395 Dec, [facility] [address]00565100[place] 5112[place]- 9756 Dec, [facility] [address] [id number] 939[place]- 5577 Nov, [facility] [address]65100[place]397[place]- 5[address] Nov, [facility] [address] [id number] [place] [address]- 1054 11 Nov, 2014 [facility] [address] [id number] [place] [address]- 1573 Nov, 2014 [facility] [place] [facility] [address] [id number] [place] [address]- 9705 Nov, [facility] [address] [id number] [place] [address]- 2164 Nov, [facility] [address] [id number] [place] [id number] Oct, [facility] [address] [id number] [place] [address]- 3591 Oct, [facility] [place] [facility] [address] [id number] [place] [address]- 4512 Oct, [facility] [address] [id number] [place] [address]- 2525 Oct, [facility] [place] [facility] [address] [id number] [place] [address]- 0706 Aug, [facility] [place] [facility] [address] [id number] [place] [address]- 6854 Aug, [facility] [place] [facility] [address] [id number] [place] [address]- 6140 Aug, [facility] [place] [facility] [address] [id number] [place] [address]- 2542 Aug, [facility] [place] [facility] [address] [id number], [place] [address]- 7998 Jul, [facility] [place] [facility] [address] [id number] [place]- 8519 Jul, [facility] [place] [facility] [address] [id number] [place] [address]- 1974 Jul, [facility] [place] [facility] [address] [id number][place] 8699[place]- 2830 Jul, [facility] [place] [facility] [address] [id number] [place] [address]- 8446 Jul, [facility] [place] [facility] [address] [id number] [place] [address]- 4170 Jul, [facility] [place] [facility] [address] [id number] [place] [address]- 1717 Jul, [facility] [place] [facility] [address] [id number] [place] [address]- 4188 Jul, [facility] [place] [facility] [address] [id number] [place] [address]- 3484 Jun, [facility] [place] [facility] [address] [id number] [place] [address]- 2077 Jun, [facility] [place] [facility] [address] [id number] [place] [address]- 0678 May, [facility] [place] [facility] [address] [id number] [place] [address]- 7730 May, [facility] [place] [facility] [address] [id number] [place] [address]- 1722 Apr, [facility] [place] [facility] [address] [id number] [place] [address]- 9868 Apr, [facility] [place] [facility] [address] [id number] [place] [address]- 6777 Apr, [facility] [place] [facility] [address] [id number] [place] [address]- 6165 Apr, [facility] [place] [facility] [address] [id number] [place] [address]- 3685 Apr, [facility] [place] [facility] [address] [id number] [place] [address]- 7869 Apr, [facility] [place] [facility] [address] [id number] [place] [address]- 2340 Apr, [facility] [place] [facility] [address] [id number] [place] [address]- 8268 Apr, [facility] [place] [facility] [address] [id number] [place] [address]- 4022 Mar, [facility] [place] [facility] [address] [id number] [place] [address]- 2726 Mar, [facility] [place] [facility] [address] [id number] [place] [address]- 8586 Mar, [facility] [place] [facility] [address] [id number] [place] [address]- 1005 Mar, [facility] [place] [facility] [address] [id number] [place] [address]- 1736 February, [facility] [place] [facility] [address] [id number] [place] [address]- 1128 February, [facility] [place] [facility] [address] [id number] [place] [address]- 9883 February, [facility] [place] [facility] [address] [id number] [place] [address]- 2152 February, [facility] [place] [facility] [address] [id number] [place] [address]- 3263 February, [facility] [place] [facility] [address] [id number] [place] [address]- 9809 February, [facility] [place] [facility] [address] [id number] [place] [address]- 3989 February, [facility] [place] [facility] [address] [id number] [place] [address]- 5859 February, [facility] [place] [facility] [address] [id number] [place] [address]- 0601 Dec, [facility] [place] [facility] [address] [id number] [place] [address]- 9806 Dec, [facility] [place] [facility] [address] [id number] [place] [address]- 4110 Dec, [facility] [place] [facility] [address] [facility] [id number], [place] [address]- 2546 17 Dec, 2013 [facility] [address] [facility] [id number] [place] [address]- 7903 14 Dec, 2013 [facility] [address] [facility] [id number] [place] [address] 2546 Dec, [facility] [address] [facility] [id number] [place] [address]- 2988 Dec, [facility] [address] [facility] [id number] [place] [address] 254 Dec, [facility] [address] [facility] [id number] [place] [address]- 3856 Dec, [facility] [address] [facility] [id number] [place] [address]- 5576 Nov, [facility] [place] [id number] [id number] Nov, [facility] [address] [facility] [id number], [place] [address]- 7926 Nov, [facility] [address] [id number], [place] [address]- 2806 Jun, [facility] [address] [facility] [id number], [place] [address]- 2546 May, [facility] [place] [address] [facility] [id number][place] [id number] Apr, [facility] [address] [facility] [id number], [place] [address]- 2546 February, [facility] [address] [facility] [id number], [place] [address]- 2546 February, [facility] [place] [address] [facility] [id number][place] [id number] Dec, [facility] [address] [facility] [id number], [place] 632461531 Apr, [facility] [address] [facility] [id number][place] 3158[address]335 Apr, [facility] [address] [facility] [id number], [place] [id number] Apr, [facility] [address] [id number], [place] [id number] Apr, [facility] [address] [id number], [place] [address]99[address] Apr, [facility] [address] [place] [address] 20059- 2546 Nov, [facility] [address]65100[place], [place] [address]- 7866 Sep, [facility] [id number] [place] [address] 53191- 1966 Sep, [facility] [address] [id number], [place] [address]- 0946 Sep, [facility] [address] [id number], [place] [address]- 1236 Sep, [facility] [address]00565100[place], [place] [address]- 7874 Sep, [facility] [address]65100[place], [place] [address]- 2262 Dec, [facility] [address]65100[place], [place] [address]- 3771 Sep, [facility] [address]65100[place], [place] [address]- 2456 Sep, [facility] [address] [id number], [place] [address]- 7513 May, [facility] [address]100[place], [place] [address]- 3174 February, IMMUNIZATIONS No Known Immunizations SOCIAL HISTORY Never Assessed REASON FOR VISIT Hospital f/u went to [facility] for pneumonia not getting any better. Alpesh walton PLAN OF CARE Activity Details Follow Up TBD Reason: VITAL SIGNS Height 66 in 2018-08-26 Weight 245.2 lbs 2018-08-26 Temperature 98.6 degrees Fahrenheit 2018-08-26 Heart Rate 79 bpm 2018-08-26 Respiratory Rate 22 2018-08-26 Oximetry 89 % 2018-08-26 BMI 39.57 kg/m2 2018-08-26 Blood pressure systolic 122 mmHg 2018-08-26 Blood pressure diastolic 82 mmHg 2018-08-26 MEDICATIONS Medication Instructions Dosage Frequency Start Date End Date Duration Status Hydrochlorothiazide 12.5MG Orally Once a day 1 capsule 24h Active Tramadol HCl 50 MG Orally every 6 hrs 1 tablet as needed 6h Active Aspir-81 81 MG Orally Once a day 1 tablet 24h Active Gabapentin 600 MG Orally 3 times a day 1 capsule 8h Dec, Active Benzonatate 100 MG Orally Three times a day 1 capsule as needed 8h Active Spiriva Respimat 1.25 MCG/ACT Inhalation Once a day 2 puffs 24h Active Xarelto 20 mg Orally Once a day 1 tablet with food-start this after starter pack 24h May, Unknown Cymbalta 60 mg Orally Once a day 1 capsule 24h 90 days Active Symbicort 80-4.5 INHALE TWO PUFFS BY MOUTH TWICE DAILY Active Doxycycline Hyclate 100 MG Orally 2 times a day 1 capsule 12h 10 day( s) Active Oxygen & Tubing by inhalation route continuous 2 liters Aug, daily Active ProAir HFA 108 (90 Base) mcg/act Inhalation every 6 hrs for shortness of breath/cough 2 puffs as needed Aug, Active Metformin HCl 500MG Orally 2 times a day 1 tablet with meals 12h Active Simvastatin 20MG Orally Once a day 1 tablet in the evening 24h Active Amoxicillin-Pot Clavulanate 875-125 MG Orally every 12 hrs 1 tablet 12h 10 day(s) Active Ibuprofen 800 MG Orally Three times a day 1 tablet with food or milk as needed 8h Active Nebulizer nebulizer as directed May, Active RESULTS No Results PROCEDURES No Known [...] TSH less than 1 Medical History DVT [id number] pos tibial Surgical History cataract-lens implants Surgical History eye surgery for glaucoma Surgical History heart cath Surgical History left CTS 05/2016 Surgical History carpal tunnel release, bilat april and may Hospitalization History pneumonia 11/2015 Hospitalization History chest pain-ruled out cardiac cause 10/2016 Hospitalization History [facility] for pneumonia 08/2018
--- OUTSIDE RECORDS SUMMARY | 2018-11-05 09:30 | XMS REPORT | Continuity of Care Document ---
Author Author Formerly [facility] Address Unknown Phone Unavailable Allergies Active Description Code Type Severity Reaction Onset Reported/Identified Relationship to Patient Clinical Status Yes No Known Drug Allergies [id number] Drug Allergy Unknown N/A 09/15/2011 Medications There [...] K 496 CHRONIC OBSTRUCTIVE PULMONARY DISEASE 02/04/2009 GRACIA DO, DELIA K 786.05 shortness of breath 02/04/2009 GARCIA DO, DELIA K 786.50 chest pain or discomfort 02/04/2009 EATON BROOM MAKER, MAURICE L 496 CHRONIC OBSTRUCTIVE PULMONARY DISEASE 02/04/2009 EATON BROOM MAKER, MAURICE L 786.05 shortness of breath 02/04/2009 EATON BROOM MAKER, MAURICE L 786.50 chest pain or discomfort 02/04/2009 EATON BROOM MAKER, MAURICE L 496 CHRONIC OBSTRUCTIVE PULMONARY DISEASE 02/04/2009 EATON BROOM MAKER, MAURICE L 786.05 shortness of breath 02/04/2009 EATON BROOM MAKER, MAURICE L 786.50 chest pain or discomfort [...] 786.50 chest pain or discomfort 02/04/2009 EATON BROOM MAKER, MAURICE L 496 CHRONIC OBSTRUCTIVE PULMONARY DISEASE 02/04/2009 EATON BROOM MAKER, MAURICE L 786.05 shortness of breath 02/04/2009 EATON BROOM MAKER, MAURICE L 786.50 chest pain or discomfort 02/04/2009 EATON BROOM MAKER, MAURICE L 496 CHRONIC OBSTRUCTIVE PULMONARY DISEASE 02/04/2009 EATON BROOM MAKER, MAURICE L 786.05 shortness of breath 02/04/2009 EATON BROOM MAKER, MAURICE L 786.50 chest pain or discomfort 02/04/2009 EATON BROOM MAKER, MAURICE L 496 CHRONIC OBSTRUCTIVE PULMONARY DISEASE 02/04/2009 EATON BROOM MAKER, MAURICE L 786.05 shortness of breath 02/04/2009 EATON BROOM MAKER, MAURICE L 786.50 chest pain or discomfort [...] DO, DELIA K 786.2 COUGH 03/01/2009 EATON BROOM MAKER, MAURICE L 357.9 NEUROPATHY UNSP 03/01/2009 EATON BROOM MAKER, MAURICE L 786.2 COUGH 03/01/2009 EATON BROOM MAKER, MAURICE L 357.9 NEUROPATHY UNSP 03/01/2009 EATON BROOM MAKER, MAURICE L 786.2 COUGH 03/01/2009 GARCIA DO, [...] DO, DELIA K 786.2 COUGH 03/01/2009 EATON BROOM MAKER, MAURICE L 357.9 NEUROPATHY UNSP 03/01/2009 EATON BROOM MAKER, MAURICE L 786.2 COUGH 03/01/2009 EATON BROOM MAKER, MAURICE L 357.9 NEUROPATHY UNSP 03/01/2009 EATON BROOM MAKER, MAURICE L 786.2 COUGH 03/01/2009 EATON BROOM MAKER, MAURICE L 357.9 NEUROPATHY UNSP 03/01/2009 EATON BROOM MAKER, MAURICE L 786.2 COUGH 03/01/2009 GARCIA DO, DELIA K 357.9 NEUROPATHY UNSP 03/01/2009 GARCIA DO, DELIA K 786.2 COUGH 07/12/2009 V72.85 OTHER SPECIFIED EXAMINATION 07/12/2009 V72.85 OTHER SPECIFIED EXAMINATION 07/12/2009 V72.85 OTHER SPECIFIED EXAMINATION 07/12/2009 V72.85 OTHER SPECIFIED EXAMINATION 07/12/2009 GARCIA DO, DELIA K V72.85 OTHER SPECIFIED EXAMINATION 07/12/2009 EATON BROOM MAKER, MAURICE L V72.85 OTHER SPECIFIED EXAMINATION 07/12/2009 EATON BROOM MAKER, MAURICE L V72.85 OTHER SPECIFIED EXAMINATION 07/12/2009 GARCIA DO, DELIA K V72.85 OTHER SPECIFIED EXAMINATION 07/12/2009 GARCIA DO, DELIA K V72.85 OTHER SPECIFIED EXAMINATION 07/12/2009 GARCIA DO, DELIA K V72.85 OTHER SPECIFIED EXAMINATION 07/12/2009 GARCIA DO, DELIA K V72.85 OTHER SPECIFIED EXAMINATION 07/12/2009 EATON BROOM MAKER, MAURICE L V72.85 OTHER SPECIFIED EXAMINATION 07/12/2009 EATON BROOM MAKER, MAURICE L V72.85 OTHER SPECIFIED EXAMINATION 07/12/2009 EATON BROOM MAKER, MAURICE L V72.85 OTHER SPECIFIED EXAMINATION 07/12/2009 [...] 716.91 ARTHROPATHY, UNSPECIFIED, SHOULDER REGION 02/09/2010 EATON BROOM MAKER, MAURICE L 493.90 ASTHMA UNSPECIFIED 02/09/2010 EATON BROOM MAKER, MAURICE L 716.91 ARTHROPATHY, UNSPECIFIED, SHOULDER REGION 02/09/2010 EATON BROOM MAKER, MAURICE L 493.90 ASTHMA UNSPECIFIED 02/09/2010 EATON BROOM MAKER, MAURICE L 716.91 ARTHROPATHY, UNSPECIFIED, SHOULDER REGION [...] 716.91 ARTHROPATHY, UNSPECIFIED, SHOULDER REGION 02/09/2010 EATON BROOM MAKER, MAURICE L 493.90 ASTHMA UNSPECIFIED 02/09/2010 EATON BROOM MAKER, MAURICE L 716.91 ARTHROPATHY, UNSPECIFIED, SHOULDER REGION 02/09/2010 EATON BROOM MAKER, MAURICE L 493.90 ASTHMA UNSPECIFIED 02/09/2010 EATON BROOM MAKER, MAURICE L 716.91 ARTHROPATHY, UNSPECIFIED, SHOULDER REGION 02/09/2010 EATON BROOM MAKER, MAURICE L 493.90 ASTHMA UNSPECIFIED 02/09/2010 EATON BROOM MAKER, MAURICE L 716.91 ARTHROPATHY, UNSPECIFIED, SHOULDER REGION [...] ALLIED DISORDERS, OTHER SPECIFIED DISORDERS 02/23/2010 EATON BROOM MAKERVALENTINEMAURICE L 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, OTHER SPECIFIED DISORDERS 02/23/2010 EATON BROOM MAKER, MAURICE L 726.19 ROTATOR CUFF SYNDROME OF [...] ALLIED DISORDERS, OTHER SPECIFIED DISORDERS 02/23/2010 EATON BROOM MAKER, MAURICE L 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, OTHER SPECIFIED DISORDERS 02/23/2010 EATON BROOM MAKER, MAURICE L 726.19 ROTATOR CUFF SYNDROME OF [...] DO, DELIA K 784.0 HEADACHE 07/04/2010 EATON BROOM MAKER, MAURICE L 784.0 HEADACHE 07/04/2010 EATON BROOM MAKER, MAURICE L 784.0 HEADACHE 07/04/2010 GARCIA DO, DELIA K 784.0 HEADACHE 07/04/2010 GARCIA DO, DELIA K 784.0 HEADACHE 07/04/2010 GARCIA DO, DELIA K 784.0 HEADACHE 07/04/2010 GARCIA DO, DELIA K 784.0 HEADACHE 07/04/2010 EATON BROOM MAKER, MAURICE L 784.0 HEADACHE 07/04/2010 EATON BROOM MAKER, MAURICE L 784.0 HEADACHE 07/04/2010 EATON BROOM MAKER, MAURICE L 784.0 HEADACHE 07/04/2010 GARCIA DO, [...] 460 ACUTE NASOPHARYNGITIS (COMMON COLD) 09/25/2010 EATON BROOM MAKER, MAURICE L 368.2 DIPLOPIA 09/25/2010 EATON BROOM MAKER, MAURICE L 460 ACUTE NASOPHARYNGITIS (COMMON COLD) 09/25/2010 EATON BROOM MAKER, MAURICE L 368.2 DIPLOPIA 09/25/2010 EATON BROOM MAKER, MAURICE L 460 ACUTE NASOPHARYNGITIS (COMMON COLD) [...] 460 ACUTE NASOPHARYNGITIS (COMMON COLD) 09/25/2010 EATON BROOM MAKER, MAURICE L 368.2 DIPLOPIA 09/25/2010 EATON BROOM MAKER, MAURICE L 460 ACUTE NASOPHARYNGITIS (COMMON COLD) 09/25/2010 EATON BROOM MAKER, MAURICE L 368.2 DIPLOPIA 09/25/2010 EATON BROOM MAKER, MAURICE L 460 ACUTE NASOPHARYNGITIS (COMMON COLD) 09/25/2010 EATON BROOM MAKER, MAURICE L 368.2 DIPLOPIA 09/25/2010 EATON BROOM MAKER, MAURICE L 460 ACUTE NASOPHARYNGITIS (COMMON COLD) [...] DO, DELIA K 716.90 ARTHROPATHY 12/29/2010 EATON BROOM MAKER, MAURICE L 354.2 LESION OF ULNAR NERVE 12/29/2010 EATON BROOM MAKER, MAURICE L 716.90 ARTHROPATHY 12/29/2010 EATON BROOM MAKER, MAURICE L 354.2 LESION OF ULNAR NERVE 12/29/2010 EATON BROOM MAKER, MAURICE L 716.90 ARTHROPATHY 12/29/2010 GARCIA DO, [...] DO, DELIA K 716.90 ARTHROPATHY 12/29/2010 EATON BROOM MAKER, MAURICE L 354.2 LESION OF ULNAR NERVE 12/29/2010 EATON BROOM MAKER, MAURICE L 716.90 ARTHROPATHY 12/29/2010 EATON BROOM MAKER, MAURICE L 354.2 LESION OF ULNAR NERVE 12/29/2010 EATON BROOM MAKER, MAURICE L 716.90 ARTHROPATHY 12/29/2010 EATON BROOM MAKER, MAURICE L 354.2 LESION OF ULNAR NERVE 12/29/2010 EATON BROOM MAKER, MAURICE L 716.90 ARTHROPATHY 12/29/2010 GARCIA DO, DELIA K 354.2 LESION OF ULNAR NERVE 12/29/2010 GARCIA DO, DELIA K 716.90 ARTHROPATHY 06/04/2011 276.8 HYPOPOTASSEMIA 06/04/2011 276.8 HYPOPOTASSEMIA 06/04/2011 276.8 HYPOPOTASSEMIA 06/04/2011 276.8 HYPOPOTASSEMIA 06/04/2011 GARCIA DO, DELIA K 276.8 HYPOPOTASSEMIA 06/04/2011 EATON BROOM MAKER, MAURICE L 276.8 HYPOPOTASSEMIA 06/04/2011 EATON BROOM MAKER, MAURICE L 276.8 HYPOPOTASSEMIA 06/04/2011 GARCIA DO, DELIA K 276.8 HYPOPOTASSEMIA 06/04/2011 GARCIA DO, DELIA K 276.8 HYPOPOTASSEMIA 06/04/2011 GARCIA DO, DELIA K 276.8 HYPOPOTASSEMIA 06/04/2011 GARCIA DO, DELIA K 276.8 HYPOPOTASSEMIA 06/04/2011 EATON BROOM MAKER, MAURICE L 276.8 HYPOPOTASSEMIA 06/04/2011 EATON BROOM MAKER, MAURICE L 276.8 HYPOPOTASSEMIA 06/04/2011 EATON BROOM MAKER, MAURICE L 276.8 HYPOPOTASSEMIA 06/04/2011 GARCIA DO, DELIA K 276.8 HYPOPOTASSEMIA 06/14/2011 466.0 BRONCHITIS, ACUTE 06/14/2011 466.0 BRONCHITIS, ACUTE 06/14/2011 466.0 BRONCHITIS, ACUTE 06/14/2011 466.0 BRONCHITIS, ACUTE 06/14/2011 GARCIA DO, DELIA K 466.0 BRONCHITIS, ACUTE 06/14/2011 EATON BROOM MAKER, MAURICE L 466.0 BRONCHITIS, ACUTE 06/14/2011 EATON BROOM MAKER, MAURICE L 466.0 BRONCHITIS, ACUTE 06/14/2011 GARCIA DO, DELIA K 466.0 BRONCHITIS, ACUTE 06/14/2011 GARCIA DO, DELIA K 466.0 BRONCHITIS, ACUTE 06/14/2011 GARCIA DO, DELIA K 466.0 BRONCHITIS, ACUTE 06/14/2011 GARCIA DO, DELIA K 466.0 BRONCHITIS, ACUTE 06/14/2011 EATON BROOM MAKER, MAURICE L 466.0 BRONCHITIS, ACUTE 06/14/2011 EATON BROOM MAKER, MAURICE L 466.0 BRONCHITIS, ACUTE 06/14/2011 EATON BROOM MAKER, MAURICE L 466.0 BRONCHITIS, ACUTE 06/14/2011 GARCIA [...] INVOLVING PELVIC REGION AND THIGH 09/21/2011 EATON BROOM MAKER, MAURICE L 719.45 PAIN IN JOINT INVOLVING PELVIC REGION AND THIGH 09/21/2011 LAAZRUS GARCIA DOA K 719.45 PAIN IN JOINT INVOLVING PELVIC REGION AND THIGH 09/21/2011 LAZARUS GARCIA DOA K 719.45 PAIN IN JOINT INVOLVING PELVIC REGION AND THIGH 09/21/2011 GARCIA DO, DELIA K 719.45 PAIN IN JOINT INVOLVING PELVIC REGION AND THIGH 09/21/2011 GARCIA DO, DELIA K 719.45 PAIN IN JOINT INVOLVING PELVIC REGION AND THIGH 09/21/2011 EATON BROOM MAKERVALENTINE LalSON L 719.45 PAIN IN JOINT INVOLVING PELVIC REGION AND THIGH 09/21/2011 EATON BROOM MAKER MAURICE L 719.45 PAIN IN JOINT INVOLVING PELVIC REGION AND THIGH 09/21/2011 EATON BROOM MAKER MAURICE L 719.45 PAIN IN JOINT INVOLVING PELVIC REGION AND THIGH 09/21/2011 GARCIA DO, DELIA K 719.45 PAIN IN JOINT INVOLVING PELVIC REGION AND THIGH 09/24/2011 786.52 CHEST WALL PAIN 09/24/2011 786.52 CHEST WALL PAIN 09/24/2011 786.52 CHEST WALL PAIN 09/24/2011 786.52 CHEST WALL PAIN 09/24/2011 GARCIA DO, DELIA K 786.52 CHEST WALL PAIN 09/24/2011 EATON BROOM MAKER, MAURICE L 786.52 CHEST WALL PAIN 09/24/2011 EATON BROOM MAKER, MAURICE L 786.52 CHEST WALL PAIN 09/24/2011 GARCIA DO, DELIA K 786.52 CHEST WALL PAIN 09/24/2011 GARCIA DO, DELIA K 786.52 CHEST WALL PAIN 09/24/2011 GARCIA DO, DELIA K 786.52 CHEST WALL PAIN 09/24/2011 GARCIA DO, DELIA K 786.52 CHEST WALL PAIN 09/24/2011 EATON BROOM MAKER, MAURICE L 786.52 CHEST WALL PAIN 09/24/2011 EATON BROOM MAKER, MAURICE L 786.52 CHEST WALL PAIN 09/24/2011 EATON BROOM MAKER, MAURICE L 786.52 CHEST WALL PAIN 09/24/2011 [...] DELIA K 525.9 tooth pain 11/30/2011 EATON BROOM MAKERMAURICE L 521.03 CARIES PULP 11/30/2011 EATON BROOM MAKER, MAURICE L 525.9 tooth pain 11/30/2011 EATON BROOM MAKER, MAURICE L 521.03 CARIES PULP 11/30/2011 EATON BROOM MAKERMAURICE L 525.9 tooth pain 11/30/2011 GARCIA DO, [...] Lal L 521.03 CARIES PULP 11/30/2011 EATON BROOM MAKERMAURICE L 525.9 tooth pain 11/30/2011 EATON BROOM MAKER, MAURICE L 521.03 CARIES PULP 11/30/2011 EATON BROOM MAKERMAURICE L 525.9 tooth pain 11/30/2011 EATON BROOM MAKERMAURICE L 521.03 CARIES PULP 11/30/2011 EATON BROOM MAKERMAURICE Lal L 525.9 tooth pain 11/30/2011 GARCIA [...] DELIA K 268.9 VITAMIN D DEFICIENCY 04/17/2012 GACRIA DO, DELIA K 272.1 ESSENTIAL HYPERTRIGLYCERIDEMIA 04/17/2012 EATON BROOM MAKERVALENTINEMAURICE L 268.9 VITAMIN D DEFICIENCY 04/17/2012 EATON BROOM MAKER, MAURICE L 272.1 ESSENTIAL HYPERTRIGLYCERIDEMIA 04/17/2012 EATON BROOM MAKER, MAURICE L 268.9 VITAMIN D DEFICIENCY 04/17/2012 EATON BROOM MAKER, MAURICE L 272.1 ESSENTIAL HYPERTRIGLYCERIDEMIA 04/17/2012 GARCIA [...] DELIA K 272.1 ESSENTIAL HYPERTRIGLYCERIDEMIA 04/17/2012 EATON BROOM MAKER, MAURICE L 268.9 VITAMIN D DEFICIENCY 04/17/2012 EATON BROOM MAKER, MAURICE L 272.1 ESSENTIAL HYPERTRIGLYCERIDEMIA 04/17/2012 EATON BROOM MAKER, MAURICE L 268.9 VITAMIN D DEFICIENCY 04/17/2012 EATON BROOM MAKER, MAURICE L 272.1 ESSENTIAL HYPERTRIGLYCERIDEMIA 04/17/2012 EATON BROOM MAKER, MAURICE L 268.9 VITAMIN D DEFICIENCY 04/17/2012 EATON BROOM MAKER, MAURICE L 272.1 ESSENTIAL HYPERTRIGLYCERIDEMIA 04/17/2012 GARCIA DO, DELIA K 268.9 VITAMIN D DEFICIENCY 04/17/2012 GARCIA DO, DELIA K 272.1 ESSENTIAL HYPERTRIGLYCERIDEMIA 02/27/2013 780.2 SYNCOPE AND COLLAPSE 02/27/2013 780.2 SYNCOPE AND COLLAPSE 02/27/2013 780.2 SYNCOPE AND COLLAPSE 02/27/2013 GARCIA DO, DELIA K 780.2 SYNCOPE AND COLLAPSE 02/27/2013 EATON BROOM MAKER, MAURICE L 780.2 SYNCOPE AND COLLAPSE 02/27/2013 EATON BROOM MAKER, MAURICE L 780.2 SYNCOPE AND COLLAPSE 02/27/2013 GARCIA DO, DELIA K 780.2 SYNCOPE AND COLLAPSE 02/27/2013 GARCIA DO, DELIA K 780.2 SYNCOPE AND COLLAPSE 02/27/2013 GARCIA DO, DELIA K 780.2 SYNCOPE AND COLLAPSE 02/27/2013 GARCIA DO, DELIA K 780.2 SYNCOPE AND COLLAPSE 02/27/2013 EATON BROOM MAKER, MAURICE L 780.2 SYNCOPE AND COLLAPSE 02/27/2013 EATON BROOM MAKER, MAURICE L 780.2 SYNCOPE AND COLLAPSE 02/27/2013 EATON BROOM MAKER, MAURICE L 780.2 SYNCOPE AND COLLAPSE 02/27/2013 GARCIA DO, DELIA K 780.2 SYNCOPE AND COLLAPSE 12/04/2013 GARCIA DO, DELIA K 782.3 EDEMA 12/04/2013 GARCIA DO, DELIA K V67.59 OTHER FOLLOW-UP EXAMINATION 12/04/2013 EATON BROOM MAKER, MAURICE L 782.3 EDEMA 12/04/2013 EATON BROOM MAKER, MAURICE L V67.59 OTHER FOLLOW-UP EXAMINATION 12/04/2013 EATON BROOM MAKER, MAURICE L 782.3 EDEMA 12/04/2013 EATON BROOM MAKER, MAURICE L V67.59 OTHER FOLLOW-UP EXAMINATION 12/04/2013 [...] K V67.59 OTHER FOLLOW-UP EXAMINATION 12/04/2013 EATON BROOM MAKER, MAURICE L 782.3 EDEMA 12/04/2013 EATON BROOM MAKER, MAURICE L V67.59 OTHER FOLLOW-UP EXAMINATION 12/04/2013 EATON BROOM MAKER, MAURICE L 782.3 EDEMA 12/04/2013 EATON BROOM MAKER, MAURICE L V67.59 OTHER FOLLOW-UP EXAMINATION 12/04/2013 EATON BROOM MAKER, MAURICE L 782.3 EDEMA 12/04/2013 EATON BROOM MAKER, MAURICE L V67.59 OTHER FOLLOW-UP EXAMINATION 12/04/2013 GARCIA DO, DELIA K 782.3 EDEMA 12/04/2013 GARCIA DO, DELIA K V67.59 OTHER FOLLOW-UP EXAMINATION 12/23/2013 EATON BROOM MAKER, MAURICE L 278.00 OBESITY 12/23/2013 EATON BROOM MAKER, MAURICE L 278.00 OBESITY 12/23/2013 GARCIA DO, DELIA K 278.00 OBESITY 12/23/2013 GARCIA DO, DELIA K 278.00 OBESITY 12/23/2013 GARCIA DO, DELIA K 278.00 OBESITY 12/23/2013 GARCIA DO, DELIA K 278.00 OBESITY 12/23/2013 EATON BROOM MAKER, MAURICE L 278.00 OBESITY 12/23/2013 EATON BROOM MAKER, MAURICE L 278.00 OBESITY 12/23/2013 EATON BROOM MAKER, MAURICE L 278.00 OBESITY 12/23/2013 GARCIA DO, DELIA K 278.00 OBESITY 01/07/2014 GARCIA DO, DELIA K 272.4 HYPERLIPIDEMIA 01/07/2014 GARCIA DO, DELIA K 272.4 HYPERLIPIDEMIA 01/07/2014 GARCIA DO, DELIA K 272.4 HYPERLIPIDEMIA 01/07/2014 GARCIA DO, DELIA K 272.4 HYPERLIPIDEMIA 01/07/2014 EATON BROOM MAKER, MAURICE L 272.4 HYPERLIPIDEMIA 01/07/2014 EATON BROOM MAKER, MAURICE L 272.4 HYPERLIPIDEMIA 01/07/2014 EATON BROOM MAKER, MAURICE L 272.4 HYPERLIPIDEMIA 01/07/2014 GARCIA DO, DELIA K 272.4 HYPERLIPIDEMIA 03/20/2014 CRISTOBAL JUARES DO Ot 327.23 OBSTRUCTIVE SLEEP APNEA (ADULT) (PEDIATR 03/20/2014 CRISTOBAL JUARES DO Ot 401.9 HYPERTENSION NOS 03/25/2014 GARCIA DO, DELIA K 848.3 SPRAIN RIBS 03/25/2014 GARCIA DO, DELIA K 848.3 SPRAIN RIBS 03/25/2014 EATON BROOM MAKER, MAURICE L 848.3 SPRAIN RIBS 03/25/2014 EATON BROOM MAKER, MAURICE L 848.3 SPRAIN RIBS 03/25/2014 EATON BROOM MAKER, MAURICE L 848.3 SPRAIN RIBS 03/25/2014 GARCIA DO, DELIA K 848.3 SPRAIN RIBS 04/07/2014 GARCIA DO, DELIA K 786.09 DYSPNEA 04/07/2014 EATON BROOM MAKER, MAURICE L 786.09 DYSPNEA 04/07/2014 EATON BROOM MAKER, MAURICE L 786.09 DYSPNEA 04/07/2014 EATON BROOM MAKER, MAURICE L 786.09 DYSPNEA 04/07/2014 DELIA GARCIA [...] CRISTOBAL M Ot 793.11 11/30/2014 CHARLES ESCOBAR GLOBAL TRANSPORTATION MANAGER Ot 496 11/30/2014 CHARLES ESCOBAR L GLOBAL TRANSPORTATION MANAGER Ot 786.09 11/30/2014 CHARLES ESCOBAR L GLOBAL TRANSPORTATION MANAGER Ot 786.50 04/19/2015 MARIA G MAURICE L GLOBAL TRANSPORTATION MANAGER Ot 278.00 04/19/2015 MARIA G MAURICE L GLOBAL TRANSPORTATION MANAGER Ot 782.3 04/19/2015 BLANQUITA CORTEZ CRISTOBAL M [...] M Ot 793.11 04/19/2015 CHARLES ESCOBAR L GLOBAL TRANSPORTATION MANAGER Ot 496 04/19/2015 CHARLES ESCOBAR L GLOBAL TRANSPORTATION MANAGER Ot 786.09 04/19/2015 CHARLES ESCOBAR L GLOBAL TRANSPORTATION MANAGER Ot 786.50 04/29/2015 BLANQUITA CORTEZ CRISTOBAL M Ot 327.23 04/29/2015 BLANQUITA CORTEZ CRISTOBAL M Ot 493.20 04/29/2015 CRISTOBAL JUARES DO M Ot 793.11 05/12/2015 CRISTOBAL JUARES DO M Ot 327.23 05/12/2015 BLANQUITA DOCRISTOBAL M Ot 493.20 05/12/2015 BLANQUITA DOCRISTOBAL M Ot 793.11 07/25/2015 MAURICE CUMMINS L GLOBAL TRANSPORTATION MANAGER Ot 278.00 07/25/2015 MAURICE CUMMINS L GLOBAL TRANSPORTATION MANAGER Ot 782.3 07/25/2015 BLANQUITA DO, CRISTOBAL M [...] M Ot 793.11 07/25/2015 JIMPAWAN CHARLES L GLOBAL TRANSPORTATION MANAGER Ot 496 07/25/2015 JIMPAWAN CHARLES L GLOBAL TRANSPORTATION MANAGER Ot 786.09 07/25/2015 JIMPAWAN CHARLES L GLOBAL TRANSPORTATION MANAGER Ot 786.50 07/25/2015 BLANQUITA CORTEZ CRISTOBAL M Ot 327.23 07/25/2015 BLANQUITA CORTEZ, CRISTOBAL M Ot 493.20 07/25/2015 BLANQUITA CORTEZ CRISTOBAL M Ot 793.11 08/10/2015 SARAH POWERS APRN Ot K92.1 08/10/2015 SARAH POWERS BROOM MAKER Ot R31.9 12/15/2015 MAURICE CUMMINS L GLOBAL TRANSPORTATION MANAGER Ot 278.00 12/15/2015 MAURICE CUMMINS L GLOBAL TRANSPORTATION MANAGER Ot 782.3 12/15/2015 BLANQUITA DO, CRISTOBAL M [...] DO Ot 793.11 12/15/2015 JIMCHARLES VILLALTA Nick GLOBAL TRANSPORTATION MANAGER Ot 496 12/15/2015 LUZ CHARLES Nick GLOBAL TRANSPORTATION MANAGER Ot 786.09 12/15/2015 LUZ CHARLES L GLOBAL TRANSPORTATION MANAGER Ot 786.50 12/15/2015 CRISTOBAL JUARES DO Ot 327.23 12/15/2015 CRISTOBAL JUARES DO Ot 493.20 12/15/2015 CRISTOBAL JUARES DO Ot 793.11 12/15/2015 SARAH POWERS BROOM MAKER Ot K92.1 12/15/2015 SARAH POWERS BROOM MAKER Ot R31.9 01/08/2016 WALT RAZO DOIN R [...] 786.50 CHEST PAIN NOS 04/02/2016 MAURICE CUMMINS GLOBAL TRANSPORTATION MANAGER Ot 278.00 OBESITY, NOS 04/02/2016 MAURICE CUMMINS GLOBAL TRANSPORTATION MANAGER Ot 782.3 EDEMA 04/02/2016 CRISTOBAL JUARES DO Ot 277.9 METABOLISM DISORDER NOS 04/02/2016 CRISTOBAL JUARES DO Ot 278.00 OBESITY, NOS 04/02/2016 CRISOTBAL JUARES DO Ot 296.90 UNSPECIFIED EPISODIC MOOD [...] 793.11 SOLITARY PULMONARY NODULE 04/02/2016 CHARLES ESCOBAR GLOBAL TRANSPORTATION MANAGER Ot 496 CHR AIRWAY OBSTRUCT NEC 04/02/2016 CHARLES ESCOBAR GLOBAL TRANSPORTATION MANAGER Ot 786.09 RESPIRATORY ABNORM NEC 04/02/2016 CHARLES ESCOBAR GLOBAL TRANSPORTATION MANAGER Ot 786.50 CHEST PAIN NOS 04/02/2016 MAURICE CUMMINS GLOBAL TRANSPORTATION MANAGER Ot M54.2 CERVICALGIA 04/02/2016 LORENZO RAZO DO Ot J18.9 PNEUMONIA, UNSPECIFIED ORGANISM 04/02/2016 LORENZO RAZO DO Ot R91.1 SOLITARY PULMONARY NODULE 04/02/2016 Ot 424.0 MITRAL VALVE DISORDER 04/02/2016 Ot 428.20 UNSPEC SYSTOLIC HRT FAILURE 04/02/2016 Ot 786.50 CHEST PAIN NOS 04/02/2016 MAURICE CUMMINS GLOBAL TRANSPORTATION MANAGER Ot 278.00 OBESITY, NOS 04/02/2016 MAURICE CUMMINS GLOBAL TRANSPORTATION MANAGER Ot 782.3 EDEMA 04/02/2016 CRISTOBAL JUARES DO [...] 793.11 SOLITARY PULMONARY NODULE 04/02/2016 CHARLES ESCOBAR GLOBAL TRANSPORTATION MANAGER Ot 496 CHR AIRWAY OBSTRUCT NEC 04/02/2016 CHARLES ESCOBAR GLOBAL TRANSPORTATION MANAGER Ot 786.09 RESPIRATORY ABNORM NEC 04/02/2016 CHARLES ESCOBAR L GLOBAL TRANSPORTATION MANAGER Ot 786.50 CHEST PAIN NOS 04/02/2016 LORENZO RAZO DO R Ot J18.9 PNEUMONIA, UNSPECIFIED ORGANISM 04/02/2016 LORENZO RAZO DO Ot R91.1 SOLITARY PULMONARY NODULE 04/03/2016 MIR NO APRN Ot J44.9 CHRONIC OBSTRUCTIVE PULMONARY DISEASE, U 04/03/2016 MIR NO BROOM MAKER Ot R91.1 SOLITARY PULMONARY NODULE 04/03/2016 MIR NO BROOM MAKER Ot J44.9 CHRONIC OBSTRUCTIVE PULMONARY DISEASE, U 04/03/2016 MIR NO BROOM MAKER Ot R91.1 SOLITARY PULMONARY NODULE 04/19/2016 MIR NO BROOM MAKER Ot J44.9 CHRONIC OBSTRUCTIVE PULMONARY DISEASE, U 04/19/2016 MIR NO BROOM MAKER Ot R91.1 SOLITARY PULMONARY NODULE 04/20/2016 MAURICE CUMMINS GLOBAL TRANSPORTATION MANAGER Ot 278.00 OBESITY, NOS 04/20/2016 MAURICE CUMMINS GLOBAL TRANSPORTATION MANAGER Ot 782.3 EDEMA 04/20/2016 CRISTOBAL JUARES DO [...] 793.11 SOLITARY PULMONARY NODULE 04/20/2016 CHARLES ESCOBAR GLOBAL TRANSPORTATION MANAGER Ot 496 CHR AIRWAY OBSTRUCT NEC 04/20/2016 CHARLES ESCOBAR GLOBAL TRANSPORTATION MANAGER Ot 786.09 RESPIRATORY ABNORM NEC 04/20/2016 CHARLES ESCOBAR GLOBAL TRANSPORTATION MANAGER Ot 786.50 CHEST PAIN NOS 04/20/2016 CRISTOBAL JUARES DO Ot 327.23 OBSTRUCTIVE SLEEP APNEA (ADULT) (PEDIATR 04/20/2016 CRISTOBAL JUARES DO Ot 493.20 CHRONIC OBSTRUCTIVE ASTHMA, NOS 04/20/2016 CRISTOBAL JUARES DO Ot 793.11 SOLITARY PULMONARY NODULE 04/20/2016 SARAH POWERS BROOM MAKER Ot K92.1 MELENA 04/20/2016 SARAH POWERS BROOM MAKER Ot R31.9 HEMATURIA, UNSPECIFIED 04/20/2016 MAURICE CUMMINS GLOBAL TRANSPORTATION MANAGER Ot M54.2 CERVICALGIA 04/20/2016 LORENZO RAZO DO Ot J18.9 PNEUMONIA, UNSPECIFIED ORGANISM 04/20/2016 LORENZO RAZO DO Ot R91.1 SOLITARY PULMONARY NODULE 04/20/2016 MIR NO BROOM MAKER Ot J44.9 CHRONIC OBSTRUCTIVE PULMONARY DISEASE, U 04/20/2016 MIR NO BROOM MAKER Ot R91.1 SOLITARY PULMONARY NODULE 04/25/2016 MARIA G MAURICE Nick GLOBAL TRANSPORTATION MANAGER Ot 278.00 OBESITY, NOS 04/25/2016 MARIA G MAURICE Nick GLOBAL TRANSPORTATION MANAGER Ot 782.3 EDEMA 04/25/2016 CRISTOBAL JUARES DO [...] 793.11 SOLITARY PULMONARY NODULE 04/25/2016 CHARLES ESCOBAR GLOBAL TRANSPORTATION MANAGER Ot 496 CHR AIRWAY OBSTRUCT NEC 04/25/2016 CHARLES ESCOBAR GLOBAL TRANSPORTATION MANAGER Ot 786.09 RESPIRATORY ABNORM NEC 04/25/2016 CHARLES ESCOBAR GLOBAL TRANSPORTATION MANAGER Ot 786.50 CHEST PAIN NOS 04/25/2016 CRISTOBAL JUARES DO Ot 327.23 OBSTRUCTIVE SLEEP APNEA (ADULT) (PEDIATR 04/25/2016 CRISTOBAL JUARES DO Ot 493.20 CHRONIC OBSTRUCTIVE ASTHMA, NOS 04/25/2016 CRISTOBAL JUARES DO Ot 793.11 SOLITARY PULMONARY NODULE 04/25/2016 SARAH POWERS BROOM MAKER Ot K92.1 MELENA 04/25/2016 SARAH POWERS BROOM MAKER Ot R31.9 HEMATURIA, UNSPECIFIED 04/25/2016 MAURICE CUMMINS GLOBAL TRANSPORTATION MANAGER Ot M54.2 CERVICALGIA 04/25/2016 ADNNI DO, LORENZO R Ot J18.9 PNEUMONIA, UNSPECIFIED [...] 793.11 SOLITARY PULMONARY NODULE 05/14/2016 SARAH POWERS BROOM MAKER Ot K92.1 MELENA 05/14/2016 SARAH POWERS BROOM MAKER Ot R31.9 HEMATURIA, UNSPECIFIED 05/14/2016 MAURICE CUMMINS GLOBAL TRANSPORTATION MANAGER Ot M54.2 CERVICALGIA 05/14/2016 DANNI CORTEZ, LORENZO R Ot J18.9 PNEUMONIA, UNSPECIFIED ORGANISM 05/14/2016 DANNI CORTEZ, LORENZO R Ot R91.1 SOLITARY PULMONARY NODULE 05/14/2016 MIR NO APRN Ot J44.9 CHRONIC OBSTRUCTIVE PULMONARY DISEASE, U 05/14/2016 MIR NO APRN Ot R91.1 SOLITARY PULMONARY NODULE 07/09/2016 CRISTOBAL JUARES DO Ot F39 UNSPECIFIED MOOD [AFFECTIVE] DISORDER 07/09/2016 CIRSTOBAL JUARES DO Ot G47.10 HYPERSOMNIA, UNSPECIFIED 07/09/2016 [...] R91.1 SOLITARY PULMONARY NODULE 01/16/2018 MAURICE CUMMINS GLOBAL TRANSPORTATION MANAGER Ot 278.00 OBESITY, NOS 01/16/2018 MAURICE CUMMINS GLOBAL TRANSPORTATION MANAGER Ot 782.3 EDEMA 01/16/2018 CRISTOBAL JUARES DO [...] 493.20 CHRONIC OBSTRUCTIVE ASTHMA, NOS 01/16/2018 CRISTOBAL JUAERS DO Ot 571.8 CHRONIC LIVER DIS NEC 01/16/2018 CRISTOBAL JUARES DO Ot 611.1 HYPERTROPHY OF BREAST 01/16/2018 CRISTOBAL JUARES DO Ot 793.11 SOLITARY PULMONARY NODULE 01/16/2018 CHARLES ESCOBAR GLOBAL TRANSPORTATION MANAGER Ot 496 CHR AIRWAY OBSTRUCT NEC 01/16/2018 CHARLES ESCOBAR GLOBAL TRANSPORTATION MANAGER Ot 786.09 RESPIRATORY ABNORM NEC 01/16/2018 CHARLES ESCOBAR GLOBAL TRANSPORTATION MANAGER Ot 786.50 CHEST PAIN NOS 01/16/2018 CRISTOBAL JUARES DO Ot 327.23 OBSTRUCTIVE SLEEP APNEA (ADULT) (PEDIATR 01/16/2018 CRISTOBAL JUARES DO Ot 493.20 CHRONIC OBSTRUCTIVE ASTHMA, NOS 01/16/2018 CRISTOBAL JUARES DO Ot 793.11 SOLITARY PULMONARY NODULE 01/16/2018 SARAH POWERS BROOM MAKER Ot K92.1 MELENA 01/16/2018 SARAH POWERS BROOM MAKER Ot R31.9 HEMATURIA, UNSPECIFIED 01/16/2018 MAURICE CUMMINS GLOBAL TRANSPORTATION MANAGER Ot M54.2 CERVICALGIA 01/16/2018 LORENZO RAZO DO [...] R91.1 SOLITARY PULMONARY NODULE 01/16/2018 MAURICE CUMMINS GLOBAL TRANSPORTATION MANAGER Ot 278.00 OBESITY, NOS 01/16/2018 MAURICE CUMMINS GLOBAL TRANSPORTATION MANAGER Ot 782.3 EDEMA 01/16/2018 CRISTOBAL JUARES DO [...] 793.11 SOLITARY PULMONARY NODULE 01/16/2018 CHARLES ESCOBAR GLOBAL TRANSPORTATION MANAGER Ot 496 CHR AIRWAY OBSTRUCT NEC 01/16/2018 CHARLES ESCOBAR GLOBAL TRANSPORTATION MANAGER Ot 786.09 RESPIRATORY ABNORM NEC 01/16/2018 CHARLES ESCOBAR GLOBAL TRANSPORTATION MANAGER Ot 786.50 CHEST PAIN NOS 01/16/2018 CRISTOBAL JUARES DO Ot 327.23 OBSTRUCTIVE SLEEP APNEA (ADULT) (PEDIATR 01/16/2018 CRISTOBAL JUARES DO Ot 493.20 CHRONIC OBSTRUCTIVE ASTHMA, NOS 01/16/2018 CRISTOBAL JUARES DO Ot 793.11 SOLITARY PULMONARY NODULE 01/16/2018 SARAH POWERS BROOM MAKER Ot K92.1 MELENA 01/16/2018 SARAH POWERS BROOM MAKER Ot R31.9 HEMATURIA, UNSPECIFIED 01/16/2018 MAURICE CUMMINSP Ot M54.2 CERVICALGIA 01/16/2018 LORENZO RAZO DO Ot J18.9 PNEUMONIA, UNSPECIFIED ORGANISM 01/16/2018 LORENZO RAZO DO Ot R91.1 SOLITARY PULMONARY NODULE 01/16/2018 MIR ON APRN Ot J44.9 CHRONIC OBSTRUCTIVE PULMONARY DISEASE, [...] R91.1 SOLITARY PULMONARY NODULE 02/05/2018 MAURICE CUMMINS GLOBAL TRANSPORTATION MANAGER Ot 278.00 OBESITY, NOS 02/05/2018 MAURICE CUMMINS GLOBAL TRANSPORTATION MANAGER Ot 782.3 EDEMA 02/05/2018 CRISTOBAL JUARES DO [...] 793.11 SOLITARY PULMONARY NODULE 02/05/2018 CHARLES ESCOBAR GLOBAL TRANSPORTATION MANAGER Ot 496 CHR AIRWAY OBSTRUCT NEC 02/05/2018 CHARLES ESCOBAR GLOBAL TRANSPORTATION MANAGER Ot 786.09 RESPIRATORY ABNORM NEC 02/05/2018 CHARLES ESCOBAR GLOBAL TRANSPORTATION MANAGER Ot 786.50 CHEST PAIN NOS 02/05/2018 CRISTOBAL JUARES DO Ot 327.23 OBSTRUCTIVE SLEEP APNEA (ADULT) (PEDIATR 02/05/2018 CRISTOBAL JUARES DO Ot 493.20 CHRONIC OBSTRUCTIVE ASTHMA, NOS 02/05/2018 CRISTOBAL JUARES DO Ot 793.11 SOLITARY PULMONARY NODULE 02/05/2018 SARAH POWERS BROOM MAKER Ot K92.1 MELENA 02/05/2018 SARAH POWERS BROOM MAKER Ot R31.9 HEMATURIA, UNSPECIFIED 02/05/2018 EATMAURICE HOLBROOK GLOBAL TRANSPORTATION MANAGER Ot M54.2 CERVICALGIA 02/05/2018 LORENZO RAZO DO Ot J18.9 PNEUMONIA, UNSPECIFIED ORGANISM 02/05/2018 LORENZO RAZO DO Ot R91.1 SOLITARY PULMONARY NODULE 02/05/2018 MIR NO BROOM MAKER Ot J44.9 CHRONIC OBSTRUCTIVE PULMONARY DISEASE, U 02/05/2018 MIR NO BROOM MAKER Ot R91.1 SOLITARY PULMONARY NODULE 02/05/2018 CRISTOBAL [...] PULMONARY NODULE 02/19/2018 MARIA G MAURICE L GLOBAL TRANSPORTATION MANAGER Ot 278.00 OBESITY, NOS 02/19/2018 MAURICE CUMMINS GLOBAL TRANSPORTATION MANAGER Ot 782.3 EDEMA 02/19/2018 CRISTOBAL JUARES DO [...] 793.11 SOLITARY PULMONARY NODULE 02/19/2018 CHARLES ESCOBAR GLOBAL TRANSPORTATION MANAGER Ot 496 CHR AIRWAY OBSTRUCT NEC 02/19/2018 CHARLES ESCOBAR GLOBAL TRANSPORTATION MANAGER Ot 786.09 RESPIRATORY ABNORM NEC 02/19/2018 CHARLES ESCOBAR GLOBAL TRANSPORTATION MANAGER Ot 786.50 CHEST PAIN NOS 02/19/2018 CRISTOBAL JUARES DO Ot 327.23 OBSTRUCTIVE SLEEP APNEA (ADULT) (PEDIATR 02/19/2018 CRISTOBAL JUARES DO Ot 493.20 CHRONIC OBSTRUCTIVE ASTHMA, NOS 02/19/2018 CRISTOBAL JUARES DO Ot 793.11 SOLITARY PULMONARY NODULE 02/19/2018 SARAH POWERS APRN Ot K92.1 MELENA 02/19/2018 SARAH POWERS BROOM MAKER Ot R31.9 HEMATURIA, UNSPECIFIED 02/19/2018 MAURICE CUMMINS GLOBAL TRANSPORTATION MANAGER Ot M54.2 CERVICALGIA 02/19/2018 LORENZO RAZO DO Ot J18.9 PNEUMONIA, UNSPECIFIED ORGANISM 02/19/2018 WALT RAZO DOIN R Ot R91.1 SOLITARY PULMONARY NODULE 02/19/2018 MIR NO APRN Ot J44.9 CHRONIC OBSTRUCTIVE PULMONARY DISEASE, U 02/19/2018 MIR NO APRN Ot R91.1 SOLITARY PULMONARY NODULE 02/19/2018 CRISTOBAL JUARES DO Ot F39 UNSPECIFIED MOOD [AFFECTIVE] DISORDER 02/19/2018 CRISTOABL JUARES DO Ot G47.10 HYPERSOMNIA, UNSPECIFIED 02/19/2018 CRISTOBAL JUARES DO Ot G47.33 OBSTRUCTIVE SLEEP APNEA (ADULT) (PEDIATR 02/19/2018 CRISTOBAL JUARES DO Ot J44.9 CHRONIC OBSTRUCTIVE PULMONARY DISEASE, U 02/19/2018 CRISTOBAL JUARES DO Ot R06.83 SNORING 02/19/2018 CRISTOBAL JUARES DO Ot R53.83 OTHER FATIGUE 02/19/2018 CRISTOBAL JUARES DO Ot R91.1 SOLITARY PULMONARY NODULE 02/26/2018 MAURICE CUMMINS GLOBAL TRANSPORTATION MANAGER Ot 278.00 OBESITY, NOS 02/26/2018 MAURICE CUMMINS GLOBAL TRANSPORTATION MANAGER Ot 782.3 EDEMA 02/26/2018 CRISTOBAL JUARES DO [...] Ot 493.20 CHRONIC OBSTRUCTIVE ASTHMA, NOS 02/26/2018 RCISTOBAL JUARES DO Ot 571.8 CHRONIC LIVER DIS NEC 02/26/2018 CRISTOBAL JUARES DO Ot 611.1 HYPERTROPHY OF BREAST 02/26/2018 CRISTOBAL JUARES DO Ot 793.11 SOLITARY PULMONARY NODULE 02/26/2018 CHARLES ESCOBARP Ot 496 CHR AIRWAY OBSTRUCT NEC 02/26/2018 CHARLES ESCOBAR GLOBAL TRANSPORTATION MANAGER Ot 786.09 RESPIRATORY ABNORM NEC 02/26/2018 CHARLES ESCOBAR GLOBAL TRANSPORTATION MANAGER Ot 786.50 CHEST PAIN NOS 02/26/2018 CRISTOBAL JUARES DO Ot 327.23 OBSTRUCTIVE SLEEP APNEA (ADULT) (PEDIATR 02/26/2018 CRISTOBAL JUARES DO Ot 493.20 CHRONIC OBSTRUCTIVE ASTHMA, NOS 02/26/2018 CRISTOBAL JUARES DO Ot 793.11 SOLITARY PULMONARY NODULE 02/26/2018 SARAH POWERS BROOM MAKER Ot K92.1 MELENA 02/26/2018 SARAH POWERS BROOM MAKER Ot R31.9 HEMATURIA, UNSPECIFIED 02/26/2018 MAURICE CUMMINSP [...] R91.1 SOLITARY PULMONARY NODULE 08/26/2018 MAURICE CUMMINS GLOBAL TRANSPORTATION MANAGER Ot 278.00 OBESITY, NOS 08/26/2018 MAURICE CUMMINS GLOBAL TRANSPORTATION MANAGER Ot 782.3 EDEMA 08/26/2018 CRISTOBAL JUARES DO Ot 277.9 METABOLISM DISORDER NOS 08/26/2018 [...] 793.11 SOLITARY PULMONARY NODULE 08/26/2018 CHARLES ESCOBAR GLOBAL TRANSPORTATION MANAGER Ot 496 CHR AIRWAY OBSTRUCT NEC 08/26/2018 CHARLES ESCOBAR GLOBAL TRANSPORTATION MANAGER Ot 786.09 RESPIRATORY ABNORM NEC 08/26/2018 CHARLES ESCOBAR GLOBAL TRANSPORTATION MANAGER Ot 786.50 CHEST PAIN NOS 08/26/2018 CRISTOBAL JUARES DO Ot 327.23 OBSTRUCTIVE SLEEP APNEA (ADULT) (PEDIATR 08/26/2018 CRISTOBAL JUARES DO Ot 493.20 CHRONIC OBSTRUCTIVE ASTHMA, NOS 08/26/2018 CRISTOBAL JUARES DO Ot 793.11 SOLITARY PULMONARY NODULE 08/26/2018 SARAH POWERS BROOM MAKER Ot K92.1 MELENA 08/26/2018 SARAH POWERS BROOM MAKER Ot R31.9 HEMATURIA, UNSPECIFIED 08/26/2018 EATONMAURICE GLOBAL TRANSPORTATION MANAGER Ot M54.2 CERVICALGIA 08/26/2018 LORENZO RAZO DO Ot J18.9 PNEUMONIA, UNSPECIFIED ORGANISM 08/26/2018 LORENZO RAZO DO Ot R91.1 SOLITARY PULMONARY NODULE 08/26/2018 MIR NO BROOM MAKER Ot J44.9 CHRONIC OBSTRUCTIVE PULMONARY DISEASE, U 08/26/2018 MIR NO BROOM MAKER Ot R91.1 SOLITARY PULMONARY NODULE 08/26/2018 CRISTOBAL [...] R91.1 SOLITARY PULMONARY NODULE 08/26/2018 MAURICE CUMMINS GLOBAL TRANSPORTATION MANAGER Ot 278.00 OBESITY, NOS 08/26/2018 MAURICE CUMMINS GLOBAL TRANSPORTATION MANAGER Ot 782.3 EDEMA 08/26/2018 CRISTOBAL JUARES DO Ot 277.9 METABOLISM DISORDER NOS 08/26/2018 [...] 793.11 SOLITARY PULMONARY NODULE 08/26/2018 CHARLES ESCOBAR GLOBAL TRANSPORTATION MANAGER Ot 496 CHR AIRWAY OBSTRUCT NEC 08/26/2018 CHARLES ESCOBAR GLOBAL TRANSPORTATION MANAGER Ot 786.09 RESPIRATORY ABNORM NEC 08/26/2018 CHARLES ESCOBAR GLOBAL TRANSPORTATION MANAGER Ot 786.50 CHEST PAIN NOS 08/26/2018 CRISTOBAL JUARES DO Ot 327.23 OBSTRUCTIVE SLEEP APNEA (ADULT) (PEDIATR 08/26/2018 CRISTOBAL JUARES DO Ot 493.20 CHRONIC OBSTRUCTIVE ASTHMA, NOS 08/26/2018 CRISTOBAL JUARES DO Ot 793.11 SOLITARY PULMONARY NODULE 08/26/2018 POWERSSARAH FATIMA APRN Ot K92.1 MELENA 08/26/2018 SARAH POWERS APRN Ot R31.9 HEMATURIA, UNSPECIFIED 08/26/2018 MAURICE CUMMINS GLOBAL TRANSPORTATION MANAGER Ot M54.2 CERVICALGIA 08/26/2018 LORENZO RAZO DO R Ot J18.9 PNEUMONIA, UNSPECIFIED ORGANISM 08/26/2018 DANNI DO, LORENZO R Ot R91.1 SOLITARY PULMONARY NODULE 08/26/2018 MIR NO APRN Ot J44.9 CHRONIC OBSTRUCTIVE PULMONARY DISEASE, U 08/26/2018 MIR NO APRN Ot R91.1 SOLITARY PULMONARY NODULE 08/26/2018 CRISTOBAL [...] DO Ot R91.1 SOLITARY PULMONARY NODULE 08/26/2018 JASON GALLEGOS APRN Ot E11.9 TYPE 2 DIABETES MELLITUS WITHOUT COMPLIC 08/26/2018 JASON GALLEGOS APRN Ot E78.00 PURE HYPERCHOLESTEROLEMIA, UNSPECIFIED 08/26/2018 JASON GALLEGOS APRN Ot I10 ESSENTIAL (PRIMARY) HYPERTENSION 08/26/2018 JASON GALLEGOS APRN Ot J44.1 CHRONIC OBSTRUCTIVE PULMONARY DISEASE W 08/26/2018 JASON GALLEGOS APRN Ot R06.02 SHORTNESS OF BREATH 08/26/2018 JASON GALLEGOS APRN Ot Z79.51 CUSTODIAL (CURRENT) USE OF INHALED STERO 08/26/2018 JASON GALLEGOS APRN Ot Z79.52 CUSTODIAL (CURRENT) USE OF SYSTEMIC STER 08/26/2018 JASON GALLEGOS APRN Ot Z87.19 PERSONAL HISTORY OF OTHER DISEASES OF TH 08/26/2018 JASON GALLEGOS APRN Ot Z87.891 PERSONAL HISTORY OF NICOTINE DEPENDENCE 08/28/2018 JASON GALLEGOS BROOM MAKER Ot E11.9 TYPE 2 DIABETES MELLITUS WITHOUT COMPLIC 08/28/2018 JASON GALLEGOS APRN Ot E78.00 PURE HYPERCHOLESTEROLEMIA, UNSPECIFIED 08/28/2018 JASON GALLEGOS BROOM MAKER Ot I10 ESSENTIAL (PRIMARY) HYPERTENSION 08/28/2018 JASON GALLEGOS APRN Ot J44.1 CHRONIC OBSTRUCTIVE PULMONARY DISEASE W 08/28/2018 JASON GALLEGOS APRN Ot R06.02 SHORTNESS OF BREATH 08/28/2018 JASON GALLEGOS APRN Ot Z79.51 CUSTODIAL (CURRENT) USE OF INHALED STERO 08/28/2018 JASON GALLEGOS APRN Ot Z79.52 CUSTODIAL (CURRENT) USE OF SYSTEMIC STER 08/28/2018 JASON GALLEGOS APRN Ot Z87.19 PERSONAL HISTORY OF OTHER DISEASES OF TH 08/28/2018 JASON GALLEGOS APRN Ot Z87.891 PERSONAL HISTORY OF NICOTINE DEPENDENCE 09/22/2018 MAURICE CUMMINS GLOBAL TRANSPORTATION MANAGER Ot 278.00 OBESITY, NOS 09/22/2018 MAURICE CUMMINS GLOBAL TRANSPORTATION MANAGER Ot 782.3 EDEMA 09/22/2018 CRISTOBAL JUARES DO Ot 277.9 METABOLISM DISORDER NOS 09/22/2018 CRISTOBAL JURAES DO Ot 278.00 OBESITY, NOS 09/22/2018 CRISTOBAL JUARES DO Ot 296.90 UNSPECIFIED EPISODIC MOOD DISORDER 09/22/2018 CRISTOBAL JUARES DO Ot 493.20 CHRONIC OBSTRUCTIVE ASTHMA, NOS 09/22/2018 CRISTOBAL JUARES DO Ot 780.54 HYPERSOMNIA, UNSPECIFIED 09/22/2018 CRISTOBAL JUARES DO Ot 786.09 RESPIRATORY ABNORM NEC 09/22/2018 CRISTOBAL JUARES DO Ot 493.20 CHRONIC OBSTRUCTIVE ASTHMA, NOS 09/22/2018 CRISTOBAL JUARES DO Ot 571.8 CHRONIC LIVER DIS NEC 09/22/2018 CRISTOBAL JUARES DO Ot 611.1 HYPERTROPHY OF BREAST 09/22/2018 CRISTOBAL JUARES DO Ot 793.11 SOLITARY PULMONARY NODULE 09/22/2018 CHARLES ESCOBAR GLOBAL TRANSPORTATION MANAGER Ot 496 CHR AIRWAY OBSTRUCT NEC 09/22/2018 CHARLES ESCOBAR GLOBAL TRANSPORTATION MANAGER Ot 786.09 RESPIRATORY ABNORM NEC 09/22/2018 CHARLES ESCOBAR GLOBAL TRANSPORTATION MANAGER Ot 786.50 CHEST PAIN NOS 09/22/2018 CRISTOBAL JUARES DO Ot 327.23 OBSTRUCTIVE SLEEP APNEA (ADULT) (PEDIATR 09/22/2018 CRISTOBAL JUARES DO Ot 493.20 CHRONIC OBSTRUCTIVE ASTHMA, NOS 09/22/2018 CRISTOBAL JUARSE DO Ot 793.11 SOLITARY PULMONARY NODULE 09/22/2018 GIO SARAH J BROOM MAKER Ot K92.1 MELENA 09/22/2018 SARAH POWERS BROOM MAKER Ot R31.9 HEMATURIA, UNSPECIFIED 09/22/2018 MAURICE CUMMINS GLOBAL TRANSPORTATION MANAGER Ot M54.2 CERVICALGIA 09/22/2018 DANNI CORTEZ, LORENZO R Ot J18.9 PNEUMONIA, UNSPECIFIED ORGANISM 09/22/2018 DANNI CORTEZ, LORENZO R Ot R91.1 SOLITARY PULMONARY NODULE 09/22/2018 MIR NO APRN Ot J44.9 CHRONIC OBSTRUCTIVE PULMONARY DISEASE, U 09/22/2018 MIR NO APRN Ot R91.1 SOLITARY PULMONARY NODULE 09/22/2018 CRISTOBAL JUARES DO Ot F39 UNSPECIFIED MOOD [AFFECTIVE] DISORDER 09/22/2018 CRISTOBAL JUARES DO Ot G47.10 HYPERSOMNIA, UNSPECIFIED 09/22/2018 CRISTOBAL JUARES DO Ot G47.33 OBSTRUCTIVE SLEEP APNEA (ADULT) (PEDIATR 09/22/2018 CRISTOBAL JUARES DO Ot J44.9 CHRONIC OBSTRUCTIVE PULMONARY DISEASE, U 09/22/2018 CRISTOBAL JUARES DO Ot R06.83 SNORING 09/22/2018 CRISTOBAL JUARES DO Ot R53.83 OTHER FATIGUE 09/22/2018 CRISTOBAL JUARES DO Ot R91.1 SOLITARY PULMONARY NODULE 09/24/2018 MIR NO APRN Ot G47.33 OBSTRUCTIVE SLEEP APNEA (ADULT) (PEDIATR 09/24/2018 MIR NO APRN Ot J44.9 CHRONIC OBSTRUCTIVE PULMONARY DISEASE, U 09/24/2018 MIR NO APRN Ot R09.02 HYPOXEMIA 09/24/2018 MIR NO APRN Ot R53.83 OTHER FATIGUE 09/29/2018 MAURICE CUMMINS GLOBAL TRANSPORTATION MANAGER Ot 278.00 OBESITY, NOS 09/29/2018 MAURICE CUMMINS GLOBAL TRANSPORTATION MANAGER Ot 782.3 EDEMA 09/29/2018 CRISTOBAL JUARES DO Ot 277.9 METABOLISM DISORDER NOS 09/29/2018 CRISTOBAL JUARES DO Ot 278.00 OBESITY, NOS 09/29/2018 CRISTOBAL JUARES DO Ot 296.90 UNSPECIFIED EPISODIC MOOD DISORDER 09/29/2018 CRISTOBAL JUARES DO Ot 493.20 CHRONIC OBSTRUCTIVE ASTHMA, NOS 09/29/2018 CRISTOBAL JUARES DO Ot 780.54 HYPERSOMNIA, UNSPECIFIED 09/29/2018 CRISTOBAL JUARES DO Ot 786.09 RESPIRATORY ABNORM NEC 09/29/2018 CRISTOBAL JUARES DO Ot 493.20 CHRONIC OBSTRUCTIVE ASTHMA, NOS 09/29/2018 CRISTOBAL JUARES DO Ot 571.8 CHRONIC LIVER DIS NEC 09/29/2018 CRISTOBAL JUARES DO Ot 611.1 HYPERTROPHY OF BREAST 09/29/2018 CRISTOBAL JUARES DO Ot 793.11 SOLITARY PULMONARY NODULE 09/29/2018 CHARLES ESCOBAR GLOBAL TRANSPORTATION MANAGER Ot 496 CHR AIRWAY OBSTRUCT NEC 09/29/2018 CHARLES ESCOBAR GLOBAL TRANSPORTATION MANAGER Ot 786.09 RESPIRATORY ABNORM NEC 09/29/2018 CHARLES ESCOBAR GLOBAL TRANSPORTATION MANAGER Ot 786.50 CHEST PAIN NOS 09/29/2018 CRISTOBAL JUARES DO Ot 327.23 OBSTRUCTIVE SLEEP APNEA (ADULT) (PEDIATR 09/29/2018 CRISTOBAL JUARES DO Ot 493.20 CHRONIC OBSTRUCTIVE ASTHMA, NOS 09/29/2018 CRISTOBAL JUARES DO Ot 793.11 SOLITARY PULMONARY NODULE 09/29/2018 SARAH POWERS BROOM MAKER Ot K92.1 MELENA 09/29/2018 SARAH POWERS BROOM MAKER Ot R31.9 HEMATURIA, UNSPECIFIED 09/29/2018 EATMAURICE HOLBROOK GLOBAL TRANSPORTATION MANAGER Ot M54.2 CERVICALGIA 09/29/2018 LORENZO RAZO DO Ot J18.9 PNEUMONIA, UNSPECIFIED ORGANISM 09/29/2018 LORENZO RAZO DO Ot R91.1 SOLITARY PULMONARY NODULE 09/29/2018 MIR ON BROOM MAKER Ot J44.9 CHRONIC OBSTRUCTIVE PULMONARY DISEASE, U 09/29/2018 MIR NO BROOM MAKER Ot R91.1 SOLITARY PULMONARY NODULE 09/29/2018 CRISTOBAL JUARES DO Ot F39 UNSPECIFIED MOOD [AFFECTIVE] DISORDER 09/29/2018 CRISTOBAL JUARES DO Ot G47.10 HYPERSOMNIA, UNSPECIFIED 09/29/2018 CRISTOBAL JUARES DO Ot G47.33 OBSTRUCTIVE SLEEP APNEA (ADULT) (PEDIATR 09/29/2018 CRISTOBAL JUARES DO Ot J44.9 CHRONIC OBSTRUCTIVE PULMONARY DISEASE, U 09/29/2018 CRISTOBAL JUARES DO Ot R06.83 SNORING 09/29/2018 CRISTOBAL JUARES DO Ot R53.83 OTHER FATIGUE 09/29/2018 CRISTOBAL JUARES DO Ot R91.1 SOLITARY PULMONARY NODULE 09/29/2018 MIR NO APRN Ot G47.33 OBSTRUCTIVE SLEEP APNEA (ADULT) (PEDIATR 09/29/2018 MIR NO APRN Ot J44.9 CHRONIC OBSTRUCTIVE PULMONARY DISEASE, U 09/29/2018 MIR NO BROOM MAKER Ot R09.02 HYPOXEMIA 09/29/2018 MIR NO APRN Ot R53.83 OTHER FATIGUE 09/30/2018 MIR ON APRN Ot G47.33 OBSTRUCTIVE SLEEP APNEA (ADULT) (PEDIATR 09/30/2018 MIR NO BROOM MAKER Ot J44.9 CHRONIC OBSTRUCTIVE PULMONARY DISEASE, U 09/30/2018 MIR NO APRN Ot R59.0 LOCALIZED ENLARGED LYMPH NODES 10/30/2018 MIR NO APRN Ot G47.33 OBSTRUCTIVE SLEEP APNEA (ADULT) (PEDIATR 10/30/2018 MIR NO BROOM MAKER Ot J44.9 CHRONIC OBSTRUCTIVE PULMONARY DISEASE, U 10/30/2018 MIR NO BROOM MAKER Ot R59.0 LOCALIZED ENLARGED LYMPH NODES 10/31/2018 CRISTOBAL JUARES DO Ot Z01.818 ENCOUNTER FOR OTHER PREPROCEDURAL EXAMIN Procedures Code Description [place] [address] A1C (IN-HOUSE) 02/27/2013 22086 PULMONARY FUNCTION TEST (IN- HOUSE) 05/29/2013 97350 BRONCHODILATION PRE/POST 05/29/2013 40406 RESPIRATORY FLOW VOLUME LOOP 05/29/2013 88674 PULMONARY EDUCATION 05/29/2013 G0437 TOBACCO-USE BACK CLOSER>10MIN 05/29/2013 17770 ROUTINE VENIPUNCTURE 12/04/2013 96622 T4 FREE 12/04/2013 48694 TSH 12/04/2013 12144 ECHO 2D 12/23/2013 Pulmonary Cristobal Juares 12/23/2013 32128 ROUTINE VENIPUNCTURE 12/24/2013 31152 MICRO ALBUMIN-IN HOUSE 12/24/2013 49762 LIPID PANEL 12/24/2013 53328 MAGNESIUM 12/24/2013 79452 CBC 12/24/2013 5122699 GFR CALC (RESULT ONLY) 12/24/2013 28273 CMP 12/24/2013 70564 BNP 12/25/2013 Cardiolog Valentine Chase 02/13/2014 Cardiolog Valentine Chase 02/18/2014 26378 NUCLEAR STRESS TESTING 04/21/2014 37648 OXIMETRY 04/21/2014 60616 XRAY PELVIS 1 OR 2 VIEWS 04/29/2014 54520 XRAY HIP RIGHT UNILATERAL MIN 2 VIEWS 04/29/2014 88147 GLUCOSE FINGER STICK 04/29/2014 29184 ROUTINE VENIPUNCTURE 08/04/2014 71623 CMP 08/04/2014 52947 LIPID PANEL 08/04/2014 71029 A1C (RML) 08/04/2014 15268 A1C (IN-HOUSE) 11/24/2014 52193 MICRO ALBUMIN-IN HOUSE 11/24/2014 Results Test Result Range CBC - 07/24/17 09:09 WHITE BLOOD CELL COUNT 7.1 Thousand/uL 3.8-10.8 RED BLOOD CELL COUNT 4.59 Million/uL 4.20-5.80 HEMOGLOBIN 14.1 g/dL 13.2-17.1 HEMATOCRIT 41.8 % 38.5-50.0 MCV 91.1 fL 80.0-100.0 MCH 30.7 pg 27.0-33.0 MCHC 33.7 g/dL 32.0-36.0 RDW 14.0 % 11.0-15.0 PLATELET COUNT 265 Thousand/uL 140-400 MPV 9.9 fL 7.5-12.5 ABSOLUTE NEUTROPHILS 4729 cells/uL 7605-0322 ABSOLUTE LYMPHOCYTES 1669 cells/uL 850-3900 ABSOLUTE MONOCYTES [...] PSA, % FREE 50 % (calc) >25 Complete blood count (CBC) with automated white blood cell (WBC) differential - 08/26/18 12:35 Blood leukocytes automated count (number/volume) 13.0 10*3/uL 4.3-11.0 Blood erythrocytes automated count (number/volume) 4.49 10*6/uL 4.35-5.85 Venous blood hemoglobin measurement (mass/volume) 13.7 g/dL 13.3-17.7 Blood hematocrit (volume fraction) 42 % 40-54 Automated erythrocyte mean corpuscular volume 93 [foz_us] 80-99 Automated erythrocyte mean corpuscular hemoglobin (mass per erythrocyte) 31 pg 25-34 Automated erythrocyte mean corpuscular hemoglobin concentration measurement ( mass/volume) 33 g/dL 32-36 Automated erythrocyte distribution width ratio 15.4 % 10.0-14.5 Automated blood platelet count (count/volume) 268 10*3/uL 130-400 Automated blood platelet mean volume measurement 9.3 [foz_us] 7.4-10.4 Automated blood neutrophils/100 leukocytes 84 % 42-75 Automated blood lymphocytes/100 leukocytes 12 % 12-44 Blood monocytes/100 leukocytes 4 % 0-12 Automated blood eosinophils/100 leukocytes 0 % 0-10 Automated blood basophils/100 leukocytes 0 % 0-10 Blood neutrophils automated count (number/volume) 10.9 10*3 1.8-7.8 Blood lymphocytes automated count (number/volume) 1.6 10*3 1.0-4.0 Blood monocytes automated count (number/volume) 0.5 10*3 0.0-1.0 Automated eosinophil count 0.0 10*3/uL 0.0-0.3 Automated blood basophil count (count/volume) 0.0 10*3/uL 0.0-0.1 Blood lactic acid measurement (moles/volume) - 08/26/18 12:35 Blood lactic acid measurement (moles/volume) 1.98 mmol/L 0.50-2.00 Comprehensive metabolic panel - 08/26/18 12:35 Serum or plasma sodium measurement (moles/volume) 139 mmol/L 135-145 Serum or plasma potassium measurement (moles/volume) 4.3 mmol/L 3.6-5.0 Serum or plasma chloride measurement (moles/volume) 104 mmol/L 98-107 Carbon dioxide 28 mmol/L 21-32 Serum or plasma anion gap determination (moles/volume) 7 mmol/L 5-14 Serum or plasma urea nitrogen measurement (mass/volume) 22 mg/dL 7-18 Serum or plasma creatinine measurement (mass/volume) 1.00 mg/dL 0.60-1.30 Serum or plasma urea nitrogen/creatinine mass ratio 22 NRG Serum or plasma creatinine measurement with calculation of estimated glomerular filtration rate > NRG Serum or plasma glucose measurement (mass/volume) 108 mg/dL 70-105 Serum or plasma calcium measurement (mass/volume) 9.5 mg/dL 8.5-10.1 Serum or plasma total bilirubin measurement (mass/volume) 0.2 mg/dL 0.1-1.0 Serum or plasma alkaline phosphatase measurement (enzymatic activity/volume) 54 U/L 40-136 Serum or plasma aspartate aminotransferase measurement (enzymatic activity/ volume) 18 U/L 5-34 Serum or plasma alanine aminotransferase measurement (enzymatic activity/volume ) 27 U/L 0-55 Serum or plasma protein measurement (mass/volume) 7.1 g/dL 6.4-8.2 Serum or plasma albumin measurement (mass/volume) 4.1 g/dL 3.2-4.5 CALCIUM CORRECTED 9.4 mg/dL 8.5-10.1 Serum or plasma lithium measurement (moles/volume) - 08/26/18 12:35 BNP level 15.2 pg/mL <100.0 Bacterial blood culture - 08/26/18 12:35 Bacterial blood culture NG [facility] Bacterial blood culture - 08/26/18 12:59 Bacterial blood culture NG [facility] Arterial blood gas measurement - 09/22/18 14:05 Blood pCO2 43 mm[Hg] 35-45 Blood pO2 80 mm[Hg] 79-93 Arterial blood bicarbonate measurement (moles/volume) 26 mmol/L 23-27 Arterial blood base excess by calculation 1.5 mmol/L -2.5 -2.5 Arterial blood oxygen saturation measurement 97 % 94-100 * Inhaled oxygen flow rate 2 L NR Arterial blood pH measurement with patient temperature correction 7.40 7.37-7.43 Arterial blood carbon dioxide, total measurement (moles/volume) 27.3 mmol/L 21.0-31.0 Body site LEFT RADIAL NRG Assessment of wrist artery patency prior to arterial puncture POSITIVE NRG Setting of ventilation mode NO NRG Measurement of body temperature 97.6 NRG [id number] - 09/29/18 08:50 Serum or plasma urea nitrogen measurement (mass/volume) 14 mg/dL 7-18 Serum or plasma creatinine measurement (mass/volume) 0.89 mg/dL 0.60-1.30 Serum or plasma urea nitrogen/creatinine mass ratio 16 NRG Serum or plasma creatinine measurement with calculation of estimated glomerular filtration rate > NRG Encounters ACCT No. Visit Date/Time Discharge Status Pt. Type Provider Facility Loc./Unit Complaint [id number] 11/24/2014 08:17:00 11/24/2014 23:59:59 CLS Outpatient RADHA DODELIA [id number] 08/04/2014 08:39:00 08/04/2014 23:59:59 CLS Outpatient MAURICE CUMMINS APRN [id number] 04/29/2014 08:00:00 04/29/2014 23:59:59 CLS Outpatient EATON MAURICE HAYDEN [id number] 04/21/2014 00:00:00 04/21/2014 23:59:59 CLS Outpatient EATMAURICE HOLBROOK APRN [id number] 04/07/2014 09:12:00 04/07/2014 23:59:59 CLS Outpatient GARCIA DODELIA [id number] 03/25/2014 11:38:00 03/25/2014 23:59:59 CLS Outpatient DELIA GARCIA DO [id number] 02/13/2014 14:09:00 02/13/2014 23:59:59 CLS Outpatient GARCIA DODELIA [id number] 01/07/2014 09:51:00 01/07/2014 23:59:59 CLS Outpatient GARCIA DODELIA [id number] 12/24/2013 08:08:00 12/24/2013 23:59:59 CLS Outpatient EATON BROOM MAKERMAURICE Lal [id number] 12/23/2013 08:32:00 12/23/2013 23:59:59 CLS Outpatient EATYUSEF BROOM MAKERMAURICE Lal [id number] 12/04/2013 13:12:00 12/04/2013 23:59:59 CLS Outpatient GARCIA DODELIA [id number] 04/18/2012 08:39:00 04/18/2012 23:59:59 CLS Outpatient [id number] 06/23/2013 08:56:00 Document Registration [id number] 05/29/2013 13:39:00 Document Registration [id number] 02/27/2013 09:59:00 Document Registration [id number] 09/02/2018 11:20:00 09/02/2018 23:59:59 CLS Outpatient MAURICE CUMMINS APRN [facility] [id number] 07/24/2017 09:00:00 Document Registration [id number] 10/30/2018 05:36:00 10/30/2018 14:27:00 DIS Outpatient CRISTOBAL JUARES DO [facility] PREOP BRONCHOSCOPY [id number] 09/29/2018 08:38:00 09/29/2018 23:59:59 CLS Outpatient MIR NO APRN [facility] RAD CHAZ [id number] 09/22/2018 13:27:00 09/22/2018 23:59:59 CLS Outpatient MIR NO APRN [facility] RT FATIGUE,COPD,CHAZ, HYPOXEMIA [id number] 08/26/2018 11:27:00 08/26/2018 14:35:00 DIS Emergency JASON GALLEGOS APRN [facility] ER SOA [id number] 07/04/2016 08:12:00 07/04/2016 23:59:59 CLS Outpatient CRISTOBAL JUARES DO [facility] RT COPD,CHAZ,SNORING [id number] 04/02/2016 10:21:00 04/02/2016 23:59:59 CLS Outpatient MIR NO APRN [facility] RAD LUNG NODULE,COPD [id number] 01/02/2016 13:20:00 01/02/2016 23:59:59 CLS Outpatient LORENZO RAZO DO [facility] RAD LLL PNEUMONIA,RT LUNG NODULE [id number] 12/15/2015 14:35:00 12/15/2015 23:59:59 CLS Outpatient MAURICE CUMMINS [employer] [facility] RAD CERVICALGIA [id number] 07/25/2015 16:05:00 07/25/2015 23:59:59 CLS Outpatient SARAH POWERS CATRACHO [facility] RAD BLOOD IN STOOL AND LLQ PAIN [id number] 04/19/2015 07:40:00 04/19/2015 23:59:59 CLS Outpatient CRISTOBAL JUARES DO [facility] RAD COPD,ASTHMA,CHAZ [id number] 06/25/2014 09:27:00 06/25/2014 23:59:59 CLS Outpatient CRISTOBAL JUARES DO [facility] RAD LUNG NODULE [id number] 06/07/2014 10:39:00 06/07/2014 23:59:59 CLS Outpatient CHARLES ESCOBAR [facility] CARD CP,DYSPNEA,COPD [id number] 03/19/2014 21:02:00 03/20/2014 07:40:00 DIS Outpatient CRISTOBAL JUARES DO [facility] SLEEP [id number] 03/04/2014 08:40:00 03/04/2014 23:59:59 CLS Outpatient CRISTOBAL JUARES DO [facility] RAD [id number] 02/17/2014 09:16:00 02/17/2014 23:59:59 CLS Outpatient CRISTOBAL JUARES DO [facility] RT [id number] 01/22/2014 11:12:00 01/22/2014 23:59:59 CLS Outpatient CRISTOBAL JUARES DO [facility] RAD COPD,ASTHMA,MET DISORDER, MOOD DISORDER,SNORING [id number] 12/25/2013 12:08:00 12/25/2013 23:59:59 CLS Outpatient MAURICE CUMMINS [facility] CARD EDEMA,OBESITY [id number] 11/05/2018 07:30:00 PEN Preadmit CRISTOBAL JUARES DO [facility] ENDO FATIQUE/COPD/CHAZ/EXCESSIVE SLEEPINESS [id number] 06/25/2011 05:40:00 Document Registration [id number] 06/22/2011 12:12:00 Document Registration
--- NOTE | 2018-11-05 09:49 | Diagnostic Imaging Report ---
INDICATION: Post bronchoscopy. Frontal chest obtained at 9:10 a.m. and compared to 08/26/2018. FINDINGS: Heart is mildly enlarged. There is central vascular congestion. Parenchymal infiltrate in the right lung base is noted which was not present previously. There is no pneumothorax or pleural fluid. There is some mild linear atelectatic change or scarring in the left base. IMPRESSION: Mild cardiomegaly and central vascular congestion. New infiltrate in right lung base. There is some linear scarring or atelectasis in left base. There is no pneumothorax or pleural fluid following bronchoscopy. Dictated by: Dictated on workstation # [id number]
[2018-11-05 09:50] VITALS: BP 127/70
--- NOTE | 2018-11-05 09:50 | NUR ---
TO AMB SURG FROM PAR PER CART. ALERT, INFREQUENT, NON-PRODUCTIVE COUGH. DENIES COMPLAINTS. ABLE TO SWALLOW WITHOUT PROBLEM. SIPS OF WATER TOLERATED WITHOUT PROBLEM. PO FLUIDS PROVIDED. ON O2 AT 2L PER NC. PT STATES HE USES O2 AT HOME. HAS PORTABLE O2 WITH HIM TODAY.
[2018-11-05 10:20] VITALS: BP 121/78
[2018-11-05 10:50] VITALS: BP 138/84
--- NOTE | 2018-11-05 10:50 | NUR ---
TAKING PO FLUIDS WITHOUT PROBLEM. DENIES COMPLAINTS, NO COUGH NOTED OR REPORTED. READY FOR DISMISSAL.
--- NOTE | 2018-11-05 11:14 | Anesthesia-General Post-Op ---
General Patient Condition Mental Status/LOC: Same as Preop Cardiovascular: Satisfactory Nausea/Vomiting: Absent Respiratory: Satisfactory Pain: Controlled Complications: Absent Post Op Complications Complications None Follow Up Care/Instructions Patient Instructions None needed. Anesthesia/Patient Condition Patient Condition Patient is doing well, no complaints, stable vital signs, no apparent adverse anesthesia problems. No complications reported per nursing. KENDALL HARKINS CRNA Nov 05, 2018 11:14
--- NOTE | 2018-11-05 18:42 | Diagnostic Imaging Report ---
INDICATION: Intraoperative fluoroscopy utilized during bronchoscopy. FINDINGS AND IMPRESSION: A total of 21 seconds of fluoroscopy time was performed by Dr. Painting during bronchoscopy. Provided image shows endoscope in place likely in the right lower lobe. Please see operative report for complete details. Dictated by: Dictated on workstation # [id number]
== END 2018-11-05 10:50 | disposition home or self-care (01) ==
LOC: ENDO 07:10
PROVIDERS: ATTEND Internal Medicine Critical Care Medicine
DX: R91.8 Other nonspecific abnormal finding of lung field (principal); R59.0 Localized enlarged lymph nodes; J44.9 Chronic obstructive pulmonary disease, unspecified; R53.83 Other fatigue; G47.33 Obstructive sleep apnea (adult) (pediatric); G47.10 Hypersomnia, unspecified; I10 Essential (primary) hypertension; E78.5 Hyperlipidemia, unspecified; Z99.81 Dependence on supplemental oxygen; F32.9 Major depressive disorder, single episode, unspecified; E11.9 Type 2 diabetes mellitus without complications; Z79.84 Long term (current) use of oral hypoglycemic drugs; Z79.82 Long term (current) use of aspirin; Z79.899 Other long term (current) drug therapy
CPT/HCPCS: 71045; 82962; 87015; 87070; 87077; 87101; 87116; 87205; 87206; 94640

== ENCOUNTER → 2019-05-04 | Outpatient (CLI) | payer BC ==
[~2019-05-04] MED LIST changes: +ALBU1.25 INH; +HOLD METFORMIN - RECEIVED CONTRAST 20 ML VIAL IV SCH; +IOHEXOL 350 MG/ML 100 ML (OMNIPAQUE 350) VIAL IV ONE; +NS 100 ML (IVPB) BAG IV ONE
[2019-05-04 09:43] LABS: BUN/CREATININE RATIO 17; CREATININE SERUM 0.98 MG/DL (0.60-1.30); GFR ESTIMATED > 60
--- NOTE | 2019-05-04 10:54 | Diagnostic Imaging Report ---
PROCEDURE: CT chest with contrast only. TECHNIQUE: Multiple contiguous axial images were obtained through the chest after administration of intravenous contrast. Auto Exposure Controls were utilized during the CT exam to meet ALARA standards for radiation dose reduction. INDICATION: COPD, right lower lobe nodule and prominent mediastinal lymph nodes. COMPARISON: Comparison is made to study of 09/29/2018. FINDINGS: There is mild centrilobular emphysema most pronounced in the upper lobes, greater on the right. There is no evidence of new mass or infiltrate. Nodular focus in the right base has a more linear morphology on the current study and likely represents area of scarring. Prominent mediastinal lymph nodes have a similar appearance with largest lymph node measuring approximately 1.5 cm in the aorticopulmonary window. There is no significant pleural or pericardial fluid. There is low-density throughout the liver without focal hepatic abnormality identified. Note is made of old left lateral lower rib fracture. IMPRESSION: Background COPD with probable scarring in the right lung base. There is no evidence of new abnormality or significant change in prominent mediastinal lymph nodes. Dictated by: Dictated on workstation # [id number]
== END ==
LOC: RAD 09:08
PROVIDERS: ATTEND Nurse Practitioner Family
DX: J44.9 Chronic obstructive pulmonary disease, unspecified (principal); G47.10 Hypersomnia, unspecified; G47.33 Obstructive sleep apnea (adult) (pediatric); R09.02 Hypoxemia; R91.1 Solitary pulmonary nodule
CPT/HCPCS: 36415; 71260; 82565; 84520

== ENCOUNTER 2019-06-10 13:27 | Inpatient (IN) | payer SELFPAY ==
[~2019-06-10] VITALS: Ht 167.6 cm; Wt 120.7 kg
[2019-06-10] VITALS (11 sets, daily range): BP systolic 125–159; BP diastolic 65–112
[~2019-06-10 13:27] MED LIST changes: -ALBU2.5V4 NEB; -ASPI-983 PO; -CATHETER FLUSH 10 ML SYR IV PRN; -DULO60CA6 PO; -FLUT1BLS3 IH; -FURO40TA4 PO; -HOLD METFORMIN - RECEIVED CONTRAST 20 ML VIAL IV SCH; -HYDR12.5 PO; -IBUP-1780 PO; -IOHEXOL 350 MG/ML 100 ML (OMNIPAQUE 350) VIAL IV ONE; -IPRA3AMP31 NEB; -LORA10TA7 PO; -MONT10TA24 PO; -NS 100 ML (IVPB) BAG IV ONE; -OMEP20CA13 PO; -OMEP20TA7 PO; -RIVA15TA2 PO; -SIMV20TA3 PO
[2019-06-10] MEDS ORDERED: RT-ALBUTEROL/IPRATROPIUM 3 ML (DUONEB) VIAL IH PRN (14:15)
[2019-06-10 14:18] LABS: BASOPHILS % (AUTO) 0 % (0-10); EOSINOPHILS # (AUTO) 0.2 10^3/uL (0.0-0.3); EOSINOPHILS % (AUTO) 2 % (0-10); HEMATOCRIT 42 % (40-54); HEMOGLOBIN 13.6 G/DL (13.3-17.7); LYMPHOCYTES # (AUTO) 3.1 X 10^3 (1.0-4.0); LYMPHOCYTES % (AUTO) 27 % (12-44); MEAN CORPUSCULAR HEMOGLOBIN 30 PG (25-34); MEAN CORPUSCULAR HGB CONC 32 G/DL (32-36); MEAN CORPUSCULAR VOLUME 92 FL (80-99); MEAN PLATELET VOLUME 9.1 FL (7.4-10.4); MONOCYTES # (AUTO) 0.8 X 10^3 (0.0-1.0); MONOCYTES % (AUTO) 7 % (0-12); NEUTROPHILS # (AUTO) 7.3 X 10^3 (1.8-7.8); NEUTROPHILS % (AUTO) 64 % (42-75); PLATELET COUNT 201 10^3/uL (130-400); RED CELL DISTRIBUTION WIDTH 15.3 % (10.0-14.5); WHITE BLOOD COUNT 11.4 10^3/uL (4.3-11.0)
[2019-06-10] MEDS ORDERED: ONDANSETRON 4 MG/2 ML (SDV) Z0FRAN IV PRN (14:30)
[2019-06-10] MEDS ORDERED: CATHETER FLUSH 10 ML SYR IV PRN (14:30)
[2019-06-10] MEDS ORDERED: hydrALAZINE (APESOLINE) 20 MG/ML VIAL IV PRN (14:30)
[2019-06-10] MEDS: NS IV 1000 ML 1,000 ML IV SCH (14:43)
[2019-06-10] MEDS: ENOXAPARIN 300 MG/3 ML (LOVENOX) MULTI-DOSE VIAL SQ SCH (14:43)
[2019-06-10] MEDS ORDERED: OMEP20CA13 PO (15:18)
[2019-06-10] MEDS ORDERED: FLUT1BLS3 IH (15:18)
[2019-06-10] MEDS ORDERED: IBUP-1780 PO (15:18)
[2019-06-10] MEDS ORDERED: PRD50T PO (15:18)
[2019-06-10] MEDS ORDERED: ALBU2.5V4 NEB (15:18)
[2019-06-10] MEDS ORDERED: IPRA3AMP31 NEB (15:18)
[2019-06-10] MEDS ORDERED: DULO60CA6 PO (15:18)
[2019-06-10] MEDS ORDERED: FURO40TA4 PO (15:18)
[2019-06-10] MEDS ORDERED: HYDR12.5 PO (15:18)
[2019-06-10] MEDS ORDERED: ASPI-983 PO (15:18)
[2019-06-10] MEDS ORDERED: SIMV20TA3 PO (15:18)
[2019-06-10] MEDS ORDERED: OMEP20TA7 PO (15:18)
--- NOTE | 2019-06-10 15:36 | NUR ---
SPOKE WITH THE PATIENT ABOUT HIS MEDICATIONS. THEY HAD A LIST FROM THE DR OFFICE. WE WENT OVER THAT LIST. I CALLED TO VERIFY THE LAST FILL DATES AND THE PATIENT IS PAST DUE FOR REFILL ON SEVERAL MEDICATIONS. I NOTED THE PAST DUE FILL DATES ON THE MED REC. IN ADDITION TO WHAT IS SHOWN ON THE EXT MED HX [facility] ON FILLED: 05-11-19 HCTZ 12.5MG CAP DAILY #90 12-03-18 SIMVASTATIN 20MG DAILY #90 12-03-18 METFORMIN 500MG BID #180 10-30-18 CYMBALTA 60MG DAILY #90 I CALLED AND SPOKE WITH THE [facility], THEY STATE THEY HAVE NOT AUTHORIZED REFILLS OR GIVEN ANY REPOSITORY MEDS RECENTLY. LAST TIME ANYTHING WAS AUTHORIZED WAS 2018 TO [facility]. HE RECENTLY FILLED FUROSEMIDE 40MG FOR 5 DAYS, HE STATES HE WAS TO TAKE THIS DOSE IN PLACE OF HIS SCHEDULED 20MG DOSE DAILY FOR 5 DAYS THEN RESUME HIS 20MG. HOWEVER HE HAS NOT FILLED THE 20MG SINCE 03-31-19 #30 THAT I CAN FIND. I REMOVED THE 20MG FROM THE MED REC AT THIS TIME. HE ALSO RECENTLY FILLED DUONEB NEBULIZER SOLUTION, HE WAS USING PLAIN ALBUTEROL 0.083%. I REMOVED THE ALBUTEROL AT THIS TIME SINCE HE IS NOW USING DUONEB. HE STATES HE TAKES ASPIRIN 81MG DAILY AND OMEPRAZOLE 20MG DAILY OTC. HE IS NO LONGER TAKING HYDROCODONE. HE ALSO STATES THE GABAPENTIN WAS RECENTLY DISCONTINUED. HE GETS SAMPLES OF HIS TRELEGY.
--- NOTE | 2019-06-10 15:43 | Diagnostic Imaging Report ---
PROCEDURE: US Venous Lower Ext Ignacio. TECHNIQUE: Multiple real-time grayscale images were obtained over the lower extremities in various projections, bilaterally. Additional duplex Doppler and color Doppler images were also obtained. INDICATION: Left leg pain and swelling greater than right, known pulmonary arterial emboli. FINDINGS: Right leg: The right lower extremity femoropopliteal deep and superficial system is widely patent. No right-sided deep or superficial venous thrombus found. Left leg: The left common femoral vein is patent and the profunda is patent. Deep vein thrombus in the left leg is confirmed from the proximal superficial femoral vein through the popliteal and into the major upper calf veins. IMPRESSION: Extensive left lower extremity DVT throughout the length of the femoral vein in the thigh, the popliteal vein, as well as into the calf. The common femoral on the left is patent and the right leg is negative. Report was called to the office of Dr. Cristobal Painting at 3:38 p.m., by jeanie (for YOEL). Dictated by: Dictated on workstation # [id number]
--- NOTE | 2019-06-10 18:05 | History & Physical-Hospitalist ---
History of Present Illness HPI/Chief Complaint Chief complaint: Dyspnea with bilateral pulmonary emboli History present illness: This is a 48-year-old white male clinic patient of [facility] in addition to Dr. Painting on a regular basis who is O2 dependent COPD patient with lung mass that is on surveillance from Dr. Painting who presented to his office after discharge from [facility] yesterday with increased shortness of breath even after given IV steroids and diuretics while at [facility] to treat volume overload and exacerbation of COPD. CT scan obtained by Dr. Painting's office showed bilateral pulmonary emboli with significant hypoxia so he was placed in the ICU given 1 mg/kg Lovenox dose subcu every 12 hours and closely monitored for the night. He reports that he had a prior DVT in the left leg and on venous Doppler ultrasound of the bilateral lower extremities today and confirmed the left lower extremity DVT in the same leg as previous. He was not currently on any oral anticoagulation. At this current time patient feels much better although he still is short of breath he appears to be in no respiratory failure status. Source: patient, family, RN/MD, old records Date Seen 06/10/19 Time Seen by a Provider: 17:20 Attending Physician Joy Lopez DO PCP Deloris Billingsley DO Referring Physician Date of Admission Jun 10, 2019 at 13:30 Home Medications & Allergies Home Medications Reviewed patient Home Medication Reconciliation performed by pharmacy medication reconciliations septic technician and/or nursing. Patients Allergies have been reviewed. Allergies Allergies Coded Allergies No Known Drug Allergies ([id number]/3/11) Past [id number]-Xcqypq Hx Past Med/Social Hx: Reviewed Nursing Past Med/Soc Hx, Reviewed and Corrections made Patient Social History Marrital Status: Employed/Student: unemployed Alcohol Use: Denies Use Recreational Drug Use: No Smoking Status: Former Smoker Former Smoker, Quit: Oct 30, 2010 Type Used: Cigarettes 2nd Hand Smoke Exposure: No Physical Abuse Screen: No Sexual Abuse: No Recent Foreign Travel: No Contact w/other who traveled: No Recent Hopitalizations: No Recent Infectious Disease Expo: No Immunizations Up To Date Tetanus Booster (TDap): Unknown Pediatric: Yes Date of Pneumonia Vaccine: Aug 27, 2018 Date of Influenza Vaccine: Jul 14, 2018 Seasonal Allergies Seasonal Allergies: Yes Past Medical History Surgeries: Eye Surgery Respiratory: COPD, Sleep Apnea Currently Using CPAP: Yes Cardiac: High Cholesterol, Hypertension Gastrointestinal: Diverticulosis, Hiatal Hernia Endocrine: Diabetes, Non-Insulin dep HEENT: Cataract, Glaucoma Psychosocial: Depression History of Blood Disorders: No (hx dvt) Family History Diabetes mellitus 19 MOTHER FH: coronary artery bypass surgery 19 MOTHER G8 BROTHER Myocardial infarction 19 MOTHER G8 SISTER Thyroid disease G8 SISTER Review of Systems Constitutional: see HPI Respiratory: cough, dyspnea on exertion Physical Exam Physical Exam Vital Signs Vital Signs - First Documented 06/10/19 13:30 Temp 97.4 Pulse 75 Resp 18 B/P (MAP) 148/96 (113) Pulse Ox 98 O2 Delivery Nasal Cannula O2 Flow Rate 3.00 Capillary Refill : Height, Weight, BMI Height: 5'6.00" Weight: 261lbs. 0.0oz. 118.497388tw; 42.1 BMI Method:Stated General Appearance: No Apparent Distress, WD/WN, Chronically ill, Obese Eyes: Right Eye Normal Inspection, Right Eye PERRL HEENT: PERRL/EOMI, Normal ENT Inspection, Pharynx Normal, Moist Mucous Memb ranes Neck: Full Range of Motion, Normal Inspection, Non Tender Respiratory: Chest Non Tender, Lungs Clear, No Accessory Muscle Use, No Respiratory Distress, Decreased Breath Sounds Cardiovascular: Regular Rate, Rhythm, No Gallop, No JVD, No Murmur, Normal Peripheral Pulses Gastrointestinal: Normal Bowel Sounds, No Organomegaly, No Pulsatile Mass, Non Tender, Soft Back: Normal Inspection, No CVA Tenderness, No Vertebral Tenderness Extremity: Normal Capillary Refill, Normal Inspection, Normal Range of Motion, Non Tender, No Calf Tenderness, Pedal Edema Neurologic/Psychiatric: Alert, Oriented x3, No Motor/Sensory Deficits, Normal Mood/Affect Skin: Normal Color, Warm/Dry Lymphatic: No Adenopathy Results Results/Procedures Labs Laboratory Tests 06/10/19 14:10 Patient resulted labs reviewed. Assessment/Plan Admission Diagnosis Assessment: Bilateral PE acute Left DVT COPD severe O2 dependent Former smoker Obesity Plan: Lovenox O2 [facility] ICU tonight Admission Status: Inpatient Order (span 2 midnights) Reason for Inpatient Admission: B/L PE Diagnosis/Problems Diagnosis/Problems (1) Pulmonary embolism Status: Acute Qualifiers: Pulmonary embolism type: saddle Chronicity: acute Acute cor pulmonale presence: without acute cor pulmonale Qualified Codes: I26.92 - Saddle embolus of pulmonary artery without acute cor pulmonale (2) Left leg DVT Status: Acute Qualifiers: Affected thrombotic vein of extremity: femoral Chronicity: acute Qualified Codes: I82.412 - Acute embolism and thrombosis of left femoral vein (3) History of deep venous thrombosis (DVT) of distal vein of left lower extremi ty Status: Chronic (4) Obesity Status: Chronic (5) COPD (chronic obstructive pulmonary disease) (6) Lung nodule Clinical Quality Measures DVT/VTE Risk/Contraindication: Risk Factor Score Per Nursin RFS Level Per Nursing on Admit: 4+=Very High JOY LOPEZ DO Jun 10, 2019 18:05
[2019-06-10] MEDS ORDERED: MELATONIN 3 MG TABLET PO PRN (18:15)
[2019-06-10] MEDS ORDERED: CALCIUM CARBONATE 500 MG (TUMS) TAB.CHEW PO PRN (18:15)
[2019-06-10] MEDS ORDERED: ONDANSETRON 4 MG (ZOFRAN) ORAL DISSOLVE TAB PO PRN (18:15)
[2019-06-10] MEDS ORDERED: ALPRAZolam 0.25 MG (XANAX) TAB PO PRN (18:15)
[2019-06-10] MEDS ORDERED: diphenhydrAMINE 25 MG TAB (BENADRYL) PO PRN (18:15)
[2019-06-10] MEDS ORDERED: IBUPROFEN 800 MG (MOTRIN) TAB PO PRN (18:15)
[2019-06-10] MEDS ORDERED: DOCUSATE SODIUM 100 MG (COLACE) CAP PO PRN (18:15)
[2019-06-10] MEDS ORDERED: LOPERAMIDE 2 MG (IMODIUM) TABLET PO PRN (18:15)
[2019-06-10] MEDS ORDERED: ACETAMINOPHEN 500 MG TAB (TYLENOL) PO PRN (18:15)
[2019-06-10] MEDS ORDERED: ONDANSETRON 4 MG/2 ML (SDV) Z0FRAN IVP PRN (18:15)
[2019-06-10] MEDS: SIMvastatin 20 MG (ZOCOR) TAB PO SCH (20:42)
[2019-06-10] MEDS: SENNA W/DOCUSATE (SENOKOT S) TABLET PO SCH (20:42)
[2019-06-10] MEDS: morphine INJ 4 MG/ML 1 ML (VIAL/SYRINGE) IV PRN (20:55)
[2019-06-11] VITALS (11 sets, daily range): BP systolic 103–153; BP diastolic 45–91
[2019-06-11] MEDS: NS IV 1000 ML 1,000 ML IV SCH (00:36)
[2019-06-11] MEDS: ENOXAPARIN 300 MG/3 ML (LOVENOX) MULTI-DOSE VIAL SQ SCH (02:38)
[2019-06-11] MEDS: RT-ALBUTEROL/IPRATROPIUM 3 ML (DUONEB) VIAL IH SCH ×4 (03:09→20:07)
[2019-06-11 03:32] LABS: BASOPHILS % (AUTO) 0 % (0-10); EOSINOPHILS # (AUTO) 0.3 10^3/uL (0.0-0.3); EOSINOPHILS % (AUTO) 3 % (0-10); HEMATOCRIT 42 % (40-54); HEMOGLOBIN 13.1 G/DL (13.3-17.7); LYMPHOCYTES # (AUTO) 2.8 X 10^3 (1.0-4.0); LYMPHOCYTES % (AUTO) 31 % (12-44); MEAN CORPUSCULAR HEMOGLOBIN 29 PG (25-34); MEAN CORPUSCULAR HGB CONC 32 G/DL (32-36); MEAN CORPUSCULAR VOLUME 92 FL (80-99); MEAN PLATELET VOLUME 9.5 FL (7.4-10.4); MONOCYTES # (AUTO) 0.8 X 10^3 (0.0-1.0); MONOCYTES % (AUTO) 8 % (0-12); NEUTROPHILS # (AUTO) 5.4 X 10^3 (1.8-7.8); NEUTROPHILS % (AUTO) 58 % (42-75); PLATELET COUNT 223 10^3/uL (130-400); RED CELL DISTRIBUTION WIDTH 15.2 % (10.0-14.5); WHITE BLOOD COUNT 9.3 10^3/uL (4.3-11.0)
[2019-06-11 03:53] LABS: BUN/CREATININE RATIO 23; CALCIUM 8.9 MG/DL (8.5-10.1); CARBON DIOXIDE 22 MMOL/L (21-32); CHLORIDE 106 MMOL/L (98-107); CREATININE SERUM 0.87 MG/DL (0.60-1.30); GFR ESTIMATED > 60; GLUCOSE 99 MG/DL (70-105); MAGNESIUM 1.4 MG/DL (1.6-2.4); PHOSPHORUS 4.6 MG/DL (2.3-4.7); POTASSIUM 4.3 MMOL/L (3.6-5.0); SODIUM 141 MMOL/L (135-145)
[2019-06-11] MEDS ORDERED: MAGNESIUM 1 GM/100 ML IVPB 200 ML IV ONE (04:32)
[2019-06-11] MEDS: POTASSIUM CL 10MEQ/50ML IVPB 50 ML IV SCH (04:35)
[2019-06-11] MEDS: KCL 20 MEQ TAB (K-DUR) PO SCH (04:36)
[2019-06-11] MEDS: MAGNESIUM 1 GM/100 ML IVPB 100 ML IV SCH ×3 (04:36→06:00)
--- NOTE | 2019-06-11 05:36 | Pulmonary Consultation ---
History of Present Illness History of Present Illness Date of Consultation 06/11/19 05:36 Time Seen by Provider: 08:18 Date of Admission History of Present Illness 48yo with hx of DVT, oxygen dependent lung disease was recently treated at [facility] for SOB and sent home directly admitted from my office to ICU after stat CTA chest showed acute bilateral PE. Pt has had worsening SOB and hypoxia over the last 2 wks. Bilateral dopplers also show LLE DVT. Allergies and Home Medications Allergies Coded Allergies: No Known Drug Allergies (Unverified , 09/15/11) Home Medications Albuterol Sulfate 1 Puff Puff, 2 PUFF IH Q6H PRN for SHORTNESS OF BREATH, (Reported) Aspirin 81 Mg Tablet.dr, 81 MG PO DAILY, (Reported) Duloxetine HCl 60 Mg Capsule.dr, 60 MG PO DAILY, (Reported) LAST FILLED #90 10-30-18 Fluticasone/Umeclidin/Vilanter 1 Each Blst.w.dev, 1 PUFF IH DAILY, (Reported) Furosemide 40 Mg Tablet, 40 MG PO DAILY, (Reported) 5 DAY SUPPLY FILLED 06-08-19 Hydrochlorothiazide 12.5 Mg Capsule, 12.5 MG PO DAILY, (Reported) Ibuprofen 800 Mg Tablet, 800 MG PO TID PRN for PAIN-MILD, (Reported) Ipratropium/Albuterol Sulfate 3 Ml Ampul.neb, 3 ML NEB Q4H PRN for SHORTNESS OF BREATH, (Reported) Metformin HCl 500 Mg Tablet, 500 MG PO BID, (Reported) LAST FILLED #180 12-03-18 Omeprazole 20 Mg Tablet.dr, 20 MG PO DAILY, (Reported) Prednisone 50 Mg Tab, 50 MG PO DAILY, (Reported) 5 DAY SUPPLY FILLED 06-08-19 Simvastatin 20 Mg Tablet, 20 MG PO HS, (Reported) LAST FILLED #90 12-03-18 Past Jhxcrfv-Vwhnpi-Uckoiy Hx Past Med/Social Hx: Reviewed Nursing Past Med/Soc Hx, Reviewed and Corrections made Patient Social History Alcohol Use: Denies Use Recreational Drug Use: No Smoking Status: Former Smoker Type Used: Cigarettes Former Smoker, Quit: Oct 30, 2010 2nd Hand Smoke Exposure: No Recent Foreign Travel: No Contact w/Someone Who Travel: No Recent Infectious Disease Expo: No Recent Hopitalizations: No Immunizations Up To Date Tetanus Booster (TDap): Unknown PED Vaccines UTD: Yes Date of Pneumonia Vaccine: Aug 27, 2018 Date of Influenza Vaccine: Jul 14, 2018 Seasonal Allergies Seasonal Allergies: Yes Past Medical History Surgeries: Yes (bilat carpal tunnel) Eye Surgery Respiratory: Yes Sleep Apnea, COPD Currently Using CPAP: Yes Cardiac: No High Cholesterol, Hypertension Neurological: No Genitourinary: No Gastrointestinal: Yes Diverticulosis, Hiatal Hernia Musculoskeletal: No Endocrine: Yes Diabetes, Non-Insulin dep HEENT: Yes Cataract, Glaucoma Cancer: No Psychosocial: Yes Depression Integumentary: No Blood Disorders: No (hx dvt) Family Medical History Diabetes mellitus 19 MOTHER FH: coronary artery bypass surgery 19 MOTHER G8 BROTHER Myocardial infarction 19 MOTHER G8 SISTER Thyroid disease G8 SISTER Review of Systems Time Seen by Provider: 08:22 Constitutional: Fever, Chills, Sweats, Weakness, Malaise, Other Eyes: No: Pain, Vision change, Conjunctivae inflammation, Eyelid inflammation, Other, Redness ENT: Nose congestion; No: Ear pain, Ear discharge, Nose pain, Nose discharge, Mouth pain, Mouth swelling, Throat pain, Throat swelling, Other Respiratory: Cough, Dry, Shortness of breath, Wheezing Cardiovascular: Palpitations, Paroxysmal Noc. Dyspnea; No: Chest Pain Gastrointestinal: Nausea Sepsis Event Evaluation Height, Weight, BMI Height: 5'6.00" Weight: 261lbs. 0.0oz. 118.417636yt; 42.1 BMI Method:Stated Exam Exam Vital Signs Date Time Temp Pulse Resp B/P (MAP) Pulse Ox O2 Delivery O2 Flow Rate FiO2 06/11/19 04:00 94 Nasal Cannula 4.00 06/11/19 03:09 92 Nasal Cannula 4.00 06/11/19 01:00 92 06/11/19 00:06 91 18 132/85 (101) 93 Nasal Cannula 3.00 06/11/19 00:00 Nasal Cannula 3.00 06/11/19 00:00 97.8 06/10/19 23:00 87 2 141/65 (90) 93 Nasal Cannula 3.00 06/10/19 22:00 92 19 137/74 (95) 90 Nasal Cannula 3.00 06/10/19 21:00 93 15 128/69 (88) 91 Nasal Cannula 3.00 06/10/19 21:00 93 Nasal Cannula 3.00 06/10/19 20:00 Nasal Cannula 3.00 06/10/19 20:00 97.7 96 24 133/81 (98) 93 Nasal Cannula 3.00 06/10/19 19:00 92 06/10/19 19:00 92 22 125/112 (116) 96 Nasal Cannula 3.00 06/10/19 18:00 101 21 133/77 (95) 92 Nasal Cannula 3.00 06/10/19 17:00 96 15 130/78 (95) 95 Nasal Cannula 3.00 06/10/19 16:00 98 12 159/94 (115) Nasal Cannula 3.00 06/10/19 16:00 Nasal Cannula 3.00 06/10/19 15:00 95 15 159/87 (111) Nasal Cannula 3.00 06/10/19 14:00 83 23 145/96 (112) 99 Nasal Cannula 3.00 06/10/19 13:36 77 06/10/19 13:30 97.4 75 18 148/96 (113) 98 Nasal Cannula 3.00 06/10/19 13:30 Nasal Cannula 3.00 I & O 06/11/19 07:00 Intake Total 480 ml Output Total 500 ml Balance -20 ml Height & Weight Height: 5'6.00" Weight: 261lbs. 0.0oz. 118.973502pd; 42.1 BMI Method:Stated General Appearance: No Apparent Distress, WD/WN, Chronically ill, Obese HEENT: PERRL/EOMI, Normal ENT Inspection, Pharynx Normal, Moist Mucous Membranes Neck: Full Range of Motion, Normal Inspection, Non Tender Respiratory: Chest Non Tender, Lungs Clear, No Accessory Muscle Use, No Respiratory Distress, Decreased Breath Sounds Cardiovascular: Regular Rate, Rhythm, No Gallop, No JVD, No Murmur, Normal Peripheral Pulses Capillary Refill: Less Than 3 Seconds Extremity: Normal Capillary Refill, Normal Inspection, Normal Range of Motion, Non Tender, No Calf Tenderness, Pedal Edema Neurologic/Psychiatric: Alert, Oriented x3, No Motor/Sensory Deficits, Normal Mood/Affect Skin: Normal Color, Warm/Dry Lymphatic: No Adenopathy Results Lab Laboratory Tests 06/10/19 14:10 06/11/19 03:07 Assessment/Plan Assessment/Plan Acute bilateral PE/Left DVT -Change Lovenox to Xarelto -Pt will need life long anticoagulation -He has a hx of left DVT Severe COPDAE/AsthmaAE -Solumedrol -Duonebs -Pt normally uses 2 liters of oxygen at home. Currently using 4-5liters. Allergic rhinitis -Start Donald Valenzuela Hx of tobacco use Morbid obesity with CHAZ -Compliant with home CPAP machine -Use hospital CPAP machine if pt is unable to obtain his JOSE RAUL JUARES DO Jun 11, 2019 05:36
[2019-06-11] MEDS: PANTOPRAZOLE 40 MG (PROTONIX) TAB PO SCH (06:00)
[2019-06-11] MEDS: RIVAROXABAN 15 MG TABLET (XARELTO) PO SCH ×2 (06:56→18:26)
--- NOTE | 2019-06-11 07:03 | NUR ---
SPOKE WITH DR. JUARES TO CLARIFY XARELTO ORDER. RECEIVED ORDERS TO HOLD AM DOSE OF XARELTO AND FOR FIRST DOSE TO BE THE 1900 DOSE.
[2019-06-11] MEDS: ASPIRIN E.C. 81 MG (ECOTRIN) TAB PO SCH (07:46)
[2019-06-11] MEDS: DULoxetine 30 MG (CYMBALTA) CAP PO SCH (07:46)
[2019-06-11] MEDS: FUROSEMIDE 40 MG (LASIX) TAB PO SCH (07:46)
[2019-06-11] MEDS: SENNA W/DOCUSATE (SENOKOT S) TABLET PO SCH ×2 (07:49→20:23)
[2019-06-11] MEDS ORDERED: NON-FORMULARY MEDICATION 1 EA EA (Duloxetine HCl (Cymbalta) 60 MG) PO SCH (09:00)
[2019-06-11] MEDS ORDERED: NON-FORMULARY MEDICATION 1 EA EA (Fluticasone/Umeclidin/Vilanter (Trelegy Ellipta 100-62.5 IH SCH (09:00)
--- NOTE | 2019-06-11 10:04 | Progress Note - Hospitalist ---
Subjective HPI/CC On Admission Date Seen by Provider: Jun 11, 2019 Time Seen by Provider: 09:30 Chief complaint: Dyspnea with bilateral pulmonary emboli History present illness: This is a 48-year-old white male clinic patient of [facility] in addition to Dr. Painting on a regular basis who is O2 dependent COPD patient with lung mass that is on surveillance from Dr. Painting who presented to his office after discharge from [facility] yesterday with increased shortness of breath even after given IV steroids and diuretics while at [facility] to treat volume overload and exacerbation of COPD. CT scan obtained by Dr. Painting's office showed bilateral pulmonary emboli with significant hypoxia so he was placed in the ICU given 1 mg/kg Lovenox dose subcu every 12 hours and closely monitored for the night. He reports that he had a prior DVT in the left leg and on venous Doppler ultrasound of the bilateral l ower extremities today and confirmed the left lower extremity DVT in the same leg as previous. He was not currently on any oral anticoagulation. At this current time patient feels much better although he still is short of breath he appears to be in no respiratory failure status. Subjective/Events-last exam Pt transitioning to Xarelto and discontinuing Lovenox 1 Mg per Kg dosing. Pt sleeping and its 9:15 and his partner is sleeping also. Transferring to fourth floor today. Likely ready to go tomorrow. Chronic wheezing but Pt otherwise stable. Review of Systems General: Fatigue Pulmonary: Dyspnea, Cough Objective Exam Vital Signs Vital Signs Date Time Temp Pulse Resp B/P (MAP) Pulse Ox O2 Delivery O2 Flow Rate FiO2 06/11/19 20:07 99 Nasal Cannula 4.00 06/11/19 20:00 97.4 88 21 153/87 (109) Capillary Refill : Less Than 3 Seconds General Appearance: No Apparent Distress, WD/WN, Chronically ill Respiratory: Chest Non Tender, Normal Breath Sounds, No Accessory Muscle Use, No Respiratory Distress, Wheezing Cardiovascular: Regular Rate, Rhythm, No Edema, No Gallop, No JVD, No Murmur, Normal Peripheral Pulses Neurologic/Psychiatric: Alert, Oriented x3, No Motor/Sensory Deficits, Normal Mood/Affect Results/Procedures Lab Laboratory Tests 06/11/19 03:07 Patient resulted labs reviewed. Assessment/Plan Assessment and Plan Assess & Plan/Chief Complaint Assessment: Bilateral PE acute Left DVT acute COPD O2 dependence Plan: Xarelto O2 Nebs Diagnosis/Problems Diagnosis/Problems (1) Pulmonary embolism Status: Acute Qualifiers: Pulmonary embolism type: saddle Chronicity: acute Acute cor pulmonale presence: without acute cor pulmonale Qualified Codes: I26.92 - Saddle embolus of pulmonary artery without acute cor pulmonale (2) Left leg DVT Status: Acute Qualifiers: Affected thrombotic vein of extremity: femoral Chronicity: acute Qualified Codes: I82.412 - Acute embolism and thrombosis of left femoral vein (3) History of deep venous thrombosis (DVT) of distal vein of left lower extremity Status: Chronic (4) Obesity Status: Chronic (5) COPD (chronic obstructive pulmonary disease) (6) Lung nodule Clinical Quality Measures DVT/VTE Risk/Contraindication: Risk Factor Score Per Nursin RFS Level Per Nursing on Admit: 4+=Very High ADELIA MANN DO Jun 11, 2019 10:04
--- NOTE | 2019-06-11 11:02 | Diagnostic Imaging Report ---
CLINICAL INDICATION: Patient with dyspnea. EXAM: Portable chest x-ray semi-upright view. COMPARISONS: Portable chest x-ray dated 11/05/2018. FINDINGS: Lungs/pleura: There is interval improved aeration of both lungs compared to the prior study. There is residual mild bibasilar atelectasis. There is no definite lung infiltrate. There is no pneumothorax. There is no pleural effusion. Mediastinum: Unremarkable. Pulmonary vasculature: Unremarkable. Heart: Unremarkable. Bones/extrathoracic soft tissue: Unremarkable. IMPRESSION: Improved aeration of both lungs compared to prior study. There is mild bibasilar atelectasis. Otherwise, there is no interval radiographic evidence of acute cardiopulmonary process. Dictated by: Dictated on workstation # [id number]
[2019-06-11] MEDS: LORATADINE (CLARITIN) 10 MG TAB PO SCH (12:38)
[2019-06-11] MEDS: morphine INJ 4 MG/ML 1 ML (VIAL/SYRINGE) IV PRN (18:26)
[2019-06-11] MEDS: SIMvastatin 20 MG (ZOCOR) TAB PO SCH (20:16)
[2019-06-11] MEDS ORDERED: MONTELUKAST 10 MG (SINGULAIR) TAB PO SCH (21:00)
[2019-06-12] VITALS: BP 138/75
[2019-06-12] MEDS: RT-ALBUTEROL/IPRATROPIUM 3 ML (DUONEB) VIAL IH SCH ×2 (02:35→09:49)
[2019-06-12 04:13] LABS: BASOPHILS % (AUTO) 1 % (0-10); EOSINOPHILS # (AUTO) 0.3 10^3/uL (0.0-0.3); EOSINOPHILS % (AUTO) 4 % (0-10); HEMATOCRIT 40 % (40-54); HEMOGLOBIN 13.1 G/DL (13.3-17.7); LYMPHOCYTES # (AUTO) 1.8 X 10^3 (1.0-4.0); LYMPHOCYTES % (AUTO) 21 % (12-44); MEAN CORPUSCULAR HEMOGLOBIN 30 PG (25-34); MEAN CORPUSCULAR HGB CONC 33 G/DL (32-36); MEAN CORPUSCULAR VOLUME 92 FL (80-99); MEAN PLATELET VOLUME 9.7 FL (7.4-10.4); MONOCYTES # (AUTO) 0.5 X 10^3 (0.0-1.0); MONOCYTES % (AUTO) 5 % (0-12); NEUTROPHILS # (AUTO) 6.2 X 10^3 (1.8-7.8); NEUTROPHILS % (AUTO) 70 % (42-75); PLATELET COUNT 203 10^3/uL (130-400); RED CELL DISTRIBUTION WIDTH 14.6 % (10.0-14.5); WHITE BLOOD COUNT 8.8 10^3/uL (4.3-11.0)
[2019-06-12 04:36] LABS: BUN/CREATININE RATIO 18; CALCIUM 8.8 MG/DL (8.5-10.1); CARBON DIOXIDE 23 MMOL/L (21-32); CHLORIDE 103 MMOL/L (98-107); CREATININE SERUM 0.99 MG/DL (0.60-1.30); GFR ESTIMATED > 60; GLUCOSE 104 MG/DL (70-105); MAGNESIUM 2.1 MG/DL (1.6-2.4); PHOSPHORUS 4.4 MG/DL (2.3-4.7); POTASSIUM 4.1 MMOL/L (3.6-5.0); SODIUM 141 MMOL/L (135-145)
--- NOTE | 2019-06-12 04:49 | Pulmonary Progress Note ---
Subjective Time Seen by a Provider: 06:09 Subjective/Events-last exam Pt appears to be doing better. Sepsis Event Evaluation Height, Weight, BMI Height: 5'6.00" Weight: 267lbs. 4.0oz. 121.082200zb; 42.1 BMI Method:Stated Exam Exam Vital Signs Date Time Temp Pulse Resp B/P (MAP) Pulse Ox O2 Delivery O2 Flow Rate FiO2 06/12/19 02:35 95 NIV CPAP 4.00 06/12/19 01:00 76 06/12/19 00:00 73 138/75 (96) 96 Nasal Cannula 4.00 06/11/19 21:00 95 Nasal Cannula 3.00 06/11/19 20:07 99 Nasal Cannula 4.00 06/11/19 20:00 97.4 88 21 153/87 (109) 99 Nasal Cannula 4.00 06/11/19 19:00 84 06/11/19 16:00 97.8 84 17 97 Nasal Cannula 4.00 06/11/19 14:56 98 Nasal Cannula 4.00 06/11/19 13:00 75 06/11/19 12:00 97.8 83 22 135/87 (103) 97 Nasal Cannula 4.00 06/11/19 08:00 91 125/75 (92) 98 Nasal Cannula 4.00 06/11/19 07:57 97 Nasal Cannula 4.00 06/11/19 07:49 96 Nasal Cannula 4.00 06/11/19 07:49 97.5 06/11/19 07:00 84 06/11/19 07:00 79 23 140/91 (107) 98 Nasal Cannula 4.00 06/11/19 06:00 78 23 135/88 (104) 99 Nasal Cannula 4.00 06/11/19 05:00 74 17 103/73 (83) 95 Nasal Cannula 4.00 I & O 06/12/19 07:00 Intake Total 1385 ml Output Total 1500 ml Balance -115 ml Height & Weight Height: 5'6.00" Weight: 267lbs. 4.0oz. 121.745894te; 42.1 BMI Method:Stated General Appearance: No Apparent Distress, WD/WN, Chronically ill HEENT: PERRL/EOMI, Normal ENT Inspection, Pharynx Normal, Moist Mucous Membranes Neck: Full Range of Motion, Normal Inspection, Non Tender Respiratory: Chest Non Tender, Normal Breath Sounds, No Accessory Muscle Use, No Respiratory Distress, Wheezing Cardiovascular: Regular Rate, Rhythm, No Edema, No Gallop, No JVD, No Murmur, Normal Peripheral Pulses Capillary Refill: Less Than 3 Seconds Extremity: Normal Capillary Refill, Normal Inspection, Normal Range of Motion, Non Tender, No Calf Tenderness, Pedal Edema Neurologic/Psychiatric: Alert, Oriented x3, No Motor/Sensory Deficits, Normal Mood/Affect Skin: Normal Color, Warm/Dry Lymphatic: No Adenopathy Results Lab Laboratory Tests 06/10/19 14:10 06/11/19 03:07 06/12/19 03:52 Assessment/Plan Assessment/Plan Acute bilateral PE/Left DVT -Change Lovenox to Xarelto -Pt will need life long anticoagulation -He has a hx of left DVT Severe COPDAE/AsthmaAE -Solumedrol -Duonebs -Pt normally uses 2 liters of oxygen at home. Currently using 4-5liters. Allergic rhinitis - Donald Valenzuela Hx of tobacco use Morbid obesity with CHAZ -Compliant with home CPAP machine JOSE RAUL JUARES DO Jun 12, 2019 04:49
[2019-06-12] MEDS: KCL 20 MEQ TAB (K-DUR) PO SCH (05:29)
[2019-06-12] MEDS: POTASSIUM CL 10MEQ/50ML IVPB 50 ML IV SCH (05:29)
[2019-06-12] MEDS: MAGNESIUM 1 GM/100 ML IVPB 100 ML IV SCH (05:29)
[2019-06-12] MEDS: PANTOPRAZOLE 40 MG (PROTONIX) TAB PO SCH (06:06)
[2019-06-12] MEDS: RIVAROXABAN 15 MG TABLET (XARELTO) PO SCH (06:06)
--- NOTE | 2019-06-12 07:29 | Diagnostic Imaging Report ---
EXAM: CHEST 1 VIEW, AP/PA ONLY INDICATION: Shortness of air. COMPARISON: 06/11/2019. FINDINGS: Normal heart size and central pulmonary vascularity. Mild airspace consolidation in the lung bases. This has progressed in the right lung base since prior exam. No pleural effusion or pneumothorax. No acute osseous findings. IMPRESSION: Bibasilar airspace consolidation, increasing on the right. Remainder negative. Dictated by: Dictated on workstation # [id number]
[2019-06-12 08:14] VITALS: BP 138/84
[2019-06-12] MEDS: FUROSEMIDE 40 MG (LASIX) TAB PO SCH (08:16)
[2019-06-12] MEDS: ASPIRIN E.C. 81 MG (ECOTRIN) TAB PO SCH (08:17)
[2019-06-12] MEDS: LORATADINE (CLARITIN) 10 MG TAB PO SCH (08:17)
[2019-06-12] MEDS: DULoxetine 30 MG (CYMBALTA) CAP PO SCH (08:19)
[2019-06-12] MEDS: SENNA W/DOCUSATE (SENOKOT S) TABLET PO SCH (09:04)
[2019-06-12] MEDS ORDERED: RIVA15TA2 PO (10:59)
[2019-06-12] MEDS ORDERED: LORA10TA7 PO (10:59)
[2019-06-12] MEDS ORDERED: MONT10TA24 PO (11:00)
[2019-06-12 12:35] VITALS: BP 138/84
--- NOTE | 2019-06-12 12:37 | NUR ---
DERIC CLARK demonstrates understanding of discharge instructions and accurately returns instructions upon questioning. Copy of Post-Discharge Instructions and Medication Discharge Instructions given to patient. DERIC CLARK is able to manage continuing needs after discharge. Patients belongings returned to patient. Skin dry and intact; no breakdown noted. Patient discharged from 3-1 on 06/12/19 at 1215. DERIC CLARK left floor via wheelchair, accompanied by adult child et TEACHER'S AIDE.
--- NOTE | 2019-06-12 15:47 | Discharge Summary ---
RUBI VANG [facility] 06/12/19 1547: Diagnosis/Chief Complaint Date of Admission Jun 10, 2019 at 13:30 Date of Discharge Jun 12, 2019 at 12:15 Discharge Date: Jun 12, 2019 Admission Diagnosis Assessment: Bilateral PE acute Left DVT COPD severe O2 dependent Former smoker Obesity Plan: Lovenox O2 [facility] Primary Care Filomena Lilly Nelson Discharge Diagnosis (1) Pulmonary embolism Status: Acute (2) Left leg DVT Status: Acute (3) History of deep venous thrombosis (DVT) of distal vein of left lower extremity Status: Chronic (4) Obesity Status: Chronic (5) COPD (chronic obstructive pulmonary disease) (6) Lung nodule Discharge Summary Discharge Physical Exam Allergies: Coded Allergies: No Known Drug Allergies (Unverified , 09/15/11) Vitals & I&Os Vital Signs Date Time Temp Pulse Resp B/P (MAP) Pulse Ox O2 Delivery O2 Flow Rate FiO2 06/12/19 12:35 75 21 138/84 99 Nasal Cannula 3.00 06/12/19 08:14 97.6 General Appearance: No Apparent Distress, Chronically ill Respiratory: Chest Non Tender, No Accessory Muscle Use, No Respiratory Distress, Wheezing Cardiovascular: Regular Rate, Rhythm, No JVD Gastrointestinal: Normal Bowel Sounds, Non Tender Extremity: Normal Capillary Refill, Other (Left leg pain when walking, no pain on palpation. Sensory intact bilaterally, Skin has its normal color back on left foot. ) Skin: Normal Color Neurologic/Psychiatric: Alert, Oriented x3 Hospital Course Was the Problem List Reviewed?: Yes Karson Hutchison presented to [facility] with dyspnea and bilateral pulmonary emboli. The patient was under the care of Dr. Painting Pulmonary and Dr. Mann Internal medicine. The patient also has an extensive PMH of oxygen dependent COPD and left leg DVT. While at the hospital the patient was in the ICU receiving blood thinners and proper treatment for both acute and chronic conditions. The patient breathing has improved drastically since being admitted and is feeling much better. The pt still battles with weight bearing pain on the leg that had the DVT but he has been educated and informed on what to expect. The patient has been advised that he must complete his follow ups as directed and take all medications outlined in the discharge packet. The patient had two x-rays and a venous Doppler while at [facility] (notes to those imaging modalities can be found in the patients complete chart). The patient is being discharged today in stable condition. He has denied concerns or questions and feels ready to go. At this moment the patients vitals and labs are stable. Patients breathing is substantially better, but he still has difficulty associated with his oxygen dependent COPD. Dr. Painting in Pulmonary also believed it was okay to discharge patient from his standpoint. Again, the patient must continue his course of treatment and attend follow ups if applicable. The aforementioned hospital course is only a summary of this patient visit and is not all inclusive. Please review entire file for a more detail understanding. Labs (last 24 hrs) Laboratory Tests 06/12/19 03:52: White Blood Count 8.8, Red Blood Count 4.36, Hemoglobin 13.1L, Hematocrit 40, Mean Corpuscular Volume 92, Mean Corpuscular Hemoglobin 30, Mean Corpuscular Hemoglobin Concent 33, Red Cell Distribution Width 14.6H, Platelet Count 203, Mean Platelet Volume 9.7, Neutrophils (%) (Auto) 70, Lymphocytes (%) (Auto) 21, Monocytes (%) (Auto) 5, Eosinophils (%) (Auto) 4, Basophils (%) (Auto) 1, Neutrophils # (Auto) 6.2, Lymphocytes # (Auto) 1.8, Monocytes # (Auto) 0.5, Eosinophils # (Auto) 0.3, Basophils # (Auto) 0.0, Sodium Level 141, Potassium Level 4.1, Chloride Level 103, Carbon Dioxide Level 23, Anion Gap 15H, Blood Urea Nitrogen 18, Creatinine 0.99, Estimat Glomerular Filtration Rate > 60, BUN/Creatinine Ratio 18, Glucose Level 104, Calcium Level 8.8, Phosphorus Level 4.4, Magnesium Level 2.1 Microbiology 06/10/19 MRSA Screen - Final, Complete MRSA not isolated Patient resulted labs reviewed. Discharge Home Medications: Active Scripts Active Montelukast Sodium 10 Mg Tablet 10 Mg PO HS Xarelto Tablet (Rivaroxaban) 15 Mg Tablet 15 Mg PO BID@0700,1900 Loratadine 10 Mg Tablet 10 Mg PO DAILY Reported Iprat-Albut 0.5-3(2.5) mg/3 ml (Ipratropium/Albuterol Sulfate) 3 Ml Ampul.neb 3 Ml NEB Q4H PRN Furosemide 40 Mg Tablet 40 Mg PO DAILY 5 Days 5 DAY SUPPLY FILLED 06-08-19 Prednisone 50 Mg Tab 50 Mg PO DAILY 5 Days 5 DAY SUPPLY FILLED 06-08-19 Cymbalta (Duloxetine HCl) 60 Mg Capsule.dr 60 Mg PO DAILY LAST FILLED #90 10-30-18 Aspirin EC (Aspirin) 81 Mg Tablet.dr 81 Mg PO DAILY Hydrochlorothiazide 12.5 Mg Capsule 12.5 Mg PO DAILY Ibuprofen 800 Mg Tablet 800 Mg PO TID PRN Simvastatin 20 Mg Tablet 20 Mg PO HS LAST FILLED #90 12-03-18 Trelegy Ellipta 100-62.5-25 (Fluticasone/Umeclidin/Vilanter) 1 Each Blst.w.dev 1 Puff IH DAILY Omeprazole 20 Mg Tablet.dr 20 Mg PO DAILY Metformin HCl 500 Mg Tablet 500 Mg PO BID LAST FILLED #180 12-03-18 Proair Hfa (Albuterol Sulfate) 1 Puff Puff 2 Puff IH Q6H PRN Instructions to patient/family Please see electronic discharge instructions given to patient. Clinical Quality Measures DVT/VTE Risk/Contraindication: Risk Factor Score Per Nursin RFS Level Per Nursing on Admit: 4+=Very High JOY MANN DO 06/12/19 1656: Diagnosis/Chief Complaint Discharge Diagnosis (1) Pulmonary embolism Status: Acute (2) COPD (chronic obstructive pulmonary disease) (3) Obesity Status: Chronic (4) Lung nodule (5) Left leg DVT Status: Acute (6) History of deep venous thrombosis (DVT) of distal vein of left lower extremity Status: Chronic Discharge Summary Discharge Physical Exam Allergies: Coded Allergies: No Known Drug Allergies (Unverified , 09/15/11) General Appearance: No Apparent Distress, WD/WN, Chronically ill, Obese Respiratory: Chest Non Tender, Lungs Clear, Normal Breath Sounds, No Accessory Muscle Use, No Respiratory Distress Neurologic/Psychiatric: Alert, Oriented x3, No Motor/Sensory Deficits, Normal Mood/Affect Hospital Course Was the Problem List Reviewed?: Yes Verification and Attestation of Medical Student E/M Service A medical student performed and documented this service in my presence. I reviewed and verified all information documented by the medical student and made modifications to such information, when appropriate. I personally performed the physical exam and medical decision making. Joy Mann, Jun 12, 2019,16:56 Discussion & Recommendations Discharge Planning: <30 minutes discharge planning Supervisory-Addendum Brief Verification & Attestation Participated in pt care: history, MDM, physical Personally performed: exam, history, MDM, supervision of care Care discussed with: Medical Student Procedures: n/a Results interpretation: Verified all documentation Verification and Attestation of Medical Student E/M Service A medical student performed and documented this service in my presence. I reviewed and verified all information documented by the medical student and made modifications to such information, when appropriate. I personally performed the physical exam and medical decision making. Joy Mann, Jun 12, 2019,16:57 Problem Qualifiers (1) Pulmonary embolism: Pulmonary embolism type: saddle Chronicity: acute Acute cor pulmonale presence: without acute cor pulmonale Qualified Codes: I26.92 - Saddle embolus of pulmonary artery without acute cor pulmonale (2) Left leg DVT: Affected thrombotic vein of extremity: femoral Chronicity: acute Qualified Codes: I82.412 - Acute embolism and thrombosis of left femoral vein RUBI VANG [facility] Jun 12, 2019 15:47 JOY MANN DO Jun 12, 2019 16:56
[2019-07-02] MEDS ORDERED: RIVAROXABAN 20 MG TABLET (XARELTO) PO SCH (17:00)
== END 2019-06-12 12:15 | disposition home or self-care (01) | DRG 176 ==
LOC: ICU 13:30
PROVIDERS: ADMIT Internal Medicine; ATTEND Internal Medicine
DX: I26.92 Saddle embolus of pulmonary artery without acute cor pulmonale (principal); I82.412 Acute embolism and thrombosis of left femoral vein; J44.1 Chronic obstructive pulmonary disease with (acute) exacerbation; Z68.41 Body mass index [BMI] 40.0-44.9, adult; J45.901 Unspecified asthma with (acute) exacerbation; R91.8 Other nonspecific abnormal finding of lung field; E66.01 Morbid (severe) obesity due to excess calories; E78.00 Pure hypercholesterolemia, unspecified; I10 Essential (primary) hypertension; K44.9 Diaphragmatic hernia without obstruction or gangrene; E11.9 Type 2 diabetes mellitus without complications; F32.9 Major depressive disorder, single episode, unspecified; R09.02 Hypoxemia; G47.33 Obstructive sleep apnea (adult) (pediatric); H40.9 Unspecified glaucoma; Z99.81 Dependence on supplemental oxygen; Z87.891 Personal history of nicotine dependence; Z86.718 Personal history of other venous thrombosis and embolism
CPT/HCPCS: 36415; 71045; 80048; 83735; 84100; 84484; 85025; 87081; 93306; 93970; 94640

== ENCOUNTER → 2019-06-10 | Outpatient (CLI) | payer SELFPAY ==
[~2019-06-10] MED LIST changes: +ALBU2.5V4 NEB; +ASPI-983 PO; +CATHETER FLUSH 10 ML SYR IV PRN; +DULO60CA6 PO; +FLUT1BLS3 IH; +FURO40TA4 PO; +HYDR12.5 PO; +IBUP-1780 PO; +IPRA3AMP31 NEB; +LORA10TA7 PO; +MONT10TA24 PO; +OMEP20CA13 PO; +OMEP20TA7 PO; +RIVA15TA2 PO; +SIMV20TA3 PO
[2019-06-10 10:32] LABS: ALANINE AMINOTRANSFERASE 31 U/L (0-55); ALBUMIN 4.3 GM/DL (3.2-4.5); ALKALINE PHOSPHATASE 59 U/L (40-136); BILIRUBIN,TOTAL 0.2 MG/DL (0.1-1.0); BUN/CREATININE RATIO 24; CALCIUM 9.8 MG/DL (8.5-10.1); CARBON DIOXIDE 30 MMOL/L (21-32); CHLORIDE 104 MMOL/L (98-107); CREATININE SERUM 0.95 MG/DL (0.60-1.30); GFR ESTIMATED > 60; GLUCOSE 135 MG/DL (70-105); POTASSIUM 3.5 MMOL/L (3.6-5.0); SODIUM 144 MMOL/L (135-145); TOTAL PROTEIN 7.9 GM/DL (6.4-8.2)
--- NOTE | 2019-06-10 12:34 | Diagnostic Imaging Report ---
PROCEDURE: CT angiography of the chest with contrast. TECHNIQUE: Multiple contiguous axial images were obtained through the chest after uneventful bolus administration of intravenous contrast. 3D reconstructed CTA MIP acquisitions were also performed. Auto Exposure Controls were utilized during the CT exam to meet ALARA standards for radiation dose reduction. INDICATION: Shortness of breath. FINDINGS: Comparison is made to 05/04/2019. There are extensive pulmonary emboli involving both main pulmonary arteries and extending into the segmental vessels of the right middle lobe, upper lobe and lower lobe on the left. Right heart is dilated with flattening of the septum and reflux of contrast in keeping with right heart strain. No axillary, supraclavicular or mediastinal lymphadenopathy. Lungs are clear without edema or pneumonia. Areas of mosaic perfusion are in keeping with the acute pulmonary emboli. Limited views of the upper abdomen are normal. No suspicious osseous lesions are seen. IMPRESSION: 1. Fairly extensive acute pulmonary emboli with CT evidence of right heart strain. Findings were communicated to Dr. Rock by Dr. Arzola on 06/10/2019 at 12:25 PM. Dictated by: Dictated on workstation # [id number]
== END ==
LOC: RAD 09:56
PROVIDERS: ATTEND Nurse Practitioner Family
DX: I26.99 Other pulmonary embolism without acute cor pulmonale (principal); J44.9 Chronic obstructive pulmonary disease, unspecified; R91.1 Solitary pulmonary nodule
CPT/HCPCS: 36415; 36600; 71275; 80053; 83880

== ENCOUNTER → 2019-11-09 | Outpatient (CLI) | payer OTHER ==
[~2019-11-09] MED LIST changes: +ALBU2.5V4 NEB; +ASPI-983 PO; +CATHETER FLUSH 10 ML SYR IV PRN; +DULO60CA6 PO; +FLUT1BLS3 IH; +FURO40TA4 PO; +HOLD METFORMIN - RECEIVED CONTRAST 20 ML VIAL IV SCH; +HYDR12.5 PO; +IBUP-1780 PO; +IOHEXOL 350 MG/ML 100 ML (OMNIPAQUE 350) VIAL IV ONE; +IPRA3AMP31 NEB; +LORA10TA7 PO; +MONT10TA24 PO; +NS 100 ML (IVPB) BAG IV ONE; +OMEP-280 PO; +OMEP20TA7 PO; +RIVA15TA2 PO; +SIMV20TA26 PO
[2019-11-09 12:11] LABS: BUN/CREATININE RATIO 18; GFR ESTIMATED > 60
--- NOTE | 2019-11-09 15:35 | Diagnostic Imaging Report ---
PROCEDURE: CT chest with contrast only. TECHNIQUE: Multiple contiguous axial images were obtained through the chest after administration of intravenous contrast. Auto Exposure Controls were utilized during the CT exam to meet ALARA standards for radiation dose reduction. INDICATION: Follow up. COMPARISON: Exam compared with study of 06/10/2019. FINDINGS: While today's study was not protocoled for optimal sensitivity for pulmonary arterial evaluation, there appears to have been interval resolution of what was previously extensive bilateral PE. No evidence for elevated right heart pressures. The aorta is patent and nonaneurysmal. There is some apical peripheral cysts and blebs on the right upper lobe, chronic. No suspicious pulmonary nodule. No acute infiltrate. No evidence for edema, hemorrhage, or pulmonary infarct. The upper abdomen is nonacute. IMPRESSION: There appears to have been resolution of previous PE with no acute finding or adverse development. Dictated by: Dictated on workstation # [id number]
== END ==
LOC: RAD 11:37
PROVIDERS: ATTEND Internal Medicine Critical Care Medicine
DX: J44.9 Chronic obstructive pulmonary disease, unspecified (principal); I26.99 Other pulmonary embolism without acute cor pulmonale; R91.1 Solitary pulmonary nodule; Z86.718 Personal history of other venous thrombosis and embolism
CPT/HCPCS: 36415; 71260; 82565; 84520

== ENCOUNTER → 2021-03-02 | Outpatient (CLI) | payer MEDICARE, MEDICAID ==
[~2021-03-02] MED LIST changes: +ASPI-1238 PO; -ASPI-983 PO; -CATHETER FLUSH 10 ML SYR IV PRN; -HOLD METFORMIN - RECEIVED CONTRAST 20 ML VIAL IV SCH; -IOHEXOL 350 MG/ML 100 ML (OMNIPAQUE 350) VIAL IV ONE; -MONT10TA24 PO; +MONT10TA32 PO; -NS 100 ML (IVPB) BAG IV ONE; -OMEP-280 PO; +OMEP20CA18 PO
--- NOTE | 2021-03-02 11:30 | Diagnostic Imaging Report ---
INDICATION: COPD COMPARISON: 06/12/2019 FINDINGS: Frontal and lateral views of the chest demonstrate normal heart size and pulmonary vascularity. The lungs are clear. There are no signs of infiltrate, pleural effusions or pneumothoraces. The visualized osseous structures show no acute abnormalities. IMPRESSION: 1. No acute process. No signs of infiltrates, effusions or pneumothoraces. Dictated by: Dictated on workstation # [id number]
== END ==
LOC: RAD 10:58
PROVIDERS: ATTEND Nurse Practitioner Family
DX: J44.9 Chronic obstructive pulmonary disease, unspecified (principal)
CPT/HCPCS: 71046

== ENCOUNTER → 2021-05-04 | Outpatient (CLI) | payer MEDICAID, MEDICARE ==
[~2021-05-04] MED LIST changes: +RT-ALBUTEROL SULF 2.5 MG/3 ML PRE-MIX VIAL INH ONE
== END ==
LOC: RT 12:45
PROVIDERS: ATTEND Nurse Practitioner Family
DX: J44.9 Chronic obstructive pulmonary disease, unspecified (principal)
CPT/HCPCS: 94060; 94726; 94729

== ENCOUNTER → 2021-05-11 | Outpatient (CLI) | payer MEDICARE, MEDICAID ==
[~2021-05-11] MED LIST changes: -RT-ALBUTEROL SULF 2.5 MG/3 ML PRE-MIX VIAL INH ONE
[2021-05-11 14:59] LABS: ALBUMIN 4.1 GM/DL (3.2-4.5)
[2021-05-11 15:02] LABS: TOTAL PROTEIN 7.4 GM/DL (6.4-8.2)
[2021-05-11 15:04] LABS: BILIRUBIN,TOTAL 0.2 MG/DL (0.1-1.0)
[2021-05-11 15:05] LABS: CREATININE SERUM 1.01 MG/DL (0.60-1.30)
[2021-05-11 15:07] LABS: BILIRUBIN,DIRECT 0.1 MG/DL (0.0-0.3); BILIRUBIN,INDIRECT 0.1 MG/DL
== END ==
LOC: LAB
PROVIDERS: ATTEND Nurse Practitioner Family
DX: Z79.01 Long term (current) use of anticoagulants (principal)
CPT/HCPCS: 36415; 80076; 82565; 84520